=== PATIENT | female | born 1960 | race Caucasian/White ===

== ENCOUNTER 2023-09-02 19:52 | Outpatient (OUT) | payer MEDICARE, MEDICAID, SELFPAY | END 2023-09-02 19:53 | disposition home or self-care (01) | LOC: SLEEP 19:52 | PROVIDERS: PCP Physician Assistant; Visit Provider Physician Assistant | DX: G47.33 Obstructive sleep apnea (adult) (pediatric) (principal) | CPT/HCPCS: 95810 ==

== ENCOUNTER 2023-09-16 14:31 | Outpatient (OUT) | payer MEDICARE, MEDICAID, SELFPAY ==
--- NOTE | 2023-09-16 14:38 | XR_ITS ---
The [address] [address] Patient Name: MARÍA CABALLERO MRN: [id number] date: 1960 Sex: F Assigned Patient Location: [facility] Current Patient Location: Accession/Order Number: [id number] Exam Date: 09/16/2023 15:01 Report Date: 09/17/2023 08:20 At the request of: ARIN GUZMAN Procedure: XR knee RT 4V PROCEDURE: XR knee RT 4V HISTORY: acute pain of right knee M25.561 ; medial right knee pain since falling 2 weeks ago COMPARISON: None. FINDINGS: BONES:Thin curvilinear lucency projecting over the medial tibial plateau on the final image is seen projecting within the joint space on the second image suggesting this is air/gas within the joint space or meniscus rather than a fracture line within the medial plateau. Small periarticular degenerative osteophytes involving the anterior and medial compartments. No significant joint space narrowing. SOFT TISSUES:No visible soft tissue swelling. EFFUSION:None visible. OTHER: Negative. XR/XR knee RT 4V IMPRESSION: 1. Suspect air/gas within the medial joint space or meniscus likely secondary to soft tissue injury. A tibial plateau fracture is felt less likely. MRI is recommended for further evaluation. Electronically authenticated by: KRYSTEN NELSON Date: 09/17/2023 08:20
== END 2023-09-16 14:32 | disposition home or self-care (01) ==
LOC: RAD 14:32
PROVIDERS: PCP Physician Assistant; Visit Provider Physician Assistant
DX: M25.561 Pain in right knee (principal)
CPT/HCPCS: 73564

== ENCOUNTER 2023-09-23 20:51 | Outpatient (OUT) | payer MEDICARE, MEDICAID, SELFPAY | END 2023-09-23 20:52 | disposition home or self-care (01) | LOC: SLEEP 20:52 | PROVIDERS: PCP Physician Assistant; Visit Provider Physician Assistant | DX: G47.33 Obstructive sleep apnea (adult) (pediatric) (principal) | CPT/HCPCS: 95811 ==

== ENCOUNTER 2023-09-28 13:34 | Outpatient (OUT) | payer MEDICARE, MEDICAID, SELFPAY ==
--- NOTE | 2023-09-28 13:45 | MR_ITS ---
[address] [address] Patient Name: MARÍA CABALLERO MRN: [facility]:[id number] date: 1960 Sex: F Assigned Patient Location: MRI Current Patient Location: Accession/Order Number: [id number] Exam Date: 09/28/2023 13:55 Report Date: 09/29/2023 06:02 At the request of: ELIO OWENS Procedure: MR knee RT wo con EXAMINATION: MR knee RT wo con HISTORY: Abnormal X Ray Of Knee R93.6 COMPARISON: XR knee right 09/16/2023 TECHNIQUE: A complete multi-planar MRI was performed. FINDINGS: MEDIAL COMPARTMENT MEDIAL MENISCUS: Radial tear of the posterior horn. CARTILAGE: No visible defect. BONES: Prominent subchondral edema within the posterior and lateral aspect of the tibial plateau without visible cortical disruption. MCL AND MEDIAL CAPSULE: Normal medial collateral ligament and medial capsule. LATERAL COMPARTMENT LATERAL MENISCUS: No visible tear or significant degeneration. CARTILAGE: No visible defect. BONES: No marrow pathology, fracture, or significant arthropathy. LCL/POSTEROLAT COMPLEX: Normal lateral collateral ligament, fascicles, lateral capsule and ligaments. ANTERIOR COMPARTMENT PATELLA: No marrow pathology, fracture, or significant arthropathy. CARTILAGE: Small focal area of cortical thinning involving lateral patella facet. TENDONS: Normal. EFFUSION: None. No synovitis or loose bodies. ACL: Normal appearing ligament. PCL: Normal appearing ligament. MENISCOFEMORAL: Normal meniscofemoral ligaments. OTHER: Negative. MR/MR knee RT wo con IMPRESSION: 1. Radial tear of posterior horn the medial meniscus. 2. Prominent bone bruising of medial tibial plateau. No appreciable fracture. 3. 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 Electronically authenticated by: KRYSTEN NELSON Date: 09/29/2023 06:02
== END 2023-09-28 13:35 | disposition home or self-care (01) ==
LOC: MRI 13:37
PROVIDERS: PCP Physician Assistant; Visit Provider Family Medicine
DX: R93.6 Abnormal findings on diagnostic imaging of limbs (principal); S83.241A Other tear of medial meniscus, current injury, right knee, initial encounter; M22.41 Chondromalacia patellae, right knee
CPT/HCPCS: 73721

== ENCOUNTER 2024-03-30 14:24 | Emergency (ER) | payer MEDICARE, MEDICAID, SELFPAY ==
[2024-03-30 14:30] VITALS: BP 113/57; PULSE 78; TEMP 36.9; O2SAT 98; BMI 37.8
--- NOTE | 2024-03-30 14:41 | ED_ITS ---
HPI - Epistaxis General Chief Complaint: Epistaxis Stated Complaint: NOSE BLEED Time Seen by Provider: 03/30/24 14:42 Source: patient Mode of arrival: walk-in History of Present Illness HPI Narrative: Patient is a 63-year-old female who presents to the emergency department with concern for intermittent nosebleeds over the last week. She reports 4 nosebleeds always from the left nostril. She denies any mechanism of injury or trauma. She takes no blood thinners. She denies any significant upper respiratory symptoms. Her daughter was concerned that she has a sinus infection which is causing the nosebleeds. No medications taken prior to arrival. She has no active bleeding at time of arrival to the ER. Related Data Home Medications ?Medication ?Instructions ?Recorded ?Confirmed aripiprazole 30 mg tablet 30 mg PO .QD 03/30/24 03/30/24 baclofen 10 mg tablet 10 mg PO .QD PRN FOR MUSCLE SPASMS 03/30/24 03/30/24 buspirone 10 mg tablet 10 mg PO BID 03/30/24 03/30/24 colesevelam 625 mg tablet 1,250 mg PO BID 03/30/24 03/30/24 dicyclomine 20 mg tablet 20 mg PO TID 03/30/24 03/30/24 gemfibrozil 600 mg tablet 600 mg PO BID 03/30/24 03/30/24 loperamide 2 mg capsule 2 mg PO Q6H PRN loose stool 03/30/24 03/30/24 metformin 500 mg tablet 500 mg PO BIDWM 03/30/24 03/30/24 pantoprazole 40 mg tablet,delayed 40 mg PO .QD 03/30/24 03/30/24 release sertraline 100 mg tablet 200 mg PO Q24H 03/30/24 03/30/24 trazodone 100 mg tablet 200 mg PO .QHS 03/30/24 03/30/24 Previous Rx's ?Medication ?Instructions ?Recorded amoxicillin 875 mg-potassium 1 tab PO BID #14 tabs 03/30/24 clavulanate 125 mg tablet Allergies Allergy/AdvReac Type Severity Reaction Status Date / Time sulfamethoxazole (From Allergy Mild Rash Verified 03/30/24 14:28 Bactrim) trimethoprim (From Bactrim) Allergy Mild Rash Verified 03/30/24 14:28 Review of Systems ROS Constitutional Denies: fever or chills Ears, nose, mouth, and throat Reports: nose bleeds; Denies: throat pain or nasal congestion Cardiovascular Denies: chest pain Respiratory Denies: shortness of breath or cough Gastrointestinal Denies: nausea or vomiting Musculoskeletal Denies: back pain Integumentary/Breast Denies: rash Neurological Denies: numbness in extremities or weakness in extremities Hematologic/Lymphatic Denies: easy bruising or easy bleeding PFSH PFSH Social History Little interest or pleasure in doing things: not at all Feeling down, depressed, or hopeless: not at all Exam Narrative Exam Narrative: Gen.: Awake, alert, in no distress Head: Normocephalic, atraumatic ENT: Moist mucous membranes left nostril with dried blood, no active bleeding Respiratory: No respiratory distress Extremities: Moves extremities equally Psych: Normal mood and affect Neuro: No focal neuro deficit Skin: Warm, dry, intact Constitutional Vital Signs, click to edit/add: Last Vital Signs Temp 98.5 F 03/30/24 14:30 Pulse 78 03/30/24 14:30 Resp 18 03/30/24 14:30 BP 113/57 03/30/24 14:30 Pulse Ox 98 03/30/24 14:30 O2 Del Method Room Air 03/30/24 14:30 Course Vital Signs Vital signs: Vital Signs Temperature 98.5 F 03/30/24 14:30 Pulse Rate 78 03/30/24 14:30 Respiratory Rate 18 03/30/24 14:30 Blood Pressure 113/57 03/30/24 14:30 Pulse Oximetry 98 03/30/24 14:30 Oxygen Delivery Method Room Air 03/30/24 14:30 Temperature 98.5 F 03/30/24 14:30 Pulse Rate 78 03/30/24 14:30 Respiratory Rate 18 03/30/24 14:30 Blood Pressure 113/57 03/30/24 14:30 Pulse Oximetry 98 03/30/24 14:30 Oxygen Delivery Method Room Air 03/30/24 14:30 MDM - Epistaxis MDM Narrative Medical decision making narrative: This patient has stable vital signs, no evidence of active bleeding and lab studies show normal white blood cell count, normal hemoglobin and platelet count as well as normal bleeding times. She was given education to use topical Vaseline or antibiotic ointment in the left nostril, follow-up with ENT. Daughter expresses concern that the patient may have a sinus infection and she is placed on antibiotics although at this time she has no physical exam findings worrisome for significant infection. Return to the ER if symptoms change or worsen SUPERVISED APC VISIT, PHYSICIAN ATTESTATION: Based on the medical record the care appears appropriate. ? Medical Records Attestation: I reviewed the patient's medical records. Lab Data Attestation: I reviewed the patient's lab results. Labs: Lab Results 03/30/24 Range/Units 14:49 WBC 7.4 (4.0-11.0) 10^3/uL RBC 4.54 (4.20-5.40) 10^6/uL Hgb 12.4 (12.0-16.0) g/dL Hct 39.2 (36.0-48.0) % MCV 86.3 (81.0-99.0) fL MCH 27.3 (26.7-34.0) pg MCHC 31.6 (29.9-35.2) g/dL RDW 14.6 (11.0-15.0) % Plt Count 232 (150-450) 10^3/uL MPV 9.9 (9.5-13.5) fL Neut % (Auto) 69.3 (43.0-75.0) % Lymph % (Auto) 21.4 (20.5-60.0) % Davison % (Auto) 7.2 (1.7-12.0) % Eos % (Auto) 1.5 (0.9-7.0) % Baso % (Auto) 0.5 (0.2-2.0) % Neut # (Auto) 5.1 (1.4-6.5) 10^3/uL Lymph # (Auto) 1.6 (1.2-3.8) 10^3/uL Davison # (Auto) 0.5 (0.3-0.8) 10^3/uL Eos # (Auto) 0.1 (0.0-0.7) 10^3/uL Baso # (Auto) 0.0 (0.0-0.1) 10^3/uL Abs Immat Gran (auto) 0.01 (0.00-0.03) 10^3/uL Imm/Tot Granulo (auto) 0.1 (0.0-0.5) % PT 10.9 (9.0-11.6) sec INR 1.03 Discharge Plan Discharge Chief Complaint: Epistaxis Clinical Impression: Epistaxis Patient Disposition: Home, Self-Care Time of Disposition Decision: 15:16 Condition: Good Prescriptions / Home Meds: New amoxicillin-pot clavulanate 875-125 mg tablet 1 tab PO BID Qty: 14 0RF No Action metformin 500 mg tablet 500 mg PO BIDWM loperamide 2 mg capsule 2 mg PO Q6H PRN (Reason: loose stool) sertraline 100 mg tablet 200 mg PO Q24H trazodone 100 mg tablet 200 mg PO .QHS dicyclomine 20 mg tablet 20 mg PO TID colesevelam 625 mg tablet 1,250 mg PO BID baclofen 10 mg tablet 10 mg PO .QD PRN (Reason: FOR MUSCLE SPASMS) gemfibrozil 600 mg tablet 600 mg PO BID pantoprazole 40 mg tablet,delayed release (DR/EC) 40 mg PO .QD buspirone 10 mg tablet 10 mg PO BID aripiprazole 30 mg tablet 30 mg PO .QD Print Language: Irish Instructions: Nosebleed (ED) Additional Instructions: Use afrin as needed over the counter; lubricate the left nostril with vaseline or antibiotic ointment for comfort Your lab studies are all within normal limits, no signs of infection, anemia or abnormal bleeding Referrals: Arlette Castaneda MD [Physician] - As needed ARIN GUZMAN [Primary Care Provider] - 1 week
--- NOTE | 2024-03-30 14:50 | PC.NURSE ---
lab at bedside for lab draw at this time.
[2024-03-30 14:58] LABS: Basophils Percent Auto 0.5 % (0.2-2.0); Eosinophils Absolute Auto 0.1 10^3/uL (0.0-0.7); Eosinophils Percent Auto 1.5 % (0.9-7.0); Hematocrit 39.2 % (36.0-48.0); Hemoglobin 12.4 g/dL (12.0-16.0); Immature Granulocytes Abs Auto 0.01 10^3/uL (0.00-0.03); Immature Granulocytes Pct Auto 0.1 % (0.0-0.5); Lymphocytes Absolute Auto 1.6 10^3/uL (1.2-3.8); Lymphocytes Percent Auto 21.4 % (20.5-60.0); Mean Corpuscular HGB Conc 31.6 g/dL (29.9-35.2); Mean Corpuscular Hemoglobin 27.3 pg (26.7-34.0); Mean Corpuscular Volume 86.3 fL (81.0-99.0); Mean Platelet Volume 9.9 fL (9.5-13.5); Monocytes Absolute Auto 0.5 10^3/uL (0.3-0.8); Monocytes Percent Auto 7.2 % (1.7-12.0); Neutrophils Absolute Auto 5.1 10^3/uL (1.4-6.5); Neutrophils Percent Auto 69.3 % (43.0-75.0); Platelet Count 232 10^3/uL (150-450); Red Blood Count 4.54 10^6/uL (4.20-5.40); Red Cell Distribution Width 14.6 % (11.0-15.0); White Blood Count 7.4 10^3/uL (4.0-11.0)
[2024-03-30 15:09] LABS: INR 1.03; Prothrombin Time 10.9 sec (9.0-11.6)
== END 2024-03-30 15:26 | disposition home or self-care (01) ==
PROVIDERS: Physician Assistant; Emergency Provider Emergency Medicine Emergency Medical Services; PCP Physician Assistant
DX: R04.0 Epistaxis (principal)
CPT/HCPCS: 36415; 85025; 85610; 99283

== ENCOUNTER 2024-07-15 13:20 | Outpatient (OUT) | payer MEDICARE, MEDICAID, SELFPAY ==
--- NOTE | 2024-07-15 13:29 | XR_ITS ---
The [address] [address] Patient Name: MARÍA CABALLERO MRN: [id number] date: 1960 Sex: F Assigned Patient Location: [facility] Current Patient Location: [facility] Accession/Order Number: [id number] Exam Date: 07/15/2024 13:33 Report Date: 07/15/2024 18:31 At the request of: ARIN GUZMAN Procedure: XR hip ARIE EXAMINATION: XR hip ARIE HISTORY: Bilateral Hip Pain COMPARISON: No relevant comparison available. FINDINGS: RIGHT FINDINGS: BONES: Mild narrowing of the joint space. Small degenerative osteophyte along the superior rim of the acetabulum. No fracture, dislocation, or bone lesion. SOFT TISSUES: No visible soft tissue swelling. OTHER: Negative. LEFT FINDINGS: BONES: Mild narrowing of the joint space. Degenerative osteophyte along the superior rim of the acetabulum. Osseous changes along lateral margin of greater trochanter; likely sequela of remote injury. No acute fracture, dislocation, bone lesion. SOFT TISSUES: No visible soft tissue swelling. OTHER: Negative. XR/XR hip ARIE IMPRESSION: RIGHT CONCLUSION: Mild degenerative joint disease. LEFT CONCLUSION: Mild degenerative joint disease. Electronically authenticated by: KRYSTEN NELSON Date: 07/15/2024 18:31
== END 2024-07-15 13:21 | disposition home or self-care (01) ==
LOC: RAD 13:24
PROVIDERS: PCP Physician Assistant; Visit Provider Physician Assistant
DX: M25.551 Pain in right hip (principal); M25.552 Pain in left hip; M16.0 Bilateral primary osteoarthritis of hip
CPT/HCPCS: 73522

== ENCOUNTER 2024-11-08 20:57 | Outpatient (OUT) | payer MEDICARE, MEDICAID, SELFPAY ==
--- OUTSIDE RECORDS SUMMARY | 2024-11-08 21:04 | XMS_ITS | CCD ---
Author Organization [facility] Care Team Providers Care Building Manager Name Role Phone KAILYN, MAURICE Unavailable Unavailable NAVRATIL, MAURICE Unavailable Unavailable HEMMER, MORIAH M Unavailable Unavailable NAVRATIL, MAURICE Unavailable Unavailable NAVRATIL, MAURICE Unavailable Unavailable HEMMER, MORIAH M Unavailable Unavailable NAVRATIL, MAURICE Unavailable Unavailable NAVRATIL, MAURICE Unavailable Unavailable HEMMER, MORIAH M Unavailable Unavailable Shine, Krysten Unavailable Unavailable Shine, Krysten Unavailable Unavailable Shine, Krysten Unavailable Unavailable HEMMER, MORIAH Unavailable Unavailable Shine, Krysten Unavailable Unavailable Shine, Krysten Unavailable Unavailable Shine, Krysten Unavailable Unavailable HEMMER, MORIAH Unavailable Unavailable Yon Bella Unavailable HEMMER, DR MORIAH Hodgson Admitting Unavailable WEST, DR FEMI Ayoub Consulting Unavailable HEMMER, DR MORIAH Hodgson Attending Unavailable GRACIELA, DR BALLARD Primary Care Unavailable HEMMER, DR MORIAH Hodgson Consulting Unavailable GRACIELA, DR BALLARD Consulting Unavailable GRACIELA, DR BALLARD Primary Care Unavailable GRACIELA, DR BALLARD Admitting Unavailable GRACIELA, DR BALLARD Attending Unavailable WEST, DR FEMI Ayoub Consulting Unavailable JIE VELAZQUEZ Attending Unavailable MARCUSJIE Consulting Unavailable JIE VELAZQUEZ Admitting Unavailable GRACIELA, DR BALLARD Attending Unavailable GRACIELA, DR BALLARD Consulting Unavailable GRACIELA, DR BALLARD Primary Care Unavailable GRACIELA, DR BALLARD Admitting Unavailable ZIEBER, DR KRYSTEN Polanco Consulting Unavailable Elio Owens MD Primary Care Provider MARILIA SHANKAR Referring Unavailable MORIAH GUZMAN Primary Care Unavailable MARILIA SHANKAR Attending Unavailable MARILIA SHANKAR Referring Unavailable MORIAH GUZMAN Primary Care Unavailable MARILIA HSANKAR Admitting Unavailable MARILIA SHANKAR Attending Unavailable MARILIA SHANKAR Referring Unavailable MORIAH GUZMAN Primary Care Unavailable FEMI FOLEY Attending Unavailable MORIAH GUZMAN Primary Care Unavailable Sterling Kumar MD Unavailable MORIAH GUZMAN Attending Unavailable MORIAH GUZMAN Attending Unavailable MORIAH GUZMAN Attending Unavailable RODGER TORIBIO Attending Unavailable RODGER TORIBIO Attending Unavailable MORIAH GUZMAN Attending Unavailable MORIAH GUZMAN Attending Unavailable HEATHER MOSCOSO Attending Unavailable MORIAH GUZMAN Referring Unavailable Veronica Hever Attending Unavailab le Veronica Hever Admitting Unavailab le NON STAFF Primary Care Unavailable Allergies Allergy Classification Reported Allergen(s) Allergy Type Date of Onset Reaction(s) Facility (2 sources) acetaminophen / HYDROcodone; Translations: [Vicodin] Drug Allergy [facility] Repository (3 sources) sulfamethoxazole / trimethoprim; Translations: [Bactrim] Drug Allergy [facility] Repository (3 sources) Sulfamethoxazole / Trimethoprim Drug Allergy Unknown [facility] Other (1 source) Sulfamethoxazole / Trimethoprim Drug Allergy 08-07-19 14 [facility] Repository (18 sources) Sulfamethoxazole Allergy to substance 01-04-[address] [facility] [employer] Work Phone: (1 source) Sulfamethoxazole / Trimethoprim; Translations: [SULFAMETHOXAZOLE-TR IMETHOPRIM] Drug Allergy 11-16-19 16 [facility] Repository (17 sources) Trimethoprim Drug Allergy 09-14-19 24 [facility] (1 source) Sulfamethoxazole Drug Allergy 09-14-19 24 [facility] Repository (1 source) Trimethoprim Drug Allergy 09-14-19 24 [facility] Repository Medications Current Medications Medication Drug Class(es) Dates Sig (Normalized) Sig (Original) acetaminophen 325 mg oral tablet (18 sources) take 1 tablet by mouth every four hours as needed for pain acetaminophen (Tylenol) 325 MG tablet Take 1 tablet by mouth every 4 (four) hours if needed for mild pain. Active amoxicillin 875 mg / clavulanate 125 mg oral tablet (3 sources) Penicillin-class Antibacterial Start: 03-30-2024 End: 04-06-2024 take 1 tablet by mouth in the morning amoxicillin-clavul anate (Augmentin) 875-125 MG tablet Take 1 tablet by mouth in the morning and 1 tablet before bedtime. 03/30/2024 04/06/2024 Active ARIPiprazole 30 mg oral tablet (20 sources) Atypical Antipsychotic take 1 tablet by mouth once daily Abilify 30 MG tablet Take 1 tablet by mouth 1 (one) time each day at the same time. Active ARIPiprazole Act georgi colesevelam hydrochloride 625 mg oral tablet (17 sources) Bile Acid Sequestrant Start: 09-14-2023 take 1 tablet by mouth in the morning colesevelam (Welchol) 625 MG tablet Take 1 tablet by mouth in the morning and 1 tablet in the evening. Take with meals. 09/14/2023 Active Fish Oils (19 sources) take 1 capsule by mouth every twelve hours omega-3 (Fish Oil) 1200 MG capsule Take 1 capsule by mouth every 12 (twelve) hours. Active take 1 capsule by mo [facility] every twelve hours omega-3 (Fish Oil) 1200 MG capsule Take 1 capsule by mouth every 12 (twelve) hours. 0 Active Fish Oil Active fluconazole 150 mg oral tablet (2 sources) Azole Antifungal Start: 04-04-2024 End: 04-05-2024 fluconazole (Diflucan) 150 MG tablet Indications: Candidiasis Take 1 tablet (150 mg) by mouth Daily for 1 day, THEN 1 tablet (150 mg) Daily for 1 day. Take doses 3 days apart. 2 tablet 04/04/2024 04/05/2024 Active gemfibrozil 600 mg oral tablet (20 sources) Peroxisome Proliferator Receptor alpha Agonist Start: 11-06-2023 take 1 tablet by mouth twice daily gemfibrozil (Lopid) 600 MG tablet Indications: Mixed hyperlipidemia (CMS/HCC) TAKE 1 TABLET BY MOUTH TWICE A DAY 200 tablet 3 11/06/2023 Active gemfibrozil (Lop id) 600 MG tablet Take 600 tablets by mouth every 12 (twelve) hours. 0 Active take 1 tablet by chris every twelve hours Gemfibrozil 600 MG 1 tablet Orally Twice a day Active loperamide hydrochloride 2 mg oral capsule (20 sources) Opioid Agonist Start: 09-14-2023 take 1 capsule by mouth four times daily as needed loperamide (Imodium) 2 MG capsule Take 2 mg by mouth 4 (four) times a day as needed 09/14/2023 Active Start: 08-13-2016 take 1 tablet by chris th once as needed Imodium A-D 2 MG 1 tablet Orally prn for 30 days Jul, Active Start: 08-13-2016 take 1 tablet by chris th twice daily as needed Imodium A-D 2 MG 1 tablet Orally bid prn for 30 day(s) Jul, Active meloxicam 15 mg oral tablet (3 sources) Nonsteroidal Anti-inflammatory Drug take 1 tablet by mouth every twenty-four hours Meloxicam 15 MG 1 tablet Orally Once a day Active metFORMIN hydrochloride 500 mg oral tablet (20 sources) Biguanide Start: take 1 tablet by mouth twice daily at mealtime metFORMIN (Glucophage) 500 MG tablet Indications: Type 2 diabetes mellitus with diabetic cataract (CMS/HCC) TAKE 1 TABLET BY MOUTH TWICE A DAY WITH A MEAL 200 tablet 3 11/06/2023 Active take 1 tablet by chris th every twelve hours metFORMIN (Glucophage) 500 MG tablet Camron e 1 tablet by mouth every 12 (twelve) hours. 0 Active take 1 tablet by chris th every twelve hours metFORMIN HCl 500 MG 1 tablet with meals Orally Twice a day Active Mirtazapine (3 sources) Mirtazapine Acti ve Multiple Vitamin (MULTIVITAMINS PO) (18 sources) take 1 tablet by chris th once daily Multiple Vitamin (MULTIVITAMINS PO) Take 1 tablet by mouth 1 (one) time each day at the same time. Active take 1 tablet by mouth once juan carlos y Multiple Vitamin (MULTIVITAMINS PO) Take 1 tablet by mouth 1 (one) time each day at the same time. 0 Active Multivitamin preparation (1 source) Multivitamin Act georgi pantoprazole 40 mg delayed release oral tablet (20 sources) Proton Pump Inhibitor Start: take 1 tablet by mouth once daily pantoprazole (ProtoNix) 40 MG EC tablet Indications: GERD without esophagitis TAKE 1 TABLET BY MOUTH EVERY DAY 90 tablet 3 02/02/2024 Active Start: 03-24-2023 take 1 tablet by chris th before mealtime pantoprazole (ProtoNix) 40 MG EC tablet Indications: GERD without esophagitis Take 1 tablet (40 mg) by mouth in the morning. Take before meals. 100 tablet 3 03/24/2023 Active take 1 tablet by chris th every twenty-four hours Pantoprazole Sodium 40 MG 1 tablet Orally Once a day Active predniSONE 10 mg oral tablet (5 sources) Start: 10-11-2024 End: 10-20-2024 take 1 tablet by mouth three times daily, then take 1 tablet by mouth twice daily, then take 1 tablet by mouth once daily predniSONE (Deltasone) 10 MG tablet Indications: Arthropathy of left sacroiliac joint Take 1 tablet (10 mg) by mouth 3 (three) times a day for 3 days, THEN 1 tablet (10 mg) 2 (two) times a day for 3 days, THEN 1 tablet (10 mg) Daily for 3 days. 18 tablet 10/11/2024 10/20/2024 Active Start: 09-21-2024 End: 09-30-2024 take 1 tablet by mouth three times daily, then take 1 tablet by mouth twice daily, then take 1 tablet by mouth once daily predniSONE (Deltasone) 10 MG tablet Indications: Arthropathy of left sacroiliac joint Take 1 tablet (10 mg) by mouth 3 (three) times a day for 3 days, THEN 1 tablet (10 mg) 2 (two) times a day for 3 days, THEN 1 tablet (10 mg) Daily for 3 days. 18 tablet 09/21/2024 09/30/2024 Active pregabalin 75 mg oral capsule (3 sources) take 1 capsule by mouth every twenty-four hours Lyrica 75 MG 1 capsule Orally Once a day Active [id number] Vac Recomb Adjuvanted (Arexvy) 120 MCG/0.5ML reconstituted suspension (2 sources) Start: 07-11-19 End: 07-11-19 [id number] Vac Recomb Adjuvanted (Arexvy) 120 MCG/0.5ML reconstituted suspension Indications: Need for vaccination Inject 120 mcg into the shoulder, thigh, or buttocks 1 time for 1 dose 1 each 07/11/2024 07/11/2024 Active sertraline 100 mg oral tablet (20 sources) Serotonin Reuptake Inhibitor take 2 tablets by mouth once daily Zoloft 100 MG tablet Take 2 tablets by mouth 1 (one) time each day at the same time. Active take 1 tablet by chris th every twenty-four hours Sertraline HCl 100 MG 1 tablet Orally Once a day Active tiZANidine 4 mg oral tablet (3 sources) Central alpha-2 Adrenergic Agonist Start: 10-11-2024 End: 10-25-2024 tiZANidine (Zanaflex) 4 MG tablet Indications: Arthropathy of left sacroiliac joint Take 1 tablet (4 mg) by mouth as needed at bedtime for muscle spasms for up to 14 days 14 tablet 10/11/2024 10/25/2024 Active traZODone hydrochloride 100 mg oral tablet (20 sources) Serotonin Reuptake Inhibitor Start: 03-19-2023 take 2 tablets by mouth at bedtime traZODone (Desyrel) 100 MG tablet Take 2 tablets by mouth at bedtime. 03/19/2023 Active take 2 tablets by mouth at bedti me traZODone HCl 100 MG 2 tablets Orally at bedtime Active traZODone HCl Ac tive 24 hr venlafaxine 75 mg extended release oral capsule (6 sources) Serotonin and Norepinephrine Reuptake Inhibitor Start: 09-20-2024 venlafaxine XR (Effexor XR) 75 MG 24 hr capsule 09/20/2024 Active Vitamin D 57910 UNIT (3 sources) take 1 capsule by mouth once daily Vitamin D 59334 UNIT 1 capsule Orally Once a day Active Completed/Discontinued Medications Medication Drug Class(es) Dates Sig (Normalized) Sig (Original) baclofen 20 mg oral tablet (19 sources) gamma-Aminobutyri c Acid-ergic Agonist Start: 08-02-2024 End: 10-11-2024 baclofen (Lioresal) 20 MG tablet Indications: Myalgia TAKE 1 TABLET BY MOUTH NEEDED AT BEDTIME FOR MUSCLE SPASMS 100 tablet 3 08/02/2024 10/11/2024 Discontinued (Ineffective) Start: 07-11-2024 baclofen (Edmundo esal) 20 MG tablet Indications: Myalgia Take 1 tablet (20 mg) by mouth as needed at bedtime for muscle spasms 30 tablet 2 07/11/2024 Active Start: 04-22-2024 End: 07-11-2024 take 1 tablet by mouth once daily as needed baclofen (Lioresal) 10 MG tablet Indications: Myalgia TAKE 1 TABLET BY MOUTH ONCE A DAY AT THE SAME TIME NEEDED 100 tablet 1 04/22/2024 07/11/2024 Discontinued (Reorder) Start: 10-08-2023 take 1 tablet by chris th once daily as needed baclofen (Lioresal) 10 MG tablet Indications: Myalgia TAKE 1 TABLET BY MOUTH ONCE A DAY AT THE SAME TIME NEEDED 100 tablet 1 10/08/2023 Active Start: 03-24-2023 take 1 tablet by chris th once daily as needed baclofen (Lioresal) 10 MG tablet Indications: Myalgia Take 1 tablet (10 mg) by mouth 1 (one) time each day at the same time. PRN 100 tablet 1 03/24/2023 Active busPIRone hydrochloride 10 mg oral tablet (15 sources) Start: 03-19-2023 End: 09-21-2024 take 1 tablet by mouth in the morning busPIRone (Buspar) 10 MG tablet Take 1 tablet by mouth in the morning and 1 tablet before bedtime. 03/19/2023 09/21/2024 Discontinued (Other) take 1 tablet by chris every twelve hours busPIRone HCl 10 MG 1 tablet Orally Twic e a day Active Calcium Carbonate (3 sources) End: 04-04-2024 take 1 tablet by mouth once daily Calcium Carbonate (CALCIUM 500 PO) Take 1 tablet by mouth 1 (one) time each day at the same time. 04/04/2024 Discontinued take 1 tablet by mouth once juan carlos y Calcium Carbonate (CALCIUM 500 PO) Take 1 tablet by mouth 1 (one) time each day at the same time. 0 Active colestipol hydrochloride 1000 mg oral tablet (7 sources) Bile Acid Sequestrant Start: 03-10-2023 End: 04-04-2024 take 2 tablets by mouth once daily colestipol (Colestid) 1 g tablet Take 2 tablets by mouth 1 (one) time each day. 03/10/2023 04/04/2024 Discontinued (Ineffective) Start: 03-10-2023 take 2 tablets by mo [facility] every twenty-four hours Colestipol HCl 1 GM 2 tablets Orally Once a day for 90 days Mar, Active Start: 01-25-2021 take 3 tablets by mouth once d aily Colestipol HCl 1 GM 3 TABS Orally Once a day for 90 days Dec, Active Start: 01-25-2021 dicyclomine hydrochloride 20 mg oral tablet (6 sources) Anticholinergic Start: 08-21-2023 End: 04-19-2024 take 1 tablet by mouth in the morning, then take 1 tablet by mouth in the evening, then take 1 tablet by mouth at bedtime dicyclomine (Bentyl) 20 MG tablet Take 20 mg by mouth in the morning and 20 mg in the evening and 20 mg before bedtime. 08/21/2023 04/19/2024 Discontinued (Therapy completed) ferrous sulfate 325 mg oral tablet (20 sources) Start: 10-19-2023 End: 10-11-2024 take 1 tablet by mouth at mealtime ferrous sulfate 325 (65 Fe) MG tablet Indications: Iron deficiency anemia, unspecified iron deficiency anemia type Take 1 tablet (325 mg) by mouth in the morning. Take with meals. With food. 10/19/2023 10/11/2024 Discontinued (Other) Start: 03-24-2023 take 1 tablet by chris th at mealtime ferrous sulfate 325 (65 Fe) MG tablet Indications: Iron deficiency anemia, unspecified iron deficiency anemia type Take 1 tablet (325 mg) by mouth in the morning. Take with meals. With food. 100 tablet 3 03/24/2023 Active take 1 tablet by chris th every twenty-four hours Ferrous Sulfate 325 (65 Fe) MG 1 tablet Orally Once a day Active mupirocin 0.02 mg/mg topical ointment (5 sources) RNA Synthetase Inhibitor Antibacterial Start: 04-19-2024 End: 07-11-2024 mupirocin (Bactroban) 2 % ointment Indications: Recurrent epistaxis Apply to left nose twice daily for 2 weeks 15 g 1 04/19/2024 07/11/2024 Discontinued (Other) nystatin 100 unt/mg topical powder (3 sources) Polyene Antifungal Start: 03-24-2023 End: 04-04-2024 nystatin (Mycostatin) 801049 UNIT/GM powder Indications: Candidiasis Apply topically 2 (two) times a day. 30 g 1 03/24/2023 04/04/2024 Discontinued (Therapy completed) Problems Active Problems Problem Classification Problem Date Documented Da te Episodic/Chronic Abdominal pain (4 sources) Abdominal pain; Translations: [Unspecified abdominal pain] Episodic Administrative/social admission (2 sources) Patient encounter status; Translations: [Other specified counseling] 07-11-2024 Episodic Cataract (20 sources) Bilateral cataracts; Translations: [Unspecified cataract] Onset: 3 03-18-2023 Chronic Diabetes mellitus with complications (20 sources) Cataract due to diabetes mellitus type 2; Translations: [Type 2 diabetes mellitus with diabetic cataract] Onset: 3 03-18-2023 Chronic Disorders of lipid metabolism (20 sources) Mixed hyperlipidemia; Translations: [Mixed hyperlipidemia] Onset: 3 03-18-2023 Chronic Esophageal disorders (20 sources) Gastroesophageal reflux disease; Translations: [Gastro-esophageal reflux disease without esophagitis] Onset: 3 03-18-2023 Chronic Glaucoma (20 sources) Open-angle glaucoma; Translations: [Unspecified open-angle glaucoma, mild stage] Onset: 3 03-18-2023 Chronic Heart valve disorders (20 sources) Mitral valve regurgitation; Translations: [Nonrheumatic mitral (valve) insufficiency] Onset: 3 03-18-2023 Chronic Immunizations and screening for infectious disease (4 sources) Vaccination needed; Translations: [Encounter for immunization] 04-04-2024 Episodic Miscellaneous mental health disorders (2 sources) Primary insomnia; Translations: [Primary insomnia] 07-11-2024 Chronic Mood disorders (20 sources) Recurrent major depressive episodes, moderate ; Translations: [Major depressive disorder, recurrent, moderate] Onset: 3 Resolved: 4 03-18-2023 Chronic Mycoses (2 sources) Candidiasis; Translations: [Candidiasis, unspecified] 04-04-2024 Episodic Nutritional deficiencies (20 sources) Vitamin D deficiency; Translations: [Vitamin D deficiency, unspecified] Onset: 3 03-18-2023 Chronic Osteoarthritis (20 sources) Osteoarthritis of joint right ankle; Translations: [Primary osteoarthritis, right ankle and foot] Onset: 2 03-24-2023 Chronic Other and ill-defined heart disease (20 sources) Heart disease; Translations: [Heart disease, unspecified] Onset: 3 03-18-2023 Chronic Other and unspecified benign neoplasm (2 sources) Hemangioma of skin; Translations: [Hemangioma of skin and subcutaneous tissue] 07-11-2024 Episodic Other gastrointestinal disorders (20 sources) Irritable bowel syndrome; Translations: [Irritable bowel syndrome without diarrhea] Onset: 3 03-18-2023 Chronic Other gastrointestinal disorders (4 sources) Irritable bowel syndrome with diarrhea; Translations: [Irritable bowel syndrome with diarrhea] Chronic Other gastrointestinal disorders (4 sources) Irritable bowel syndrome with diarrhea Onset: 1 Resolved: 2 Chronic Other gastrointestinal disorders (4 sources) Incontinence of feces; Translations: [Full incontinence of feces] Episodic Other gastrointestinal disorders (4 sources) Diarrhea; Translations: [Diarrhea, unspecified] Episodic Other gastrointestinal disorders (1 source) Change in bowel habit Episodic Other gastrointestinal disorders (1 source) Full incontinence of feces Episodic Other liver diseases (4 sources) Lesion of liver; Translations: [Liver disease, unspecified] Chronic Other liver diseases (20 sources) Steatosis of liver; Translations: [Fatty (change of) liver, not elsewhere classified] Onset: 3 03-18-2023 Chronic Other nervous system disorders (4 sources) Peripheral neurogenic pain; Translations: [Unspecified mononeuropathy of right lower limb] Chronic Other nervous system disorders (20 sources) Meralgia paresthetica; Translations: [Meralgia paresthetica, unspecified lower limb] Onset: 3 03-18-2023 Chronic Other nervous system disorders (20 sources) Chronic pain; Translations: [Other chronic pain] Onset: 3 03-18-2023 Chronic Other nervous system disorders (18 sources) Peripheral nerve disease ; Translations: [Polyneuropathy, unspecified] Onset: 3 03-18-2023 Chronic Other nervous system disorders (2 sources) Polyneuropathy; Translations: [Polyneuropathy, unspecified] 07-11-2024 Chronic Other non-traumatic joint disorders (2 sources) Hip pain; Translations: [Pain in right hip] 07-11-2024 Episodic Other nutritional; endocrine; and metabolic disorders (4 sources) Body mass index 40+ - severely obese; Translations: [Body mass index (BMI) 40.0-44.9, adult] Chronic Other nutritional; endocrine; and metabolic disorders (1 source) Morbid obesity; Translations: [Morbid (severe) obesity due to excess calories] Onset: 3 03-18-2023 Chronic Other nutritional; endocrine; and metabolic disorders (20 sources) Body mass index 30+ - obesity; Translations: [Obesity, unspecified] Onset: 3 03-18-2023 Chronic Other nutritional; endocrine; and metabolic disorders (20 sources) Obesity caused by energy imbalance; Translations: [Morbid (severe) obesity due to excess calories] Onset: 3 10-06-2023 Chronic Other upper respiratory disease (4 sources) Epistaxis; Translations: [Epistaxis] 04-04-2024 Episodic Peripheral and visceral atherosclerosis (20 sources) Atherosclerosis of artery of lower limb; Translations: [Atherosclerosis of [place] arteries of extremities with rest pain, bilateral legs] Onset: 3 03-18-2023 Chronic Residual codes; unclassified (20 sources) Obstructive sleep apnea syndrome; Translations: [Obstructive sleep apnea (adult) (pediatric)] Onset: 3 03-18-2023 Chronic Residual codes; unclassified (1 source) Family history of malignant neoplasm of breast; Translations: [FAMILY HX MALIG NEOPLASM OF BREAST] Onset: 2 Episodic Spondylosis; intervertebral disc disorders; other back problems (20 sources) Spondylosis without myelopathy or radiculopathy, lumbar region; Translations: [Other intervertebral disc degeneration, lumbar region] Onset: 2 Chronic Thyroid disorders (20 sources) Nontoxic multinodular goiter; Translations: [Multinodular goiter] Onset: 1 Chronic Unclassified (1 source) right knee internal derangement Onset: 4 Unclassified (2 sources) Recurrent epistaxis 04-04-2024 Past or Other Problems Problem Classification Problem Date Documented Date Episodic/Chronic Biliary tract disease (18 sources) Cholecystitis without calculus; Translations: [Cholecystitis, unspecified] Onset: 03-18-2023 Resolved: 07-07-2023 03-18-2023 Episodic Blindness and vision defects (20 sources) Myopia; Translations: [Myopia, unspecified eye] Onset: 03-18-2023 03-18-2023 Episodic Conditions associated with dizziness or vertigo (20 sources) Vertigo; Translations: [Dizziness and giddiness] Onset: 03-18-2023 03-18-2023 Episodic Deficiency and other anemia (20 sources) Anemia; Translations: [Anemia, unspecified] Onset: 03-18-2023 03-18-2023 Episodic Diabetes mellitus without complication (19 sources) Type 2 diabetes mellitus without complication; Translations: [Type 2 diabetes mellitus without complications] Onset: 11-11-2017 Resolved: 07-07-2023 03-18-2023 Chronic Essential hypertension (20 sources) Hypertensive disorder; Translations: [Essential (primary) hypertension] Onset: 03-18-2023 Resolved: 07-11-2024 03-18-2023 Chronic Gastritis and duodenitis (20 sources) Gastritis; Translations: [Gastritis, unspecified, without bleeding] Onset: 03-18-2023 03-18-2023 Episodic Mood disorders (17 sources) Mood disorders Onset: 07-07-2023 Resolved: 07-04-2024 07-07-2023 Nonmalignant breast conditions (20 sources) Hyperplasia of mammary duct; Translations: [Unspecified benign mammary dysplasia of unspecified breast] Onset: 09-16-2012 03-24-2023 Episodic Other and unspecified benign neoplasm (18 sources) Hemangioma; Translations: [Hemangioma unspecified site] Onset: 03-18-2023 03-18-2023 Episodic Other circulatory disease (4 sources) Other specified symptoms and signs involving the circulatory and respiratory systems; Translations: [OTH SPEC SX SIGNS INVLV CIRC RS] Onset: 01-21-2021 Episodic Other connective tissue disease (20 sources) Muscle pain; Translations: [Myalgia, unspecified site] Onset: 03-18-2023 03-18-2023 Episodic Other diseases of veins and lymphatics (20 sources) Peripheral venous insufficiency; Translations: [Venous insufficiency (chronic) (peripheral)] Onset: 03-18-2023 03-18-2023 Episodic Other nervous system disorders (20 sources) Paresthesia; Translations: [Paresthesia of skin] Onset: 03-18-2023 03-18-2023 Episodic Other non-traumatic joint disorders (18 sources) Ankle pain; Translations: [Pain in right ankle and joints of right foot] Onset: 01-28-2012 Resolved: 07-11-2024 03-24-2023 Episodic Other non-traumatic joint disorders (17 sources) Pain in right knee; Translations: [Pain in joint, lower leg] Onset: 10-06-2023 Resolved: 07-11-2024 10-06-2023 Episodic Other screening for suspected conditions (not mental disorders or infectious disease) (20 sources) Encounter for screening mammogram for malignant neoplasm of breast; Translations: [Cardiovascular stress test abnormal] Onset: 12-16-2021 Episodic Other skin disorders (20 sources) Hirsutism; Translations: [Hirsutism] Onset: 03-18-2023 03-18-2023 Episodic Residual codes; unclassified (18 sources) Insomnia; Translations: [Insomnia, unspecified] Onset: 03-18-2023 03-18-2023 Episodic Residual codes; unclassified (20 sources) Peripheral edema; Translations: [Edema, unspecified] Onset: 01-28-2012 03-24-2023 Episodic Spondylosis; intervertebral disc disorders; other back problems (18 sources) Sciatica; Translations: [Sciatica, right side] Onset: 03-18-2023 Resolved: 07-11-2024 03-18-2023 Episodic Viral infection (20 sources) Verruca vulgaris; Translations: [Viral wart, unspecified] Onset: 03-18-2023 03-18-2023 Episodic Results Test Name Value Interpretation Reference Range Facility ALBUMIN, RANDOM URINE W/CREA JOANNAon 10-12-2024 ALBUMIN, URINE 0.3 mg/dL Normal See Note: [facility] Comment on above: Result Comment: Reference Range: Reference Range Not established Performed By: #### 6 [id number] #### [facility] [address], [address] [place], [place] [id number] Geriatric Social Work Professor: Bill Lucero MD ALBUMIN/CREATINI NE RATIO, RANDOM URINE 2 mg/g creat Normal <30 [facility] Comment on above: Result Comment: The ADA defines abnormalities in albumin excretion as follows: Albuminuria Category Result (mg/g creatinine) Normal to Mildly increased <30 Moderately increased 30-299 Severely increased > OR = 300 The ADA recommends that at least two of three specimens collected within a 3-6 month period be abnormal before considering a patient to be within a diagnostic category. Performed By: #### 6 517 #### [facility] [address], [address] [place] [id number] Geriatric Social Work Professor: Bill Lucero MD Creatinine (U) [Mass/Vol] 122 mg/dL Normal 20-275 [facility] Comment on above: Performed By: #### [id number] #### [facility] [address] , [address] [place] [address] Geriatric Social Work Professor: Bill Lucero MD Microalbumin/Creatinine rati o panel (U)on 10-12-2024 Albumin DL <= 20 mg/L (U) [Mass/Vol] 0.3 mg/dL See Note: [facility] Comment on above: Reference Range: Reference Range Not established Albumin/Creatini ne (U) [Mass ratio] 2 NINF [facility] Comment on above: The ADA defines abnormalities in albumin excretion as follows: Albuminuria Category Result (mg/g creatinine) Normal to Mildly increased <30 Moderately increased 30-299 Severely increased > OR = 300 The ADA recommends that at least two of three specimens collected within a 3-6 month period be abnormal before considering a patient to be within a diagnostic category. Creatinine (U) [Mass/Vol] 122 mg/dL 20 - 275 mg/dL [facility] Performing Organizat ion Information Site ID: QPT Name: [facility] Address: [address] [place] [address], [address] [place] [address] Director: Bill Lucero MD [facility] Laboratory - Hematology and Cell countson 10-11-2024 HbA1c (Bld) [Mass fraction] 6.5 % [facility] No Panel Informationon 10-11 Interpretation and review of laboratory results Abnormal [facility] XR Pelvis AP and Hip - bilat eral GE 2 Viewson 07-15-[address] [address] XRay Report Signed Patient: SURI OSHEA MR#: [id number] : 1960 Acct:[id number] Age/Sex: 64 / F ADM Date: 07/15/24 Loc: RAD Attending Dr: MORIAH GUZMAN Ordering Physician: MORIAH GUZMAN Date of Service: 07/15/24 Procedure(s): XR hip ARIE Accession Number(s): [id number] cc: MORIAH GUZMAN [place] [address] Patient Name: SURI OSHEA MRN: [facility]:[id number] date: 1960 Sex: F Assigned Patient Location: [facility] Current Patient Location: [facility] Accession/Order Number: [id number] Exam Date: 07/15/2024 13:33 Report Date: 07/15/2024 18:31 At the request of: MORIAH GUZMAN Procedure: XR hip ARIE EXAMINATION: XR hip ARIE HISTORY: Bilateral Hip Pain COMPARISON: No relevant comparison available. FINDINGS: RIGHT FINDINGS: BONES: Mild narrowing of the joint space. Small degenerative osteophyte along the superior rim of the acetabulum. No fracture, dislocation, or bone lesion. SOFT TISSUES: No visible soft tissue swelling. OTHER: Negative. LEFT FINDINGS: BONES: Mild narrowing of the joint space. Degenerative osteophyte along the superior rim of the acetabulum. Osseous changes along lateral margin of greater trochanter; likely sequela of remote injury. No acute fracture, dislocation, bone lesion. SOFT TISSUES: No visible soft tissue swelling. OTHER: Negative. XR/XR hip ARIE IMPRESSION: RIGHT CONCLUSION: Mild degenerative joint disease. LEFT CONCLUSION: Mild degenerative joint disease. Electronically authenticated by: KRYSTEN SAUCEDO Date: 07/15/2024 18:31 Dictated By: Krysten Saucedo M.D. Signed By: 07/15/241833 DD/ 30 TD/TT: Master Deputy [address] Security: [facility] Radiology, Radiologi MD tom - 07/15/2024 [place] [address] XRay Report Signed Patient: SURI OSHEA MR#: [id number] : 1960 Acct:[id number] Age/Sex: 64 / F ADM Date: 07/15/24 Loc: [facility] Attending Dr: MORIAH GUZMAN Ordering Physician: MORIAH GUZMAN Date of Service: 07/15/24 Procedure(s): XR hip ARIE Accession Number(s): [id number] cc: MORIAH GUZMAN [address] [address] Patient Name: SURI OSHEA MRN: [id number] date: 1960 Sex: F Assigned Patient Location: [facility] Current Patient Location: [facility] Accession/Order Number: [id number] Exam Date: 07/15/2024 13:33 Report Date: 07/15/2024 18:31 At the request of: MORIAH GUZMAN Procedure: XR hip ARIE EXAMINATION: XR hip ARIE HISTORY: Bilateral Hip Pain COMPARISON: No relevant comparison available. FINDINGS: RIGHT FINDINGS: BONES: Mild narrowing of the joint space. Small degenerative osteophyte along the superior rim of the acetabulum. No fracture, dislocation, or bone lesion. SOFT TISSUES: No visible soft tissue swelling. OTHER: Negative. LEFT FINDINGS: BONES: Mild narrowing of the joint space. Degenerative osteophyte along the superior rim of the acetabulum. Osseous changes along lateral margin of greater trochanter; likely sequela of remote injury. No acute fracture, dislocation, bone lesion. SOFT TISSUES: No visible soft tissue swelling. OTHER: Negative. XR/XR hip ARIE IMPRESSION: RIGHT CONCLUSION: Mild degenerative joint disease. LEFT CONCLUSION: Mild degenerative joint disease. Electronically authenticated by: KRYSTEN SAUCEDO Date: 07/15/2024 18:31 Dictated By: Krysten Saucedo M.D. Signed By: 07/15/241833 DD/ 30 TD/TT: Master Deputy Sheriff Court Security: [facility] Radiology Study observation (narrative) [facility] XR Pelvis AP and Hip - bilat eral GE 2 ViewsOrdered By: Radiologist Radiology on 07-15-2024 [facility] Work Phone: Laboratory - Hematology and Cell countson 04-04-2024 HbA1c (Bld) [Mass fraction] 6.3 % [facility] No Panel Informationon 04-04 Interpretation and review of laboratory results Abnormal [facility] MG MAMM SCREEN 3D ARIE CADon 12-16-2021 MG MAMM SCREEN 3D ARIE CAD Patient: SURI OSHEA Exam Date: 12/16/2021 : 1960 Gender:F Ordering : DR ELIO OWENS M.D. Admission #: [id number] Family : Order #: [id number] CLICK HERE TO VIEW EXAM RADIOLOGY REPORT PROCEDURE: MAMMOGRAM SCREENING 3D BILATERAL CAD COMPARISON: MG MAMM SCREEN ARIE W CAD, 10/15/2018. MG MAMM SCREEN ARIE W CAD, 10/09/2017. INDICATIONS: Screening mammography Calculator Name NCI Breast Cancer Risk Assessment Tool 5 Year Breast Cancer Risk 2.00% Lifetime Breast Cancer Risk 10.70% Personal Breast Cancer No Personal Ovarian Cancer No Treatments None Family Cancers Aunt-maternal with breast cancer at age 50. LOCATION: [facility] BREAST COMPOSITION: Scattered areas fibroglandular density. FINDINGS: DIAGNOSTIC CATEGORY 2--BENIGN FINDING: RIGHT BREAST: No significant suspicious finding. Stable, chronic benign-appearing nodule within the anterior breast. No significant change has occurred. LEFT BREAST: No significant suspicious finding. No significant change has occurred. RECOMMENDATIONS: ROUTINE MAMMOGRAM AND CLINICAL EVALUATION IN 12 MONTHS. PLEASE NOTE: A NORMAL MAMMOGRAM DOES NOT EXCLUDE THE POSSIBILITY OF BREAST CANCER. A CLINICALLY SUSPICIOUS PALPABLE LUMP SHOULD BE BIOPSIED. Dictated by: Krysten Saucedo M.D. on 12/16/2021 at 15:40 Approved by: Krysten Saucedo M.D. on 12/16/2021 at 15:46 Normal [facility] XR LSPINE W_OBLS AND FLEX_EX Ton 12-09-2021 XR LSPINE W_OBLS AND FLEX_EXT EXAMINATION: XR LSPINE W_OBLS AND FLEX_EXT HISTORY: Degeneration of lumbar intervertebral disc COMPARISON: 05/22/2016 FINDINGS: BONES: Minimal dextrocurvature centered at L2-L3. Mild diffuse degenerative spondylosis and facet osteoarthropathy. No acute fracture or spondylolisthesis. No transient spondylolisthesis with flexion or extension. DISC SPACES: Mild multilevel disc space narrowing with endplate sclerosis most significant at T11-T12 and T12-L1 PARASPINOUS: Negative. No paraspinous abnormality is seen. OTHER: Right upper quadrant surgical clips from cholecystectomy IMPRESSION: Haod-cu-iztlzgrv degenerative changes No dynamic instability Electronically authenticated by: FEMI FRANCIS Date: 2021-12-09 15:32 Normal [facility] Q - CULTURE,URINE,ROUTINEon 08-13-2021 CULTURE, URINE, ROUTINE SEE NOTE Abnormal [facility]Wait[facility] Comment on above: Order Comment: [facility] Testing performed at: QPT, [facility], [address], [address] [facility], [place], [address], Program Director Group Work: Bill Lucero MD [facility] Date/Time: [id number] [facility] Received Date/Time: [id number] [facility] Reported Date/Time: Result Comment: CULT URE, URINE, ROUTINE Micro Number: [id number] Test Status: Final Specimen Source: Urine, clean catch Specimen Quality: Adequate Result: Greater than 100,000 CFU/mL of Klebsiella pneumoniae K.pneumoniae INT LAUREN AMOX/CLAVULANATE S <=2 AMPICILLIN R >=32 AMP/SULBACTAM S 4 CEFAZOLIN NR <=4 2 CEFEPIME S <=1 CEFTRIAXONE S <=1 CIPROFLOXACIN S <=0.25 ERTAPENEM S <=0.5 GENTAMICIN S <=1 IMIPENEM S <=0.25 LEVOFLOXACIN S <=0.12 NITROFURANTOIN S 32 PIP/TAZOBACTAM S <=4 TOBRAMYCIN S <=1 TRIMETHOPRIM/SULFA S <=20 S=Susceptible I=Intermediate R=Resistant * = Not Tested NR = Not Reported NN = See Therapy Comments THERAPY COMMENTS Note 1: For infections other than uncomplicated UTI caused by E. coli, K. pneumoniae or P. mirabilis: Cefazolin is resistant if LAUREN > or = 8 mcg/mL. (Distinguishing susceptible versus intermediate for isolates with LAUREN < or = 4 mcg/mL requires additional testing.) Note 2: For uncomplicated UTI caused by E. coli, K. pneumoniae or P. mirabilis: Cefazolin is susceptible if LAUREN <32 mcg/mL and predicts susceptible to the oral agents cefaclor, cefdinir, cefpodoxime, cefprozil, cefuroxime, cephalexin and loracarbef. Performed By: #### 6 [id number] #### [facility] [address] [place] [address] Complete Blood Count with Au to Diffon 05-29-2021 Basophils (Bld) [#/Vol] 0.04 10*3/uL Normal 0.00-0.20 [facility] Comment on above: Performed By: #### LIPD, CBCAD, CMP, VIT D #### [facility] [address] [place], [place] [id number] Basophils/100 WBC (Bld) 0.6 % Normal [facility] Specialist Comment on above: Performed By: #### LIPD, CBCAD, CMP, VIT D #### [facility] [address] [place], [place] [id number] Eosinophils (Bld) [#/Vol] 0.17 10*3/uL Normal 0.02-0.50 [facility]Wait[facility] Comment on above: Performed By: #### LIPD, CBCAD, CMP, VIT D #### [facility] [address] [place], [place] [id number] Eosinophils/100 WBC (Bld) 2.5 % Normal [facility]/Waitress Comment on above: Performed By: #### LIPD, CBCAD, CMP, VIT D #### [facility] [address] [place], [place] [id number] Erythrocyte distribution width (RBC) [Ratio] 13.5 % Normal 11.0-15.0 [facility] Wait[facility]/Wait[facility] Comment on above: Performed By: #### LIPD, CBCAD, CMP, VIT D #### [facility] [address] [place], [place] [id number] Hematocrit (Bld) [Volume fraction] 39.4 % Normal 35.0-47.0 [facility] Wait[facility]/Waitress Comment on above: Performed By: #### LIPD, CBCAD, CMP, VIT D #### [facility] [address] [place], [place] [id number] Hemoglobin (Bld) [Mass/Vol] 12.6 g/dL Normal 11.6-15.5 [facility] Waiter/Waitress Comment on above: Performed By: #### LIPD, CBCAD, CMP, VIT D #### [facility] [address] [place], [place] [id number] Lymphocytes (Bld) [#/Vol] 2.1 10*3/uL Normal 0.9-3.9 [facility] Wait[facility]/Waitress Comment on above: Performed By: #### LIPD, CBCAD, CMP, VIT D #### [facility] [address] [place], [place] [id number] Lymphocytes/100 WBC (Bld) 31.2 % Normal [facility] Specialist Comment on above: Performed By: #### LIPD, CBCAD, CMP, VIT D #### [facility] [address] [place], [place] [id number] MCH (RBC) [Entitic mass] 28.3 pg Normal 27.0-33.0 [facility] Specialist Comment on above: Performed By: #### LIPD, CBCAD, CMP, VIT D #### [facility] [address] [place], [place] [id number] MCHC (RBC) [Mass/Vol] 32.0 g/dL Normal 32.0-36.0 [facility] Specialist Comment on above: Performed By: #### LIPD, CBCAD, CMP, VIT D #### [facility] [address] [place], [place] [id number] MCV (RBC) [Entitic vol] 89 fL Normal 80-100 [facility] Waiter/Waitress Comment on above: Performed By: #### LIPD, CBCAD, CMP, VIT D #### [facility] [address] [place], [place] [id number] Monocytes (Bld) [#/Vol] 0.5 10*3/uL Normal 0.2-0.9 [facility] Specialist Comment on above: Performed By: #### LIPD, CBCAD, CMP, VIT D #### [facility] [address] [place], [place] [id number] Monocytes/100 WBC (Bld) 7.3 % Normal [facility] Specialist Comment on above: Performed By: #### LIPD, CBCAD, CMP, VIT D #### [facility] [address] [place], [place] [id number] Neutrophils (Bld) [#/Vol] 3.9 10*3/uL Normal 1.5-7.8 [facility]/Wait[facility] Comment on above: Performed By: #### LIPD, CBCAD, CMP, VIT D #### [facility] [address] [place], [place] [id number] Neutrophils/100 WBC (Bld) 58.1 % Normal [facility] Specialist Comment on above: Performed By: #### LIPD, CBCAD, CMP, VIT D #### [facility] [address] [place], [place] [id number] Platelet mean volume (Bld) [Entitic vol] 10.10 fL Normal 7.50-12.50 [facility] Wait[facility]/Waitress Comment on above: Performed By: #### LIPD, CBCAD, CMP, VIT D #### [facility] [address] [place], [place] [id number] Platelets (Bld) [#/Vol] 232 10*3/uL Normal 140-400 [facility] Waiter/Waitress Comment on above: Performed By: #### LIPD, CBCAD, CMP, VIT D #### [facility] [address] [place], [place] [id number] RBC (Bld) [#/Vol] 4.45 10*6/uL Normal 3.90-5.20 [facility] Waiter/Waitress Comment on above: Performed By: #### LIPD, CBCAD, CMP, VIT D #### [facility] [address] [place], [place] [id number] RDW-SD 43.4 fL Normal 37.0-50.0 [facility] Waiter/Waitress Comment on above: Performed By: #### LIPD, CBCAD, CMP, VIT D #### [facility] [address] [place], [place] [id number] WBC (Bld) [#/Vol] 6.7 10*3/uL Normal 3.8-11.0 [facility] Wait[facility]/Waitress Comment on above: Performed By: #### LIPD, CBCAD, CMP, VIT D #### [facility] [address] [place], [place] [id number] Comprehensive Metabolic Pane [facility] 05-29-2021 Albumin [Mass/Vol] 4.6 g/dL Normal 3.6-5.1 [facility] Wait[facility]/Waitress Comment on above: Performed By: #### LIPD, CBCAD, CMP, VIT D #### [facility] [address] [place], [place] [id number] Albumin/Globulin [Mass ratio] 1.6 {ratio} Normal 1.0-2.5 [facility] Waiter/Waitress Comment on above: Performed By: #### LIPD, CBCAD, CMP, VIT D #### [facility] [address] [facility] [place] [id number] ALP [Catalytic activity/Vol] 149 U/L High 35-119 [facility] Specialist Comment on above: Performed By: #### LIPD, CBCAD, CMP, VIT D #### [facility] [address] [place] [id number] ALT [Catalytic activity/Vol] 27 U/L Normal 6-33 [facility]/Wait[facility] Comment on above: Result Comment: 05/01/2021 Female referen ce range changed. Performed By: #### L IPD, CBCAD, CMP, VITD #### [facility] [address] [place], [place] [id number] Anion gap [Moles/Vol] 18 mmol/L Normal 12-20 [facility]/Wait[facility] Comment on above: Result Comment: Effective 06/06/2019 refer ence range changed. Performed By: #### L IPD, CBCAD, CMP, VITD #### [facility] [address] [facility] [place] [id number] AST [Catalytic activity/Vol] 22 U/L Normal 9-34 [facility] Wait[facility]/Waitress Comment on above: Performed By: #### LIPD, CBCAD, CMP, VIT D #### [facility] [address] [place], [place] [id number] BUN/CREA 31 Ratio High 6-22 [facility] Specialist Comment on above: Performed By: #### LIPD, CBCAD, CMP, VIT D #### [facility] [address] [facility] [address] [place], [place] [id number] Calcium [Mass/Vol] 9.7 mg/dL Normal 8.6-10.2 [facility] Wait[facility]/Waitress Comment on above: Performed By: #### LIPD, CBCAD, CMP, VIT D #### [facility] [address] [place], [place] [id number] Chloride [Moles/Vol] 110 mmol/L High 98-107 [facility] Waiter/Waitress Comment on above: Performed By: #### LIPD, CBCAD, CMP, VIT D #### [facility] [address] [place], [place] [id number] CO2 [Moles/Vol] 19 mmol/L Low 20-31 [facility] Waiter/Waitress Comment on above: Performed By: #### LIPD, CBCAD, CMP, VIT D #### [facility] [address] [place], [place] [id number] Creatinine [Mass/Vol] 0.8 mg/dL Normal 0.6-1.4 [facility] Waiter/Waitress Comment on above: Performed By: #### LIPD, CBCAD, CMP, VIT D #### [facility] [address] [place], [place] [id number] eGFRAA 89 mL/min/1.73m2 Normal >60 [facility] Waiter/Waitress Comment on above: Performed By: #### LIPD, CBCAD, CMP, VIT D #### [facility] [address] [place], [place] [id number] eGFRNAA 73 mL/min/1.73m2 Normal >60 [facility] Waiter/Waitress Comment on above: Performed By: #### LIPD, CBCAD, CMP, VIT D #### [facility] [address] [place], [place] [id number] Globulin (S) [Mass/Vol] 2.8 g/dL Normal 1.9-3.7 [facility] Wait[facility]/Wait[facility] Comment on above: Performed By: #### LIPD, CBCAD, CMP, VIT D #### [facility] [address] [place], [place] [id number] Glucose [Mass/Vol] 123 mg/dL High 65-99 [facility]/Wait[facility] Comment on above: Result Comment: For FASTING Glucose --- ADA reference ranges: Normal 65-99 mg/dl Prediabetes 100-125 Diabetes >/= 126 Performed By: #### L IPD, CBCAD, CMP, VITD #### [facility] [address] [place], [place] [id number] Potassium [Moles/Vol] 3.8 mmol/L Normal 3.5-5.5 [facility] Waiter/Waitress Comment on above: Performed By: #### LIPD, CBCAD, CMP, VIT D #### [facility] [address] [place], [place] [id number] Protein [Mass/Vol] 7.4 g/dL Normal 6.1-8.1 [facility] Waiter/Waitress Comment on above: Performed By: #### LIPD, CBCAD, CMP, VIT D #### [facility] [address] [place], [place] [id number] Sodium [Moles/Vol] 144 mmol/L Normal 135-146 [facility] Waiter/Waitress Comment on above: Performed By: #### LIPD, CBCAD, CMP, VIT D #### [facility] [address] [place], [place] [id number] TBIL <0.3 Normal [facility] Waiter/Waitress Comment on above: Performed By: #### LIPD, CBCAD, CMP, VIT D #### [facility] [address] [place], [place] [id number] Urea nitrogen [Mass/Vol] 25 mg/dL Normal 7-25 [facility] Wait[facility]/Wait[facility] Comment on above: Performed By: #### LIPD, CBCAD, CMP, VIT D #### [facility] [address] [place], [place] [id number] Lipid Panelon 05-29-2021 Cholesterol [Mass/Vol] 182 mg/dL Normal 125-200 [facility] Wait[facility]/Wait[facility] Comment on above: Result Comment: Low risk < 200mg/dL Borderline risk 201-239 mg/dl High risk > or equal to 240 Performed By: #### L IPD, CBCAD, CMP, VITD #### [facility] [address] [place], [place] [id number] Cholesterol in HDL [Mass/Vol] 41 mg/dL Normal >40 [facility]/Wait[facility] Comment on above: Result Comment: High Cardiovascular Risk HDL <40 mg/dL Low Cardiovascular Risk HDL > or equal to 60 mg/dl Performed By: #### L IPD, CBCAD, CMP, VITD #### [facility] [address] [place], [place] [id number] Cholesterol in LDL [Mass/Vol] 122 mg/dL Normal [facility]/Wait[facility] Comment on above: Result Comment: LDL ATP III CLASSIFICATI ON LDL less than 100 mg/dl Optimal LDL 100-129 mg/dl Near or above optimal LDL 130-159 Borderline high LDL 160-189 High LDL greater than 189 mg/dl Very High Performed By: #### L IPD, CBCAD, CMP, VITD #### [facility] [address] [place], [place] [id number] Cholesterol in VLDL [Mass/Vol] 19 mg/dL Normal [facility]/Wait[facility] Comment on above: Performed By: #### LIPD, CBCAD, CMP, VIT D #### [facility] [address] [place], [place] [id number] Cholesterol.tota l/Cholesterol in HDL [Mass ratio] 4 {ratio} Normal [facility] Wait[facility]/Wait[facility] Comment on above: Performed By: #### LIPD, CBCAD, CMP, VIT D #### [facility] [address] [place], [place] [id number] Triglyceride [Mass/Vol] 97 mg/dL Normal 30-150 [facility]/Wait[facility] Comment on above: Result Comment: TRIG ATPIII CLASSIFICATI ONS TRIG less than 150 mg/dl Normal TRIG 150-199 mg/dl Borderline High TRIG 200-500 mg/dl High TRIG greather than 500 mg/dl Very High Performed By: #### L IPD, CBCAD, CMP, VITD #### [facility] [address] [place], [place] [id number] Vitamin D 25-OHon 05-29-2021 VIT D 25 OH 130 ng/ml Normal >29 [facility] Wait[facility]/Wait[facility] Comment on above: Order Comment: Specimen diluted to verif y. Result Comment: Rebecca min D Status Deficiency <20 ng/mL Insufficiency 20-29 ng/mL Optimal 30-100 ng/mL Possible Toxicity >=150 ng/mL Performed By: #### L IPD, CBCAD, CMP, VITD #### [facility] [address] [place], [place] [id number] US THYROIDon 12-19-2020 US THYROID EXAMINATION: US THYR OID HISTORY: Non-toxic multinodular goiter COMPARISON: 12/24/2018 TECHNIQUE: Sonographic images of the thyroid gland were obtained. FINDINGS: The right thyroid lobe measures 5.4 x 1.9 x 2.1 cm. Multiple nodules. The thyroid isthmus is thickened measuring 10 mm. The left thyroid lobe measures 5.5 x 2.0 x 1.8 cm. Multiple nodules. The 3 most suspicious nodules: Nodule 1: Right inferior. 1.3 x 1.3 x 1.1 cm. Solid, isoechoic, wide, smooth margins, peripheral calcifications. TR 4 Nodule 2: Right medial/inferior. 1.1 x 1.0 x 1.0 cm. Solid, hypoechoic, wide, smooth margins, peripheral calcifications. TR 4 Nodule 3: Left mid. 1.4 x 1.6 x 1.3 cm. Solid, hypoechoic, tall, smooth margins, no calcifications. TR 5 IMPRESSION: Multinodular thyroid gland, grossly stable. One year follow-up recommended TI-RADS: The [employer] TI-RADS committee's white paper recommendations for thyroid lesions classified as TR5 (highly suspicious) are listed below: > 0.5 cm. Annual ultrasound follow-up for up to 5 years. > 1.0 cm. FNA. J. Am Naomi Radiol 2017;14:587-595. Electronically authenticated by: FEMI FRANCIS Date: 2020-12-19 16:11 Normal [facility] Coding Summaryon 09-16-2017 Coding Summary CODING DATE: 018 [facility] STATUS: Home PAYOR: Medicaid HMO ADMIT DX: REASON FOR VISIT DX: R20.0 Anesthesia of skin R20.2 Paresthesia of skin M79.651 Pain in right thigh FINAL DX: PRINCIPAL: R20.0 Anesthesia of skin SECONDARY: R20.2 Paresthesia of skin M79.651 Pain in right thigh F32.9 Major depressive disorder, single episode, unspecified PROCEDURES DOCTOR NAME DATE NOTE: The code number assigned matches the documented diagnosis and / or procedure in the patient's chart. However, the narrative phrase printed from the coding software may appear abbreviated, or result in slightly different terminology. Coded By: Batool Doyle Date Saved: 09/16/2017 02:[address] [facility] Provider Orderson 09-16-2017 Provider Orders [id number] [facility] [facility] X[facility] Spine Lumbosacral 2 or 3 Viewson 09-15-2017 XR Spine Lumbosacral 2 or 3 Views SPINE LUMBOSACRAL TWO OR THREE VIEWS AND SACRUM/COCCYX MINIMUM TWO VIEWSCLINICAL DATA: Right leg numbness, right upper leg pain for the past fewmonths, worse recently.Three views of the lumbar spine were obtained to include AP, lateral anddirected lateral lumbosacral views. Vertebral body heights are grossly wellmaintained. There is mild disc space narrowing of the visualized lowerthoracic spine and at L1-L2. There are mild endplate degenerative changes inthe lower thoracic spine. There is mild anterior spurring in the visualizedlower thoracic spine. There is mild right lateral spurring at L2-L3.Pedicles are intact. There are mild degenerative changes suggested of thefacet joints bilaterally from L3-L4 through L5-S1. No definite acutefracture or dislocation is seen. There is slight convexity of the lumbarspine to the right.Seven views of the sacrum and coccyx were obtained. No obvious displaced ordeforming fractures are seen, small undisplaced fractures may be difficult toidentify acutely. No obvious focal lytic or sclerotic lesions are seen.There is mild degenerative change about the left sacroiliac joint. Softtissues are within normal limits. A few small calcific densities are seenoverlying the pelvis, compatible with phleboliths.IMPRESSION:1. LUMBAR SPINE STUDY DEMONSTRATES DEGENERATIVE CHANGES AND DISC SPACENARROWING DESCRIBED, SLIGHT CONVEXITY TO THE RIGHT.2. SACRUM AND COCCYX STUDY FAILS TO DEMONSTRATE DEFINITE EVIDENCE OF ACUTEPROCESS.3. FOLLOW-UP NEEDED.Stu Vicente MDJOIsa #: [id number]: 09/15/2017T: 09/15/2017 Final Dictated by: Stu Vicente MD SDictated DT/TM: 09/15/17 3:47Signed (Electronic Signature): Stu Vicente MD 09/15/17 4:57 pmTechnologist: ZAHRA CHU [facility] Coding Summaryon 09-03-2017 Coding Summary CODING DATE: 018 [facility] STATUS: Home PAYOR: Medicaid HMO ADMIT DX: REASON FOR VISIT DX: M79.651 Pain in right thigh FINAL DX: PRINCIPAL: M79.651 Pain in right thigh SECONDARY: PROCEDURES DOCTOR NAME DATE NOTE: The code number assigned matches the documented diagnosis and / or procedure in the patient's chart. However, the narrative phrase printed from the coding software may appear abbreviated, or result in slightly different terminology. Coded By: Batool Doyle Date Saved: 09/03/2017 07:[address] [facility] Provider [place] 09-02-2017 Provider Orders [id number] [facility] XR Hip Complete Righton 040 XR Hip Complete Right HIP COMPLETE RIGHTCLINICAL DATA: Right hip pain for one year.AP and lateral views of the right hip were obtained. There are milddegenerative changes about the right hip joint with mild joint spacenarrowing and mild spurring of the superolateral acetabulum. There is mildspurring of the greater trochanteric region of the proximal femur. Nodefinite acute fracture or dislocation is seen. Soft tissues are grosslywithin normal limits. A few small faint calcific densities are seen overlyingthe pelvis compatible with phleboliths.IMPRESSION:1. RIGHT HIP STUDY DEMONSTRATES MILD DEGENERATIVE CHANGES DESCRIBED.2. FOLLOW-UP NEEDED.URBAN Venegas #: [id number]: 09/01/2017T: 09/01/2017 Final Dictated by: Stu Vicente MD SDictated DT/TM: 09/01/17 3:24Signed (Electronic Signature): Stu Vicente MD 09/01/17 3:38 pmTechnologist: YISSEL MARTIN [facility] Coding Summaryon 07-03-2017 Coding Summary CODING DATE: 018 [facility] STATUS: Home PAYOR: Medicaid HMO ADMIT DX: REASON FOR VISIT DX: E55.9 Vitamin D deficiency, unspecified FINAL DX: PRINCIPAL: E55.9 Vitamin D deficiency, unspecified SECONDARY: PROCEDURES DOCTOR NAME DATE NOTE: The code number assigned matches the documented diagnosis and / or procedure in the patient's chart. However, the narrative phrase printed from the coding software may appear abbreviated, or result in slightly different terminology. Coded By: Batool Doyle Date Saved: 07/03/2017 12:[address] [facility] Provider [place] 07-03-2017 Provider Orders [id number] [facility] Vit D25 OHon 07-02-2017 Vitamin D 25 OH 75 ng/mL Invalid Interpretation Code [facility] Comment on above: Result Comment: In 2010, theClinical [place] Subcommittee of the Endocrine Society Task Force established the guidelinesbelow for recommended serum 25(OH) vitamin D levels.Vitamin D Status 25 (OH) Vitamin D Concentration Range (ng/mL) 25 (OH) Vitamin D Concentration Range (nmol/L) Deficient < 20 < 50 Insufficient 20 to < 30 50 to < 75 Sufficient 30 to 100 75 to 250 Upper Safety Limit >100 >250 Bert GONZALEZ et al. Evaluation, Treatment, and Prevention of Vitamin D Deficiency: An EndocrineSociety Clinical Practice Guideline, J Clin Endocrinol Metab 2011; 96 (7): 1008-1440. Performed By: #### [id number] ####[facility] ([facility])[address] [place] [address] Operative Reporton 7 Operative Report SURGEON: Krysten davison D.O.PREOPERATIVE DIAGNOSIS: Rotator cuff tear, left shoulder, recurrentPOSTOPERATIVE DIAGNOSES:1. Rotator cuff tear, left shoulder, recurrent2. Extensive adhesion formation3. Increased body mass index over 40OPERATION:1. Left shoulder arthroscopic extensive debridement rotator cuff tear,subacromial bursa and glenohumeral arthritis2. Left shoulder open rotator cuff repair3. Revision subacromial decompressionANESTHESIA: General with blockINTRAOPERATIVE BLOOD LOSS: MinimalANTIBIOTICS: 3 gm I.V.DEGREE OF DIFFICULTY: Because of the patient's increased BMI, this didrequire additional time, did take additional staff, did add an increaseddegree of difficulty performing the procedure with a BMI over 40. The endresult was satisfactory.INDICATIONS FOR SURGERY: This is a 56-year-old female taken to surgeryearlier this year for a rotator cuff repair of the left shoulder. This wasperformed arthroscopically. In discission with her daughter, she states, She was not a good patient. She was up washing dishes, cooking dinnerwithin one to two weeks after surgery. She has had slow recovery and arepeat MRI shows a re-tear just medial to the previous otherwise intactrepair with intact anchors. Please refer to the admitting History andPhysical for further details.PROCEDURE: Site and side verification were performed in the PreoperativeHolding Area. The operative left shoulder is marked. The procedure asscheduled is reviewed. She is taken to the Operating Room, placed supineon the operating room table. Anesthetic and block are administered perAnesthesia. The appropriate time-out procedure is performed. 3 gm ofAncef are administered and the left shoulder is examined. There is fullmotion noted. There is no instability. She is then placed in the lateraldecubitus position with the operative left shoulder up which is sterilelyprepped and draped in the usual routine fashion. The time-out procedure isperformed, compared with the operative consent, schedule and the Historyand Physical. The routine anterior, lateral and posterior arthroscopicportals are utilized and initial evaluation of the shoulder is begun in theglenohumeral joint. There is some fraying about the labrum notedanteriorly and superiorly. There is a tear of the inferior surface of thesupraspinatus tendon noted without significant retraction. This isdebrided with a motorized shaver. There is a synovitis encountered withinthe shoulder joint and this is debrided with a motorized shaver as well.Subscapularis, infraspinatus and teres minor tendons are visualized and allotherwise unremarkable as is the biceps anchor. After debridement of thearticular surface of the supraspinatus tendon detachment, the instrumentsare withdrawn from the joint and advanced into the subacromial space.There is some thickening and scar formation about the anterior inferioracromion and this is lightly debrided with a light revision of theacromioplasty removing a small amount of bone anterolaterally. Thefull-thickness tear is identified. This is somewhat delaminated. Becauseof the previous rotator cuff repair, failure and the patient's bodyhabitus, this is converted to an open procedure performed with a lateraldeltoid on incision 8 cm in length. This is carried down through thedeltoid tissue with blunt dissection and for a distance of 6 cm distal tothe lateral margin of the acromion. A self-retaining retractor is placed.The previous rotator cuff repair sutures are intact and through the tissue,the tear is slightly medial to this lateral insertion point and the suturesare removed without difficulty. The location of the anchors is visualizedand the SpeedBridge repair is performed anterior and posterior to thesewith FiberTape and #2 Orthocord. A crossing pattern is utilized with twomedial anchors, two lateral anchors over a debrided greater tuberosityregion and excellent apposition of the debrided rotator cuff tendon is theend result. This is a watertight closure to inspection without dog earflap formation anteriorly and posteriorly. The arm is taken into fullforward flexion, external rotation and internal rotation and satisfactorytension on the sutures is noted. After final copious irrigation, thelayered closure is performed. The copious irrigated is followed by arepair of the deltoid fascia with #2-0 Vicryl suture interrupted. Thesuperficial deltoid fascia is similarly repaired with #2-0 Vicryl and theskin was repaired with #3-0 V-Loc running subcuticular. A sterile bulkycompressive dressing is applied. The patient is transported to Recovery insatisfactory condition having tolerated the anesthetic and the procedurewell.Krysten Jones D.O.glsDictated: 12/25/2016 #[id number]: 12/26/2016 #[id number]: Krysten Jones D.O. [facility] Comment on above: Result Comment: Electronically Signed By : Krysten Jones DO\.br\Date and Time Signed: 12/29/16 08:51 EDT Coding Summary.on 12-26-2016 Coding Summary. CODING DATE: 017 FINAL [facility] STATUS: Home (Routine DC) PAYOR: Medicaid EAPG DESCRIPTION 0490 INCIDENTAL TO MEDICAL, SIGNIFICANT PROCEDURE OR THERAPY VISIT 0496 MINOR PHARMACOTHERAPY 0495 MINOR CHEMOTHERAPY DRUGS 0435 CLASS I PHARMACOTHERAPY 0220 LEVEL II NERVOUS SYSTEM INJECTIONS, STIMULATIONS OR CRANIAL TAP 0032 LEVEL III MUSCULOSKELETAL PROCEDURES EXCLUDING HAND AND FOOT 0380 ANESTHESIA ADMIT DX: REASON FOR VISIT DX: M25.512 Pain in left shoulder FINAL DX: PRINCIPAL: M75.122 Complete rotator cuff tear or rupture of left shoulder, not specified as traumatic SECONDARY: I10 Essential (primary) hypertension E11.9 Type 2 diabetes mellitus without complications G47.30 Sleep apnea, unspecified F32.9 Major depressive disorder, single episode, unspecified F41.9 Anxiety disorder, unspecified E66.9 Obesity, unspecified Z68.41 Body mass index (BMI) 40.0-44.9, adult PYMT PROC EAPG STAT DESCRIPTION DOCTOR NAME DATE 11921 Injection, anesthetic Sterling Livingston MD 12/25/2016 agent; brachial plexus, single LT LEFT SIDE (USED TO IDENTIFY PROCEDURES PERFORMED ON THE LEFT SIDE OF THE BODY) XP Separate practitioner, a service that is distinct because it was performed by a different practitioner [id number] Repair of ruptured Krysten Jones DO 12/25/2016 musculotendinous cuff (eg, rotator cuff) open; acute LT LEFT SIDE (USED TO IDENTIFY PROCEDURES PERFORMED ON THE LEFT SIDE OF THE BODY) [id number] Anesthesia for open or Krysten Jones DO 12/25/2016 surgical arthroscopic procedures on humeral head and neck, sternoclavicular joint, acromioclavicular joint, and shoulder joint; not otherwise specified NOTE: The code number assigned matches the documented diagnosis and / or procedure in the patient's chart. However, the narrative phrase printed from the coding software may appear abbreviated, or result in slightly different terminology. Coded By: Ledy Chavez Date Saved: 12/26/2016 11:[address] [facility] Main OR Intraoperative Recor don 12-26-2016 Main OR Intraoperative Record IntraOp Document Type FT Summary Primary Physician: Krysten Jones DO Finalized Date/Time: 12/26/16 11:05:13 Pt. Name: SURI OSHEA/Sex: 1960 Female Med Rec #: [id number] Physician: Krysten Jones DO Financial #: [id number] Pt. Type: A Room/Bed: [place] [address] Admit/Disch: 12/25/16 07:28:00 - 12/25/16 13:15:00 Institution: Case Times FT Entry 1 Patient Times In Room 12/25/16 09:00:00 Out Room 12/25/16 10:53:00 Procedure Times Start 12/25/16 09:31:00 Stop 12/25/16 10:47:00 Anesthesia Times Start 12/25/16 09:00:00 Stop 12/25/16 10:53:00 Block Timeout w/ 12/25/16 08:50:00 Anesthesia Last Modified By: Batool Weinberg CST 12/25/16 11:11:20 General Comments: 0847 patient transferred via cart to block room all rails up by MICHELLE Mills. [address]50 block time out with Dr Livingston and MICHELLE Mills present. 0851 start of block procedure. 0857 block complete. 0858 patient transferred via cart all rails up by MICHELLE Mills to or [address]. MICHELLE Ga 12/26/2016 Chart opened to review and send charges Jorge Alberto director of sports performance Case Attendance FT Entry 1 Entry 2 Entry 3 Case Attendee Miki MENJIVAR, Sterling Jones DO, Krysten Mejia RN, CNOR, Anabella Role Performed Anesthesiologist of Surgeon - Primary SERVICER TRAVEL TRAILERS Record Time In 12/25/16 09:00:00 12/25/16 09:00:00 12/25/16 09:00:00 Time Out 12/25/16 10:53:00 12/25/16 10:53:00 12/25/16 10:53:00 Procedure SHOULDER ARTHROSCOPY W/ SHOULDER ARTHROSCOPY W/ SHOULDER ARTHROSCOPY W/ POSSIBLE REPAIR(Left) POSSIBLE REPAIR(Left) POSSIBLE REPAIR(Left) Comments Last Modified By: Ludivina RN, Jie Florence RN, Jie Lala RN 12/25/16 11:11:22 12/25/16 11:11:22 12/25/16 11:11:22 Entry 4 Entry 5 Entry 6 Case Attendee Talha BAUTISTA, Lakisha Florence RN, Jie Silver RN, José Luis Role Performed Scrub - Primary Portfolio Mgr - Primary Portfolio Mgr - Primary Time In 12/25/16 09:00:00 12/25/16 09:00:00 12/25/16 09:00:00 Time Out 12/25/16 10:53:00 12/25/16 10:53:00 12/25/16 10:53:00 Procedure SHOULDER ARTHROSCOPY W/ SHOULDER ARTHROSCOPY W/ SHOULDER ARTHROSCOPY W/ POSSIBLE REPAIR(Left) POSSIBLE REPAIR(Left) POSSIBLE REPAIR(Left) Comments Last Modified By: Ludivina RN, Jie Florence RN, Jie Lala RN 12/25/16 11:11:22 12/25/16 11:11:22 12/25/16 11:11:22 General Comments: Jorge Luis Álvarez - Georgina Ga RN Perioperative Protocols FT Pre-Care Text: Implements protective measures prior to operative or invasive procedure, confirms identity before the operative or invasive procedure, verifies operative procedure, surgical site, and laterality Entry 1 Procedure(s) SHOULDER ARTHROSCOPY W/ Patient Identity Birthday, ID Band POSSIBLE REPAIR(Left) Verified (select at Check, Patient least 2): Participation Consents / H and P Anesthesia Consent, Operative Site Present Verified HandP, Surgery/Procedure Marking Verified Consent Surgical Site Yes Laterality Verified Yes Verified Procedure Verified Yes Correct Patient Yes Position Verified Availability Equipment, Implant, Prep Dry Yes Verified (If Medication Applicable) PreOp Antibiotic Yes Time Out Miki MENJIVAR, Sterling, Given Participants Krysten Jones DO, George CST, Ludivina Banuelos RN, Kimberly Y, Rivera RN, Jackie Ordonez RN, SEVERINO, Anabella Time Out Complete 12/25/16 09:25:00 Outcomes Met? Yes Last Modified By: Jie Florence RN 12/25/16 09:32:25 Post-Care Text: The patient is free from signs and symptoms of injury caused by extraneous objects Allergy Information FT Pre-Care Text: Verifies allergies Entry 1 Allergies Reviewed? Yes Allergies Reviewed Self/Patient With Outcomes Met? Yes Last Modified By: Jie Florence RN 12/25/16 09:07:31 Post-Care Text: The patient received appropriate medication(s) safely administered during the perioperative period Surgical Procedures FT Entry 1 Procedure Description Procedure SHOULDER ARTHROSCOPY W/ Modifiers Left POSSIBLE REPAIR Surgeon Description LEFT SHOULDER ARTHROSCOPY, OPEN REVISION ROTATOR CUFF REPAIR Primary Procedure Yes Primary Surgeon Krysten Jones DO Start 12/25/16 09:31:00 Stop 12/25/16 10:47:00 Anesthesia Type General Surgical Service Orthopedics Wound Class 1 - Clean Outcomes Met? Yes Last Modified By: Jie Florence RN 12/25/16 10:52:59 General Case Data FT Pre-Care Text: Classifies surgical wound, implements aseptic technique, initiates traffic control Entry 1 Case Information OR OR 7 FT Case Level Level 4 Wound Class 1 - Clean Specialty Orthopedics ASA Class 2 Preop Diagnosis LEFT SHOULDER ROTATOR Postop Same As Preop No CUFF TEAR Postop Diagnosis RECURRENT LEFT SHOULDER Outcomes Met? Yes ROTATOR CUFF TEAR Last Modified By: Jie Florence RN 12/25/16 10:30:11 Post-Care Text: The patient is free from signs and symptoms of infection Skin Assessment (Pre Procedure) FT Pre-Care Text: Implements protective measures to prevent skin/ tissue injury due to thermal or mechanical sources Evaluates for signs and symptoms of physical injury to skin and tissue Entry 1 Skin Integrity Intact, [place], Warm, and Skin Abnormality No Dry Outcomes Met? Yes Last Modified By: Jie Florence RN 12/25/16 10:10:11 Post-Care Text: The patient is free from signs and symptoms of injury caused by extraneous objects Patient Positioning FT Pre-Care Text: Identifies physical alterations that require additional precautions for procedure-specific positioning, verifies presence of prosthetics or corrective devices, positions the patient, evaluates the patient for signs and symptoms of injury as a result of positioning Entry 1 Procedure SHOULDER ARTHROSCOPY W/ Additional left arm positioned POSSIBLE REPAIR(Left) Information using Racemi arm persaud; egg crate padding in feet/ankles Body Position Lateral, left side up Feet Uncrossed? Yes Left Arm Position Other/See Comments Right Arm Position Extended on Padded Arm Board Left Leg Position Extended Right Leg Position Extended Positioning Device Axillary Roll, Unger Bag Press Points Checked Yes Small (vac pac), Demayo Hip Positioner, Lateral Traction Set, Pillow Large Between Knees, Pillow Under Head Large, Safety Strap, Egg Crate Padding By José Luis Silver RN, Outcomes Met? Yes Miki MENJIVAR, Robert Katz DO, Steven, Stocker RN, Anabella HAQ, Ludivina MARTINEZ, Jie Hanna Last Modified By: Jie Florence RN 12/25/16 09:43:46 Post-Care Text: The patient is free from signs and symptoms of injury related to positioning Patient Care Devices FT Pre-Care Text: Implements protective measures to prevent skin/ tissue injury due to thermal or mechanical sources Entry 1 Entry 2 Entry 3 Equipment Type ARTHREX DUALWAVE ARTHROCARE GENERATOR DEMAYO LATERAL IRRIGATION PUMP[F] UNIT[F] POSITIONER [F] Equipment Number Mitek Cart 2 mitek cart 2 Equipment Setting Outcomes Met? Yes Yes Yes Last Modified By: Jie Florence RN, RN, Kimberly Y Barbee RN, Kimberly Y 12/25/16 09:31:15 12/25/16 09:55:33 12/25/16 09:55:33 Entry 4 Entry 5 Entry 6 Equipment Type MISTRAL FORCED AIR MONITOR CHARGE SURGERY TAMEKA SUCTION UNIT [F] WARMING SYSTEM UNIT[F] [F] Equipment Number m3 room 7 Equipment Setting Outcomes Met? Yes Yes Yes Last Modified By: Jie Florence RN, RN, Kimberly Y Barbee RN, Kimberly Y 12/25/16 09:34:39 12/25/16 09:34:39 12/25/16 09:34:39 Entry 7 Entry 8 Entry 9 Equipment Type ORTHO ARTHREX ABRADER SONOSITE ULTRASOUND VIDEO SYSTEM[F] SYSTEM[F] UNIT[F] Equipment Number mitek cart 2 boom room 7 Equipment Setting Outcomes Met? Yes Yes Yes Last Modified By: Jie Florence RN, RN, Kimberly Y Barbee RN, Kimberly Y 12/25/16 09:34:39 12/25/16 09:34:39 12/25/16 09:34:39 Entry 10 Entry 11 Equipment Type CAUTERY UNIT[F] HEADLIGHT[F] Equipment Number C3 Equipment Setting Outcomes Met? Yes Yes Last Modified By: Jie Florence RN, RN, Kimberly Y 12/25/16 09:34:39 12/25/16 09:34:39 Post-Care Text: The patient is free from signs and symptoms of injury caused by extraneous objects Transport To OR FT Pre-Care Text: Transports according to individual needs. Evaluates for signs and symptoms of skin and tissue injury as a result of transfer or transport Entry 1 Via Cart By José Luis Silver RN Safety Precautions Side Rails Up Outcomes Met? Yes Last Modified By: Jie Florence RN 12/25/16 09:34:57 Post-Care Text: The patient is free from signs and symptoms of injury related to transfer/transport Cautery FT Pre-Care Text: Implements protective measures to prevent injury due to electrical sources, and evaluates for signs and symptoms of electrical injury Entry 1 ESU Identification ESU Settings Cut 50 Coag 50 ESU Grounding Pad Site Left Thigh Hair Removal Pad No Site Pre Pad Site Clear and Intact Post Pad Site Clear and Intact Condition Condition Grounding Pad Jie Florence RN Outcomes Met? Yes Last Modified By: Jie Florence RN 12/25/16 09:59:27 Post-Care Text: The patient if free from signs and symptoms of electrical injury Counts Verification FT Pre-Care Text: Performs required counts Entry 1 Entry 2 Procedure(s) SHOULDER ARTHROSCOPY W/ SHOULDER ARTHROSCOPY W/ POSSIBLE REPAIR(Left) POSSIBLE REPAIR(Left) Type Initial Final Items Sponges, Sharps Sponges, Sharps Status Correct Correct Time 12/25/16 09:00:00 By Lakisha Palencia CST, George CST, Stephanie, Barbee RN, Kimberly Y Barbee RN, Kimberly Y Outcomes Met? Yes Yes Last Modified By: Jie Florence RN, RN, Kimberly Y 12/25/16 09:29:56 12/25/16 09:45:57 Post-Care Text: The patient is free from signs and symptoms of injury caused by extraneous objects Skin Prep FT Pre-Care Text: Performs skin preparations Entry 1 Procedure SHOULDER ARTHROSCOPY W/ Prep Area left shoulder (drape) POSSIBLE REPAIR(Left) to left wrist Prep Agents Chloraprep/Dry Prior to Draping Hair Removal Methods Not Indicated By Jie Florence RN Outcomes Met? Yes Last Modified By: Jie Florence RN 12/25/16 09:48:59 Post-Care Text: The patient is free from signs and symptoms of infection Departure From OR FT Pre-Care Text: Transports according to individual needs. Evaluates for signs and symptoms of skin and tissue injury as a result of transfer or transport. Entry 1 Via Cart Safety Precautions Side Rails Up PostOp Destination PACU Transported By Jie Florence RN Skin. Condition Intact, [place], Warm, and Dry Airway Maintenance Oxygen in Use? Yes Airway Device Simple Mask Flow Rate 10 L Outcomes Met? Yes Last Modified By: Jie Florence RN 12/25/16 09:51:37 Post-Care Text: The patient is free from signs and symptoms of injury related to transfer/transport General Comments: Report given to PACU nurse. MICHELLE Ga Dressing/Packing FT Pre-Care Text: Administers care to wound sites Entry 1 Type Dressing, Site and Details Left should - Immobilization Devices liquiband, steri strips, 4x4, abd, and foam tape; patient will use own super sling brought from home put on in PACU Outcomes Met? Yes Last Modified By: Jie Florence RN 12/25/16 11:23:12 Post-Care Text: The patient is free from signs and symptoms of infection Medication Administration FT Pre-Care Text: Verifies allergies, administers prescribed medications and solutions, administers prescribed antibiotic therapy and immunizing agents as ordered, evaluates response to medications Administers prescribed medications and solutions Entry 1 Expiration Date Yes Outcomes Met? Yes Verified Last Modified By: Jie Florence RN 12/25/16 09:19:24 Post-Care Text: The patient received appropriate medication(s) safely administered during the perioperative period For [facility] please see scanned medication reconcilliation form for medications used at the field during the procedure. Implant Log FT Pre-Care Text: Records devices implanted during the operative or invasive procedure Entry 1 Implant/Explant Implant Implant Identification Description SYSTEM SPEEDBRIDGE Lot Number [id number] IMPLANT W/SWIVELOCK [[id number]][F] Airplane Charter Clerk FT-ARTHREX Catalog ?# [id number] [F] Size 4.75 x 19.1mm Expiration Date 07/29/18 Usage Data Implant Site left shoulder Quantity 1 Outcomes Met? Yes Last Modified By: Jie Florence RN 12/25/16 10:04:15 Post-Care Text: The patient is free from signs and symptoms of injury caused by extraneous objects Temperature Control Entry 1 Temperature Control BLANKET MISTRAL AIR Quantity 1 Aid PLUS LOWER BODY [[id number]][F] Fluid/Brinson Unit Mistral warming system Setting high/43c Body Site Lower anterior torso Last Modified By: Jie Florence RN 12/25/16 09:09:32 Case Comments Finalized By: Batool Weinberg CST Document Signatures Signed By: Jie Florence RN 12/25/16 11:12 Jie Florence RN 12/25/16 11:23 Batool Weinberg CST 12/26/16 11:[address] [facility] Operative Reporton 7 Operative Report SURGEON: Sterling lomeli M.D.OPERATION: Left ultrasound-guided interscalene block for postoperativepain controlANESTHESIA: 2 mg of VersedPROCEDURE: The patient was interviewed and examined. Anesthetic optionsfor postoperative pain control were discussed in great detail. After alengthy discussion encompassing risks, benefits and alternatives of theprocedure, the patient elected to undergo the procedure. In the BlockRoom, the patient was placed on routine monitors, vital signs werereviewed, landmarks were reviewed and the site was prepped in a sterilefashion. Visualization of the brachial plexus was excellent and a 26 gauge1 1/2 inch needle was advanced with excellent ultrasound visualization.There were no paresthesias and then under direct ultrasound visualization,17 cc of a 0.5% Naropin solution was injected in divided doses withfrequent aspiration. There were no signs of intraneural, intravascular orintrathecal injection and the patient tolerated the procedure very well.Within several minutes, the patient began to show signs and symptoms ofsuccessful blockade. Despite sedation, the patient remained awake and ableto interact in a meaningful way throughout the duration of the procedure.The patient then underwent general anesthesia for the planned procedure.Sterling Livingston M.D.glsDictated: 12/25/2016 #[id number]: 12/25/2016 #[id number]: Sterling Livingston M.D. [facility] Comment on above: Result Comment: Electronically Signed By : Miki MENJIVAR, Sterling\.br\Date and Time Signed: 12/26/16 08:07 EDT Progress Note-Physicianon Progress Note-Physician Patient: SURI OSHEA Age: 56 years Sex: Female : 1960 Associated Diagnoses: None Author: Sterling Livingston MD Preoperative Information Anesthesia history: Patient History: No personal or Family history of problems with anesthesia. Re-eval prior to induction: Inital eval reviewed: No significant interval change. Review of Systems Constitutional: Negative. Cardiovascular: Cardiovascular risk stratafacation reviewed, 1 FOS without difficulty, No chest pain. Respiratory: No SOB. Hematology/Lymphatics: Negative. Gastrointestinal: IBS. Musculoskeletal: OTHER (as per HPI). Neurologic: Negative. Psychiatric: Negative. Health Status Allergies: Allergic Reactions (Selected)SevereBactrim- Hives.Vicodin- Itching and rash. Current medications: (Selected) Inpatient MedicationsOrderedLactated Ringers IV Gladys 1000 mL 1,000 mL: 1,000 mL, IV, 150 mL/hr, Routine, Start date 12/25/16 7:30:00 EDT, 6.7 hour(s), Total volume (mL): 1,000PrescriptionsPrescribedPer cocet 325 mg-5 mg Tab: 1 tab(s), Oral, q4hr as needed for pain, 40 tab(s), Refill(s) 0, [facility] 1155Documented MedicationsDocumentedCaltrate 600 + D: 1 tab(s), Oral, BID, Refill(s) 0, ProphylaxisFish Oil 1200 mg oral capsule: 1,200 mg = 1 cap(s), Oral, BID, Refills(s) 0, High cholesterolGas-X: 125 2 tabs, Oral, BID, Refills(s) 0Multiple Vitamins oral capsule: 1 cap(s), Oral, Daily, Refill(s) 0, ProphylaxisVitamin D: 50,000 International_Unit, Oral, MonWedFri, Refills(s) 0aspirin 81 mg oral tablet: 81 mg = 1 tab(s), Oral, Daily, Refills(s) 0, Prophylaxiscranberry: 500, Oral, Daily, Refill(s) 0echinacea: 400, Oral, BID, Refills(s) 0ferrous sulfate: 325 mg, Oral, Daily, Refills(s) 0, Anemiagabapentin: 300 mg, Oral, Daily, am, Refills(s) 0, Neuropathygabapentin: 300mg 2 tabs hs, Oral, Daily, Neuropathygemfibrozil: 600 mg, Oral, BID, High cholesterolhyoscyamine 0.125 mg sublingual Tab: 0.125 mg = 1 tab(s), SubLingual, BIDAC, # 60 tab(s), Refills(s) 0, Other (see comment)meloxicam 15 mg Tab: 15 mg = 1 tab(s), Oral, Daily, Refills(s) 0, Inflammationmetformin: 500 mg, Oral, BID, Refills(s) 0, High blood sugarpantoprazole: 40 mg, Oral, Daily, Refills(s) 0ramipril: 2.5 mg, Oral, Daily, Refills(s) 0, High blood pressuresertraline: 100 mg 2 tabs, Oral, Daily, Refills(s) 0, Depressionsleep aid: sleep aid, 25mg 1 tab, Oral, Bedtime Problem list: All ProblemsRotator cuff tear / SNOMED CT 3698121775 / ConfirmedRIGHTHTN - Hypertension / SNOMED CT 9788816331 / ConfirmedNIDDM / ICD-9-CM 250.00 / ConfirmedNerve pain / SNOMED CT 64548845 / Confirmedlower backExtreme obesity / ICD-9-CM 278.01 / PossibleAnxiety / SNOMED CT 467658861 / ConfirmedChronic depression / SNOMED CT 628996700 / ConfirmedStomach problems / SNOMED CT 011399079 / ConfirmedResolved: Dizzinesses / SNOMED CT 3310066996Qvxcpuex: H/O syncope / SNOMED CT 3892740316 Histories Past Medical History: ActiveNIDDM (250.00)Chronic depression (723020637)HTN - Hypertension (5083313419)Rotator cuff tear (9568186922)Comments:10/20/2013 EDT 08:49 EDT - Sudha MARTINEZ, Oscar Procedure history: revision rotator cuff tear, right shoulder with open repair. arthroscopic subacromial decompression. extensive arthroscopic debridement with lysis of adhesions, glenoid labrum debridement and subacromial bursectomy w/ revision of subacromial decompression on 01/11/2015 at 54 Years.Comments:01/12/2015 15:17 - Ashkan MARTINEZ, Yuliya Nmanipulation under anesthesia, right shoulderarthroscopic subacromial decompression, right shoulder, with lateral clavicle coplaning. arthroscopic rotator cuff repair, right shoulder. debridement of glenoid labrum tear on 11/03/2013 at 53 Years.Abdominal hysterectomy (619582246).GASTRIC TUMOR EXCISED.Comments:10/20/2013 08:50 - Sudha MARTINEZ, JuanGNBreast biopsy and related procedures ([id number]).Comments:10/20/2013 08:50 - Sudha MARTINEZ, Stephanie2- BENIGNarthroscopy left shoulder.carpal tunnel release, bilateral. Social History Social & Psychosocial SrnaihWonxojp34/22/2014 Risk Assessment: Denies Alcohol UseSubstance Abuse10/20/2013 Risk Assessment: Denies Substance VblndLwlftbh55/22/2014 Risk Assessment: Denies Tobacco Use. Physical Examination Pain assessment: Self-reports no pain. Airway: Mallampati classification: II (soft palate, fauces, uvula visible). Distance: Adequate. Mouth: Adequate opening, Teeth ( Broken, Cracked, Chipped, Loose, Missing ). Neck: Full range of motion. Respiratory: Respirations are non-labored. Cardiovascular: Regular rhythm. Neurologic: Alert, Oriented. Review / Management Results review: All Results 12/12/2016 12:59 EDT WBC 7.6 E9/L RBC 4.7 E12/L Hgb 12.6 gm/dL Hct 39.1 % MCV 82.4 fL MCH 26.7 pg LOW MCHC 32.3 gm/dL RDW 15.6 % HI Platelet 283.0 E9/L MPV 8.0 fL Glucose Fasting 124 mg/dL HI BUN 14 mg/dL Creatinine 0.6 mg/dL eGFR >60 mL/min/1.73 m2 eGFR AA >60 mL/min/1.73 m2 Sodium Lvl 139 mmol/L Potassium Lvl 4.0 mmol/L Chloride 103 mmol/L CO2 26 mmol/L AGAP 14 mEq/L , No qualifying data available. Chest x-ray results Reason For Exampre-opPOWERSCRIBE REPORTIMPRESSION: NO ACTIVE DISEASE IN THE CHEST.EXAM: Chest, 2 views.REASON FOR EXAM: Preadmission chest.COMMENT: The heart is enlarged. Atherosclerotic changes overlie the aortic arch.Mild central vascular congestion noted, stable and unchanged from 12/27/2014. There isno evidence of acute pulmonary edema or consolidating infiltrate or effusion. No massseen. Bones and soft tissues intact. No change from 12/27/2014 study.Signature Line FINAL REPORT Dictated: 06/27/2016 2:50 pm Tyrone Fuentes MDSigned (Electronic Signature): 06/27/2016 7:42 pmSigned by: Tyrone Fuentes MDTranscribed by: christelle Technologist: NABEEL REPORTThis document has an imageResult type: XR Chest 2 ViewsResult date: June 27, 2016 09:31 ESTResult status: Auth (Verified)Result title: XR Chest 2 ViewsPerformed by: Tyrone Fuentes MD on June 27, 2016 15:29 ESTVerified by: Tyrone Fuentes MD on June 27, 2016 19:42 ESTEncwest hills regional medical centerer info: [id number], Angel Ramírez, Outpatient, 06/27/2016 - 06/27/2016 Plan [employer] (ASA) physical status classification: Class III. Anesthetic Preoperative Plan Anesthesia: General. , Regional ISB block for post op pain control.. Anesthetic plan, risks, benefits, and alternatives discussed with the patient and/or family. Patient verbalized understanding. Pt agrees with anesthetic plan and accepts all risks including but not limited to; Bleeding, infection, nerve injury, dental injury, eye injury, shortness of breath, headache, low blood pressure, serious problems with the heart and lungs, allergic reactions, failed block and .. Normal [facility] Comment on above: Result Comment: Electronically Signed By : Miki MENJIVAR, Sterling\.br\Date and Time Signed: 12/26/16 14:49 EDT Progress Note-Physician Patient: SURI OSHEA Age: 56 years Sex: Female : 1960 Associated Diagnoses: None Author: Sterling Livingston MD Postoperative Information Post Operative Note: Post Anesthesia Care Unit. Anesthetic utilized: General. Health Status Allergies: Allergic Reactions (All)SevereBactrim- Hives.Vicodin- Itching and rash. Problem list: All ProblemsRotator cuff tear / SNOMED CT 9408919073 / ConfirmedRIGHTHTN - Hypertension / SNOMED CT 8295130296 / ConfirmedNIDDM / ICD-9-CM 250.00 / ConfirmedNerve pain / SNOMED CT 70020632 / Confirmedlower backExtreme obesity / ICD-9-CM 278.01 / PossibleAnxiety / SNOMED CT 212010461 / ConfirmedChronic depression / SNOMED CT 682571903 / ConfirmedStomach problems / SNOMED CT 637383149 / ConfirmedResolved: Dizzinesses / SNOMED CT 1050355413Bktxkqau: H/O syncope / SNOMED CT 2413834127 Physical Examination Intake and Output adequate hydration Vital Signs 12/25/2016 11:05 EDT Heart Rate Monitored 89 bpm Respiratory Rate Monitored 16 br/min Systolic Blood Pressure 143 mmHg HI Diastolic Blood Pressure 68 mmHg Blood Pressure Location Right arm SpO2 99 % 12/25/2016 11:00 EDT Heart Rate Monitored 91 bpm Respiratory Rate Monitored 18 br/min Systolic Blood Pressure 149 mmHg HI Diastolic Blood Pressure 71 mmHg Blood Pressure Location Right arm SpO2 99 % 12/25/2016 10:55 EDT Temperature Temporal Artery 36.3 DegC Heart Rate Monitored 97 bpm Respiratory Rate Monitored 18 br/min Systolic Blood Pressure 144 mmHg HI Diastolic Blood Pressure 77 mmHg Blood Pressure Location Right arm SpO2 98 % Pain assessment: Self-reports no pain. General: Alert and oriented, No acute distress. HENT: Oral mucosa is moist, dentition unchanged. Respiratory: Respirations: Are within normal limits. Pattern: Regular. Cardiovascular: Normal rate. Neurologic: Alert, Oriented. Review / Management Lines and Tubes: Peripheral catheter. ECG interpretation: Within normal limits. Condition: Stable. Assessment Anesthetic outcome No anesthetic complications noted. Adequate pain relief. No Complaint of nausea and vomiting. Plan Transfer/ Discharge: Patient can be discharged from PACU when criteria met, Patient can be discharged from anesthesia care. Condition stable. Normal [facility] Comment on above: Result Comment: Electronically Signed By : Miki MENJIVAR, Sterling\.br\Date and Time Signed: 12/26/16 14:49 EDT Inpatient Patient Summaryon 12-25-2016 In[facility] Dis[facility] InstructionsPERSON INFORMATION Name: SURI OSHEA [facility] Admitting Physician: Renetta Jones DO Physician: Krysten Jones DO PCP: MORIAH MERRITT MDischarge Diagnosis: Comment: PATIENT EDUCATION INFORMATIONInstructions:Robert - Rotator CuffRepair / Shoulder Arthrotomy Discharge Instructions-(Revised 06-19-11) (Custom) (Custom) (CUSTOM)Medication Leaflets:Follow up:MEDICATION LISTFill New Prescriptions:acetaminophen-oxy codone (Percocet 325 mg-5 mg Tab) 1 tab(s) By Mouth every 4 hours as needed for as needed for painComment: Normal [facility] Main OR PACU I Recordon 11-30 Main OR PACU I Record PACU Phase I Document Type FT Summary Primary Physician: Krysten Jones DO Finalized Date/Time: 12/25/16 11:37:13 Pt. Name: SURI OSHEA /Sex: 1960 Female Med Rec #: [id number] Physician: Krysten Jones DO Financial #: [id number] Pt. Type: A Room/Bed: [place] [address] Admit/Disch: 12/25/16 07:28:36 - Institution: Case Times PACU I FT Pre-Care Text: Identifies barriers to communication and implements measures to provide psychological support Develops individualized plan of care, and ensures continuity of care Maintains patient's dignity and privacy, and maintains patient confidentiality Identifies and reports philosophical, cultural, and spiritual beliefs and values Identifies individual values and wishes concerning care Implements aseptic technique, and administers prescribed antibiotic therapy and immunizing agents as ordered Evaluates postoperative tissue perfusion Implements thermoregulation measures, and monitors body temperature Evaluates postoperative respiratory status Evaluates postoperative cardiac status Evaluates postoperative neurological status Assesses pain control, collaborated in initiating patient-controlled analgesia and implements alternative methods of pain control Verifies allergies, administers prescribed medications and solutions, evaluates response to medications Entry 1 In PACU I 12/25/16 10:55:00 Discharge from PACU 12/25/16 11:25:00 I Outcomes Met? Yes Last Modified By: Andie Ramon RN 12/25/16 11:37:03 Post-Care Text: The patient demonstrates knowledge of the expected response to the operative or invasive procedure The patient's care is consistent with the individualized perioperative plan of care The patient's right to privacy is maintained The patient's value system, lifestyle, ethnicity, and culture are considered, respected, and incorporated into the perioperative plan of care The patient participates in decisions affecting his or her perioperative plan of care The patient is free from signs and symptoms of infection The patient has wound/tissue perfusion consistent with or improved from baseline levels established preoperatively The patient is at or returning to normothermia at the conclusion of the immediate postoperative period The patient's respiratory function is consistent with or improved from baseline levels established preoperatively The patient's cardiovascular status is consistent with or improved from baseline levels established preoperatively The patient's cardiovascular status is consistent with or improved from baseline levels established preoperatively The patient demonstrates and/or reports adequate pain control throughout the perioperative period The patient received appropriate medication(s), safely administered during the perioperative period Acuity Level PACU I FT Entry 1 Start Time 12/25/16 10:55:00 Stop Time 12/25/16 11:25:00 Acuity Level Acuity Level I Last Modified By: Andie Ramon RN 12/25/16 11:37:11 Finalized By: Andie Ramon RN Document Signatures Signed By: Andie Ramon RN 12/25/16 11:[address] [facility] Main OR PACU II Recordon Main OR PACU II Record PACU Phase II Document Type FT Summary Primary Physician: Krysten Jones DO Finalized Date/Time: 12/25/16 14:10:58 Pt. Name: FEDERICOSURI/Sex: 1960 Female Med Rec #: [id number] Physician: Krysten Jones DO Financial #: [id number] Pt. Type: A Room/Bed: [place] [address] Admit/Disch: 12/25/16 07:28:36 - Institution: Case Times PACU II FT Pre-Care Text: Identifies barriers to communication and implements measures to provide psychological support and determines knowledge level Develops individualized plan of care, and ensures continuity of care Maintains patient's dignity and privacy, and maintains patient confidentiality Identifies and reports philosophical, cultural, and spiritual beliefs and values Identifies individual values and wishes concerning care administers prescribed antibiotic therapy and immunizing agents as ordered, Evaluates postoperative tissue perfusion Implements thermoregulation measures, and monitors body temperature Evaluates postoperative respiratory status Evaluates postoperative cardiac status Evaluates postoperative neurological status Assesses pain control, collaborated in initiating patient-controlled analgesia and implements alternative methods of pain control Verifies allergies, administers prescribed medications and solutions, evaluates response to medications Entry 1 In PACU II 12/25/16 11:25:00 Discharge from PACU 12/25/16 13:15:00 II Outcomes Met? Yes Last Modified By: Manisha Ellington RN 12/25/16 14:10:56 Post-Care Text: The patient demonstrates knowledge of the expected response to the operative or invasive procedure The patient's care is consistent with the individualized perioperative plan of care The patient's right to privacy is maintained The patient's value system, lifestyle, ethnicity, and culture are considered, respected, and incorporated into the perioperative plan of care The patient participates in decisions affecting his or her perioperative plan of care. The patient is free from signs and symptoms of infection The patient has wound/tissue perfusion consistent with or improved from baseline levels established preoperatively The patient is at or returning to normothermia at the conclusion of the immediate postoperative period The patient's respiratory function is consistent with or improved from baseline levels established preoperatively The patient's cardiovascular status is consistent with or improved from baseline levels established preoperatively The patient's neurological status is consistent with or improved from baseline levels established preoperatively The patient demonstrates and/or reports adequate pain control throughout the perioperative period The patient received appropriate medication(s), safely administered during the perioperative period Finalized By: Manisha Ellington RN Document Signatures Signed By: Manisha Ellington RN 12/25/16 14:10 [facility] Main OR Preoperative Recordo n 12-25-2016 Main OR Preoperative Record PreOp Document Type FT Summary Primary Physician: Krysten Jones DO Finalized Date/Time: 12/25/16 11:12:45 Pt. Name: SURI OSHEA/Sex: 1960 Female Med Rec #: [id number] Physician: Krysten Jones DO Financial #: [id number] Pt. Type: A Room/Bed: [place] [address] Admit/Disch: 12/25/16 07:28:36 - Institution: Case Times PreOp FT Pre-Care Text: Verifies consent for planned procedure, identifies individual values and wishes concerning care, includes family members in perioperative teaching Entry 1 Patient Times. In Pre Surgery 12/25/16 08:47:00 Out Pre Surgery 12/25/16 08:48:00 Outcomes Met? Yes Last Modified By: Jie Florence RN 12/25/16 11:12:40 Post-Care Text: The patient participates in decisions affecting his or her perioperative plan of care Finalized By: Jie Florence RN Document Signatures Signed By: Jie Florence RN 12/25/16 09:25 Jie Florence RN 12/25/16 09:25 Jie Florence RN 12/25/16 11:12 [facility] Patient Education - Texton 0 12-25-2016 Patient Education - Text Patient Education Materials Follows:Krysten Jones D.O.[address] [phone] OPEN ROTATOR CUFF REPAIR DISCHARGE INSTRUCTIONSMEDICATIONSYou will be given a prescription for pain medication. This should be taken with food, as needed. This may cause stomach upset, dizziness, and possible constipation. Please notify the office if you have any medication allergies to this type of medication or if any problems develop with the medication.You may begin using Tylenol or brbl-fwo-hgmbxqy Ibuprofen or Motrin for pain should you experience lesser pain.DRESSING CHANGESYou should continue the daily dressing changes as instructed by nursing staff, with light application of Betadine liquid only if there are areas of drainage, and then a dry sterile dressing once or twice daily as needed. If incision is dry, apply dry dressing only. May clean with peroxide as needed.Any increase in pain, temperature over 101 degrees, redness, or drainage should be reported to the office prior to your first office visit.PHYSICAL THERAPYWill begin after your first office visit.ACTIVITYYou may continue to progress activity as comfortably tolerated with your opposite arm. You must wear either the cryo cuff or shoulder immobilizer at all times, with 2# lifting limit keeping elbow at your side all times.ANESTHESIA PRECAUTIONSYou should not operate a vehicle, automobile, bicycle or motorcycle, machinery, or power tools; make any important decisions or drink alcohol for 24 hours.It may be beneficial to have a responsible adult remain with your for your first 24 hours after surgery. You may be drowsy and light-headed.DRIVINGDriving is legal. But if you are involved in an accident, you must be able to prove that you maintained full control of your vehicle. For this reason, it is advised that you do not drive until your strength returns. Similarly, all sports activities are discouraged, at least until your first post-operative visit at which time we will discuss how and when to resume sports.PROBLEMSYou should notify the office for any persistent or heavy bleeding, temperature above 101, redness, swelling, or drainage from the operative site, severe pain at the operative site, or the development of persistent vomiting. Krysten Jones D.O.Rev. 2011- Normal [facility] Coding Summary.on 12-15-2016 Coding Summary. CODING DATE: 017 FINAL [facility] STATUS: Home (Routine DC) PAYOR: Medicaid ADMIT DX: REASON FOR VISIT DX: Z01.812 Encounter for preprocedural laboratory examination FINAL DX: PRINCIPAL: Z01.812 Encounter for preprocedural laboratory examination SECONDARY: M75.102 Unspecified rotator cuff tear or rupture of left shoulder, not specified as traumatic PROCEDURES DOCTOR NAME DATE NOTE: The code number assigned matches the documented diagnosis and / or procedure in the patient's chart. However, the narrative phrase printed from the coding software may appear abbreviated, or result in slightly different terminology. Coded By: Abi Garcia Date Saved: 12/15/2016 02:[address] [facility] BUNon 12-12-2016 Urea nitrogen 14 mg/dL Normal 5-21 [facility] Comment on above: Performed By: #### [id number], [id number], 292 1234, [id number], [id number], [id number] ####[facility] [address] [place] [address] CBC w/Indiceson 12-12-2016 Erythrocyte distribution width Auto Ratio (RBC) 15.6 % High 10.9-14.2 [facility] Comment on above: Performed By: #### [id number], [id number], 292 1234, [id number], 7182099, 8705349 ####[facility] [address] [place] [address] Erythrocytes (RBC) 4.7 E12/L Normal 4.3-5.9 [facility] Comment on above: Performed By: #### [id number], 6817780, 292 1234, 16871382, 9074416, [id number] ####[facility] [address] [place] [address] Hematocrit (HCT) 39.1 % Normal 34.0-46.0 [facility] Comment on above: Performed By: #### [id number], 2868269, 292 1234, 78021010, 7991827, 6925977 ####[facility] [address] [place] [address] Hemoglobin mass conc (Bld) 12.6 g/dL Normal 12.0-16.0 [facility] Comment on above: Performed By: #### 5471807, 4604137, 292 1234, [id number], 4532428, 4144210 ####[facility] [address] [place] [address] MCH 26.7 pg Low 27.0-34.0 [facility] Comment on above: Performed By: #### 2971100, 7712407, 292 1234, 17305939, 2963485, 4279342 ####[facility] [address] [place] [id number] MCHC mass conc (RBC) 32.3 g/dL Normal 31.4-39.3 [facility] Comment on above: Performed By: #### [id number], 0821542, 292 1234, 25517587, 8805557, 6412411 ####[place] [address] MCV 82.4 fL Normal 80.0-100.0 [facility] Comment on above: Performed By: #### 4754261, 5434877, 292 1234, 23246016, 6340287, 2207159 ####[place] [address] [place] [id number] Platelet mean volume (PMV) 8.0 fL Normal 6.4-10.8 [facility] Comment on above: Performed By: #### [id number], 1190511, 292 1234, 94848021, 0338766, 1966044 ####[facility] [address] [place] [address] Platelets 283.0 E9/L Normal 150.0-500. 0 [facility] Comment on above: Performed By: #### 4798557, 4229326, 292 1234, 13726468, 3105745, 1052448 ####[place] [address] [place] [address] WBC (Leukocytes) 7.6 E9/L Normal 4.0-11.0 [facility] Comment on above: Performed By: #### [id number], [id number], 292 1234, [id number], [id number], [id number] ####[facility] [address] [place] [address] Creatinineon 12-12-2016 Creatinine 0.6 mg/dL Normal 0.5-1.3 [facility] Comment on above: Performed By: #### [id number], [id number], 292 1234, [id number], [id number], [id number] ####[facility] [address] [place] [address] Glu Fastingon 12-12-2016 Glucose mass conc 124 mg/dL High 55-99 [facility] Comment on above: Performed By: #### [id number], [id number], 292 1234, [id number], [id number], 8530125 ####[facility] [address] [place] [address] Lyteson 12-12-2016 Anion gap 14 mmol/L Normal 6-16 [facility] Comment on above: Performed By: #### [id number], [id number], 292 1234, [id number], [id number], [id number] ####[facility] [address] [place] [address] Chloride 103 mmol/L Normal 101-111 [facility] Comment on above: Performed By: #### [id number], [id number], 292 1234, [id number], 1826069, [id number] ####[facility] [address] [place] [address] CO2 26 mmol/L Normal 21-31 [facility] Comment on above: Performed By: #### [id number], [id number], 292 1234, [id number], 0423948, 0374871 ####[facility] [address] [place] [address] Potassium molar conc 4.0 mmol/L Normal 3.5-5.3 [facility] Comment on above: Performed By: #### [id number], [id number], 292 1234, [id number], 3351273, [id number] ####[facility] [address] [place] [address] Sodium 139 mmol/L Normal 135-145 [facility] Comment on above: Performed By: #### [id number], 8079414, 292 1234, [id number], 9168465, 4458238 ####[facility] [address] [place] [address] eGFRon 12-12-2016 eGFR (black) mL/min/{1.73_m2} Normal >=59 [facility] Comment on above: Order Comment: Order added by Paty Ex pert. Result Comment: eGFR is race adjusted. AA=. Performed By: #### 2 [id number], [id number], 5355736, [id number], 1067880, [id number] ####[facility] [address] [place] [address] eGFR (non-black) mL/min/{1.73_m2} Normal >=59 [facility] Comment on above: Order Comment: Order added by Paty Ex pert. Result Comment: Glass Bulb Machine Adjuster hayley kidney disease could be indicated at eGFR's of less than 60 mL/min/1.73m2. Kidney failure is indicated at less than 15 mL/min/1.73m2. Performed By: #### 2 [id number], [id number], 2789723, [id number], [id number], [id number] ####[facility] [address] [place] [address] Vital Signs Date Time Vital Sign Value Performing Clinician Facility 10-11-2024 14:30-040 Body height 160 cm Moriah GUO Work Phone: [facility] 10-11-2024 14:30-040 Body mass index (BMI) [Ratio] 38.37 kg/m2 Moriah GUO Work Phone: [facility] 10-11-2024 14:30040 Body weight 98.25 kg Moriah GUO Work Phone: [facility] 10-11-2024 14:30-040 Diastolic blood pressure 72 mm[Hg] Moriah Hemmer PA Work Phone: [facility] 10-11-2024 14:30-0400 Heart rate 98 /min Moriah Hemmer PA Work Phone: [facility] 10-11-2024 14:30-0400 Respiratory rate 18 /min Moriah Hemmer PA Work Phone: [facility] 10-11-2024 14:30-0400 SaO2% (BldA) [Mass fraction] 99 % Moriah Hemmer PA Work Phone: [facility] 10-11-2024 14:30-0400 Systolic blood pressure 118 mm[Hg] Moriah Hemmer PA Work Phone: [facility] 09-21-2024 14:42-0400 Body height 160 cm Moriah Hemmer PA Work Phone: [facility] 09-21-2024 14:42-0400 Body mass index (BMI) [Ratio] 37.02 kg/m2 Moriah Hemmer PA Work Phone: [facility] 09-21-2024 14:42-0400 Body weight 94.8 kg Moriah Hemmer PA Work Phone: [facility] 09-21-2024 14:42-0400 Diastolic blood pressure 82 mm[Hg] Moriah Hemmer PA Work Phone: [facility] 09-21-2024 14:42-0400 Heart rate 69 /min Moriah Hemmer PA Work Phone: [facility] 09-21-2024 14:42-0400 Respiratory rate 16 /min Moriah Hemmer PA Work Phone: [facility] 09-21-2024 14:42-0400 SaO2% (BldA) [Mass fraction] 95 % Moriah Hemmer PA Work Phone: [facility] 09-21-2024 14:42-0400 Systolic blood pressure 126 mm[Hg] Moriah Hemmer PA Work Phone: [facility] 07-11-2024 14:31-0500 Body height 160 cm Moriah Hemmer PA Work Phone: [facility] 07-11-2024 14:31-0500 Body mass index (BMI) [Ratio] 37.31 kg/m2 Moriah Hemmer PA Work Phone: [facility] 07-11-2024 14:31-0500 Body weight 95.53 kg Moriah Hemmer PA Work Phone: [facility] 07-11-2024 14:31-0500 Diastolic blood pressure 68 mm[Hg] Moriah Hemmer PA Work Phone: [facility] 07-11-2024 14:31-0500 Heart rate 65 /min Moriah Hemmer PA Work Phone: [facility] 07-11-2024 14:31-0500 Respiratory rate 18 /min Moriah Hemmer PA Work Phone: [facility] 07-11-2024 14:31-0500 SaO2% (BldA) [Mass fraction] 98 % Moriah Hemmer PA Work Phone: [facility] 07-11-2024 14:31-0500 Systolic blood pressure 116 mm[Hg] Moriah Hemmer PA Work Phone: [facility] 04-19-2024 13:57-0500 Body height 160 cm Heather Moscoso MD Work Phone: [facility] 04-19-2024 13:57-0500 Body mass index (BMI) [Ratio] 36.31 kg/m2 Heather Moscoso MD Work Phone: [facility] 04-19-2024 13:57-0500 Body weight 92.99 kg Heather Moscoso MD Work Phone: [facility] 04-19-2024 13:57-0500 Diastolic blood pressure 78 mm[Hg] Heather Moscoso MD Work Phone: [facility] 04-19-2024 13:57-0500 Systolic blood pressure 130 mm[Hg] Heather Moscoso MD Work Phone: [facility] 04-04-2024 13:46-0500 Body height 160 cm Moriah Hemmer PA Work Phone: [facility] 04-04-2024 13:46-0500 Body mass index (BMI) [Ratio] 36.14 kg/m2 Moriah Hemmer PA Work Phone: [facility] 04-04-2024 13:46-0500 Body weight 92.53 kg Moriah Hemmer PA Work Phone: [facility] 04-04-2024 13:46-0500 Diastolic blood pressure 72 mm[Hg] Moriah Hemmer PA Work Phone: [facility] 04-04-2024 13:46-0500 Heart rate 69 /min Moriah Hemmer PA Work Phone: [facility] 04-04-2024 13:46-0500 Respiratory rate 18 /min Moriah Hemmer PA Work Phone: [facility] 04-04-2024 13:46-0500 SaO2% (BldA) [Mass fraction] 97 % Moriah Hemmer PA Work Phone: [facility] 04-04-2024 13:46-0500 Systolic blood pressure 116 mm[Hg] Moriah Hemmer PA Work Phone: [facility] 03-10-2023 11:15-0400 Body height 160.02 cm Yon Bella Other [facility] Other 03-10-2023 11:15-0400 Body mass index (BMI) [Ratio] 35.6 kg/m2 Yon Bella Other [facility] Other 03-10-2023 11:15-0400 Body weight 91.17 kg Yon Kellylauro Other [facility] Other 03-10-2023 11:15-0400 Diastolic blood pressure 73 mm[Hg] Yon Bella Other [facility] Other 03-10-2023 11:15-0400 Systolic blood pressure 110 mm[Hg] Yon Bella Other [facility] Other 04-18-2021 14:15-0500 Body height 160.02 cm Yon Bella Other [facility] Other 04-18-2021 14:15-0500 Body mass index (BMI) [Ratio] 35.6 kg/m2 Yon Bella Other [facility] Other 04-18-2021 14:15-0500 Body weight 91.17 kg Yon Bella Other [facility] Other 04-18-2021 14:15-0500 Diastolic blood pressure 99 mm[Hg] Yon Bella Other [facility] Other 04-18-2021 14:15-0500 Systolic blood pressure 139 mm[Hg] Yon Bella Other [facility] Other Encounters Encounter Date Encounter Type Care Provider Facility Start: 10-26-2024 ambulatory Hever Martin Facility:[facility] Start: 10-11-2024 End: 10-11-2024 ambulatory MORIAH GUZMAN Not Available Start: 10-11-2024 End: 10-11-2024 Bamboo flowsheet Moriah Guzman PA Work Phone: [facility] Start: 10-11-2024 End: 10-12-2024 Bamboo flowsheet Moriah Guzman PA Work Phone: [facility] Start: 10-11-2024 End: 10-12-2024 External Result Encounter Moriah Guzman PA Work Phone: [facility] Unsolicited Start: 10-11-2024 End: 10-11-2024 Office outpatient visit 15 minutes Moriah GUO Work Phone: [facility] Comment on above: Diabetic peripheral neuropathy (CMS/HCC) (Primary Dx); Arthropathy of left sacroiliac joint; Major depressive disorder, recurrent severe without psychotic features (HCC) (CMS/HCC) Start: 09-21-2024 End: 09-21-2024 Office outpatient visit 25 minutes Moriah GUO Work Phone: [facility] Comment on above: Arthropathy of left sacroiliac joint (Primary Dx); Obstructive sleep apnea; Primary osteoarthritis of both hips; Osteoarthritis of lumbar spine, unspecified spinal osteoarthritis complication status; Degeneration of intervertebral disc of lumbar region with discogenic back pain and lower extremity pain Start: 09-21-2024 End: 09-21-2024 ambulatory MORIAH GUZMAN Not Available Start: 09-21-2024 End: 09-21-2024 Bamboo flowsheet Moriah GUO Work Phone: [facility] Start: 09-21-2024 End: 09-21-2024 Bamboo flowsheet Moriah GUO Work Phone: [facility] Start: 07-15-2024 End: 07-15-2024 Clinisync Result Encounter Moriah GUO Work Phone: [facility] Unsolic[facility] Start: 07-15-2024 End: 07-15-2024 Clinisync Result Encounter Moriah GUO Work Phone: [facility] Un[facility]olic[facility] Start: 07-11-2024 End: 07-11-2024 Patient encounter procedure Moriah GUO Work Phone: [facility] Comment on above: Medicare annual well [facility] visit, subsequent (Primary Dx); ACP (advance care planning); Myalgia; Bilateral hip pain; Osteoarthritis of lumbar spine, unspecified spinal osteoarthritis complication status; Need for vaccination; Diabetic peripheral neuropathy (CMS/HCC); Primary insomnia; Obstructive sleep apnea; Other chronic pain; Paresthesia of skin; Peripheral polyneuropathy; Obstructive pattern present on pulmonary function testing; Abnormal cardiovascular stress test; Abnormal ECG; Atherosclerosis of [place] arteries of extremities with rest pain, bilateral legs (CMS/HCC); Heart disease; Mitral valve insufficiency, unspecified etiology; Peripheral vascular disease (CMS/HCC); Tricuspid valve insufficiency, unspecified etiology; Venous (peripheral) insufficiency; Fatty liver; Gastritis without bleeding, unspecified chronicity, unspecified gastritis type; GERD without esophagitis; Irritable bowel syndrome, unspecified type; Cervical spondylosis; Degeneration of intervertebral disc of lumbar region with discogenic back pain; Primary osteoarthritis of right ankle; Peripheral edema; Diabetic cataract, associated with type 2 diabetes mellitus (CMS/HCC); Morbid (severe) obesity due to excess calories (CMS/HCC); Multinodular goiter (CMS/HCC); Thyroid nodule (CMS/HCC); Vitamin D deficiency; Anemia, unspecified type; Verruca vulgaris; Benign paroxysmal vertigo of both ears; Age-related cataract of both eyes, unspecified age-related cataract type; Ductal hyperplasia of breast; Hemangioma of skin; Hirsutism; History of hysterectomy; Meralgia paresthetica, unspecified laterality; Mixed hyperlipidemia (CMS/HCC); Moderate episode of recurrent major depressive disorder (CMS/HCC); Myopia of both eyes; Open-angle glaucoma of both eyes, mild stage, unspecified open-angle glaucoma type (CMS/HCC); Presbyopia; Type 2 diabetes mellitus with other specified complication (CMS/HCC); Type 2 diabetes mellitus with diabetic peripheral angiopathy without gangrene ([facility]/HCC); BMI 37.0-37.9, adult Start: 07-11-2024 End: 07-11-2024 ambulatory MORIAH GUZMAN Not Available Start: 07-11-2024 End: 07-11-2024 Bamboo flowsheet Moriah Guzman PA Work Phone: [facility] Start: 07-11-2024 End: 07-11-2024 Bamboo flowsheet Moriah Guzman PA Work Phone: [facility] Start: 04-19-2024 End: 04-19-2024 Bamboo flowsheet Heather Moscoso MD Work Phone: [facility] Start: 04-19-2024 End: 04-19-2024 Bamboo flowsheet Heather Moscoso MD Work Phone: [facility] Start: 04-19-2024 End: 04-19-2024 Office outpatient new 45 minutes Heather Moscoso MD Work Phone: [facility] Comment on above: Recurrent epistaxis Start: 04-19-2024 End: 04-19-2024 ambulatory HEATHER MOSCOSO Not Available Start: 04-04-2024 End: 04-04-2024 Bamboo flowsheet Moriah Guzman PA Work Phone: [facility] Start: 04-04-2024 End: 04-04-2024 Bamboo flowsheet Moriah Guzman PA Work Phone: [facility] Start: 04-04-2024 End: 04-04-2024 ambulatory MORIAH GUZMAN Not Available Start: 04-04-2024 End: 04-04-2024 Office outpatient visit 25 minutes Moriah Guzman PA Work Phone: [facility] Comment on above: Diabetic peripheral neuropathy (CMS/HCC) (Primary Dx); Recurrent epistaxis; Candidiasis; Encounter for screening mammogram for malignant neoplasm of breast; Need for vaccination; Benign essential hypertension (CMS/HCC); Fatty liver; Thyroid nodule (CMS/HCC); Anemia, unspecified type; Mixed hyperlipidemia (CMS/HCC); Morbid (severe) obesity due to excess calories (CMS/HCC) Start: 12-16-2023 End: 12-16-2023 ambulatory RODGER B APLING Not Available Start: 11-16-2023 End: 11-16-2023 ambulatory RODGER B APLING Not Available Start: 11-04-2023 End: 11-04-2023 Evaluation and management of inpatient FEMI FOLEY [facility] Start: 11-04-2023 End: 11-04-2023 Evaluation and management of inpatient MARILIA Rice [facility] Start: 10-19-2023 End: 10-19-2023 ambulatory MORIAH GUZMAN Not Available Start: 10-14-2023 End: 10-14-2023 ambulatory MARILIA Krystal [facility] Start: 10-14-2023 Encounter for other preprocedural examination [facility] Start: 07-07-2023 Chart abstracting Moriah Robison er PA Work Phone: [facility] Start: 03-10-2023 End: 03-10-2023 ambulatory Yon Bella Other [facility] Other Start: 03-10-2023 Patient encounter procedure Yon Bella [facility] Start: 12-16-2021 End: 12-17-[address] ELIO OWENS Facility:[facility] Start: 12-09-2021 End: 12-10-[address] MORIAH GUZMAN Facility:[facility] Start: 07-01-2021 End: 07-01-2021 ambulatory Yon Bella Other [facility] Other Start: 07-01-2021 Telephone encounter [facility]on [facility] Start: 05-14-2021 End: 05-14-2021 ambulatory Yon Bella Other [facility] Other Start: 05-14-2021 Telephone encounter Yon Bella [facility] Start: 04-18-2021 End: 04-18-2021 ambulatory Yon Bella Other [facility] Other Start: 04-18-2021 Patient encounter procedure Yon Bella [facility] Start: 01-21-2021 End: 01-22-2021 ambulatory JIE VELAZQUEZ Facility:[facility] Start: 12-19-2020 End: 12-20-[address] ELIO OWENS Facility:[facility] Start: 09-16-2017 End: 09-16-2017 [facility]ulatory [facility] Start: 09-02-2017 End: 09-02-2017 Ambulatory [facility] Start: 07-03-2017 End: 07-04-2017 Ambulatory MAURICE AVINA Facility:[facility] Start: 12-25-2016 End: 12-25-2016 Ambulatory [facility]rysten Jones [facility] Start: 12-12-2016 End: 12-13-2016 Ambulatory Krysten Jones [facility] Procedures Date Procedure Procedure Detail Performing Clinician Start: 10-11-2024 Hemoglobin glycosylated a1c Moriah GUO Work Phone: Start: 10-11-2024 Urine albumin quantitative Moriah GUO Work Phone: Start: 07-15-2024 Radex hips bilateral with pelvis 2 views Moraih GUO Work Phone: Start: 04-04-2024 Hemoglobin glycosylated a1c Moriah GUO Work Phone: Start: 03-18-2023 H/O: hysterectomy History of hysterectomy Moriah GUO Work Phone: Start: 12-16-2021 Mammography Moriah GUO Work Phone: Start: 12-26-2013 Colonoscopy Moriah GUO Work Phone: H/O: hysterectomy History of hysterectomy Moriah GUO Work Phone: Plan of Treatment Date Care Activity Detail Author Start: 07-11-2025 Medicare Annual Wellness (AWV) Medicare Annual Wellness (AWV) [facility] Start: 05-22-2025 Glaucoma screening Diabetes: R etinopathy Screening [facility] Start: 04-04-2025 Screening for malign ant neoplasm of colon Colorectal Cancer Screening [facility] Comment on above: Postponed from 05/03 (Patient Refused) Start: 01-11-2025 Hemoglobin A1c measurement Diabetes: Hemoglobin A1C [facility] Start: 10-11-2024 End: 10-11-2024 Patient encounter procedure 10/11/2024 2:00 PM EDT Office Visit [facility] [address] [place] [id number] Moriah Guzman PA [address] [place] [address] [facility] Start: 10-05-2024 Urine screening for protein Diabetes: Urine Protein Screening [facility] Start: 09-21-2024 End: 09-21-2024 Patient encounter procedure 09/21/2024 2:30 PM EDT Office Visit [facility] [address] [place] [address] Moriah Guzman, PA [address] [place] [address] Arrived [facility] Comment on above: Arrived Start: 07-11-2024 End: 07-11-2024 Patient encounter procedure 07/11/2024 2:30 PM EST Office Visit [facility] [address] [place] [id number] Moriah Guzman PA [address] [place] [address] Arrived [facility] Comment on above: Arrived Start: 07-11-2024 End: 07-11-2025 XR Hip - left 3 Views XR hip left 2 or 3 views Imaging Routine Bilateral hip pain Expected: 07/11/2024, Expires: 07/11/2025 [facility] Work Phone: Comment on above: Expected: 07/11/2024 , Expires: 07/11/2025 Start: 07-11-2024 End: 07-11-2025 XR Hip - right 3 Views XR hip right 2 or 3 views Imaging Routine Bilateral hip pain Expected: 07/11/2024, Expires: 07/11/2025 [facility] Comment on above: Expected: 07/11/2024 , Expires: 07/11/2025 Start: 07-07-2024 Medicare Annual Wellness (AWV) Medicare Annual Wellness (AWV) [facility] Start: 07-07-2024 End: 07-07-2024 Patient encounter procedure 07/07/2024 1:30 PM EST Office Visit [facility] [address] [place] [address] Moriah Guzman, PA [address] [place] [address] [facility] Start: 07-05-2024 Hemoglobin A1c measurement Diabetes: Hemoglobin A1C [facility] Start: 04-26-2024 End: 04-26-2024 Patient encounter procedure 04/26/2024 1:30 PM EST Office Visit [facility] [address] [place] [address] Elio Owens MD [address] [place] [address] [facility] Start: 04-19-2024 End: 04-19-2024 Patient encounter procedure 04/19/2024 2:00 PM EST Office Visit [facility] [address] [place] [address] Heather Moscoso MD [address] [place] [address] Recurrent epistaxis [facility] Comment on above: Recurrent epistaxis Start: 04-12-2024 End: 04-12-2024 Patient encounter procedure 04/12/2024 2:00 PM EST Office Visit [facility] [address] [place] [address] Heather Moscoso MD [address] [place] [address] [facility] Start: 04-04-2024 End: 04-04-2025 CBC W Auto Differential panel - Blood CBC and differential Lab Routine Benign essential hypertension (CMS/HCC) Anemia, unspecified type Mixed hyperlipidemia (CMS/HCC) Expected: 04/04/2024 (Approximate), Expires: 04/04/2025 [facility] Comment on above: Expected: 04/04/2024 (Approximate), Expires: 04/04/2025 Start: 04-04-2024 End: 04-04-2025 Comprehensive metabolic 2000 panel - Serum or Plasma Comprehensive metabolic panel Lab Routine Benign essential hypertension (CMS/HCC) Fatty liver Mixed hyperlipidemia (CMS/HCC) Expected: 04/04/2024 (Approximate), Expires: 04/04/2025 [facility] Comment on above: Expected: 04/04/2024 (Approximate), Expires: 04/04/2025 Start: 04-04-2024 End: 06-04-2025 DBT Breast - bilateral screening Bilateral screening mammogram with tomosynthesis Imaging Routine Encounter for screening mammogram for malignant neoplasm of breast Expected: 04/04/2024, Expires: 06/04/2025 [facility] Work Phone: Comment on above: Expected: 04/04/2024 , Expires: 06/04/2025 Start: 04-04-2024 End: 04-04-2025 Lipid 1996 panel - Serum or Plasma Lipid panel Lab Routine Benign essential hypertension (CMS/HCC) Fatty liver Mixed hyperlipidemia (CMS/HCC) Expected: 04/04/2024 (Approximate), Expires: 04/04/2025 [facility] Comment on above: Expected: 04/04/2024 (Approximate), Expires: 04/04/2025 Start: 04-04-2024 End: 04-04-2025 Microalbumin/Creatinine panel in random Urine Microalbumin / creatinine urine ratio Lab Routine Diabetic peripheral neuropathy (CMS/HCC) Benign essential hypertension (CMS/HCC) Expected: 04/04/2024 (Approximate), Expires: 04/04/2025 [facility] Comment on above: Expected: 04/04/2024 (Approximate), Expires: 04/04/2025 Start: 04-04-2024 End: 04-04-2025 TSH W/REFLEX TO FT4 TSH W/REFLEX TO FT4 Lab Routine Thyroid nodule (CMS/HCC) Expected: 04/04/2024 (Approximate), Expires: 04/04/2025 [facility] Comment on above: Expected: 04/04/2024 (Approximate), Expires: 04/04/2025 Start: 03-24-2024 Urine screening for protein Diabetes: Urine Protein Screening [facility] Start: 01-31-2024 Influenza vaccination Influenza Vacc ine (#1) [facility] Start: 01-06-2024 Hemoglobin A1c measurement Diabetes: Hemoglobin A1C [facility] Start: 12-27-2023 Screening for malign ant neoplasm of colon [facility] Start: 07-07-2023 End: 07-07-2023 Patient encounter procedure 07/07/2023 1:00 PM EST Office Visit [facility] [address] [facility] [address] [place] [id number] Moriah Guzman PA [address] [facility] [address] [place] [address] [facility] Start: 06-24-2023 Hemoglobin A1c measurement Diabetes: Hemoglobin A1C [facility] Start: 12-16-2022 Screening for malign ant neoplasm of breast Mammogram [facility] Start: 11-26-2021 Medicare Annual Wellness (AWV) Medicare Annual Wellness (AWV) [facility] Start: 1960 Screening for malign ant neoplasm of colon [facility] Immunizations Immunization Date Immunization Notes Care Provider Fa cility 07-11-2024 zoster vaccine-recombinant adjuvanted (Shingrix) 50 MCG/0.5ML vaccine Moriah GUO Work Phone: [facility] 04-04-2024 influenza, seasonal, injectable, preservative free Moriah GUO Work Phone: [facility] 03-24-2023 influenza, injectabl e, quadrivalent, preservative free Moriah Hemtrace PA Work Phone: [facility] 03-24-2023 influenza virus vacc ine, unspecified formulation Moriah Hemtrace GUO Work Phone: [facility] 02-26-2021 influenza, injectabl e, quadrivalent, preservative free Moriah GUO Work Phone: [facility] 02-22-2020 Influenza, High-dose Seasonal, Quadrivalent, Preservative Free Moriah Guzman PA Work Phone: [facility] 03-16-2018 seasonal influenza, intradermal, preservative free Moriah Hemtrace PA Work Phone: [facility] 04-30-2016 seasonal influenza, intradermal, preservative free Moriah Hemmer PA Work Phone: [facility] 03-22-2015 influenza, injectabl e, quadrivalent, preservative free Moriah GUO Work Phone: [facility] Payers Date Payer Category Payer Medicare (Managed Care) [facility] [id number] 2023 Medicare [id number] 2022 Self-pay 2022 Medicare [employer] MEDICARE REPLACEMENT [id number] 2022-Present [address] [address] [place] [address] [id number] 2019 Medicaid [id number] 2016 Unknown [id number] 1962 Unknown [id number] 2.16.840.1.745204.3.579.2. 593 1962 Unknown [id number] 2.16.840.1.197659.3.579.2. 593 1962 Unknown [id number] 2.16.840.1.157429.3.579.2. 593 1962 Unknown [id number] 2.16.840.1.163266.3.579.2. 593 1962 Unknown [id number] 2.16.840.1.417070.3.579.2. 1286 1962 Unknown [id number] 2.16.840.1.123459.3.579.2. 1286 1962 Unknown [id number] 2.16.840.1.438336.3.579.2. 1286 1962 Unknown [id number] 2.16.840.1.116846.3.579.2. 1286 1962 Unknown [id number] 2.16.840.1.427390.3.579.2. 1286 1962 Unknown [id number] 2.16.840.1.063395.3.579.2. 1259 1962 Unknown [id number] 2.16.840.1.698575.3.579.2. 1259 1962 Unknown [id number] 2.16.840.1.234737.3.579.2. 1259 1962 Unknown [id number] 2.16.840.1.715390.3.579.2. 1259 1962 Unknown [id number] 2.16.840.1.351213.3.579.2. 1259 1962 Unknown [id number] 2.16.840.1.345592.3.579.2. 1259 1962 Unknown [id number] 2.16.840.1.473373.3.579.2. 1259 1962 Unknown [id number] 2.16.840.1.931046.3.579.2. 1259 1959 Medicaid [id number] 2.16.840.1.400781. 1959 Medicare [id number] 2.16.840.1.261174. 1959 Unknown [id number] Unknown [id number] 2.16.840.1.101287.3.579.2. 531 Social History Date Type Detail Facility Sex Assigned At [facility] Other Start: 03-24-2023 End: 04-01-2024 Sex Assigned At [facility] Start: 03-18-2023 Tobacco smoking status NHIS Never smoked tobacco [facility] Start: 03-18-2023 Tobacco use and exposure Smokeless tobacco non-user [facility] Start: 03-24-2023 End: 10-11-2024 Alcohol intake Ex-drinker (finding) [facility] Start: 03-24-2023 End: 04-01-2024 History of Social function [facility] Start: 03-23-2023 Alcohol Comment Caffeine intake : 1-2 cups per day [facility] Start: 1960 Sex Assigned At Not on file [facility] How often do you nee d to have someone help you when you read instructions, pamphlets, or other written material from your doctor or pharmacy [SILS] Never [facility] Do you belong to any clubs or organizations such as adventist groups, unions, fraternal or athletic groups, or school groups? Yes [facility] Are you now , , , , never or living with a partner? [facility] How often to you hav e a drink containing alcohol? 2-4 times a month [facility] How many standard dr inks containing alcohol do you have on a typical day? 1 or 2 [facility] How often do you hav e 6 or more drinks on 1 occasion? Never [facility] Do you feel stress - tense, restless, nervous, or anxious, or unable to sleep at night because your mind is troubled all the time - these days [OSQ] Not at all [facility] (I/We) worried wheth er (my/our) food would run out before (I/we) got money to buy more. Never true [facility] In the past 12 month s, was there a time when you were not able to pay the mortgage or rent on time? No [facility] Functional Status Date Assessment Result Facility 10-11-2024 Patient Health Quest ionnaire 2 item (PHQ-2) [Reported] [facility] 09-21-2024 Patient Health Quest ionnaire 2 item (PHQ-2) [Reported] [facility] Clinical Notes 05-14-2021 to 10-11-2024 BRANT Pinto - 10/11/2024 2:00 PM BRANT Flores - 09/21/2024 2:30 PM BRANT Flores - 07/11/2024 2:30 PM Federico Moscoso MD - 04/19/2024 2:00 PM EST Note Date & Type Note Facility 10-11-2024 History of Presen t illness Narrative Images from the original note were not included. HPI Rectal Pain Additional comments: Pt states she has pain in her left buttock area and radiates to her left hip area. Describes pain as stabbing, hurts all the time, rates pain 10/10. She has been taking tylenol for the pain and it just takes the edge off. The pain has been there for a month and has gotten worse over the past 2 weeks. Last edited by Shyanne Nova LPN on 10/11/2024 2:30 PM. Subjective Patient ID: Suri Oshea is a 64 y.o. female who presents for diabetes. Suri is present today for follow up diabetes. Denies foot ulcers, hypoglycemia, tingling/numbness of extremities. Does not check BS's at home. Currently on Metformin. Current Outpatient Medications on File Prior to Visit Medication Sig Dispense Refill Abilify 30 MG tablet Take 1 tablet by mouth 1 (one) time each day at the same time. acetaminophen (Tylenol) 325 MG tablet Take 1 tablet by mouth every 4 (four) hours if needed for mild pain. colesevelam (Welchol) 625 MG tablet Take 1 tablet by mouth in the morning and 1 tablet in the evening. Take with meals. gemfibrozil (Lopid) 600 MG tablet TAKE 1 TABLET BY MOUTH TWICE A DAY 200 tablet 3 loperamide (Imodium) 2 MG capsule Take 2 mg by mouth 4 (four) times a day as needed metFORMIN (Glucophage) 500 MG tablet TAKE 1 TABLET BY MOUTH TWICE A DAY WITH A MEAL 200 tablet 3 Multiple Vitamin (MULTIVITAMINS PO) Take 1 tablet by mouth 1 (one) time each day at the same time. omega-3 (Fish Oil) 1200 MG capsule Take 1 capsule by mouth every 12 (twelve) hours. pantoprazole (ProtoNix) 40 MG EC tablet TAKE 1 TABLET BY MOUTH EVERY DAY 90 tablet 3 traZODone (Desyrel) 100 MG tablet Take 2 tablets by mouth at bedtime. venlafaxine XR (Effexor XR) 75 MG 24 hr capsule Zoloft 100 MG tablet Take 2 tablets by mouth 1 (one) time each day at the same time. [DISCONTINUED] baclofen (Lioresal) 20 MG tablet TAKE 1 TABLET BY MOUTH NEEDED AT BEDTIME FOR MUSCLE SPASMS 100 tablet 3 [DISCONTINUED] ferrous sulfate 325 (65 Fe) MG tablet Take 1 tablet (325 mg) by mouth in the morning. Take with meals. With food. (Patient not taking: Reported on 09/21/2024) No current facility-administered medications on file prior to visit. I have reviewed and reconciled the history and medication list with the patient today. Allergies Allergen Reactions Sulfamethoxazole Other Reaction(s): rash, itchy Trimethoprim Other Reaction(s): Fatigued Social History Tobacco Use Smoking status: Never Smokeless tobacco: Never Vaping Use Vaping status: Never Used Substance Use Topics Alcohol use: Not Currently Comment: Caffeine intake : 1-2 cups per day Drug use: Never Family History Problem Relation Name Age of Onset Diabetes Mother Nallely Hypertension Mother Nallely Heart disease Mother Nallely Psoriasis Mother Nallely Heart failure Mother Nallely Thyroid disease Mother Nalelly Heart disease Father Elie Hypertension Father Elie Heart failure Father Elie Melanoma Neg Hx Past Medical History: Diagnosis Date Arthritis Cholecystitis Cholecystitis without cholelithiasis 03/18/2023 Diabetes mellitus (CMS/HCC) Disease of thyroid gland (CMS/HCC) Dizziness Fracture 04/2017 left distal radius GERD (gastroesophageal reflux disease) Glenoid labral tear, right, initial encounter Hypertension (CMS/HCC) IBS (irritable bowel syndrome) NIDDY (non-insulin dependent diabetes mellitus in young) (CMS/HCC) Nosebleed Obesity Pneumonia 07/2011 Pulmonary vascular congestion Rotator cuff tear, right Sleep apnea Stomach tumor (benign) Subdeltoid bursitis of right shoulder joint Varicose vein of leg Visual impairment Past Surgical History: Procedure Laterality Date ANKLE SURGERY 2003 ANKLE SURGERY 2004 CHOLECYSTECTOMY 02/17/2019 W/ Ventral Hernia Repair HYSTERECTOMY KNEE ARTHROSCOPY W/ PARTIAL MEDIAL MENISCECTOMY Right 11/04/2023 Dr. Shankar SHOULDER SURGERY Left 07/2016 left rotator cuff and bone spur SHOULDER SURGERY Right 11/03/2013 TUMOR REMOVAL stomach Visit Vitals BP 118/72 Pulse 98 Resp 18 Ht 5' 3 Wt 216 lb 9.6 oz SpO2 99% BMI 38.37 kg/m Smoking Status Never BSA 2.09 m Review of Systems Constitutional: Negative for chills, fatigue and fever. Respiratory: Negative for cough, shortness of breath and wheezing. Cardiovascular: Negative for chest pain, palpitations and leg swelling. Gastrointestinal: Negative for abdominal pain, constipation, diarrhea, nausea and vomiting. Musculoskeletal: Positive for arthralgias, back pain and gait problem. Skin: Negative for rash. Objective Physical Exam Constitutional: General: She is not in acute distress. Appearance: She is well-developed. She is obese. Comments: Appears uncomfortable HENT: Head: Normocephalic and atraumatic. Eyes: General: No scleral icterus. Conjunctiva/sclera: Conjunctivae normal. Cardiovascular: Rate and Rhythm: Normal rate and regular rhythm. Heart sounds: Normal heart sounds. No murmur heard. Pulmonary: Effort: Pulmonary effort is normal. No respiratory distress. Breath sounds: Normal breath sounds. No wheezing, rhonchi or rales. Musculoskeletal: Lumbar back: Spasms, tenderness and bony tenderness present. Decreased range of motion. Negative right straight leg raise test and negative left straight leg raise test. Right hip: No bony tenderness. Left hip: Bony tenderness (Over SI joint) present. Decreased range of motion (Pain with internal rotation). Comments: Hip flexion 5-/5 bilaterally. Lower leg strength intact bilaterally. Pain with going from seated to a standing position. Skin: General: Skin is warm and dry. Neurological: General: No focal deficit present. Mental Status: She is alert and oriented to person, place, and time. Gait: Gait abnormal (Antalgic). Psychiatric: Mood and Affect: Mood normal. Behavior: Behavior normal. Office Visit on 10/11/2024 Component Date Value Ref Range Status Hemoglobin A1C 10/11/2024 6.5 Final Assessment/Plan Diagnoses and all orders for this visit: Diabetic peripheral neuropathy (CMS/HCC) - POCT Glycated hemoglobin, total Advised pt that her HgbA1c remains well controlled at this time at 6.5. Will continue to monitor. Recheck in three months. Arthropathy of left sacroiliac joint - predniSONE (Deltasone) 10 MG tablet; Take 1 tablet (10 mg) by mouth 3 (three) times a day for 3 days, THEN 1 tablet (10 mg) 2 (two) times a day for 3 days, THEN 1 tablet (10 mg) Daily for 3 days. - tiZANidine (Zanaflex) 4 MG tablet; Take 1 tablet (4 mg) by mouth as needed at bedtime for muscle spasms for up to 14 days Start the above medications as directed. Advised of potential side effects of the steroid. Patient is to take the steroid with food. Do not take any NSAIDs while on Prednisone, Tylenol ok prn. Can take the Tizanidine prn before bed, cautioned it may cause drowsiness. Encouraged gentle stretches. Offered referral for possible SI joint injection, pt declines. Offered PT referral. Pt would like to try the medications first. Advised caution with steroid use as frequent use can cause other health concerns. Major depressive disorder, recurrent severe without psychotic features (HCC) (CMS/HCC) Stable at this time. Will continue to monitor. Pt has not heard from Sleep Clinic. Our office will follow up on the referral. Follow up in about 3 months (around 01/11/2025) for Diabetes. documented in this encounter [facility] 09-21-2024 History of Presen t illness Narrative Images from the original note were not included. HPI Back Pain Additional comments: Left lower back with pain radiating to her left knee. Started bothering for 2 months and over the past week it has gotten worse. She has been taking Ibuprofen for the pain, which only helps a little. Rates pain 10/10 all the time. Last edited by BRANT Pinto on 09/21/2024 2:54 PM. Subjective Patient ID: Suri Oshea is a 64 y.o. female Suri is present today for evaluation of sleep apnea. She needs a new sleep study her machine is not working. She will do the sleep study at [facility]. Trying to sleep with her head elevated. No recent injury of her back. No N/T in her legs. States her knees feel like they want to give out. Pain is a sharp shooting pain. Pain starts in her left low back/gluteal region, radiates around to the front of her hip and down into the front of her thigh. Walking and standing make it worse. Pain is a 5/10 when just sitting still. A little better when she is laying down. Getting into and out of a car is difficult. Does not feel like the Baclofen has been helping lately. Tylenol not helpful. Current Outpatient Medications on File Prior to Visit Medication Sig Dispense Refill venlafaxine XR (Effexor XR) 75 MG 24 hr capsule Abilify 30 MG tablet Take 1 tablet by mouth 1 (one) time each day at the same time. acetaminophen (Tylenol) 325 MG tablet Take 1 tablet by mouth every 4 (four) hours if needed for mild pain. baclofen (Lioresal) 20 MG tablet TAKE 1 TABLET BY MOUTH NEEDED AT BEDTIME FOR MUSCLE SPASMS 100 tablet 3 colesevelam (Welchol) 625 MG tablet Take 1 tablet by mouth in the morning and 1 tablet in the evening. Take with meals. ferrous sulfate 325 (65 Fe) MG tablet Take 1 tablet (325 mg) by mouth in the morning. Take with meals. With food. (Patient not taking: Reported on 09/21/2024) gemfibrozil (Lopid) 600 MG tablet TAKE 1 TABLET BY MOUTH TWICE A DAY 200 tablet 3 loperamide (Imodium) 2 MG capsule Take 2 mg by mouth 4 (four) times a day as needed metFORMIN (Glucophage) 500 MG tablet TAKE 1 TABLET BY MOUTH TWICE A DAY WITH A MEAL 200 tablet 3 Multiple Vitamin (MULTIVITAMINS PO) Take 1 tablet by mouth 1 (one) time each day at the same time. omega-3 (Fish Oil) 1200 MG capsule Take 1 capsule by mouth every 12 (twelve) hours. pantoprazole (ProtoNix) 40 MG EC tablet TAKE 1 TABLET BY MOUTH EVERY DAY 90 tablet 3 traZODone (Desyrel) 100 MG tablet Take 2 tablets by mouth at bedtime. Zoloft 100 MG tablet Take 2 tablets by mouth 1 (one) time each day at the same time. [DISCONTINUED] busPIRone (Buspar) 10 MG tablet Take 1 tablet by mouth in the morning and 1 tablet before bedtime. No current facility-administered medications on file prior to visit. I have reviewed and reconciled the history and medication list with the patient today. Allergies Allergen Reactions Sulfamethoxazole Other Reaction(s): rash, itchy Trimethoprim Other Reaction(s): Fatigued Social History Tobacco Use Smoking status: Never Smokeless tobacco: Never Vaping Use Vaping status: Never Used Substance Use Topics Alcohol use: Not Currently Comment: Caffeine intake : 1-2 cups per day Drug use: Never Family History Problem Relation Name Age of Onset Diabetes Mother Nallely Hypertension Mother Nallely Heart disease Mother Nallely Psoriasis Mother Nallely Heart failure Mother Nallely Thyroid disease Mother Nallely Heart disease Father Elie Hypertension Father Elie Heart failure Father Elie Melanoma Neg Hx Past Medical History: Diagnosis Date Arthritis Cholecystitis Cholecystitis without cholelithiasis 03/18/2023 Diabetes mellitus (CMS/HCC) Disease of thyroid gland (CMS/HCC) Dizziness Fracture 04/2017 left distal radius GERD (gastroesophageal reflux disease) Glenoid labral tear, right, initial encounter Hypertension (CMS/HCC) IBS (irritable bowel syndrome) NIDDY (non-insulin dependent diabetes mellitus in young) (CMS/HCC) Nosebleed Obesity Pneumonia 07/2011 Pulmonary vascular congestion Rotator cuff tear, right Sleep apnea Stomach tumor (benign) Subdeltoid bursitis of right shoulder joint Varicose vein of leg Visual impairment Past Surgical History: Procedure Laterality Date ANKLE SURGERY 2003 ANKLE SURGERY 2004 CHOLECYSTECTOMY 02/17/2019 W/ Ventral Hernia Repair HYSTERECTOMY KNEE ARTHROSCOPY W/ PARTIAL MEDIAL MENISCECTOMY Right 11/04/2023 Dr. Shankar SHOULDER SURGERY Left 07/2016 left rotator cuff and bone spur SHOULDER SURGERY Right 11/03/2013 TUMOR REMOVAL stomach Visit Vitals BP 126/82 Pulse 69 Resp 16 Ht 5' 3 Wt 209 lb SpO2 95% BMI 37.02 kg/m Smoking Status Never BSA 2.05 m Review of Systems Constitutional: Negative for chills, fatigue and fever. Respiratory: Negative for cough, shortness of breath and wheezing. Cardiovascular: Negative for chest pain, palpitations and leg swelling. Gastrointestinal: Negative for abdominal pain, constipation, diarrhea, nausea and vomiting. Musculoskeletal: Positive for arthralgias, back pain and gait problem. Skin: Negative for rash. Psychiatric/Behavioral: Positive for sleep disturbance. Objective Physical Exam Constitutional: General: She is not in acute distress. Appearance: She is well-developed. She is obese. Comments: Appears uncomfortable HENT: Head: Normocephalic and atraumatic. Eyes: General: No scleral icterus. Conjunctiva/sclera: Conjunctivae normal. Cardiovascular: Rate and Rhythm: Normal rate and regular rhythm. Heart sounds: Normal heart sounds. No murmur heard. Pulmonary: Effort: Pulmonary effort is normal. No respiratory distress. Breath sounds: Normal breath sounds. No wheezing, rhonchi or rales. Musculoskeletal: Lumbar back: Spasms, tenderness and bony tenderness present. Decreased range of motion. Negative right straight leg raise test and negative left straight leg raise test. Right hip: No bony tenderness. Left hip: Bony tenderness (Over SI joint) present. Decreased range of motion (Pain with internal rotation). Comments: Hip flexion 5-/5 bilaterally. Lower leg strength intact bilaterally. Pain with going from seated to a standing position. Skin: General: Skin is warm and dry. Neurological: General: No focal deficit present. Mental Status: She is alert and oriented to person, place, and time. Gait: Gait abnormal (Antalgic). Psychiatric: Mood and Affect: Mood normal. Behavior: Behavior normal. Assessment/Plan Diagnoses and all orders for this visit: Arthropathy of left sacroiliac joint - predniSONE (Deltasone) 10 MG tablet; Take 1 tablet (10 mg) by mouth 3 (three) times a day for 3 days, THEN 1 tablet (10 mg) 2 (two) times a day for 3 days, THEN 1 tablet (10 mg) Daily for 3 days. Start the above medication as directed. Advised of potential side effects of the steroid, may cause temporary elevation in glucose levels. Patient is to take the steroid with food. Do not take any NSAIDs while on Prednisone, Tylenol ok prn. Can take the Baclofen prn before bed, reminded pt that it may cause drowsiness. Encouraged gentle heat to area. Encouraged gentle stretches. Advised patient that if symptoms do not start to improve by Thursday, will provide pt with PT referral for further evaluation and treatment. Obstructive sleep apnea Will provide pt with updated referral to Sleep Clinic so she can get a new CPAP machine. Primary osteoarthritis of both hips Bilateral hip x-rays from 07/15/2024 reviewed prior to patient's appointment today. Mild degenerative changes were seen bilaterally. Based on patient's symptoms and exam, the DJD of her hip is likely contributing to her symptoms. Osteoarthritis of lumbar spine, unspecified spinal osteoarthritis complication status Lumbar x-rays from 05/22/2016 reviewed prior to patient's appointment today. Degeneration of intervertebral disc of lumbar region with discogenic back pain and lower extremity pain Consider updated imaging if symptoms do not improve. Follow up for Appointment As Scheduled. documented in this encounter [facility] 07-11-2024 History of Presen t illness Narrative Images from the original note were not included. Subjective Patient ID: Suri Oshea is a 64 y.o. female who presents for Medicare Annual Wellness Visit Subsequent. HPI Medicare Wellness Over the past 2 weeks, how often have you been bothered by any of the following problems? Little interest or pleasure in doing things: (Patient-Rptd) (P) Not at all Feeling down, depressed, or hopeless: (Patient-Rptd) (P) Not at all Patient Health Questionnaire-2 Score: (Patient-Rptd) (P) 0 Over the past 2 weeks, how often have you been bothered by any of the following problems? Trouble falling or staying asleep, or sleeping too much: Not at all Feeling tired or having little energy: Not at all Poor appetite or overeating: Not at all Feeling bad about yourself - or that you are a failure or have let yourself or your family down: Not at all Trouble concentrating on things, such as reading the newspaper or watching television: Not at all Moving or speaking so slowly that other people could have noticed? Or the opposite - being so fidgety or restless that you have been moving around a lot more than usual.: Not at all Thoughts that you would be better off or hurting yourself in some way: Not at all Patient Health Questionnaire-9 Score: 0 Carlos Fall Risk History of Falling, Immediate or Within 3 Months: (Patient-Rptd) (P) No Secondary Diagnosis: (Patient-Rptd) (P) No Ambulatory Aid: (Patient-Rptd) (P) Walks without aid/bedrest/nurse assist Intravenous Therapy/Heparin Lock: (Patient-Rptd) (P) No Gait/Transferring: (Patient-Rptd) (P) Normal/bedrest/immobile Mental Status: (Patient-Rptd) (P) Oriented to own ability Carlos Fall Risk Score: (Patient-Rptd) (P) 0 Health Risk Assessment Form Do you need help eating, bathing, using the toilet, dressing, or getting around your home?: (Patient-Rptd) (P) No Can you prepare your own meals?: (Patient-Rptd) (P) Yes Can you do your own housework without help?: (Patient-Rptd) (P) Yes Can you shop for groceries or clothes without help?: (Patient-Rptd) (P) Yes Do you exercise for about 20 minutes 3 or more days a week?: (Patient-Rptd) (P) No How confident are you that you can control and manage most of your health problems?: (Patient-Rptd) (P) Very confident Can you mange your money, credit cards and accounts, pay bills and taxes?: (Patient-Rptd) (P) Yes Vision Screening: Yes, no gross abnormalities Hearing Screening: Yes, no gross abnormalities Cognitive Screening Self Assessment: No overt cognitive deficiency is apparent by direct observation Three Word Registration: Village, Kitchen, Baby Clock Drawing: Normal Clock - 2 Three Word Recall: All 3 words correct - 3 Total Score (0-5 Points): 5 Pain Assessment Pain Score: (Patient-Rptd) (P) 8 Advance Care Planning Do you have a living will?: (Patient-Rptd) (P) No Do you have a medical power of family law attorney?: (Patient-Rptd) (P) No Current Outpatient Medications on File Prior to Visit Medication Sig Dispense Refill Abilify 30 MG tablet Take 1 tablet by mouth 1 (one) time each day at the same time. acetaminophen (Tylenol) 325 MG tablet Take 1 tablet by mouth every 4 (four) hours if needed for mild pain. busPIRone (Buspar) 10 MG tablet Take 1 tablet by mouth in the morning and 1 tablet before bedtime. colesevelam (Welchol) 625 MG tablet Take 1 tablet by mouth in the morning and 1 tablet in the evening. Take with meals. ferrous sulfate 325 (65 Fe) MG tablet Take 1 tablet (325 mg) by mouth in the morning. Take with meals. With food. gemfibrozil (Lopid) 600 MG tablet TAKE 1 TABLET BY MOUTH TWICE A DAY 200 tablet 3 loperamide (Imodium) 2 MG capsule Take 2 mg by mouth 4 (four) times a day as needed metFORMIN (Glucophage) 500 MG tablet TAKE 1 TABLET BY MOUTH TWICE A DAY WITH A MEAL 200 tablet 3 Multiple Vitamin (MULTIVITAMINS PO) Take 1 tablet by mouth 1 (one) time each day at the same time. omega-3 (Fish Oil) 1200 MG capsule Take 1 capsule by mouth every 12 (twelve) hours. pantoprazole (ProtoNix) 40 MG EC tablet TAKE 1 TABLET BY MOUTH EVERY DAY 90 tablet 3 traZODone (Desyrel) 100 MG tablet Take 2 tablets by mouth at bedtime. Zoloft 100 MG tablet Take 2 tablets by mouth 1 (one) time each day at the same time. [DISCONTINUED] baclofen (Lioresal) 10 MG tablet TAKE 1 TABLET BY MOUTH ONCE A DAY AT THE SAME TIME NEEDED 100 tablet 1 [DISCONTINUED] mupirocin (Bactroban) 2 % ointment Apply to left nose twice daily for 2 weeks 15 g 1 No current facility-administered medications on file prior to visit. I have reviewed and reconciled the history and medication list with the patient today. Allergies Allergen Reactions Sulfamethoxazole Other Reaction(s): rash, itchy Trimethoprim Other Reaction(s): Fatigued Social History Tobacco Use Smoking status: Never Smokeless tobacco: Never Vaping Use Vaping status: Never Used Substance Use Topics Alcohol use: Not Currently Comment: Caffeine intake : 1-2 cups per day Drug use: Never Family History Problem Relation Name Age of Onset Diabetes Mother Nallely Hypertension Mother Nallely Heart disease Mother Nallely Psoriasis Mother Nallely Heart failure Mother Nallely Thyroid disease Mother Nallely Heart disease Father Elie Hypertension Father Elie Heart failure Father Elie Melanoma Neg Hx Past Medical History: Diagnosis Date Arthritis Cholecystitis Cholecystitis without cholelithiasis Diabetes mellitus (CMS/HCC) Disease of thyroid gland (CMS/HCC) Dizziness Fracture 04/2017 left distal radius GERD (gastroesophageal reflux disease) Glenoid labral tear, right, initial encounter Hypertension (CMS/HCC) IBS (irritable bowel syndrome) NIDDY (non-insulin dependent diabetes mellitus in young) (CMS/HCC) Nosebleed Obesity Pneumonia 07/2011 Pulmonary vascular congestion Rotator cuff tear, right Sleep apnea Stomach tumor (benign) Subdeltoid bursitis of right shoulder joint Varicose vein of leg Visual impairment Past Surgical History: Procedure Laterality Date ANKLE SURGERY 2003 ANKLE SURGERY 2004 CHOLECYSTECTOMY 02/17/2019 W/ Ventral Hernia Repair HYSTERECTOMY KNEE ARTHROSCOPY W/ PARTIAL MEDIAL MENISCECTOMY Right 11/04/2023 Dr. Shankar SHOULDER SURGERY Left 07/2016 left rotator cuff and bone spur SHOULDER SURGERY Right 11/03/2013 TUMOR REMOVAL stomach Visit Vitals BP 116/68 Pulse 65 Resp 18 Ht 5' 3 Wt 210 lb 9.6 oz SpO2 98% BMI 37.31 kg/m Smoking Status Never BSA 2.06 m Review of Systems Constitutional: Negative for chills, fatigue and fever. HENT: Negative for congestion, ear pain, rhinorrhea and sore throat. Eyes: Negative for pain, discharge and visual disturbance. Respiratory: Negative for cough, shortness of breath and wheezing. Cardiovascular: Negative for chest pain, palpitations and leg swelling. Gastrointestinal: Negative for abdominal pain, constipation, diarrhea, nausea and vomiting. Genitourinary: Negative for difficulty urinating, dysuria and frequency. Musculoskeletal: Positive for arthralgias, back pain, gait problem and myalgias. Skin: Negative for rash. Neurological: Negative for dizziness and numbness. Psychiatric/Behavioral: Negative for sleep disturbance. The patient is not nervous/anxious. Objective Physical Exam Constitutional: General: She is not in acute distress. Appearance: She is well-developed. She is obese. HENT: Head: Normocephalic and atraumatic. Right Ear: Tympanic membrane and ear canal normal. Left Ear: Tympanic membrane and ear canal normal. Nose: Nose normal. Mouth/Throat: Mouth: Mucous membranes are moist. Pharynx: No posterior oropharyngeal erythema. Eyes: General: No scleral icterus. Extraocular Movements: Extraocular movements intact. Conjunctiva/sclera: Conjunctivae normal. Pupils: Pupils are equal, round, and reactive to light. Neck: Vascular: No carotid bruit. Cardiovascular: Rate and Rhythm: Normal rate and regular rhythm. Heart sounds: Normal heart sounds. No murmur heard. Pulmonary: Effort: Pulmonary effort is normal. No respiratory distress. Breath sounds: Normal breath sounds. No wheezing, rhonchi or rales. Abdominal: General: Bowel sounds are normal. There is no distension. Palpations: Abdomen is soft. Tenderness: There is no abdominal tenderness. There is no guarding. Musculoskeletal: General: No swelling or deformity. Cervical back: Normal range of motion and neck supple. No tenderness. Lumbar back: Tenderness and bony tenderness present. Right hip: Tenderness (Lateral hip) present. Decreased range of motion. Decreased strength. Left hip: Tenderness (Lateral hip) and bony tenderness (Over SI joint) present. Decreased range of motion. Decreased strength. Comments: Pain with internal rotation of the hips, internal rotation decreased. Hip strength 5-/5 bilat. Knee flexion 5-/5 bilat, knee extension 4+/5 bilat. Pain in back and hips with changes in position, going from seated to standing position. Skin: General: Skin is warm and dry. Capillary Refill: Capillary refill takes less than 2 seconds. Findings: No rash. Neurological: General: No focal deficit present. Mental Status: She is alert and oriented to person, place, and time. Cranial Nerves: No cranial nerve deficit. Sensory: No sensory deficit. Motor: No weakness. Gait: Gait normal. Deep Tendon Reflexes: Reflexes normal. Psychiatric: Mood and Affect: Mood normal. Behavior: Behavior normal. Thought Content: Thought content normal. Judgment: Judgment normal. Assessment & Plan 1. Medicare annual wellness visit, subsequent (Primary) Reviewed all relevant preventative screenings with the patient in detail. Medicare Wellness form completed and will be scanned into patient's chart. All needed testing was ordered. Will continue with yearly Medicare Wellness exams. 2. ACP (advance care planning) Patient agreed to discuss advance care planning at today's wellness visit. We discussed that an advance directive is a legal document that only goes into effect if the patient is incapacitated and unable to speak for himself or herself. This would help healthcare providers to ensure that the patient gets the care that he or she wishes to receive. The goal is to provide a patient with the best possible quality of life. Encouraged patient to obtain a living will and durable power of family law attorney for healthcare. We discussed telling melendrez people about their advance directives such as close family members, and requested a copy to scan into the patient's EHR. An advance directive packet was offered to the patient. 3. Myalgia Will have patient increase to 20 mg before bedtime. Will recheck at follow up or sooner if needed. - baclofen (Lioresal) 20 MG tablet; Take 1 tablet (20 mg) by mouth as needed at bedtime for muscle spasms Dispense: 30 tablet; Refill: 2 4. Bilateral hip pain Will obtain bilateral hip x-rays for further evaluation. May need referral to PT depending on the results. Will notify pt of the results once received. - XR hip left 2 or 3 views; Future - XR hip right 2 or 3 views; Future 5. Osteoarthritis of lumbar spine, unspecified spinal osteoarthritis complication status This is a chronic medical condition that is stable since last assessment. No changes in treatment are suggested at this time. 6. Need for vaccination Reviewed potential risks and benefits of the Shingrix vaccine. Advised it is a series of two injections, administered 2-6 months apart. Advised the vaccine decreases the likelihood that the patient will contract shingles, and if patient does contract shingles, the vaccine should help to decrease the intensity and duration of symptoms, as well as the potential for complications such as post-herpetic neuralgia. Prescription for Shingrix was sent to the patient's pharmacy. Also sent in Rx for RSV vaccine. Reviewed potential risks and benefits. - zoster vaccine-recombinant adjuvanted (Shingrix) 50 MCG/0.5ML vaccine; Inject 0.5 mL (50 mcg) into the shoulder, thigh, or buttocks 1 (one) time for 1 dose Give two doses 2-6 months apart. Dispense: 1 mL; Refill: 0 - (AREXVY) RSV, RECOMBINANT, PROTEIN, SUBUNIT RSVPREF, ADJUVANT RECONSTIT, 120MCG/0.5ML, PF [[id number]] (CVX 303 7. Diabetic peripheral neuropathy (CMS/[facility]) HgbA1c on 04/04/2024 was well controlled at 6.3. Continue current medications as prescribed. Will continue to monitor routinely. Pt understands importance of good glucose control to minimize potential complications from Diabetes. 8. Primary insomnia This is a chronic medical condition that is stable since last assessment. No changes in treatment are suggested at this time. 9. Obstructive sleep apnea This is a chronic medical condition that is stable since last assessment. No changes in treatment are suggested at this time. 10. Other chronic pain This is a chronic medical condition that is stable since last assessment. No changes in treatment are suggested at this time. 11. Paresthesia of skin This is a chronic medical condition that is stable since last assessment. No changes in treatment are suggested at this time. 12. Peripheral polyneuropathy This is a chronic medical condition that is stable since last assessment. No changes in treatment are suggested at this time. 13. Obstructive pattern present on pulmonary function testing This is a chronic medical condition that is stable since last assessment. No changes in treatment are suggested at this time. 14. Abnormal cardiovascular stress test The patient is seeing a medical orderly for this condition, treatment is deferred to that specialist. Correspondence from that specialist and any available testing were reviewed during today's visit. 15. Abnormal ECG The patient is seeing a medical orderly for this condition, treatment is deferred to that specialist. Correspondence from that specialist and any available testing were reviewed during today's visit. 16. Atherosclerosis of [place] arteries of extremities with rest pain, bilateral legs (CMS/HCC) The patient is seeing a medical orderly for this condition, treatment is deferred to that specialist. Correspondence from that specialist and any available testing were reviewed during today's visit. 17. Heart disease The patient is seeing a medical orderly for this condition, treatment is deferred to that specialist. Correspondence from that specialist and any available testing were reviewed during today's visit. 18. Mitral valve insufficiency, unspecified etiology The patient is seeing a medical orderly for this condition, treatment is deferred to that specialist. Correspondence from that specialist and any available testing were reviewed during today's visit. 19. Peripheral vascular disease (CMS/HCC) The patient is seeing a medical orderly for this condition, treatment is deferred to that specialist. Correspondence from that specialist and any available testing were reviewed during today's visit. 20. Tricuspid valve insufficiency, unspecified etiology The patient is seeing a medical orderly for this condition, treatment is deferred to that specialist. Correspondence from that specialist and any available testing were reviewed during today's visit. 21. Venous (peripheral) insufficiency The patient is seeing a medical orderly for this condition, treatment is deferred to that specialist. Correspondence from that specialist and any available testing were reviewed during today's visit. 22. Fatty liver This is a chronic medical condition that is stable since last assessment. No changes in treatment are suggested at this time. Will continue to monitor with routine labs. 23. Gastritis without bleeding, unspecified chronicity, unspecified gastritis type This is a chronic medical condition that is stable since last assessment. No changes in treatment are suggested at this time. Continue Pantoprazole as prescribed. 24. GERD without esophagitis This is a chronic medical condition that is stable since last assessment. No changes in treatment are suggested at this time. Continue Pantoprazole as prescribed. 25. Irritable bowel syndrome, unspecified type This is a chronic medical condition that is stable since last assessment. No changes in treatment are suggested at this time. 26. Cervical spondylosis This is a chronic medical condition that is stable since last assessment. No changes in treatment are suggested at this time. 27. Degeneration of intervertebral disc of lumbar region with discogenic back pain Will await x-ray results. May need referral to PT for her back as well as her hips. 28. Primary osteoarthritis of right ankle This is a chronic medical condition that is stable since last assessment. No changes in treatment are suggested at this time. 29. Peripheral edema This is a chronic medical condition that is stable since last assessment. No changes in treatment are suggested at this time. 30. Diabetic cataract, associated with type 2 diabetes mellitus (CMS/HCC) The patient is seeing a medical orderly for this condition, treatment is deferred to that specialist. Correspondence from that specialist and any available testing were reviewed during today's visit. 31. Morbid (severe) obesity due to excess calories (CMS/HCC) Encouraged portion control, decrease simple sugars and carbohydrates, gradually increase activity level. Aim for gradual steady weight loss. 32. Multinodular goiter (CMS/HCC) This is a chronic medical condition that is stable since last assessment. No changes in treatment are suggested at this time. Will continue to monitor with routine labs. 33. Thyroid nodule (CMS/HCC) This is a chronic medical condition that is stable since last assessment. No changes in treatment are suggested at this time. Will continue to monitor with routine labs. 34. Vitamin D deficiency This is a chronic medical condition that is stable since last assessment. No changes in treatment are suggested at this time. Will continue to monitor with routine labs. 35. Anemia, unspecified type This is a chronic medical condition that is stable since last assessment. No changes in treatment are suggested at this time. Will continue to monitor with routine labs. 36. Verruca vulgaris This is a chronic medical condition that is stable since last assessment. No changes in treatment are suggested at this time. 37. Benign paroxysmal vertigo of both ears The patient is seeing a medical orderly for this condition, treatment is deferred to that specialist. Correspondence from that specialist and any available testing were reviewed during today's visit. 38. Age-related cataract of both eyes, unspecified age-related cataract type The patient is seeing a medical orderly for this condition, treatment is deferred to that specialist. Correspondence from that specialist and any available testing were reviewed during today's visit. 39. Ductal hyperplasia of breast Encouraged pt to proceed with getting updated Mammogram completed that was ordered for her in April. 40. Hemangioma of skin This is a chronic medical condition that is stable since last assessment. No changes in treatment are suggested at this time. 41. Hirsutism This is a chronic medical condition that is stable since last assessment. No changes in treatment are suggested at this time. 42. History of hysterectomy Pt is s/p hysterectomy. Denies concerns at this time. 43. Meralgia paresthetica, unspecified laterality This is a chronic medical condition that is stable since last assessment. No changes in treatment are suggested at this time. 44. Mixed hyperlipidemia (CMS/HCC) This is a chronic medical condition that is stable since last assessment. No changes in treatment are suggested at this time. Will continue to monitor with routine labs. 45. Moderate episode of recurrent major depressive disorder (CMS/HCC) Mood is stable on current medications. Continue current dosages. Will continue to monitor. 46. Myopia of both eyes The patient is seeing a medical orderly for this condition, treatment is deferred to that specialist. Correspondence from that specialist and any available testing were reviewed during today's visit. 47. Open-angle glaucoma of both eyes, mild stage, unspecified open-angle glaucoma type (CMS/HCC) The patient is seeing a medical orderly for this condition, treatment is deferred to that specialist. Correspondence from that specialist and any available testing were reviewed during today's visit. 48. Presbyopia The patient is seeing a medical orderly for this condition, treatment is deferred to that specialist. Correspondence from that specialist and any available testing were reviewed during today's visit. 49. Type 2 diabetes mellitus with other specified complication (CMS/HCC) HgbA1c on 04/04/2024 was well controlled at 6.3. Continue current medications as prescribed. Will continue to monitor routinely. Pt understands importance of good glucose control to minimize potential complications from Diabetes. 50. Type 2 diabetes mellitus with diabetic peripheral angiopathy without gangrene (CMS/HCC) HgbA1c on 04/04/2024 was well controlled at 6.3. Continue current medications as prescribed. Will continue to monitor routinely. Pt understands importance of good glucose control to minimize potential complications from Diabetes. 51. BMI 37.0-37.9, adult Encouraged portion control, decrease simple sugars and carbohydrates, gradually increase activity level. Aim for gradual steady weight loss. Follow up in about 3 months (around 10/08/2024) for Diabetes. Moriah Guzman MSBS, WILMERC documented in this encounter [facility] 04-19-2024 History of Presen t illness Narrative Subjective Patient ID: Suri Oshea is a 63 y.o. female who presents for Epistaxis (Nose Bleed) Pt reports she started having recurrent left ant epistaxis 2 weeks ago. Had 9 bleeds over two weeks and last bled one week ago. No blood thinners. Seen in the ED, but bleeding stopped on its own. Review of Systems All other systems reviewed and are negative. Family History Problem Relation Name Age of Onset Diabetes Mother Nallely Hypertension Mother Nallely Heart disease Mother Nallely Psoriasis Mother Nallely Heart failure Mother Nallely Thyroid disease Mother Nallely Heart disease Father Elie Hypertension Father Elie Heart failure Father Elie Melanoma Neg Hx Active Ambulatory Problems Diagnosis Date Noted Abnormal cardiovascular stress test 03/18/2023 Anemia 03/18/2023 Atherosclerosis of [place] arteries of extremities with rest pain, bilateral legs (CMS/HCC) 03/18/2023 Cataract of both eyes 03/18/2023 Diabetic cataract, associated with type 2 diabetes mellitus (CMS/HCC) 03/18/2023 Diabetic peripheral neuropathy (CMS/HCC) 03/18/2023 Fatty liver 03/18/2023 Gastritis without bleeding 03/18/2023 GERD without esophagitis 03/18/2023 Heart disease 03/18/2023 Benign essential hypertension (CMS/HCC) 03/18/2023 Peripheral vascular disease (CMS/HCC) 03/18/2023 Hemangioma 03/18/2023 Hirsutism 03/18/2023 History of hysterectomy 03/18/2023 Insomnia 03/18/2023 Irritable bowel syndrome 03/18/2023 Lumbar degenerative disc disease 03/18/2023 Meralgia paresthetica 03/18/2023 Sciatica of right side 03/18/2023 Mixed hyperlipidemia (CMS/HCC) 03/18/2023 Moderate episode of recurrent major depressive disorder (CMS/HCC) 03/18/2023 Morbid (severe) obesity due to excess calories (CMS/HCC) 03/18/2023 Multinodular goiter (CMS/HCC) 03/18/2023 Myalgia 03/18/2023 Myopia 03/18/2023 Obesity (BMI 30-39.9) 03/18/2023 Abnormal ECG 03/18/2023 Obstructive pattern present on pulmonary function testing 03/18/2023 Obstructive sleep apnea 03/18/2023 Open-angle glaucoma of both eyes, mild stage (CMS/HCC) 03/18/2023 Osteoarthritis of lumbar spine 03/18/2023 Cervical spondylosis 03/18/2023 Other chronic pain 03/18/2023 Paresthesia of skin 03/18/2023 Peripheral neuropathy 03/18/2023 Presbyopia 03/18/2023 Thyroid nodule ([facility]/HCC) 03/18/2023 Mitral regurgitation 03/18/2023 Tricuspid regurgitation 03/18/2023 Venous (peripheral) insufficiency 03/18/2023 Verruca vulgaris 03/18/2023 Vitamin D deficiency 03/18/2023 Ankle pain, right 01/28/2012 Ductal hyperplasia of breast 09/16/2012 Osteoarthritis of ankle, right 01/28/2012 Peripheral edema 01/28/2012 Acute pain of right knee 10/06/2023 Benign paroxysmal vertigo 10/19/2023 Resolved Ambulatory Problems Diagnosis Date Noted Cholecystitis without cholelithiasis 03/18/2023 Severe episode of recurrent major depressive disorder, without psychotic features (HCC) ([facility]) 03/18/2023 Type 2 diabetes mellitus without complication ([facility]) 03/18/2023 Past Medical History: Diagnosis Date Arthritis Cholecystitis Diabetes mellitus (CMS/HCC) Disease of thyroid gland (CMS/HCC) Dizziness Fracture 04/2017 GERD (gastroesophageal reflux disease) Glenoid labral tear, right, initial encounter Hypertension (CMS/HCC) IBS (irritable bowel syndrome) NIDDY (non-insulin dependent diabetes mellitus in young) ([facility]/HCC) Nosebleed Obesity Pneumonia 07/2011 Pulmonary vascular congestion Rotator cuff tear, right Sleep apnea Stomach tumor (benign) Subdeltoid bursitis of right shoulder joint Varicose vein of leg Visual impairment Past Surgical History: Procedure Laterality Date ANKLE SURGERY 2003 ANKLE SURGERY 2004 CHOLECYSTECTOMY 02/17/2019 W/ Ventral Hernia Repair HYSTERECTOMY KNEE ARTHROSCOPY W/ PARTIAL MEDIAL MENISCECTOMY Right 11/04/2023 Dr. Shankar SHOULDER SURGERY Left 07/2016 left rotator cuff and bone spur SHOULDER SURGERY Right 11/03/2013 TUMOR REMOVAL stomach Allergies Allergen Reactions Sulfamethoxazole Other Reaction(s): rash, itchy Trimethoprim Other Reaction(s): Fatigued Current Outpatient Medications on File Prior to Visit Medication Sig Dispense Refill Abilify 30 MG tablet Take 1 tablet by mouth 1 (one) time each day at the same time. acetaminophen (Tylenol) 325 MG tablet Take 1 tablet by mouth every 4 (four) hours if needed for mild pain. baclofen (Lioresal) 10 MG tablet TAKE 1 TABLET BY MOUTH ONCE A DAY AT THE SAME TIME NEEDED 100 tablet 1 busPIRone (Buspar) 10 MG tablet Take 1 tablet by mouth in the morning and 1 tablet before bedtime. colesevelam (Welchol) 625 MG tablet Take 1 tablet by mouth in the morning and 1 tablet in the evening. Take with meals. ferrous sulfate 325 (65 Fe) MG tablet Take 1 tablet (325 mg) by mouth in the morning. Take with meals. With food. gemfibrozil (Lopid) 600 MG tablet TAKE 1 TABLET BY MOUTH TWICE A DAY 200 tablet 3 loperamide (Imodium) 2 MG capsule Take 2 mg by mouth 4 (four) times a day as needed metFORMIN (Glucophage) 500 MG tablet TAKE 1 TABLET BY MOUTH TWICE A DAY WITH A MEAL 200 tablet 3 Multiple Vitamin (MULTIVITAMINS PO) Take 1 tablet by mouth 1 (one) time each day at the same time. omega-3 (Fish Oil) 1200 MG capsule Take 1 capsule by mouth every 12 (twelve) hours. pantoprazole (ProtoNix) 40 MG EC tablet TAKE 1 TABLET BY MOUTH EVERY DAY 90 tablet 3 traZODone (Desyrel) 100 MG tablet Take 2 tablets by mouth at bedtime. Zoloft 100 MG tablet Take 2 tablets by mouth 1 (one) time each day at the same time. [DISCONTINUED] dicyclomine (Bentyl) 20 MG tablet Take 20 mg by mouth in the morning and 20 mg in the evening and 20 mg before bedtime. No current facility-administered medications on file prior to visit. Objective Last Recorded Vitals Vitals: 04/19/24 1357 BP: 130/78 ENT Physical Exam Constitutional Appearance: patient appears well-developed, well-nourished and well-groomed, Head and Face Appearance: head appears normal and face appears atraumatic; Ear Ear Canals: right ear canal normal; left ear canal normal; Tympanic Membranes: right tympanic membrane normal; left tympanic membrane normal; Nose External Nose: nares patent bilaterally; external nose normal; Internal Nose: septum normal; Oral Cavity/Oropharynx Tongue: normal; Oral mucosa: normal; Hard palate: normal; Soft palate: normal; Tonsils: normal; Neck Neck: neck normal; neck palpation normal; Thyroid: thyroid normal; Respiratory Inspection: breathing unlabored; normal breathing rate; Auscultation: breath sounds are clear; Cardiovascular Inspection: extremities are warm and well perfused; no peripheral edema present; Auscultation: regular rate and rhythm; Assessment/Plan Diagnoses and all orders for this visit: Recurrent epistaxis - Ambulatory referral to ENT No bleeding site evident today and one week since bled. Tx with abx ointment and F/U if bleeding persists. documented in this encounter [facility] 04-04-2024 History of Presen t illness Narrative Images from the original note were not included. Subjective Patient ID: Suri Oshea is a 63 y.o. female who presents for [facility] ER follow up. Flowsheet Row Documentation from 03/31/2024 in [facility] with [place], [place] Hospital Information ED, Hospital or [facility] Facility Discharge? ED Patient has been contacted within 1 week of being seen in the ED Yes Diagnosis nose bleed Discharge Date 03/30/24 Discharged To: Home Setting Engagement Call Start Time 1549 Admission Date 03/30/24 Medications Discharge medications reviewed and reconciled from hospital? Yes Is the patient having any side effects they believe may be caused by any medication additions or changes? No Does the patient have all medications ordered at discharge? Yes Appointments Does the patient have a primary care provider? Yes Self Management Patient Teaching Does the patient have access to their discharge instructions? Yes What is the patient's perception of their health status since discharge? Improving Wrap Up Call End Time 1552 Pt states that since she went to the ER she had 4 nosebleeds on and 1 on Thursday and they are all from the left nostril. States she has not had anymore nosebleeds since Thursday though. She has been taking the ATB and using vaseline in her left nostril but did not use the afrin spray. She does have a yeast infection now from the ATB so would like something sent in for that. Has been getting a little lightheaded when she bends forward and stands up. Drinks about 72 ounces of water a day. Current Outpatient Medications on File Prior to Visit Medication Sig Dispense Refill amoxicillin-clavulanate (Augmentin) 875-125 MG tablet Take 1 tablet by mouth in the morning and 1 tablet before bedtime. Abilify 30 MG tablet Take 1 tablet by mouth 1 (one) time each day at the same time. acetaminophen (Tylenol) 325 MG tablet Take 1 tablet by mouth every 4 (four) hours if needed for mild pain. baclofen (Lioresal) 10 MG tablet TAKE 1 TABLET BY MOUTH ONCE A DAY AT THE SAME TIME NEEDED 100 tablet 1 busPIRone (Buspar) 10 MG tablet Take 1 tablet by mouth in the morning and 1 tablet before bedtime. colesevelam (Welchol) 625 MG tablet Take 1 tablet by mouth in the morning and 1 tablet in the evening. Take with meals. dicyclomine (Bentyl) 20 MG tablet Take 20 mg by mouth in the morning and 20 mg in the evening and 20 mg before bedtime. ferrous sulfate 325 (65 Fe) MG tablet Take 1 tablet (325 mg) by mouth in the morning. Take with meals. With food. gemfibrozil (Lopid) 600 MG tablet TAKE 1 TABLET BY MOUTH TWICE A DAY 200 tablet 3 loperamide (Imodium) 2 MG capsule Take 2 mg by mouth 4 (four) times a day as needed metFORMIN (Glucophage) 500 MG tablet TAKE 1 TABLET BY MOUTH TWICE A DAY WITH A MEAL 200 tablet 3 Multiple Vitamin (MULTIVITAMINS PO) Take 1 tablet by mouth 1 (one) time each day at the same time. omega-3 (Fish Oil) 1200 MG capsule Take 1 capsule by mouth every 12 (twelve) hours. pantoprazole (ProtoNix) 40 MG EC tablet TAKE 1 TABLET BY MOUTH EVERY DAY 90 tablet 3 traZODone (Desyrel) 100 MG tablet Take 2 tablets by mouth at bedtime. Zoloft 100 MG tablet Take 2 tablets by mouth 1 (one) time each day at the same time. [DISCONTINUED] Calcium Carbonate (CALCIUM 500 PO) Take 1 tablet by mouth 1 (one) time each day at the same time. [DISCONTINUED] colestipol (Colestid) 1 g tablet Take 2 tablets by mouth 1 (one) time each day. [DISCONTINUED] nystatin (Mycostatin) 178604 UNIT/GM powder Apply topically 2 (two) times a day. (Patient not taking: Reported on 10/06/2023) 30 g 1 No current facility-administered medications on file prior to visit. I have reviewed and reconciled the history and medication list with the patient today. Allergies Allergen Reactions Sulfamethoxazole Other Reaction(s): rash, itchy Trimethoprim Other Reaction(s): Fatigued Social History Tobacco Use Smoking status: Never Smokeless tobacco: Never Vaping Use Vaping status: Never Used Substance Use Topics Alcohol use: Not Currently Comment: Caffeine intake : 1-2 cups per day Drug use: Never Family History Problem Relation Name Age of Onset Diabetes Mother Hypertension Mother Heart disease Mother Psoriasis Mother Heart disease Father Hypertension Father Melanoma Neg Hx Past Medical History: Diagnosis Date Arthritis Cholecystitis Cholecystitis without cholelithiasis Diabetes mellitus (CMS/HCC) Disease of thyroid gland (CMS/HCC) Fracture 04/2017 left distal radius Glenoid labral tear, right, initial encounter Hypertension (CMS/HCC) IBS (irritable bowel syndrome) NIDDY (non-insulin dependent diabetes mellitus in young) (CMS/HCC) Obesity Pneumonia 07/2011 Pulmonary vascular congestion Rotator cuff tear, right Sleep apnea Stomach tumor (benign) Subdeltoid bursitis of right shoulder joint Varicose vein of leg Visual impairment Past Surgical History: Procedure Laterality Date ANKLE SURGERY 2003 ANKLE SURGERY 2004 CHOLECYSTECTOMY 02/17/2019 W/ Ventral Hernia Repair HYSTERECTOMY KNEE ARTHROSCOPY W/ PARTIAL MEDIAL MENISCECTOMY Right 11/04/2023 Dr. Shankar SHOULDER SURGERY Left 07/2016 left rotator cuff and bone spur SHOULDER SURGERY Right 11/03/2013 TUMOR REMOVAL stomach Visit Vitals BP 116/72 Pulse 69 Resp 18 Ht 5' 3 Wt 204 lb SpO2 97% BMI 36.14 kg/m Smoking Status Never BSA 2.03 m Review of Systems Constitutional: Negative for chills, fatigue and fever. Respiratory: Negative for cough, shortness of breath and wheezing. Cardiovascular: Negative for chest pain, palpitations and leg swelling. Gastrointestinal: Negative for abdominal pain, constipation, diarrhea, nausea and vomiting. Genitourinary: Positive for vaginal discharge. Skin: Negative for rash. Neurological: Positive for light-headedness. Objective Physical Exam Constitutional: General: She is not in acute distress. Appearance: She is well-developed. She is obese. Comments: Pleasant HENT: Head: Normocephalic and atraumatic. Nose: Comments: Narrow nasal passages, no active bleeding. Eyes: General: No scleral icterus. Conjunctiva/sclera: Conjunctivae normal. Cardiovascular: Rate and Rhythm: Normal rate and regular rhythm. Heart sounds: Normal heart sounds. No murmur heard. Pulmonary: Effort: Pulmonary effort is normal. No respiratory distress. Breath sounds: Normal breath sounds. No wheezing, rhonchi or rales. Skin: General: Skin is warm and dry. Neurological: General: No focal deficit present. Mental Status: She is alert and oriented to person, place, and time. Psychiatric: Mood and Affect: Mood normal. Behavior: Behavior normal. Office Visit on 04/04/2024 Component Date Value Ref Range Status Hemoglobin A1C 04/04/2024 6.3 Final Assessment/Plan Diagnoses and all orders for this visit: Diabetic peripheral neuropathy (CMS/HCC) - POCT Glycated hemoglobin, total - Microalbumin / creatinine urine ratio; Future Advised pt that her HgbA1c is similar to previous of 6.2, it is 6.3 today. Continue current medications and will continue to monitor with routine labs. Recurrent epistaxis - Ambulatory referral to ENT; Future Referral placed to ENT for pt. Continue Vaseline to area as needed. Can also try saline nasal spray. Candidiasis - fluconazole (Diflucan) 150 MG tablet; Take 1 tablet (150 mg) by mouth Daily for 1 day, THEN 1 tablet (150 mg) Daily for 1 day. Take doses 3 days apart. Start the above as prescribed. She can contact office if symptoms do not resolve. Encounter for screening mammogram for malignant neoplasm of breast - Bilateral screening mammogram with tomosynthesis; Future Provided patient with an order for an updated Mammogram. If results are negative/normal, will plan to continue with routine yearly screenings. Need for vaccination - Flu vaccine greater than or equal to 3 years old, PF IM (IMM19) Provided pt with flu shot today. She tolerated this well. Benign essential hypertension (CMS/HCC) - CBC and differential; Future - Comprehensive metabolic panel; Future - Lipid panel; Future - Microalbumin / creatinine urine ratio; Future Patient's blood pressure is currently well controlled without medication. Will continue to monitor. Goal BP remains less than 130/80. Fatty liver - Comprehensive metabolic panel; Future - Lipid panel; Future Will recheck with upcoming labs. Thyroid nodule (CMS/HCC) - TSH W/REFLEX TO FT4; Future Will recheck with upcoming labs. Anemia, unspecified type - CBC and differential; Future Will recheck with upcoming labs. Mixed hyperlipidemia (CMS/HCC) - CBC and differential; Future - Comprehensive metabolic panel; Future - Lipid panel; Future Will recheck with upcoming labs. Morbid (severe) obesity due to excess calories (CMS/HCC) Has lost 5 pounds since last appt. Advised pt this is excellent. Encouraged continued gradual weight loss. The patient was seen today in follow up of recent hospital ER visit. All available hospital records/labs/diagnostics were reviewed and discussed with the patient. ER discharge meds were reviewed. Any changes to plan are noted above. Follow up in about 3 months (around 07/08/2024) for Medicare Wellness Visit. documented in this encounter [facility] 03-10-2023 Evaluation note Encounter Date Diagnosis Assessment Notes Mar, Irritable bowel syndrome with diarrhea (ICD-10 - K58.0) Rto 3 months with Parviz Mar, Frequent bowel movements (ICD-10 - R19.4) Mar, Fecal incontinence (ICD-10 - R15.9) [facility] Other 01-31-2022 Evaluation note* Encounter Date Diagnosis Assessment Notes Treatment Notes Treatment Clinical Notes Jun, Irritable bowel syndrome with diarrhea (ICD-10 - K58.0) [facility] Other 12-14-2021 Evaluation note* Encounter Date Diagnosis Assessment Notes Treatment Notes Treatment Clinical Notes May, Irritable bowel syndrome with diarrhea (ICD-10 - K58.0) [facility] Other Evaluation [facility]ort [facility] Other Evaluation note* Diagnosis Diabetic cataract, associated with type 2 diabetes mellitus (CMS/HCC)- Primary Abnormal glucose tolerance test Impaired glucose tolerance test Benign essential hypertension (CMS/HCC) Essential hypertension, benign Diabetic peripheral neuropathy (CMS/HCC) Type II or unspecified type diabetes mellitus with neurological manifestations, not stated as uncontrolled Morbid (severe) obesity due to excess calories (E66.01) Body mass index [BMI] 36.0-36.9, adult (Z68.36) Acute pain of right knee Diabetic peripheral neuropathy (CMS/HCC)- Primary Type II or unspecified type diabetes mellitus with neurological manifestations, not stated as uncontrolled Recurrent epistaxis Candidiasis Encounter for screening mammogram for malignant neoplasm of breast Need for vaccination Need for prophylactic vaccination and inoculation against unspecified single disease Benign essential hypertension (CMS/HCC) Essential hypertension, benign Fatty liver Other chronic nonalcoholic liver disease Thyroid nodule (CMS/HCC) Nontoxic uninodular goiter Anemia, unspecified type Mixed hyperlipidemia (CMS/HCC) Mixed hyperlipidemia Morbid (severe) obesity due to excess calories (CMS/HCC) documented in this encounter [facility] HealthcareEvaluation note* Diagnosis Diabetic cataract, associated with type 2 diabetes mellitus (CMS/HCC)- Primary Abnormal glucose tolerance test Impaired glucose tolerance test Benign essential hypertension (CMS/HCC) Essential hypertension, benign Diabetic peripheral neuropathy (CMS/HCC) Type II or unspecified type diabetes mellitus with neurological manifestations, not stated as uncontrolled Morbid (severe) obesity due to excess calories (E66.01) Body mass index [BMI] 36.0-36.9, adult (Z68.36) Acute pain of right knee Recurrent epistaxis documented in this encounter [facility]* Diagnosis Diabetic cataract, associated with type 2 diabetes mellitus (CMS/HCC)- Primary Abnormal glucose tolerance test Impaired glucose tolerance test Benign essential hypertension (CMS/HCC) Essential hypertension, benign Diabetic peripheral neuropathy (CMS/HCC) Type II or unspecified type diabetes mellitus with neurological manifestations, not stated as uncontrolled Morbid (severe) obesity due to excess calories (E66.01) Body mass index [BMI] 36.0-36.9, adult (Z68.36) Acute pain of right knee Medicare annual wellness visit, subsequent- Primary ACP (advance care planning) Other specified counseling Myalgia Unspecified myalgia and myositis Bilateral hip pain Pain in joint, pelvic region and thigh Osteoarthritis of lumbar spine, unspecified spinal osteoarthritis complication status Need for vaccination Need for prophylactic vaccination and inoculation against unspecified single disease Diabetic peripheral neuropathy (CMS/HCC) Type II or unspecified type diabetes mellitus with neurological manifestations, not stated as uncontrolled Primary insomnia Persistent disorder of initiating or maintaining sleep Obstructive sleep apnea Obstructive sleep apnea (adult) (pediatric) Other chronic pain Paresthesia of skin Peripheral polyneuropathy Obstructive pattern present on pulmonary function testing Abnormal cardiovascular stress test Other nonspecific abnormal cardiovascular system function study Abnormal ECG Nonspecific abnormal electrocardiogram (ECG) (EKG) Atherosclerosis of [place] arteries of extremities with rest pain, bilateral legs (CMS/HCC) Heart disease Unspecified heart disease Mitral valve insufficiency, unspecified etiology Peripheral vascular disease (CMS/HCC) Unspecified peripheral vascular disease Tricuspid valve insufficiency, unspecified etiology Venous (peripheral) insufficiency Unspecified venous (peripheral) insufficiency Fatty liver Other chronic nonalcoholic liver disease Gastritis without bleeding, unspecified chronicity, unspecified gastritis type GERD without esophagitis Esophageal reflux Irritable bowel syndrome, unspecified type Cervical spondylosis Cervical spondylosis without myelopathy Degeneration of intervertebral disc of lumbar region with discogenic back pain Primary osteoarthritis of right ankle Peripheral edema Edema Diabetic cataract, associated with type 2 diabetes mellitus (CMS/HCC) Morbid (severe) obesity due to excess calories (CMS/HCC) Multinodular goiter (CMS/HCC) Nontoxic multinodular goiter Thyroid nodule (CMS/HCC) Nontoxic uninodular goiter Vitamin D deficiency Anemia, unspecified type Verruca vulgaris Viral warts, unspecified Benign paroxysmal vertigo of both ears Age-related cataract of both eyes, unspecified age-related cataract type Ductal hyperplasia of breast Hemangioma of skin Hemangioma of skin and subcutaneous tissue Hirsutism History of hysterectomy Acquired absence of both cervix and uterus Meralgia paresthetica, unspecified laterality Mixed hyperlipidemia (CMS/HCC) Mixed hyperlipidemia Moderate episode of recurrent major depressive disorder (CMS/HCC) Myopia of both eyes Open-angle glaucoma of both eyes, mild stage, unspecified open-angle glaucoma type (CMS/HCC) Presbyopia Type 2 diabetes mellitus with other specified complication (CMS/HCC) Type 2 diabetes mellitus with diabetic peripheral angiopathy without gangrene (CMS/HCC) BMI 37.0-37.9, adult documented in this encounter [facility] HealthcareEvaluation note* Diagnosis Diabetic cataract, associated with type 2 diabetes mellitus (CMS/HCC)- Primary Abnormal glucose tolerance test Impaired glucose tolerance test Benign essential hypertension (CMS/HCC) Essential hypertension, benign Diabetic peripheral neuropathy (CMS/HCC) Type II or unspecified type diabetes mellitus with neurological manifestations, not stated as uncontrolled Morbid (severe) obesity due to excess calories (E66.01) Body mass index [BMI] 36.0-36.9, adult (Z68.36) Acute pain of right knee Arthropathy of left sacroiliac joint- Primary Obstructive sleep apnea Obstructive sleep apnea (adult) (pediatric) Primary osteoarthritis of both hips Osteoarthritis of lumbar spine, unspecified spinal osteoarthritis complication status Degeneration of intervertebral disc of lumbar region with discogenic back pain and lower extremity pain documented in this encounter [facility] HealthcareEvaluation note* Diagnosis Diabetic cataract, associated with type 2 diabetes mellitus (CMS/HCC)- Primary Abnormal glucose tolerance test Impaired glucose tolerance test Benign essential hypertension (CMS/HCC) Essential hypertension, benign Diabetic peripheral neuropathy (CMS/HCC) Type II or unspecified type diabetes mellitus with neurological manifestations, not stated as uncontrolled Morbid (severe) obesity due to excess calories (E66.01) Body mass index [BMI] 36.0-36.9, adult (Z68.36) Acute pain of right knee Diabetic peripheral neuropathy (CMS/HCC)- Primary Type II or unspecified type diabetes mellitus with neurological manifestations, not stated as uncontrolled Arthropathy of left sacroiliac joint Major depressive disorder, recurrent severe without psychotic features (HCC) (CMS/HCC) documented in this encounter [facility] HealthcareHistory general Narrative - [facility] Other History general Narrative - Reported* Type Description Date Medical History HTN Medical History DM II Medical History anxiety/depression Medical History GERD Medical History hyperlipidemia Surgical History BENIGN ABD TUMOR Surgical History SHOULDER BILAT Surgical History HYSTERECTOMY Surgical History CARPEL TUNNEL Surgical History CHOLECYSTECTOMY Hospitalization History No Hospitalization histo ry information [facility] Other Summary Purpose Family History No Family History Records FoundNo Family History Records FoundNo Family History Records FoundNo Family History Records FoundNo Family History Records FoundNo Family History Records FoundNo Family History Records FoundNo Family History Records Found Advance Directives No Advanced Directives Records FoundNo Advanced Directives Records FoundNo Advanced Directives Records FoundNo Advanced Directives Records FoundNo Advanced Directives Records FoundNo Advanced Directives Records FoundNo Advanced Directives Records FoundNo Advanced Directives Records Found Additional Source Comments INFORMATION SOURCE (unrecogn ized section and content) DATE CREATED AUTHOR 11/19/2017 [facility] DATE CREATED AUTHOR AUTHOR'S ORGANIZ ATION 11/25/2017 Angel Elmore [facility] DATE CREATED AUTHOR AUTHOR'S ORGANIZ ATION 08/17/2021 [facility] DATE CREATED AUTHOR AUTHOR'S ORGANIZ ATION 12/18/2021 [facility] DATE CREATED AUTHOR AUTHOR'S ORGANIZ ATION 11/05/2023 [facility] DATE CREATED AUTHOR AUTHOR'S ORGANIZ ATION 10/12/2024 [facility] EPIC DATE CREATED AUTHOR AUTHOR'S ORGANIZ ATION 10/14/2024 [facility] DATE CREATED AUTHOR AUTHOR'S ORGANIZ ATION 11/02/2024 [facility] REASON FOR VISIT (unrecogniz ed section and content) Reason Comments Epistaxis (Nose Bleed) Specialty Diagnoses / Procedures Referred By Amira salgado Referred To Contact Otolaryngology Diagnoses Recurrent epistaxis Procedures [facility] 60 MINUTES Moriah Guzman PA [address] [facility] [address] [place] [address] Phone: tel: fax: Heather Moscoso MD [address] [facility] [address] [place] [address] Phone: tel: fax: Referral ID Status Reason Start Date Expiration Date V isits Requested Visits Authorized [id number] Closed Specialty Services Required 04/04/2024 10/01/2024 1 1 Reason Comments Medicare Annual Wellness Visit Tristiannelia salgado Reason Comments Back Pain Left lower back with pain radiating to her left knee. Started bothering for 2 months and over the past week it has gotten worse. She has been taking Ibuprofen for the pain, which only helps a little. Rates pain 10/10 all the time. Sleep Apnea Reason Comments Rectal Pain Pt states she has pa in in her left buttock area and radiates to her left hip area. Describes pain as stabbing, hurts all the time, rates pain 10/10. She has been taking tylenol for the pain and it just takes the edge off. The pain has been there for a month and has gotten worse over the past 2 weeks. Care Teams (unrecognized sec tion and content) Building Manager Relationship Specialty Start Date End Date Elio Owens MD [address] [place] [address] PCP - General Family Medicine 10/07/22 Building Manager Relationship Specialty Start Date End Date Elio Owens MD [address] [place] [address] PCP - General Family Medicine 10/07/22 Sterling Kumar MD [address] [place] [address] PCP - [facility] 06/01/23 05/31/24 Building Manager Relationship Specialty Start Date End Date Elio Owens MD [address] [place] [address] PCP - General Family Medicine 10/07/22 Sterling Kumar MD [address] [place] [address] PCP - [facility] 06/01/23 05/31/24 Building Manager Relationship Specialty Start Date End Date Elio Owens MD [address] [place] [address] PCP - General Family Medicine 10/07/22 Sterling Kumar MD [address] [place] [address] PCP - [facility] 06/01/23 05/31/24 Building Manager Relationship Specialty Start Date End Date Elio Owens MD [address] [place] [address] PCP - General Family Medicine 10/07/22 Sterling Kumar MD [address] [facility] [address] [place] [address] PCP - [facility] 06/01/23 05/31/24 Building Manager Relationship Specialty Start Date End Date Elio Owens MD [address] [facility] [address] [place] [address] PCP - General Family Medicine 10/07/22 Building Manager Relationship Specialty Start Date End Date Elio Owens MD [address] [facility] [address] [place] [address] PCP - General Family Medicine 10/07/22 Building Manager Relationship Specialty Start Date End Date Elio Owens MD [address] [facility] [address] [place] [address] PCP - [facility] 10/07/22 Building Manager Relationship Specialty Start Date End Date Elio Owens MD [address] [facility] [address] [place] [address] PCP - General Family Medicine 10/07/22 Building Manager Relationship Specialty Start Date End Date Elio Owens MD [address] [facility] [address] [place] [address] PCP - General Family Medicine 10/07/22 FOR RECORDS PERTAINING TO PATIENTS WHO ARE OR HAVE BEEN ENROLLED IN A CHEMICAL DEPENDENCY/SUBSTANCEABUSE PROGRAM, SOME INFORMATION MAY BE OMITTED. This clinical summary was aggregated from multiple sources. Caution should be exercised in using it in the provision of clinical care. This summary normalizes information from multiple sources, and as a consequence, information in this document may materially change the coding, format and clinical context of patient data. In addition, data may be omitted in some cases. CLINICAL DECISIONS SHOULD BE BASED ON THE PRIMARY CLINICAL RECORDS. [facility]. provides no warranty or guarantee of the accuracy or completeness of information in this document.
== END 2024-11-08 20:58 | disposition home or self-care (01) ==
LOC: SLEEP 20:58
PROVIDERS: PCP Physician Assistant; Visit Provider Physician Assistant
DX: G47.33 Obstructive sleep apnea (adult) (pediatric) (principal)
CPT/HCPCS: 95811

== ENCOUNTER 2024-12-12 20:08 | Outpatient (OUT) | payer MEDICARE, MEDICAID, SELFPAY ==
--- OUTSIDE RECORDS SUMMARY | 2013-11-25 04:40 | XMS_ITS | Continuity of Care Document ---
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 Name Role Phone Unavailable Unavailable Unavailable Allergies, Adverse Reactions, Alerts Substance Reaction Status Criticality adhesive Active No Information latex Active No Information mint Active No Information azithromycin Active No Information codeine Active No Information Medications Medication Instructions Dosage Effective Dates (start - stop) Status Comments Prozac 40 mg capsule take 1 capsule by oral route every day in the morning 40 MG - Active desloratadine 5 mg tablet take 1 tablet by oral route every day 5 MG - Active cimetidine 400 mg tablet take 1 tablet by oral route 2 times every day in the morning and at bedtime 400 MG - Active ESTROGEN-METHYLTESTO STERONE (unknown strength) take 1 tablet by oral route for 21 consecutive days, followed by 7 days off Not Available - Active Procedures Procedure Date OFFICE/OUTPATIENT VISIT, NEW Refraction Advance Directives Directive Yes / No Effective Date File Name Resuscitation Not Answered N/A N/A Life Support Not Answered N/A N/A Intubation Not Answered N/A N/A Antibiotics Not Answered N/A N/A IV Fluid Support Not Answered N/A N/A Tube Feed Not Answered N/A N/A Other Directive N/A N/A WARNING:The information contained in this section is historical and is provided for information only and does not constitute a legal document or any assurance that the information is still accurate. Please verify the information with the persaud of the legal document before using it for clinical purposes. Encounters Encounter Description Practice Location Reason(s) For Visit Diagnoses Date Provider Providers Copied on Encounter OFFICE/OUTPA TIENT VISIT, NEW [facility], [address] [place], [address], [place] tel:[phone] AMALIA Germain PRESBYOPIAENDOTHEL CORNEA DYSTRPHYPRESBYOPIA ENDOTHEL CORNEA DYSTRPHY 4 No Information Referring Provider: No Ref Doc No Referring Doc. Family History Family Member Type Diagnosis Age At Onset Mother Problem (finding) glaucoma Mother Problem (finding) Retinal Disorders Mother Problem (finding) Maternal history of kamlesh betes mellitus Mother Problem (finding) HBP Mother Problem (finding) cataract Father Problem (finding) Cancer Payers Payer name Insurance type Covered republican ID Authorgissell castro(s) [employer] [facility] [place] [id number] Social History Type Description Quantity Date Captured Comments Alcohol Use Details 1-2 glasses wine weekly Caffeine Use Details Unknown Tobacco Use Status No Information Smoking Status Former smoker Smoking Tobacco Use Details Cigarette: No Details Available Cigarette: No Details Available Sex Female Chief Complaint And Reason For Visit No Information Reason For Referral Reason For Referral No Information History Of Present Illness Encounter Date Complaint History Of Prese nt Illness No Information Functional Status Date Functional Assessmen t No Information Instructions Date Instruction Additional Infor mation - PRESBYOPIA - glass es rxobservation of cornea ++FH Related to See impression: general plan - Return in 1-2 year with Ildefonso Thomas MD for complete eye exam. Related to See impression: general plan Assessments Type Assessment Date No Information Patient Care Teams Name Effective Dates (start - stop) Status Members No Information
--- OUTSIDE RECORDS SUMMARY | 2023-11-23 09:40 | XMS_ITS | Continuity of Care Document ---
Author Organization [facility] Address [address] [place] [address] Phone Care Team Providers Care Stranner Name Role Phone Keyshawn Guerrero MD Unavailable Unavailable Allergies, Adverse Reactions, Alerts Substance Reaction Status Criticality No Known Allergies Active No Inform ation Medications Medication Instructions Dosage Effective Dates (start - stop) Status Comments Medrol (Elvin) 4 mg tablets in a dose pack take by oral route as directed per package instructions 0.00 - Active cyclobenzaprine 10 mg tablet take 1 tablet by oral route 3 times every day 10 MG - Active fluticasone propionate 50 mcg/actuation nasal spray,suspension - Active levocetirizine 5 mg tablet - Active estradiol 0.01% (0.1 mg/gram) vaginal cream - Active fluoxetine 40 mg capsule - A ctive estradiol 1 mg tablet - Acti ve triamterene 37.5 mg-hydrochlorothiazide 25 mg tablet - Active valacyclovir 1 gram tablet - Active sulfamethoxazole 800 mg-trimethoprim 160 mg tablet - Active cyclobenzaprine 10 mg tablet TAKE 1 TABLET BY MOUTH THREE TIMES DAILY FOR SPASM - Active Procedures Procedure Date Office/outpatient visit,new, mod 2023 X-ray exam lower spine 2-3 views 2023 Advance Directives Directive Yes / No Effective Date File Name No Information Encounters Encounter Description Practice Location Reason(s) For Visit Diagnoses Date Provider Providers Copied on Encounter Office/outpa tient visit,new, [facility], [address] [place], [address], [place] tel:[phone] hip (chief complaint) Other intervertebral disc degeneration, lumbar region 4 Cesar Mahajan. [address], [place], [facility], [place]. [phone] Referring Provider: Keyshawn Martin, [address], [place], [facility]. tel:[phone] Family History Family Member Type Diagnosis Age At Onset Mother Problem (finding) Diabetes mellitus Mother Problem (finding) Congenital heart diseas e Father Problem (finding) Cancer Payers Payer name Insurance type Covered republican ID Authoriza gloria(s) [facility] - [id number] Social History Type Description Quantity Date Captured Comments Alcohol Use Details Caffeine Use Details Unknown Tobacco Use Status Smoking Status Former smoker Non-Smoking Tobacco Use Details : No Details Available : No Details Available Sex Female Vital Signs Date / Time: Height Weight BMI Pulse Rate Blood Pressure Temperature Respiratory Rate Body Surface Area Head Circumference Head Circ. Percentile Wt./Matthew. Percentile BMI percentile Pulse Ox Inhaled Ox 1:12 PM 68.00 in 88.450 kg (195.00 lbs) 29.6 5 kg/m normaer (2) Chief Complaint And Reason For Visit From encounter dated '11/23/2023 13:40'. hip (chief complaint) Reason For Referral Reason For Referral No Information History Of Present Illness Encounter Date Complaint History Of Prese nt Illness hip Functional Status Date Functional Assessmen t No Information Instructions Date Instruction Additional Infor mation No Information Assessments Type Assessment Date No Information Patient Care Teams Name Effective Dates (start - stop) Status Members No Information
--- OUTSIDE RECORDS SUMMARY | 2024-12-12 20:09 | XMS_ITS | Patient Health Record ---
Author Organization [facility] Address [address] [place] [address] Care Team Providers Care Business Development Officer Name Role Phone Dr. Jesse Mathis Primary Care Provider [phone] Reason For Referral No Information Plan Of Treatment No Information Insurance Providers Payer Name Payer Address Payer Phone Subscriber Number Group Number Insured Name Patient Relationship to Insured Coverage Start Date Coverage End Date MEDICARE CGS [address] [place] [address] [id number] MARÍA CABALLERO Self - patient is the insured 0 MEDICAID SEC TO [facility] [address] [place] [address] [id number] MARÍA CABALLERO Self - patient is the insured 0 [place] [address] [place] [address] [id number] MARÍA CABALLERO Self - patient is the insured 3
--- OUTSIDE RECORDS SUMMARY | 2024-12-12 20:10 | XMS_ITS | Encounter Summary ---
Author Organization [facility] Address [address] [place] [address] Care Team Providers Care Link Trainer Maintenance Worker Name Role Phone Carlos Owens MD Primary Care Provider [phone] Sterling Kumar MD Unavailable [phone] Encounter Details Date Type Department Care Team (Late st Contact Info) Description 09/29/2023 Clinisync Result Encounter [facility] External Department Unsolicited Carlos Owens MD 112 [facility] 110 [place] [address] Social History Tobacco Use Types Packs/Day Years Used Date Smoking Tobacco: Never Smokeless Tobacco: Never Alcohol Use Standard Drinks/Week Comments Not Currently 0 (1 standard drink = 0.6 oz pure alcohol) Caffeine intake : 1-2 cups per day PHQ-2 Answer Date Recorded Patient Health Questionnaire-2 Score 0 07/07/2023 Comments Unknown Sex and Gender Information Value Date Recorded Sex Assigned at Not on file Legal Sex Female 7:17 PM EDT Gender Identity Not on file Sexual Orientation Not on file documented as of this encounter Plan of Treatment Not on file documented as of this encounter Procedures Procedure Name Priority Date/Time Associated Diagnosis Comments MR KNEE RT WO CON 09/29/2023 6:0 2 AM EDT documented in this encounter Results * MR KNEE RT WO CON (09/29/2023 6:02 AM EDT) Anatomical Region Laterality Modality Other 09/29/2023 6:02 AM EDT Narrative 09/29/2023 6:04 [place] [address] Magnetic Resonance Report Signed Patient: MARÍA OSHEA MR#: [id number] : 1960 Acct:[id number] Age/Sex: 63 / F ADM Date: 09/28/23 Loc: MRI Attending Dr: CARLOS OWENS Ordering Physician: CARLOS OWENS Date of Service: 09/28/23 Procedure(s): MR knee RT wo con Accession Number(s): [id number] cc: CARLOS OWENS ; ARIN GUZMAN [place] [id number] Patient Name: MARÍA OSHEA MRN: [id number] date: 1960 Sex: F Assigned Patient Location: MRI Current Patient Location: Accession/Order Number: [id number] Exam Date: 09/28/2023 13:55 Report Date: 09/29/2023 06:02 At the request of: CARLOS OWENS Procedure: MR knee RT wo con EXAMINATION: MR knee RT wo con HISTORY: Abnormal X Ray Of Knee R93.6 COMPARISON: XR knee right 09/16/2023 TECHNIQUE: A complete multi-planar MRI was performed. FINDINGS: MEDIAL COMPARTMENT MEDIAL MENISCUS: Radial tear of the posterior horn. CARTILAGE: No visible defect. BONES: Prominent subchondral edema within the posterior and lateral aspect of the tibial plateau without visible cortical disruption. MCL AND MEDIAL CAPSULE: Normal medial collateral ligament and medial capsule. LATERAL COMPARTMENT LATERAL MENISCUS: No visible tear or significant degeneration. CARTILAGE: No visible defect. BONES: No marrow pathology, fracture, or significant arthropathy. LCL/POSTEROLAT COMPLEX: Normal lateral collateral ligament, fascicles, lateral capsule and ligaments. ANTERIOR COMPARTMENT PATELLA: No marrow pathology, fracture, or significant arthropathy. CARTILAGE: Small focal area of cortical thinning involving lateral patella facet. TENDONS: Normal. EFFUSION: None. No synovitis or loose bodies. ACL: Normal appearing ligament. PCL: Normal appearing ligament. MENISCOFEMORAL: Normal meniscofemoral ligaments. OTHER: Negative. MR/MR knee RT wo con IMPRESSION: 1. Radial tear of posterior horn the medial meniscus. 2. Prominent bone bruising of medial tibial plateau. No appreciable fracture. 3. 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 Electronically authenticated by: JARRELL SAUCEDO Date: 09/29/2023 06:02 Dictated By: Jarrell Saucedo M.D. Signed By: 09/29/23603 DD/ 1 TD/TT: Reactor Fueling Supervisor: Procedure Note Radiology, Radiologist, MD - 09/29/2023 [place] [address] Magnetic Resonance Report Signed Patient: MARÍA OSHEA AMR#: [id number] : 1960cct:[id number] Age/Sex: 63 / FADM Date: 09/28/23 Loc: MRI Attending Dr: CARLOS OWENS Ordering Physician: CARLOS OWENS Date of Service: 09/28/23 Procedure(s): MR knee RT wo con Accession Number(s): [id number] cc: CARLOS OWENS ; ARIN GUZMAN [place] [id number] Patient Name: MARÍA OSHEA MRN: [id number] date: 1960 Sex: F Assigned Patient Location: MRI Current Patient Location: Accession/Order Number: [id number] Exam Date: 09/28/2023 13:55 Report Date: 09/29/2023 06:02 At the request of: CARLOS OWENS Procedure: MR knee RT wo con EXAMINATION: MR knee RT wo con HISTORY: Abnormal X Ray Of Knee R93.6 COMPARISON: XR knee right 09/16/2023 TECHNIQUE: A complete multi-planar MRI was performed. FINDINGS: MEDIAL COMPARTMENT MEDIAL MENISCUS: Radial tear of the posterior horn. CARTILAGE: No visible defect. BONES: Prominent subchondral edema within the posterior and lateral aspectof the tibial plateau without visible cortical disruption. MCL AND MEDIAL CAPSULE: Normal medial collateral ligament and medialcapsule. LATERAL COMPARTMENT LATERAL MENISCUS: No visible tear or significant degeneration. CARTILAGE: No visible defect. BONES: No marrow pathology, fracture, or significant arthropathy. LCL/POSTEROLAT COMPLEX: Normal lateral collateral ligament, fascicles,lateral capsule and ligaments. ANTERIOR COMPARTMENT PATELLA: No marrow pathology, fracture, or significant arthropathy. CARTILAGE: Small focal area of cortical thinning involving lateral patella facet. TENDONS: Normal. EFFUSION: None. No synovitis or loose bodies. ACL: Normal appearing ligament. PCL: Normal appearing ligament. MENISCOFEMORAL: Normal meniscofemoral ligaments. OTHER: Negative. MR/MR knee RT wo con IMPRESSION: 1. Radial tear of posterior horn the medial meniscus. 2. Prominent bone bruising of medial tibial plateau. No appreciablefracture. 3. 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 Electronically authenticated by: JARRELL SAUCEDO Date: 09/29/2023 06:02 Dictated By: Jarrell Saucedo M.D. Signed By:09/29/23603 DD/ 1 TD/TT: [employer] Supervisor: Carlos Owens MD [facility] Final Result documented in this encounter Visit Diagnoses Not on filedocumented in this encounter Additional Health Concerns Assessment Noted Time PHQ-9 Depression Total Score: 0 07/07/19 24 12:00 PM EST documented as of this encounter Care Teams Link Trainer Maintenance Worker Relationship Specialty Start Date End Date Carlos Owens MD [address] [facility] 110 [place] [address] PCP - General Family Medicine 10/07/22 Sterling Kumar MD [address] [facility] [address] [place] [address] PCP - [facility] 06/01/23 05/31/24 documented as of this encounter
--- OUTSIDE RECORDS SUMMARY | 2024-12-12 20:10 | XMS_ITS | Encounter Summary ---
Author Organization [facility] Address [address] [facility] [place] [address] Care Team Providers Care Legal Records Clerk Name Role Phone Carlos Trevizo MD Primary Care Provider [phone] Sterling Kumar MD Unavailable [phone] Encounter Details Date Type Department Care Team (Late st Contact Info) Description 03/31/2024 Abstract [facility] 112 [facility] 110 [place] [address] Carlos Trevizo MD 112 [facility] 110 [place], [place] [id number] Social History Tobacco Use Types Packs/Day Years Used Date Smoking Tobacco: Never Smokeless Tobacco: Never Alcohol Use Standard Drinks/Week Comments Not Currently 0 (1 standard drink = 0.6 oz pure alcohol) Caffeine intake : 1-2 cups per day B1300 Health Literacy Answer Date Recor ded How often do you need to hav e someone help you when you read instructions, pamphlets, or other written material from your doctor or pharmacy? Never 04/01/2024 Social Connection and Isolat ion Panel [NHANES] Answer Date Recorded In a typical week, how many times do you talk on the phone with family, friends, or neighbors? More than three times a week 04/01/2024 How often do you get togethe r with friends or relatives? Three times a week 04/01/2024 How often do you attend [facility] or nondenominational services? Patient declined 04/01/2024 Do you belong to any clubs o r organizations such as alevism groups, unions, fraternal or athletic groups, or school groups? Yes 04/01/2024 How often do you attend meet ings of the clubs or organizations you belong to? More than 4 times per year 04/01/2024 Are you , , di vorced, , never , or living with a partner? 04/01/2024 AUDIT-C Answer Date Recorded Q1: How often do you have a drink containing alc ohol? 2-4 times a month 04/01/2024 Q2: How many drinks containi ng alcohol do you have on a typical day when you are drinking? 1 or 2 04/01/2024 Q3: How often do you have si x or more drinks on one occasion? Never 04/01/2024 Overall Financial Resource Strain (CARDIA) Answe r Date Recorded How hard is it for you to pa y for the very basics like food, housing, medical care, and heating? Not hard at all 04/01/2024 PHQ-2 Answer Date Recorded Patient Health Questionnaire-2 Score 0 07/07/2023 [facility] - Occupational Stress Questionnaire Answer Date Recorded Do you feel stress - tense, restless, nervous, or anxious, or unable to sleep at night because your mind is troubled all the time - these days? Not at all 04/01/2024 Exercise Vital Sign Answer Date Recorde d On average, how many days pe r week do you engage in moderate to strenuous exercise (like a brisk walk)? 1 day On average, how many minutes do you engage in exercise at this level? Patient declined 04/01/2024 Hunger Vital Sign Answer Date Recorded Within the past 12 months, y ou worried that your food would run out before you got the money to buy more. Never true 04/01/20 24 Within the past 12 months, t he food you bought just didn't last and you didn't have money to get more. Never true 04/01/2024 PRAPARE - Transportation Answer Date Re corded In the past 12 months, has l ack of transportation kept you from medical appointments or from getting medications? No 06/2023 In the past 12 months, has l ack of transportation kept you from meetings, work, or from getting things needed for daily living? No 04/01/2024 Housing Stability Vital Sign Answer Jason e Recorded In the last 12 months, was t here a time when you were not able to pay the mortgage or rent on time? No 04/01/2024 In the past 12 months, how m any times have you moved where you were living? 0 04/01/2024 At any time in the past 12 m [facility], were you homeless or living in a long-term (including now)? No 04/01/2024 Comments Unknown Sex and Gender Information Value Date Recorded Sex Assigned at Not on file Legal Sex Female 7:17 PM EDT Gender Identity Not on file Sexual Orientation Not on file documented as of this encounter Functional Status * Audit-C Score Answer Date of Assessment Author 2 04/01/2024 8:49 AM EDT Mychart, Generic * Q1: How often do you have a drink containing alcohol? Answer Date of Assessment Author 2-4 times a month 04/01/2024 8:49 AM EDT Mychart , Generic * Q2: How many drinks containing alcohol do you have on a typical day when you are drinking? Answer Date of Assessment Author 1 or 2 04/01/2024 8:49 AM EDT Mychart, Generic * Q3: How often do you have six or more drinks on one occasion? Answer Date of Assessment Author Never 04/01/2024 8:49 AM EDT Mychart, Generic documented as of this encounter Plan of Treatment Not on file documented as of this encounter Visit Diagnoses Not on filedocumented in this encounter Additional Health Concerns Assessment Noted Time PHQ-9 Depression Total Score: 0 07/07/19 24 12:00 PM EST documented as of this encounter Care Teams Legal Records Clerk Relationship Specialty Start Date End Date Carlos Trevizo MD [address] [place] [address] PCP - General Family Medicine 10/07/22 Sterling Kumar MD [address] [place] [address] PCP - [facility] 06/01/23 05/31/24 documented as of this encounter
--- OUTSIDE RECORDS SUMMARY | 2024-12-12 20:10 | XMS_ITS | Encounter Summary ---
Author Organization [facility] Address [address] [facility] [place] [address] Care Team Providers Care Packing Machine Can Feeder Name Role Phone Carlos Trevizo MD Primary Care Provider [phone] Encounter Details Date Type Department Care Team (Late st Contact Info) Description 10/12/2024 Abstract [facility] 112 [facility] 110 [place] [id number] Carlos Trevizo MD 112 [facility] 110 [place] [address] Social History Tobacco Use Types Packs/Day Years [...] week 04/01/2024 How often do you attend [facility] or restoration services? Patient declined 04/01/2024 Do you belong to any clubs o r organizations such as holiness groups, unions, fraternal or athletic groups, or [...] Date Recorded Patient Health Questionnaire-2 Score 0 09/21/2024 [facility] - Occupational Stress Questionnaire Answer Date Recorded [...] any time in the past 12 m [facility], were you homeless or living in a retirement (including now)? No 04/01/2024 Comments Unknown Sex [...] Noted Time PHQ-9 Depression Total Score: 0 07/04/19 25 9:03 PM EST documented as of this encounter Care Teams Packing Machine Can Feeder Relationship Specialty Start Date End Date Carlos Trevizo MD 112 [facility] 110 [place] [address] PCP - General Family Medicine 10/07/22 documented as of this encounter
--- OUTSIDE RECORDS SUMMARY | 2024-12-12 20:10 | XMS_ITS | Encounter Summary ---
Author Organization [facility] Address [address] [place] [address] Care Team Providers Care Parts And Service Manager Name Role Phone Carlos Trevizo MD Primary Care Provider [phone] Sterling Kumar MD Unavailable [phone] Encounter Details Date Type Department Care Team (Late st Contact Info) Description 10/19/2023 Orders Only [facility] [address] [place] [address] Unallocated, Noms Provider, [address] [place] [address] Social History Tobacco Use Types Packs/Day Years [...] Procedure Name Priority Date/Time Associated Diagnosis Comments ELECTROCARDIOGRAM REPORT Routine 024 9:14 AM EDT documented in this encounter Results * Electrocardiogram Report (10/14/2023 9:14 AM EDT) us Noms Provider Unallocated MD IN CLINIC/BEDSIDE O RDERABLES Final Result documented in this encounter Visit Diagnoses Not on filedocumented in this encounter Additional Health Concerns Assessment Noted Time PHQ-9 Depression Total Score: 0 07/07/19 24 12:00 PM EST documented as of this encounter Care Teams Parts And Service Manager Relationship Specialty Start Date End Date Carlos Trevizo MD [address] [facility] 110 [place] [address] PCP - General Family Medicine 10/07/22 Sterling Kumar MD [address] [facility] 110 [place] [address] PCP - [facility] 06/01/23 05/31/24 documented as of this encounter
--- OUTSIDE RECORDS SUMMARY | 2024-12-12 20:10 | XMS_ITS | Encounter Summary ---
Author Organization [facility] Address [address] [facility] [place] [address] Care Team Providers Care Salesperson Furniture Name Role Phone Carlos Trevizo MD Primary Care Provider [phone] Sterling Kumar MD Unavailable [phone] Encounter Details Date Type Department Care Team (Late st Contact Info) Description 01/29/2024 Orders Only [facility] [address] [place] [address] Shyanne Nova LPN [address] [place] [address] Acute pain of right knee Social History Tobacco Use Types Packs/Day Years [...] documented as of this encounter Visit Diagnoses Diagnosis Acute pain of right knee documented in this encounter Additional Health Concerns Assessment Noted Time PHQ-9 Depression Total Score: 0 07/07/19 24 12:00 PM EST documented as of this encounter Care Teams Salesperson Furniture Relationship Specialty Start Date End Date Carlos Trevizo MD [address] [place] [address] PCP - General Family Medicine 10/07/22 Sterling Kumar MD [address] [facility] [address] [place] [address] [address] - [facility] 06/01/23 05/31/24 documented as of this encounter
--- OUTSIDE RECORDS SUMMARY | 2024-12-12 20:10 | XMS_ITS | Encounter Summary ---
Author Organization [facility] Address [address] [facility] [place] [address] Care Team Providers Care Dev Manager Name Role Phone Carlos Trevizo MD Primary Care Provider [phone] Sterling Kumar MD Unavailable [phone] Encounter Details Date Type Department Care Team (Late st Contact Info) Description 05/26/2023 Abstract [facility] 112 [facility] 110 [place] [address] Carlos Trevizo MD [address] [id number] Social History Tobacco Use Types Packs/Day Years Used Date Smoking Tobacco: Never Smokeless Tobacco: Never Alcohol Use Standard Drinks/Week Comments Not Currently 0 (1 standard drink = 0.6 oz pure alcohol) Caffeine intake : 1-2 cups per day Comments Unknown Sex and Gender Information Value Date Recorded Sex Assigned at Not on file Legal Sex Female 7:17 PM EDT Gender Identity Not on file Sexual Orientation Not on file documented as of this encounter Plan of Treatment Not on file documented as of this encounter Visit Diagnoses Not on filedocumented in this encounter Care Teams Dev Manager Relationship Specialty Start Date End Date Carlos Trevizo MD 112 [facility] 110 [place] [address] PCP - General Family Medicine 10/07/22 Sterling Kumar MD [address] [address] [facility] 06/01/23 05/31/24 documented as of this encounter
--- OUTSIDE RECORDS SUMMARY | 2024-12-12 20:10 | XMS_ITS | Clinical Summary ---
Author Organization [facility] Address [address] [place], [place] [id number] Care Team Providers Care Paper Machine Backtender Name Role Phone Ariel Sharp MD Primary Care Provider [phone] Allergies Active Allergy Reactions Criticality Noted Date Comments Sulfamethoxazole Hives 09/13/2012 Medications RAMIPRIL 5 mg capsule 01/22/2012 Active GLYBURIDE 2.5 mg tablet 01/22/2012 Active NYSTOP powder 01/15/2012 Activ e METRONIDAZOLE 500 mg tablet 01/20/2012 Activ e CHOLECALCIFEROL , VITAMIN D3, 50,000 unit cap Take 50,000 Units by mouth once each week. For 3 months 12 capsule 0 01/28/2012 Active piroxicam 20 mg capsule Take 1 capsule by mouth once daily. 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 Vitamin D deficiency 01/28/2012 Social History Tobacco Use Types Packs/Day Years Used Date Smoking Tobacco: Never Smokeless Tobacco: Never Alcohol Use Standard Drinks/Week Comments Yes 0 (1 standard drink = 0.6 oz pur e alcohol) Comments Unknown Sex and Gender Information Value Date Recorded Sex Assigned at Not on file Legal Sex Female 10:17 AM EST Gender Identity Not on file Sexual Orientation Not on file Last Filed Vital Signs Vital Sign Reading Time Taken Comments Blood Pressure 163/88 09/13/2012 10:49 AM EDT Pulse 69 09/13/2012 10:49 AM EDT Temperature - - Respiratory Rate - - Oxygen Saturation - - Inhaled Oxygen Concentration - - Weight 111.6 kg (246 lb) 09/13/2012 10:49 AM EDT Height 160 cm (5' 3 ) 09/13/2012 10:49 AM EDT Body Mass Index 43.58 09/13/2012 10:49 AM EDT Plan of Treatment Health Maintenance Due Date Last Done Comments Anxiety Screening 1980 Depression Screening 1980 HIV Screening 1980 Hepatitis C Screening 1980 DTaP,Tdap,Td Vaccine (1 - Tdap) 1981 Cervical Cancer Screening [address] Colonography 2007 Cologuard (FIT-DNA) 2007 Colonoscopy 2007 Colorectal Cancer Screening 2007 Diabetes Screening 2007 Fecal Occult Blood 2007 Lipid Screening 2007 Sigmoidoscopy 2007 Pneumococcal Vaccine: 50+ (1 of 1 - PCV) 2012 Shingrix Vaccine (1 of 2) 2012 Covid-19 Vaccine (1 - 2023- season) 2024 Influenza Vaccine (#1) 2025 RSV Vaccine (1 - 1-dose 75+ series) 2037 Insurance [employer] [place] Care Teams Paper Machine Backtender Relationship Specialty Start Date End Date Ariel Sharp MD PCP - General Family Medicine 01/12/12
--- OUTSIDE RECORDS SUMMARY | 2024-12-12 20:10 | XMS_ITS | Encounter Summary ---
Author Organization [facility] Address [address] [facility] [place] [address] Care Team Providers Care Manager Labor Relations Name Role Phone Carlos Trevizo MD Primary Care Provider [phone] Encounter Details Date Type Department Care Team (Late st Contact Info) Description 10/12/2024 Abstract [facility] 112 [facility] 110 [place] [id number] Carlos Trevizo MD 112 [facility] 110 [place] [address] Social History Tobacco Use Types Packs/Day Years [...] do you attend [facility] or jew services? Patient declined 04/01/2024 Do you belong [...] Recorded Patient Health Questionnaire-2 Score 0 09/21/2024 [facility] - Occupational Stress Questionnaire Answer Date [...] any time in the past 12 m [facility], were you homeless or living in a fdc (including now)? No 04/01/2024 Comments Unknown Sex [...] documented as of this encounter Care Teams Manager Labor Relations Relationship Specialty Start Date End Date Carlos Trevizo MD 112 [facility] 110 [place] [address] PCP - General Family Medicine 10/07/22 documented as of this encounter
--- OUTSIDE RECORDS SUMMARY | 2024-12-12 20:10 | XMS_ITS | Encounter Summary ---
Author Organization [facility] Address [address] [facility] [place] [address] Care Team Providers Care Manager Service Desk Name Role Phone Carlos Trevizo MD Primary Care Provider [phone] Sterling Kumar MD Unavailable [phone] Encounter Details Date Type Department Care Team (Late st Contact Info) Description 09/17/2023 Orders Only [facility] [address] [place] [address] Unallocated, Noms Provider, [address] [place], [place] [id number] Social History Tobacco Use Types Packs/Day Years [...] Procedure Name Priority Date/Time Associated Diagnosis Comments XR KNEE 4+ VIEWS RIGHT Routine 09/17/2023 1:41 PM EDT documented in this encounter Results * XR knee 4+ views right (09/17/2023 1:41 PM EDT) Anatomical Region Laterality Modality Lower Extremities, Knee Right [facility] Provider Unallocated MD CHRISTY XR PROCEDURES F inal Result documented in this encounter Visit Diagnoses Not on filedocumented in this encounter Additional Health Concerns Assessment Noted Time PHQ-9 Depression Total Score: 0 07/07/19 24 12:00 PM EST documented as of this encounter Care Teams Manager Service Desk Relationship Specialty Start Date End Date Carlos Trevizo MD 112 [facility] 110 [place] [address] PCP - General Family Medicine 10/07/22 Sterling Kumar MD 112 [facility] 110 [place] [address] PCP - [facility] 06/01/23 05/31/24 documented as of this encounter
--- OUTSIDE RECORDS SUMMARY | 2024-12-12 20:10 | XMS_ITS | Encounter Summary ---
Author Organization [facility] Address [address] [facility] [place] [address] Care Team Providers Care Brokerage Clerk Name Role Phone Carlos Trevizo MD Primary Care Provider [phone] Encounter Details Date Type Department Care Team (Late st Contact Info) Description 07/12/2024 Abstract [facility] [address] [facility] [address] [place] [id number] Carlos Trevizo MD 112 [facility] [address] [place] [address] Social History Tobacco Use Types Packs/Day Years [...] week 04/01/2024 How often do you attend [facility] or bahai services? Patient declined 04/01/2024 Do you belong to any clubs o r organizations such as zoroastrianism groups, unions, fraternal or athletic groups, or [...] Date Recorded Patient Health Questionnaire-2 Score 0 07/04/2024 [facility] - Occupational Stress Questionnaire Answer Date [...] any time in the past 12 m [facility], were you homeless or living in a assisted (including now)? No 04/01/2024 Comments Unknown Sex [...] documented as of this encounter Care Teams Brokerage Clerk Relationship Specialty Start Date End Date Carlos Trevizo MD 112 [facility] [address] [place] [address] PCP - General Family Medicine 10/07/22 documented as of this encounter
--- OUTSIDE RECORDS SUMMARY | 2024-12-12 20:10 | XMS_ITS | Encounter Summary ---
Author Organization [facility] Address [address] [facility] [place] [address] Care Team Providers Care Field Worker Name Role Phone Carlos Trevizo MD Primary Care Provider [phone] Sterling Kumar MD Unavailable [phone] Encounter Details Date Type Department Care Team (Late st Contact Info) Description 09/29/2023 Abstract [facility] [address] [facility] [address] [place] [address] Carlos Trevizo MD 112 [facility] 110 [place] [address] Social History Tobacco Use Types Packs/Day Years [...] documented as of this encounter Care Teams Field Worker Relationship Specialty Start Date End Date Carlos Trevizo MD 112 [facility] 110 [place] [address] PCP - General Family Medicine 10/07/22 Sterling Kumar MD 112 [facility] 110 [place] [address] PCP - [facility] 06/01/23 05/31/24 documented as of this encounter
--- OUTSIDE RECORDS SUMMARY | 2024-12-12 20:10 | XMS_ITS | Clinical Summary ---
Author Organization [facility] Address [address] [facility] [place] [address] Care Team Providers Care Rn Immunology Name Role Phone Carlos Owens MD Primary Care Provider [phone] Allergies Active Allergy Reactions Criticality Noted Date Comments Sulfamethoxazole 01/03/2019 Other Reaction(s): rash, itchy Trimethoprim 09/14/2023 Other Reaction(s): Fatigued Medications Multiple Vitamin (MULTIVITAMINS PO) Take 1 tablet by mouth 1 (one) time each day at the same time. Active acetaminophen (Tylenol) 325 MG tablet Take 1 tablet by mouth every 4 (four) hours if needed for mild pain. Active Abilify 30 MG tablet Take 1 tablet by mouth 1 (one) time each day at the same time. Active omega-3 (Fish Oil) 1200 MG capsule Take 1 capsule by mouth every 12 (twelve) hours. Active Zoloft 100 MG tablet Take 2 tablets by mouth 1 (one) time each day at the same time. Active traZODone (Desyrel) 100 MG tablet Take 2 tablets by mouth at bedtime. 3 Active loperamide (Imodium) 2 MG capsule Take 2 mg by mouth 4 (four) times a day as needed 4 Active colesevelam (Welchol) 625 MG tablet Take 1 tablet by mouth in the morning and 1 tablet in the evening. Take with meals. 4 Active gemfibrozil (Lopid) 600 MG tabletIndications:M ixed hyperlipidemia TAKE 1 TABLET BY MOUTH TWICE A DAY 200 tablet 3 4 Active pantoprazole (ProtoNix) 40 MG EC tabletIndications:G ERD without esophagitis TAKE 1 TABLET BY MOUTH EVERY DAY 90 tablet 3 4 Active venlafaxine XR (Effexor XR) 75 MG 24 hr capsule 5 Active tiZANidine (Zanaflex) 4 MG tabletIndications:A rthropathy of left sacroiliac joint Take 1 tablet (4 mg) by mouth as needed at bedtime for muscle spasms for up to 14 days 14 tablet 5 Active metFORMIN (Glucophage) 500 MG tabletIndications:T ype 2 diabetes mellitus with diabetic cataract (HCC) TAKE 1 TABLET BY MOUTH TWICE A DAY WITH A MEAL 200 tablet 3 5 Active Active Problems Problem Noted Date Diagnosed Date Primary osteoarthritis of both hips 09/21/2024 Type 2 diabetes mellitus with other specified co mplication 07/11/2024 Type 2 diabetes mellitus wit h diabetic peripheral angiopathy without gangrene 07/11/2024 Benign paroxysmal vertigo 10/19/2023 Abnormal cardiovascular stress test 03/18/2023 Anemia 03/18/2023 Atherosclerosis of [place] of extremities with rest pain, bilateral legs 03/18/2023 Cataract of both eyes 03/18/2023 Diabetic cataract, associated with type 2 diabet es mellitus 03/18/2023 Assessment & Plan (10/06/2023 1:32 PM EDT): No Tobacco use Follow ADA 1800 diet low carbohydrate Continue Med Compliance Goal LDL less than 100 Goal BP 130/80 Goal HgbA1c < 7.0% Monitor Feet, monitor for infection Needs Exercise Yearly eye exams Prior to your visit today we reviewed your chart and outlined testing and treatment needed for your care. Reviewed poissble complications of diabetes including, loss of vision, kidney failure and increased risk of heart attacks and stroke. We made recommendations on how to control your blood sugars, and minimize your risk of these complications. We discussed your current barriers to a healthy living and importance of healthy diet and exercise. Diabetic peripheral neuropathy 03/18/2023 Fatty liver 03/18/2023 Gastritis without bleeding 03/18/2023 GERD without esophagitis 03/18/2023 Heart disease 03/18/2023 Peripheral vascular disease 03/18/2023 Hemangioma 03/18/2023 Hirsutism 03/18/2023 History of hysterectomy 03/18/2023 Insomnia 03/18/2023 Irritable bowel syndrome 03/18/2023 Lumbar degenerative disc disease 03/18/2023 Meralgia paresthetica 03/18/2023 Mixed hyperlipidemia 03/18/2023 Moderate episode of recurrent major depressive d isorder 03/18/2023 Morbid (severe) obesity due to excess calories 1 Assessment & Plan (10/06/2023 1:33 PM EDT): Weight loss encouraged Multinodular goiter 03/18/2023 Myalgia 03/18/2023 Myopia 03/18/2023 BMI 37.0-37.9, adult 03/18/2023 Abnormal ECG 03/18/2023 Obstructive pattern present on pulmonary functio n testing 03/18/2023 Obstructive sleep apnea 03/18/2023 Open-angle glaucoma of both eyes, mild stage Osteoarthritis of lumbar spine 03/18/2023 Cervical spondylosis 03/18/2023 Other chronic pain 03/18/2023 Paresthesia of skin 03/18/2023 Peripheral neuropathy 03/18/2023 Presbyopia 03/18/2023 Thyroid nodule 03/18/2023 Mitral regurgitation 03/18/2023 Tricuspid regurgitation 03/18/2023 Venous (peripheral) insufficiency 03/18/2023 Verruca vulgaris 03/18/2023 Vitamin D deficiency 03/18/2023 Ductal hyperplasia of breast 09/16/2012 Osteoarthritis of ankle, right 01/28/2012 Peripheral edema 01/28/2012 Resolved Problems Problem Noted Date Diagnosed Date Resolved Date Acute pain of right knee 10/06/202303/2025 Assessment & Plan (10/06/2023 1:35 PM EDT): Sees Dr. Shankar Cholecystitis without cholelithiasis 03/18/2023 07/07/2023 Benign essential hypertension 03/18/2023 07/11/2024 Sciatica of right side 03/18/202307/11 Severe episode of recurrent major depressive disorder, without psychotic features 03/18/202310/2023 Type 2 diabetes mellitus without complication 03/18/2007/07/2023 Ankle pain, right 01/28/2012 07/11/2024 Encounters Date Type Department Care Team Description 11/16/2024 Abstract [facility] [address] [facility] [address] [place] [address] Carlos Owens MD 11/07/2024 Refill [facility] [address] [place] [facility] [address] [place] [address] Moriah Alvarado PA Type 2 diabetes mellitus with diabetic cataract (HCC) 10/12/2024 Abstract [facility] [address] [facility] [address] [place] [address] Carlos Owens MD 10/12/2024 Telephone [facility] [address] [facility] [address] [place] [address] Moriah Alvarado PA Sleep Apnea 10/12/2024 Abstract [facility] [address] [facility] [address] [place] [address] Carlos Owens MD 10/12/2024 Abstract [facility] [address] [facility] [address] [place] [address] Carlos Owens MD 10/11/2024 2:00 PM EDT Office Visit [facility] [address] [facility] [address] [place] [address] Moriah Alvarado PA Diabetic peripheral neuropathy (HCC) (Primary Dx); Arthropathy of left sacroiliac joint; Major depressive disorder, recurrent severe without psychotic features (HCC); Obstructive sleep apnea 10/11/2024 External Result Encounter [facility] External Department Unsolicited Moriah Alvarado PA 10/11/2024 Bamboo flowsheet [facility] [address] [place] [address] [place] [address] Moriah lAvarado PA 10/11/2024 Travel 10/04/2024 Travel 09/21/2024 2:30 PM EDT Office Visit [facility] [address] [facility] [address] [place] [address] Moriah Alvarado PA Arthropathy of left sacroiliac joint (Primary Dx); Obstructive sleep apnea; Primary osteoarthritis of both hips; Osteoarthritis of lumbar spine, unspecified spinal osteoarthritis complication status; Degeneration of intervertebral disc of lumbar region with discogenic back pain and lower extremity pain 09/21/2024 [employer] flowsheet [facility] [address] [facility] [address] [place] [address] Moriah Alvarado PA 09/21/2024 Travel from Last 3 Months Immunizations Immunization Administration Dates Next Due Influenza, High-dose Seasona l, Quadrivalent, Preservative Free 02/22/2020 Influenza, injectable, quadr ivalent, preservative free 03/24/2023,02/26/2021,03/22/2015 Influenza, seasonal, injecta ble, preservative free 04/04/2024 Influenza, seasonal, intrade rmal, preservative free 03/16/2018,04/30/2016 Family History Medical History Relation Name Comments Heart disease Father Elie Heart failure Father Elie Hypertension Father Elie Diabetes Mother Nallely Heart disease Mother Nallely Heart failure Mother Nallely Hypertension Mother Nallely Psoriasis Mother Nallely Thyroid disease Mother Nallely Melanoma Neg Hx Relation Name Status Comments Brother 1 brother Daughter 1 daughter Father Elie Mother Nallely Other boyfriend passe d away 11/2019 Sister 3 sister Social History Tobacco Use Types Packs/Day Years Used Date Smoking Tobacco: Never Smokeless Tobacco: Never Tobacco Cessation:Counseling Given: Not Answered Alcohol Use Standard Drinks/Week Comments Not Currently [...] 04/01/2024 How often do you attend [facility] or spiritism services? Patient declined 04/01/2024 Do you belong to any clubs o r organizations such as orthodoxy groups, unions, fraternal or athletic groups, or [...] Recorded Patient Health Questionnaire-2 Score 0 09/21/2024 [facility] - Occupational [...] any time in the past [address] [facility], were you homeless or living in a senior care (including now)? No 04/01/2024 Comments Unknown Sex and Gender Information Value Date Recorded Sex Assigned at Not on file Legal Sex Female 7:17 PM EDT Gender Identity Not on file Sexual Orientation Not on file Last Filed Vital Signs Vital Sign Reading Time Taken Comments Blood Pressure 118/72 10/11/2024 2:30 PM EDT Pulse 98 10/11/2024 2:30 PM EDT Temperature - - Respiratory Rate 18 10/11/2024 2:30 PM EDT Oxygen Saturation 99% 10/11/2024 2:30 PM EDT Inhaled Oxygen Concentration - - Weight 98.2 kg (216 lb 9.6 oz) 10/11/2024 2:30 P M EDT Height 160 cm (5' 3 ) 10/11/2024 2:30 PM EDT Body Mass Index 38.37 10/11/2024 2:30 PM EDT Plan of Treatment Health Maintenance Due Date Last Done Comments CT Colonography 1960 FIT-DNA 1962 FIT 1962 FOBT 1960 Sigmoidoscopy 1960 Mammogram 12/16/2022 12/16/2021, 09/29, 10/15/2018, Additional history exists Colonoscopy 12/27/2023 12/26/2013 Diabetes: Hemoglobin A1C 01/11/2025 025, 04/04/2024, 10/06/2023, Additional history exists Influenza Vaccine (#1) 2025 4, 03/24/2023, 02/26/2021, Additional history exists Colorectal Cancer Screening 04/04/2025 Postponed from 1960 (Patient Refused) Diabetes: Retinopathy Screening 05/22/2025 05/22/2023, 05/01/2021, 01/25/2019, Additional history exists Medicare Annual Wellness (AWV) 07/11/2025 07/11/2024, 07/07/2023, 11/26/2020, Additional history exists Diabetes: Urine Protein Screening 10/11/2025 10/11/2024, 03/24/2023, 02/26/2021, Additional history exists Procedures Procedure Name Priority Date/Time Associated Diagnosis Comments POCT GLYCATED HEMOGLOBIN, TOTAL Routine 10/11/2024 2:34 PM EDT Diabetic peripheral neuropathy (HCC) MICROALBUMIN / CREATININE URINE RATIO Routine 10/11/2024 2:20 PM EDT DIABETIC RETINOPATHY SCREENING - OU - BOTH EYES Routine 05/22/2023 BI MAMMOGRAM SCREENING TOMOSYNTHESIS BILATERAL Routine 12/16/2021 COLONOSCOPY Routine 12/26/2013 from Last 3 Months or Most Recently Relevant to Health Maintenance Results * (ABNORMAL) POCT Glycated hemoglobin, total (10/11/2024 2:34 PM EDT) Hemoglobin A1C 6.5 Blood 10/11/2024 2:34 PM EDT Moriah GUO POINT OF CARE TEST ENTER/EDIT ORDERABLES Final Result * Microalbumin / creatinine urine ratio (10/11/2024 2:20 PM EDT) CREATININE, RANDOM URINE 122 20 - 275 mg/dL [facility] ALBUMIN, URINE 0.3 See Note: mg/dL [facility] Comment: Reference Range: Reference Range Not established ALBUMIN/CREATININE RATIO, RANDOM URINE 2 <30 mg/g creat [facility] Comment: The ADA defines abnormalities in albumin excretion as follows: Albuminuria Category Result (mg/g creatinine) Normal to Mildly increased <30 Moderately increased 30-299 Severely increased > OR = 300 The ADA recommends that at least two of three specimens collected within a 3-6 month period be abnormal before considering a patient to be within a diagnostic category. 10/11/2024 2:20 PM EDT 10/11/2024 2:20 PM EDT Narrative Resulting Agency Comment Performing Organization Information Site ID: [id number] Name: [facility] Address: [address] [place] [address], [address] [place] [id number] Director: Bill Lucero MD Moriah GUO LAB URINE ORDERABLES Final Res ult [facility] * Diabetic Retinopathy Screening - OU - Both Eyes (05/22/2023) RESULTS NDR Anatomical Region Laterality Modality Head Other 05/22/2023 Moriah GUO OPHTH PHOTOGRAPHY Final Result * Bilateral screening mammogram with tomosynthesis (12/16/2021) Anatomical Region Laterality Modality Breast Bilateral Mammography Narrative 12/16/2021 12:00 AM EDT PERFORMED AT [facility] LOCATION:[place] [address] Patient: FEDERICO Caputo Exam Date: 12/16/2021 : 1960 Gender:F Ordering : DR CARLOS OWENS M.D. Admission #: [id number] Family : Order #: [id number] CLICK HERE TO VIEW EXAM RADIOLOGY REPORT PROCEDURE: MAMMOGRAM SCREENING 3D BILATERAL CAD COMPARISON: MG MAMM SCREEN ARIE W CAD 10/15/2018. MG MAMM SCREEN ARIE W CAD 10/09/2017. INDICATIONS: Screening mammography Calculator Name NCI Breast Cancer Risk Assessment Tool 5 Year Breast Cancer Risk 2.00% Lifetime Breast Cancer Risk 10.70% Personal Breast Cancer No Personal Ovarian Cancer No Treatments None Family Cancers Aunt-maternal with breast cancer at age 50. LOCATION: [facility] BREAST COMPOSITION: Scattered areas fibroglandular density. FINDINGS: DIAGNOSTIC CATEGORY 2--BENIGN FINDING: RIGHT BREAST: No significant suspicious finding. Stable chronic benign-appearing nodule within the anterior breast. No significant change has occurred. LEFT BREAST: No significant suspicious finding. No significant change has occurred. RECOMMENDATIONS: ROUTINE MAMMOGRAM AND CLINICAL EVALUATION IN 12 MONTHS. PLEASE NOTE: A NORMAL MAMMOGRAM DOES NOT EXCLUDE THE POSSIBILITY OF BREAST CANCER. A CLINICALLY SUSPICIOUS PALPABLE LUMP SHOULD BE BIOPSIED. Dictated by: Jarrell Saucedo M.D. on 12/16/2021 at 15:40 Approved by: Jarrell Saucedo M.D. on 12/16/2021 at 15:46 Procedure Note CONVERSION, GENERIC - 12/05/2022 PERFORMED AT [facility] LOCATION:[place] [address] Patient: FEDERICO Caputo Exam Date: 12/16/2021 : 1960 Gender:F Ordering : DR CARLOS OWENS M.D. Admission #: [id number] Family : Order #: [id number] CLICK HERE TO VIEW EXAM RADIOLOGY REPORT PROCEDURE: MAMMOGRAM SCREENING 3D BILATERAL CAD COMPARISON: MG MAMM SCREEN ARIE W CAD 10/15/2018. MG MAMM SCREEN ARIE W CAD 10/09/2017. INDICATIONS: Screening mammography Calculator Name NCI Breast Cancer Risk Assessment Tool 5 Year Breast Cancer Risk 2.00% Lifetime Breast Cancer Risk 10.70% Personal Breast Cancer No Personal Ovarian Cancer No Treatments None Family Cancers Aunt-maternal with breast cancer at age 50. LOCATION: [facility] BREAST COMPOSITION: Scattered areas fibroglandular density. FINDINGS: DIAGNOSTIC CATEGORY 2--BENIGN FINDING: RIGHT BREAST: No significant suspicious finding. Stable chronic benign-appearing nodule within the anterior breast. No significant changehas occurred. LEFT BREAST: No significant suspicious finding. No significant changehas occurred. RECOMMENDATIONS: ROUTINE MAMMOGRAM AND CLINICAL EVALUATION IN 12 MONTHS. PLEASE NOTE: A NORMAL MAMMOGRAM DOES NOT EXCLUDE THE POSSIBILITY OFBREAST CANCER. A CLINICALLY SUSPICIOUS PALPABLE LUMP SHOULD BE BIOPSIED. Dictated by: Jarrell Saucedo M.D. on 12/16/2021 at 15:40 Approved by: Jarrell Saucedo M.D. on 12/16/2021 at 15:46 Carlos Owens MD IMG BI PROCEDURES Final Result * Colonoscopy (12/26/2013) Anatomical Region Laterality Modality Endoscopy 12/26/2013 Narrative 12/26/2013 12:00 AM EDT PERFORMED AT [facility] LOCATION:[place] [address] Procedure Note CONVERSION, GENERIC - 10/16/2022 PERFORMED AT [facility] LOCATION:[place] [address] us Generic Conversion MD ENDOSCOPY PROCEDURE ORDERA BLES Final Result from Last 3 Months or Most Recently Relevant to Health Maintenance Insurance MEDICAID [place] UNITED [employer] MEDICARE Care Teams Rn Immunology Relationship Specialty Start Date End Date Carlos Owens MD [address] [address] PCP - General Family Medicine 10/07/22
--- OUTSIDE RECORDS SUMMARY | 2024-12-12 20:10 | XMS_ITS | Clinical Summary ---
Author Organization [facility] Address [id number] [address] [place] [address] Care Team Providers Care Pipe Coremaker Name Role Phone Moriah Alvarado Primary Care Provider [phone] Allergies Active Allergy Reactions Criticality Noted Date Comments Sulfamethoxazole-Trimethoprim Rash Low 2015 Medications ferrous sulfate 325 (65 FE) mg tablet Take 1 tablet (325 mg total) by mouth in the morning. 0 8 Active omega 9-scj-rtt-fish oil 300-1,000 mg capsule Take 1 capsule by mouth in the morning and 1 capsule before bedtime. Active gemfibrozil (LOPID) 600 mg tablet Take 1 tablet (600 mg total) by mouth in the morning and 1 tablet (600 mg total) before bedtime. Active metFORMIN (GLUCOPHAGE) 500 mg tablet Take 1 tablet (500 mg total) by mouth daily with breakfast. 0 8 Active pantoprazole (PROTONIX) 40 mg EC tablet Take 1 tablet (40 mg total) by mouth in the morning. 0 8 Active sertraline (ZOLOFT) 100 mg tablet Take 1 tablet (100 mg total) by mouth in the morning. Takes 2 in AM . Active baclofen (LIORESAL) 10 mg tablet Take 1 tablet (10 mg total) by mouth daily as needed. 4 Active busPIRone (BUSPAR) 10 mg tablet Take 1 tablet (10 mg total) by mouth in the morning and 1 tablet (10 mg total) before bedtime. Active colesevelam (WELCHOL) 625 mg tablet Take 1 tablet (625 mg total) by mouth in the morning and 1 tablet (625 mg total) in the evening. Take with meals. 4 Active dicyclomine (BENTYL) 20 mg tablet Take 1 tablet (20 mg total) by mouth in the morning and 1 tablet (20 mg total) before bedtime. 4 Active loperamide (IMODIUM) 2 mg capsule Take 1 capsule (2 mg total) by mouth 4 (four) times a day as needed. 4 Active traZODone (DESYREL) 100 mg tablet Take 2.5 tablets (250 mg total) by mouth nightly. Active ARIPiprazole (ABILIFY) 30 mg tablet Take 1 tablet (30 mg total) by mouth in the morning. Active multivit-min/foli c/vit K/lycop (ONE-A-DAY MEN'S MULTIVITAMIN ORAL) Take 1 tablet by mouth in the morning. Active Active Problems Problem Noted Date Diagnosed Date Benign paroxysmal vertigo Benign essential hypertension DM (diabetes mellitus) Hyperlipidemia Family History Medical History Relation Name Comments Heart disease Father Hypertension Father No Known Problems Mother Relation Name Status Comments Father Mother Alive Social History Tobacco Use Types Packs/Day Years Used Date Smoking Tobacco: Never Smokeless Tobacco: Never Alcohol Use Standard Drinks/Week Comments No 0 (1 standard drink = 0.6 oz pur e alcohol) Childcare Answer Date Recorded Childcare Unknown 05/15/2020 Employment Answer Date Recorded Employment Unknown 05/15/2020 Purpose - Life Answer Date Recorded Purpose and direction in life Unknown Comments No Sex and Gender Information Value Date Recorded Sex Assigned at Not on file Legal Sex Female 12:11 PM EDT Gender Identity Not on file Sexual Orientation Not on file Last Filed Vital Signs Vital Sign Reading Time Taken Comments Blood Pressure 131/55 11/04/2023 2:50 PM EDT Pulse 79 11/04/2023 2:50 PM EDT Temperature 36.6 C (97.8 F) 11/04/2023 2:10 PM EDT Respiratory Rate 19 11/04/2023 2:50 PM EDT Oxygen Saturation 96% 11/04/2023 2:50 PM EDT Inhaled Oxygen Concentration - - Weight 90.7 kg (200 lb) 11/04/2023 10:46 AM EDT Height 154.9 cm (5' 1 ) 11/04/2023 10:46 AM EDT Body Mass Index 37.79 11/04/2023 10:46 AM EDT Plan of Treatment Health Maintenance Due Date Last Done Comments Depression Screening 1974 DTaP,Tdap and Td Vaccines (1 - Tdap) 1981 Zoster (Shingles) Vaccine (1 of 2) 2012 COVID-19 Vaccine (4 - 2023-2 5 season) 2024 04/23/2021, 09/04/2020, 08/13/2020 Adult BMI Screening 11/03/2024 11/04/2023 Tobacco Screening 11/03/2024 11/04/2023 Influenza Vaccine 01/30/2025 03/24/2023, , 02/22/2020, Additional history exists Medical Devices Not on file Insurance MEDICAID [place] UNITED[employer] MEDICARE Care Teams Pipe Coremaker Relationship Specialty Start Date End Date Moriah Alvarado PA [facility] - General 10/22/17
--- OUTSIDE RECORDS SUMMARY | 2024-12-12 20:10 | XMS_ITS | Encounter Summary ---
Author Organization [facility] Address [id number] [address] [place] [address] Care Team Providers Care Director Of Field Service Name Role Phone Moriah Alvarado Primary Care Provider [phone] Reason for Visit * Reason Comments Med Refill Encounter Details Date Type Department Care Team (Late st Contact Info) Description 10/22/2018 Refill [facility] [address] [place] [place] [id number] Dinah Wilkes, STATISTICAL CLERK-THEORETICAL PHYSICIST [address] [place] [address] Med Refill Social History Tobacco Use Types Packs/Day Years Used Date Smoking Tobacco: Never Smokeless Tobacco: Never Alcohol Use Standard Drinks/Week Comments No 0 (1 standard drink = 0.6 oz pur e alcohol) Childcare Answer Date Recorded Childcare Unknown 08/25/2018 Employment Answer Date Recorded Employment Unknown 08/25/2018 Comments Unknown Sex and Gender Information Value Date Recorded Sex Assigned at Not on file Legal Sex Female 12:11 PM EDT Gender Identity Not on file Sexual Orientation Not on file documented as of this encounter Miscellaneous Notes * Telephone Encounter - Batool Briceño MA - 10/22/2018 2:42 PM EDT Called pt to schedule appt. No Answer. No Machine. Letter mailed. GUIDOW documented in this encounter Plan of Treatment Not on file documented as of this encounter Visit Diagnoses Not on filedocumented in this encounter Care Teams Director Of Field Service Relationship Specialty Start Date End Date Moriah Alvarado PA PCP - General 10/22/17 documented as of this encounter
--- OUTSIDE RECORDS SUMMARY | 2024-12-12 20:10 | XMS_ITS | Encounter Summary ---
Author Organization [facility] Address [address] [facility] [place] [address] Care Team Providers Care Cable Armorer Name Role Phone Carlos Trevizo MD Primary Care Provider [phone] Sterling Kumar MD Unavailable [phone] Encounter Details Date Type Department Care Team (Late st Contact Info) Description 09/17/2023 Clinisync Result Encounter [facility] External Department Unsolicited Arin Alvarado, BRANT 112 [facility] 110 [place] [address] Social History Tobacco Use Types Packs/Day Years [...] Diagnosis Comments XR KNEE 4+ VIEWS RIGHT 09/17/2023 8:20 AM EDT documented in this encounter Results * XR knee 4+ views right (09/17/2023 8:20 AM EDT) Anatomical Region Laterality Modality Lower Extremities, Knee Right Radiogra phic Imaging 09/17/2023 8:20 AM EDT Narrative 09/17/2023 8:22 AM EDT [address] [address] XRay Report Signed Patient: MARÍA CABALLERO MR#: [id number] : 1960 Acct:[id number] Age/Sex: 63 / F ADM Date: 09/16/23 Loc: RAD Attending Dr: ARIN ALVARADO Ordering Physician: ARIN ALVARADO Date of Service: 09/16/23 Procedure(s): XR knee RT 4V Accession Number(s): [id number] cc: ARIN ALVARADO [place] [address] Patient Name: MARÍA CABALLERO MRN: [id number] date: 1960 Sex: F Assigned Patient Location: [facility] Current Patient Location: Accession/Order Number: [id number] Exam Date: 09/16/2023 15:01 Report Date: 09/17/2023 08:20 At the request of: ARIN ALVARADO Procedure: XR knee RT 4V PROCEDURE: XR knee RT 4V HISTORY: acute pain of right knee M25.561 ; medial right knee pain since falling 2 weeks ago COMPARISON: None. FINDINGS: BONES:Thin curvilinear lucency projecting over the medial tibial plateau on the final image is seen projecting within the joint space on the second image suggesting this is air/gas within the joint space or meniscus rather than a fracture line within the medial plateau. Small periarticular degenerative osteophytes involving the anterior and medial compartments. No significant joint space narrowing. SOFT TISSUES:No visible soft tissue swelling. EFFUSION:None visible. OTHER: Negative. XR/XR knee RT 4V IMPRESSION: 1. Suspect air/gas within the medial joint space or meniscus likely secondary to soft tissue injury. A tibial plateau fracture is felt less likely. MRI is recommended for further evaluation. Electronically authenticated by: JARRELL SAUCEDO Date: 09/17/2023 08:20 Dictated By: Jarrell Saucedo M.D. Signed By: 09/17/23821 DD/ TD/TT: Pet Groomer: Procedure Note Radiology, Radiologist, MD - 09/17/2023 [facility] [place] [id number] XRay Report Signed Patient: MARÍA CABALLERO AMR#: [id number] : 1960cct:[id number] Age/Sex: 63 / FADM Date: 09/16/23 Loc: RAD Attending Dr: ARIN ALVARADO Ordering Physician: ARIN ALVARADO Date of Service: 09/16/23 Procedure(s): XR knee RT 4V Accession Number(s): [id number] cc: ARIN ALVARADO [place] [address] Patient Name: MARÍA CABALLERO MRN: [id number] date: 1960 Sex: F Assigned Patient Location: [facility] Current Patient Location: Accession/Order Number: [id number] Exam Date: 09/16/2023 15:01 Report Date: 09/17/2023 08:20 At the request of: ARIN ALVARADO Procedure: XR knee RT 4V PROCEDURE: XR knee RT 4V HISTORY: acute pain of right knee M25.561 ; medial right knee pain since falling 2 weeks ago COMPARISON: None. FINDINGS: BONES:Thin curvilinear lucency projecting over the medial tibial plateauon the final image is seen projecting within the joint space on the second image suggesting this is air/gas within the joint space or meniscus rather thana fracture line within the medial plateau. Small periarticular degenerative osteophytes involving the anterior and medial compartments. No significant joint space narrowing. SOFT TISSUES:No visible soft tissue swelling. EFFUSION:None visible. OTHER: Negative. XR/XR knee RT 4V IMPRESSION: 1. Suspect air/gas within the medial joint space or meniscus likelysecondary to soft tissue injury. A tibial plateau fracture is felt less likely. MRIis recommended for further evaluation. Electronically authenticated by: JARRELL SAUCEDO Date: 09/17/2023 08:20 Dictated By: Jarrell Saucedo M.D. Signed By:09/17/23821 DD/ 9 TD/TT: Pet Groomer: Arin GUO IMG XR PROCEDURES Final Result documented in this encounter Visit Diagnoses Not on filedocumented in this encounter Additional Health Concerns Assessment Noted Time PHQ-9 Depression Total Score: 0 07/07/19 24 12:00 PM EST documented as of this encounter Care Teams Cable Armorer Relationship Specialty Start Date End Date Carlos Trevizo MD 112 [facility] 110 [place] [address] PCP - General Family Medicine 10/07/22 Sterling Kumar MD 112 [facility] 110 [place] [address] PCP - [facility] 06/01/23 05/31/24 documented as of this encounter
--- OUTSIDE RECORDS SUMMARY | 2024-12-12 20:10 | XMS_ITS | Encounter Summary ---
Author Organization [facility] Address [address] [facility] [place] [address] Care Team Providers Care Roll Grinder Name Role Phone Carlos Trevizo MD Primary Care Provider [phone] Encounter Details Date Type Department Care Team (Late st Contact Info) Description 11/16/2024 Abstract [facility] 112 [facility] 110 [place] [id number] Carlos Trevizo MD 112 [facility] 110 [place] [address] Social History Tobacco Use Types Packs/Day Years [...] week 04/01/2024 How often do you attend [facility] or muslim services? Patient declined 04/01/2024 Do you belong to any clubs o r organizations such as methodist groups, unions, fraternal or athletic groups, or [...] Recorded Patient Health Questionnaire-2 Score 0 09/21/2024 [facility] - Occupational Stress Questionnaire Answer Date Recorded [...] any time in the past 12 m [facility], were you homeless or living in a senior living (including now)? No 04/01/2024 Comments Unknown Sex [...] documented as of this encounter Care Teams Roll Grinder Relationship Specialty Start Date End Date Carlos Trevizo MD 112 [facility] 110 [place] [address] PCP - General Family Medicine 10/07/22 documented as of this encounter
--- OUTSIDE RECORDS SUMMARY | 2024-12-12 20:10 | XMS_ITS | Patient Health Record ---
Author Organization [facility] [place] Address [address] [place] [address] Care Team Providers Care Pharmacist Assistant Name Role Phone All Ford Primary Care Provider Unavailabl e Allergies Allergen (clinical drug ingredient) Drug/Non Drug Allergy documented on EMR Reaction Allergy Type Onset Date Status sulfamethoxazole / trimethoprim Bactrim Unknown Drug Allergy Active Reason For Referral No Information Medications Medication SIG (Take, Route, Frequency, Duration) Notes Start Date End Date Status Ciclopirox Olamine 0.77 % APPLY TO THE A FFECTED AREA(S) twice daily External for 30 Days Not-Taking ARIPiprazole 20 MG TAKE 1 TABLET BY JOSIAH TH ONCE DAILY Oral for 30 Days Not-Taking Sertraline HCl 100 MG TAKE 2 TABLETS BY MOUTH ONCE DAILY Oral for 30 Days Active Pregabalin 75 MG (Schedule V Drug) TA KE 1 CAPSULE BY MOUTH TWICE DAILY Oral for 30 Days Active Fluconazole 150 MG TAKE 1 TABLET on day 1 and 1 tablet on day 4 Oral for 6 Days Active Atorvastatin Calcium 20 MG TAKE 1 TABLET BY MOUTH DAILY Oral for 30 Days Active Rozerem 8 MG TAKE 1 TABLET BY JOSIAH TH AT BEDTIME NEEDED Oral for 30 Days Not-Taking Mupirocin Calcium 2 % APPLY TO THE AFFEC JAMAL AREA(S) THREE TIMES DAILY FOR 10 DAYS External for 10 Days Not-Taking Meloxicam 15 MG TAKE 1 TABLET BY JOSIAH TH ONCE DAILY WITH FOOD Oral for 30 Days Not-Taking Social History Tobacco Use: Social History Observation Description Date Details (start date - stop date) Never Smoker NA - NA Tobacco Use/Smoking Question Answer Notes Patient is a nonsmoker Plan Of Treatment No Information Insurance Providers Payer Name Payer Address Payer Phone Subscriber Number Group Number Insured Name Patient Relationship to Insured Coverage Start Date Coverage End Date [facility] [employer]IC[facility] [address] [place] [address] [id number] Suri Oshea Self - patient is the insured MEDICAID [place] [id number] INS [address] [facility] [address] [place], [place] [id number] Suri Oshea Self - patient is the insured 9 Medical (General) History Medical History History ICD Code OM (onychomycosis) B35.1 diabetes
--- OUTSIDE RECORDS SUMMARY | 2024-12-12 20:10 | XMS_ITS | Encounter Summary ---
Author Organization [facility] Address [address] [facility] [place] [address] Care Team Providers Care Cotton Tipper Name Role Phone Carlos Trevizo MD Primary Care Provider [phone] Sterling Kumar MD Unavailable [phone] Encounter Details Date Type Department Care Team (Late st Contact Info) Description 03/31/2023 Abstract [facility] 112 [facility] 110 [place] [address] Carlos Trevizo MD [address] [id number] Social History Tobacco Use Types Packs/Day Years [...] on filedocumented in this encounter Care Teams Cotton Tipper Relationship Specialty Start Date End Date Carlos Trevizo MD 112 [facility] 110 [place] [address] PCP - General Family Medicine 10/07/22 Sterling Kumar MD [address] [address] [facility] 06/01/23 05/31/24 documented as of this encounter
--- OUTSIDE RECORDS SUMMARY | 2024-12-12 20:10 | XMS_ITS | Encounter Summary ---
Author Organization [facility] Address [address] [facility] [place] [address] Care Team Providers Care Swimming Pool Plasterer Helper Name Role Phone Carlos Trevizo MD Primary Care Provider [phone] Encounter Details Date Type Department Care Team (Late st Contact Info) Description 10/12/2024 Abstract [facility] 112 [facility] 110 [place] [phone] Carlos Trevizo MD 112 [facility] 110 [place] [address] Social History Tobacco Use Types Packs/Day Years [...] How often do you attend [facility] or moravian services? Patient declined 04/01/2024 Do you belong to any clubs o r organizations such as lutheran groups, unions, fraternal or athletic groups, or [...] Recorded Patient Health Questionnaire-2 Score 0 09/21/2024 [facility] Occupat ional [facility] - Occupational Stress Questionnaire Answer [...] any time in the past [address] [facility], were you homeless or living in a [...] documented as of this encounter Care Teams Swimming Pool Plasterer Helper Relationship Specialty Start Date End Date Carlos Trevizo MD 112 [facility] 110 [place] [address] PCP - General Family Medicine 10/07/22 documented as of this encounter
--- OUTSIDE RECORDS SUMMARY | 2024-12-12 20:10 | XMS_ITS | Encounter Summary ---
Author Organization [facility] Address [address] [facility] [place] [address] Care Team Providers Care Concrete Stone Fabricating Supervisor Name Role Phone Carlos Trevizo MD Primary Care Provider [phone] Sterling Kumar MD Unavailable [phone] Encounter Details Date Type Department Care Team (Late st Contact Info) Description 07/08/2023 Abstract [facility] 112 [facility] 110 [place] [address] Carlos Trevizo MD 112 [facility] 110 [place] [address] Social History Tobacco Use Types Packs/Day Years [...] documented as of this encounter Care Teams Concrete Stone Fabricating Supervisor Relationship Specialty Start Date End Date Carlos Trevizo MD 112 [facility] 110 [place] [address] PCP - General Family Medicine 10/07/22 Sterling Kumar MD 112 [facility] 110 [place] [address] PCP - [facility] 06/01/23 05/31/24 documented as of this encounter
--- OUTSIDE RECORDS SUMMARY | 2024-12-12 20:10 | XMS_ITS | Encounter Summary ---
Author Organization [facility] Address [address] [facility] [place] [address] Care Team Providers Care Seed Technician Name Role Phone Carlos Trevizo MD Primary Care Provider [phone] Sterling Kumar MD Unavailable [phone] Encounter Details Date Type Department Care Team (Late st Contact Info) Description 08/19/2023 Abstract [facility] [address] [facility] 110 [place] [address] Carlos Trevizo MD 112 [facility] 110 [place] [address] Social History Tobacco Use Types Packs/Day Years [...] documented as of this encounter Care Teams Seed Technician Relationship Specialty Start Date End Date Carlos Trevizo MD 112 [facility] 110 [place] [address] PCP - General Family Medicine 10/07/22 Sterling Kumar MD 112 [facility] [address] [place] [address] PCP - [facility] 06/01/23 05/31/24 documented as of this encounter
== END 2024-12-12 20:09 | disposition home or self-care (01) ==
LOC: SLEEP 20:08
PROVIDERS: PCP Physician Assistant; Visit Provider Physician Assistant
DX: G47.31 Primary central sleep apnea (principal)
CPT/HCPCS: 95811

== ENCOUNTER 2025-02-23 13:46 | Outpatient (OUT) | payer MEDICARE, MEDICAID, SELFPAY ==
--- NOTE | 2025-02-23 13:55 | XR_ITS ---
The [address] [address] Patient Name: MARÍA CABALLERO MRN: [id number] date: 1960 Sex: F Assigned Patient Location: [facility] Current Patient Location: [facility] Accession/Order Number: [id number] Exam Date: 02/23/2025 13:58 Report Date: 02/23/2025 14:53 At the request of: ARIN GUZMAN Procedure: XR knee LT 4V LEFT KNEE - 4 views CLINICAL HISTORY: Left knee pain for one month. COMPARISON: None FINDINGS: Mild degenerative changes involving the left knee without acute bony process or joint effusion. XR/XR knee LT 4V IMPRESSION: MILD DEGENERATIVE CHANGES INVOLVING THE LEFT KNEE WITHOUT ACUTE PROCESS. Impression dictated by: Jesse Martínez Jr., D.O. 02/23/2025 2:53 PM Dictation Location: [place] [address] Electronically authenticated by: [id number] Date: 02/23/2025 14:53
--- OUTSIDE RECORDS SUMMARY | 2025-02-23 13:55 | XMS_ITS | CCD ---
Author Organization [facility] Care Team Providers Care Javascript Web Developer Name Role Phone NAVRATIL, MAURICE Unavailable Unavailable NAVRATIL, MAURICE Unavailable [...] Unavailable WEST, DR FEMI Ayoub Consulting Unavailable MARCUSJIE HAAS Attending Unavailable MARCUS, JIE Consulting Unavailable MARCUSJIE HAAS Admitting Unavailable GRACIELA, DR BALLARD Attending Unavailable GRACIELA, DR BALLARD Consulting Unavailable GRACIELA, DR BALLARD Primary Care Unavailable GRACIELA, DR BALLARD Admitting Unavailable ZIEBER, DR KRYSTEN Polanco Consulting Unavailable Elio Owens MD Primary Care Provider MARILIA SHANKAR Referring Unavailable HEMMORIAH ZAVALETA Primary Care Unavailable MARILIA SHANKAR Attending Unavailable MARILIA SHANKAR Referring Unavailable HEMMORIAH ZAVALETA Primary Care Unavailable MARILIA SHANKAR Admitting Unavailable MARILIA SHANKAR Attending Unavailable MARILIA SHANKAR Referring Unavailable HEMMORIAH ZAVALETA Primary Care Unavailable FEMI FOLEY Attending Unavailable MORIAH GUZMAN Primary Care Unavailable Sterling Kumar MD Unavailable Hever Martin Attending Unavailab le Hever Martin Admitting Unavailab le NON STAFF Primary Care Unavailable MORIAH GUZMAN Attending Unavailable MORIAH GUZMAN Attending Unavailable MORIAH GUZMAN Attending Unavailable MORIAH GUZMAN Attending Unavailable MORIAH GUZMAN Attending Unavailable HEATHER MOSCOSO Attending Unavailable MORIAH GUZMAN Referring Unavailable Allergies Allergy Classification Reported Allergen(s) Allergy Type Date of Onset Reaction(s) Facility (2 sources) acetaminophen / HYDROcodone; Translations: [Vicodin] Drug Allergy [facility] Repository (3 sources) sulfamethoxazole / trimethoprim; Translations: [Bactrim] Drug Allergy [facility] Repository (3 sources) Sulfamethoxazole / Trimethoprim Drug Allergy Unknown [employer] Other (1 source) Sulfamethoxazole / Trimethoprim Drug Allergy 08-07-19 14 [facility] Repository (20 sources) Sulfamethoxazole Allergy to substance 01-04-20 19 [facility] [employer]! Work Phone: (1 source) Sulfamethoxazole / Trimethoprim; Translations: [SULFAMETHOXAZOLE-TR IMETHOPRIM] Drug Allergy 11-16-19 16 [facility] Repository (20 sources) Trimethoprim Drug Allergy 09-14-19 24 [facility] (1 source) Sulfamethoxazole Drug Allergy 09-14-19 24 [facility] Repository (1 source) Trimethoprim Drug Allergy 09-14-19 24 [facility] Repository Medications Current Medications Medication Drug Class(es) Dates Sig (Normalized) Sig (Original) acetaminophen 325 mg oral tablet (20 sources) take 1 tablet by mouth every [...] georgi colesevelam hydrochloride 625 mg oral tablet (20 sources) Bile Acid Sequestrant Start: 09-14-2023 take 1 tablet by mouth in the morning colesevelam (Welchol) 625 MG tablet Take 1 tablet by mouth in the morning and 1 tablet in the evening. Take with meals. 09/14/2023 Active diclofenac sodium 0.01 mg/mg topical gel (2 sources) Nonsteroidal Anti-inflammatory Drug Start: 02-21-2025 diclofenac sodium (Voltaren Arthritis Pain) 1 % gel Indications: Primary osteoarthritis of left knee Apply 4 g topically 4 (four) times a day as needed for pain 50 g 5 02/21/2025 Active Fish Oils (20 sources) take 1 capsule by mouth every twelve hours omega-3 (Fish Oil) 1200 MG capsule Take 1 capsule by mouth every 12 (twelve) hours. Active take 1 capsule by mo ut every twelve hours omega-3 (Fish Oil) 1200 [...] sources) Peroxisome Proliferator Receptor alpha Agonist Start: 01-13-2025 take 1 tablet by mouth twice daily gemfibrozil (Lopid) 600 MG tablet Indications: Mixed hyperlipidemia TAKE 1 TABLET BY MOUTH TWICE A DAY 200 tablet 3 01/13/2025 Active Start: 11-06-2023 take 1 tablet by chris twice daily gemfibrozil (Lopid) 600 MG tablet Indications: Mixed hyperlipidemia (CMS/HCC) TAKE 1 TABLET BY MOUTH TWICE A DAY 200 tablet 3 11/06/2023 Active gemfibrozil (Lop id) 600 MG tablet Take 600 tablets by mouth every 12 (twelve) hours. 0 Active take 1 tablet by chris th every twelve hours Gemfibrozil 600 MG 1 [...] mg oral tablet (20 sources) Biguanide Start: 025 take 1 tablet by mouth twice daily at mealtime metFORMIN (Glucophage) 500 MG tablet Indications: Type 2 diabetes mellitus with diabetic cataract (HCC) TAKE 1 TABLET BY MOUTH TWICE A DAY WITH A MEAL 200 tablet 3 11/07/2024 Active Start: 11-06-2023 take 1 tablet by chris th twice daily at mealtime metFORMIN (Glucophage) 500 MG tablet Indications: Type 2 diabetes mellitus with diabetic cataract (CMS/HCC) TAKE 1 TABLET BY MOUTH TWICE A DAY WITH A MEAL 200 tablet 3 11/06/2023 Active take 1 tablet by chris th every twelve hours metFORMIN (Glucophage) 500 MG tablet Take 1 tablet by mouth every 12 (twelve) hours. 0 Active take 1 tablet by chris th every twelve hours metFORMIN HCl 500 MG 1 tablet with meals Orally Twice a day Active Mirtazapine (3 sources) Mirtazapine Acti ve Multiple Vitamin (MULTIVITAMINS PO) (20 sources) take 1 tablet by chris th [...] 1 tablet Orally Once a day Active phenazopyridine hydrochloride 200 mg delayed release oral tablet (2 sources) Start: 02-21-2025 End: 02-23-2025 take 1 tablet by mouth three times daily as needed for muscle spasms phenazopyridine (Pyridium) 200 MG tablet Indications: Frequency of urination Take 1 tablet (200 mg) by mouth 3 (three) times a day as needed for bladder spasms for up to 2 days 6 tablet 02/21/2025 02/23/2025 Active predniSONE 10 mg oral tablet (7 sources) Start: 02-21-2025 End: 03-03-2025 take 1 tablet by mouth twice daily, then take 1 tablet by mouth once daily at mealtime predniSONE (Deltasone) 10 MG tablet Indications: Primary osteoarthritis of left knee Take 1 tablet (10 mg) by mouth 2 (two) times a day for 5 days, THEN 1 tablet (10 mg) Daily for 5 days. Take with food. 15 tablet 02/21/2025 03/03/2025 Active Start: 10-11-2024 End: 10-20-2024 take 1 tablet [...] 1 tablet Orally Once a day Active traZODone hydrochloride 100 mg oral tablet [...] venlafaxine 75 mg extended release oral capsule (9 sources) Serotonin and Norepinephrine Reuptake Inhibitor Start: 09-20-2024 venlafaxine XR (Effexor XR) 75 MG 24 hr capsule 09/20/2024 Active Vitamin D 89677 UNIT (3 sources) take 1 capsule by mouth once daily Vitamin D 96576 UNIT 1 capsule Orally Once a day Active Completed/Discontinued Medications Medication Drug Class(es) Dates Sig (Normalized) Sig (Original) baclofen 20 mg oral tablet (19 sources) gamma-Aminobutyri c Acid-ergic Agonist Start: 08-02-2024 End: 10-11-2024 baclofen (Lioresal) 20 MG tablet Indications: Myalgia TAKE 1 TABLET BY MOUTH NEEDED AT BEDTIME FOR MUSCLE SPASMS 100 tablet 3 08/02/2024 10/11/2024 Discontinued (Ineffective) Start: 07-11-2024 baclofen (Demundo esal) 20 MG tablet Indications: Myalgia Take [...] Discontinued (Other) take 1 tablet by chris th every twelve hours busPIRone HCl 10 MG [...] Start: 03-10-2023 take 2 tablets by mo [facility] every twenty-four hours Colestipol HCl 1 GM [...] Start: 03-24-2023 take 1 tablet by chris at mealtime ferrous sulfate 325 (65 Fe) [...] Antifungal Start: 03-24-2023 End: 04-04-2024 nystatin (Mycostatin) 585084 UNIT/GM powder Indications: Candidiasis Apply topically 2 (two) times a day. 30 g 1 03/24/2023 04/04/2024 Discontinued (Therapy completed) tiZANidine 4 mg oral tablet (6 sources) Central alpha-2 Adrenergic Agonist Start: 10-11-2024 End: 02-21-2025 tiZANidine (Zanaflex) 4 MG tablet Indications: Arthropathy of left sacroiliac joint Take 1 tablet (4 mg) by mouth as needed at bedtime for muscle spasms for up to 14 days 14 tablet 10/11/2024 02/21/2025 Discontinued (Therapy completed) Problems Active Problems Problem [...] disease without esophagitis] Onset: 3 03-18-2023 Chronic Genitourinary symptoms and ill-defined conditions (2 sources) Increased frequency of urination; Translations: [Frequency of micturition] 02-21-2025 Episodic Glaucoma (20 sources) Open-angle glaucoma; Translations: [Unspecified [...] Chronic Other nervous system disorders (20 sources) Peripheral nerve disease ; Translations: [Polyneuropathy, unspecified] Onset: 3 03-18-2023 Chronic Other nervous system disorders (2 sources) Polyneuropathy; Translations: [Polyneuropathy, unspecified] 07-11-2024 Chronic Other non-traumatic joint disorders (20 sources) Pain in right knee; Translations: [Pain in joint, lower leg] Onset: 4 Resolved: 5 10-06-2023 Episodic Other non-traumatic joint disorders (2 sources) Hip [...] artery of lower limb; Translations: [Atherosclerosis of [place] arteries of extremities with rest pain, bilateral [...] Date Documented Date Episodic/Chronic Biliary tract disease (20 sources) Cholecystitis without calculus; Translations: [Cholecystitis, unspecified] Onset: 03-18-2023 Resolved: 07-07-2023 03-18-2023 Episodic Blindness and vision defects (20 sources) Myopia; Translations: [Myopia, unspecified eye] Onset: 03-18-2023 03-18-2023 Episodic Conditions associated with dizziness or vertigo (20 sources) Vertigo; Translations: [Dizziness and giddiness] Onset: 03-18-2023 03-18-2023 Episodic Deficiency and other anemia (20 sources) Anemia; Translations: [Anemia, unspecified] Onset: 03-18-2023 03-18-2023 Episodic Diabetes mellitus without complication (20 sources) Type 2 diabetes mellitus without complication; Translations: [Type 2 diabetes mellitus without complications] Onset: 11-11-2017 Resolved: 07-07-2023 03-18-2023 Chronic Essential hypertension (20 sources) Hypertensive disorder; Translations: [Essential (primary) hypertension] Onset: 03-18-2023 Resolved: 07-11-2024 03-18-2023 Chronic Gastritis and duodenitis (20 sources) Gastritis; Translations: [Gastritis, unspecified, without bleeding] Onset: 03-18-2023 03-18-2023 Episodic Mood disorders (20 sources) Mood disorders Onset: 07-07-2023 Resolved: 07-04-2024 07-07-2023 Nonmalignant breast conditions (20 sources) Hyperplasia of mammary duct; Translations: [Unspecified benign mammary dysplasia of unspecified breast] Onset: 09-16-2012 03-24-2023 Episodic Other and unspecified benign neoplasm (20 sources) Hemangioma; Translations: [Hemangioma unspecified site] Onset: [...] 03-18-2023 03-18-2023 Episodic Other non-traumatic joint disorders (20 sources) Ankle pain; Translations: [Pain in right ankle and joints of right foot] Onset: 01-28-2012 Resolved: 07-11-2024 03-24-2023 Episodic Other screening for suspected conditions (not mental disorders or infectious disease) (20 sources) Encounter for screening mammogram for malignant neoplasm of breast; Translations: [Cardiovascular stress test abnormal] Onset: 12-16-2021 Episodic Other skin disorders (20 sources) Hirsutism; Translations: [Hirsutism] Onset: 03-18-2023 03-18-2023 Episodic Residual codes; unclassified (20 sources) Insomnia; Translations: [Insomnia, unspecified] Onset: 03-18-2023 03-18-2023 Episodic Residual codes; unclassified (20 sources) Peripheral edema; Translations: [Edema, unspecified] Onset: 01-28-2012 03-24-2023 Episodic Spondylosis; intervertebral disc disorders; other back problems (20 sources) Sciatica; Translations: [Sciatica, right side] Onset: 03-18-2023 Resolved: 07-11-2024 03-18-2023 Episodic Viral infection (20 sources) Verruca vulgaris; Translations: [Viral wart, unspecified] Onset: 03-18-2023 03-18-2023 Episodic Results Test Name Value Interpretation Reference Range Facility Urinalysis macro (dipstick) panel (U)on 02-21-2025 Bilirubin, UA Negative Negative - 4(70) +++ mg/dL [facility] Blood, UA Negative Negative - 50 Yifan/mcL [facility] Clarity, UA Clear [facility] Color, UA Straw [facility] Glucose, UA Negative Negative - 1999(110) ++++ mg/dL [facility] Interpretation and review of laboratory results Normal [facility] Ketones, UA Negative Negative - 160(16) ++++ mg/dL [facility] Leukocytes, UA Negative Negative - 500+++ Blake/mcL [facility] Nitrite, UA Negative Negative - Positive [facility] pH, UA 5 5 - 9 [facility] Protein, UA Negative Negative - 2000(20) ++++ mg/dL [facility] Spec Grav, UA 1.02 1 - 1.03 [facility] Urobilinogen, UA 1.0 0.2 - 12 mg/dL [facility] ALBUMIN, RANDOM URINE W/CREA TININEon 10-12-2024 ALBUMIN, URINE 0.3 mg/dL Normal See Note: [facility] Comment on above: Result Comment: Reference Range: Reference Range Not established Performed By: #### [id number] #### [facility] [address], [address] [place] [address] Proof Inspector: Bill Lucero MD ALBUMIN/CREATINI NE RATIO, RANDOM URINE 2 mg/g creat Normal <30 [facility] Comment on above: Result Comment: The [...] category. Performed By: #### 6 [id number] #### [facility] [address], [address] [place] [address] Proof Inspector: Bill Lucero MD Creatinine (U) [Mass/Vol] 122 mg/dL Normal 20-275 [facility] Comment on above: Performed By: #### [id number] #### [facility] [address], [address] [place] [address] Proof Inspector: Bill Lucero MD Microalbumin/Creatinine rati o panel (U)on 10-12-2024 Albumin DL <= 20 mg/L (U) [Mass/Vol] 0.3 mg/dL See Note: [facility] Comment on above: Reference Range: Reference Range Not established Albumin/Creatini ne (U) [Mass ratio] 2 NINF [facility] Comment on above: The ADA defines abnormalities [...] [Mass/Vol] 122 mg/dL 20 - 275 mg/dL [facility] Performing Organizat ion Information Site ID: QPT Name: [facility] Address: [address] [place] [address], [address] [place] [address] Director: Bill Lucero MD [facility] Laboratory - Hematology and Cell countson 10-11-2024 HbA1c (Bld) [Mass fraction] 6.5 % [facility] No Panel Informationon 10-11 Interpretation and review of laboratory results Abnormal [facility] XR Pelvis AP and Hip - bilat eral GE 2 Viewson 07-15-[address] [address] XRay Report Signed Patient: SURI OSHEA MR#: [id number] : 1960 Acct:[id number] Age/Sex: 64 / F ADM Date: 07/15/24 Loc: RAD Attending Dr: MORIAH GUZMAN Ordering Physician: MORIAH GUZMAN Date of Service: 07/15/24 Procedure(s): XR hip ARIE Accession Number(s): [id number] cc: MORIAH GUZMAN [address] [address] Patient Name: SURI OSHEA MRN: [facility]:[id number] date: 1960 Sex: F Assigned Patient Location: [facility] Current Patient Location: [facility] Accession/Order Number: [id number] Exam Date: 07/15/2024 13:33 Report Date: 07/15/2024 [...] degenerative joint disease. Electronically authenticated by: KRYSTEN NELSON Date: 07/15/2024 18:31 Dictated By: Krysten Nelson M.D. Signed By: 07/15/241833 DD/ 30 TD/TT: Cafe Or Restaurant Manager: [facility] Radiology, Radiologi MD tom - 07/15/[address] [place] [address] XRay Report Signed Patient: SURI OSHEA MR#: [id number] : 1960 Acct:[id number] Age/Sex: 64 / F ADM Date: 07/15/24 Loc: RAD Attending Dr: MORIAH GUZMAN Ordering Physician: MORIAH GUZMAN Date of Service: 07/15/24 Procedure(s): XR hip ARIE Accession Number(s): [id number] cc: MORIAH GUZMAN [place] [address] Patient Name: SURI OSHEA MRN: [id number] date: 1960 Sex: F Assigned Patient Location: [facility] Current Patient Location: [facility] Accession/Order Number: [id number] Exam Date: 07/15/2024 13:33 Report Date: 07/15/2024 [...] degenerative joint disease. Electronically authenticated by: KRYSTEN NELSON Date: 07/15/2024 18:31 Dictated By: Krysten Nelson M.D. Signed By: 07/15/241833 DD/ 30 TD/TT: Cafe Or Restaurant Manager: [facility] Rad[facility] Study observation (narrative) [facility] XR Pelvis AP and Hip - bilat eral GE 2 ViewsOrdered By: Radiologist Radiology on 07-15-2024 [facility] Work Phone: Laboratory - Hematology and Cell countson 04-04-2024 HbA1c (Bld) [Mass fraction] 6.3 % [facility] No Panel Informationon 04-04 Interpretation and review of laboratory results Abnormal [facility] MG MAMM SCREEN 3D ARIE CADon 12-16-2021 MG MAMM SCREEN 3D ARIE CAD Patient: SURI OSHEA Exam Date: 12/16/2021 : 1960 Gender:F Ordering : DR ELIO OWENS M.D. Admission #: [id number] Family : Order #: [id number] CLICK HERE TO VIEW EXAM RADIOLOGY REPORT [...] breast cancer at age 52. LOCATION: [facility] BREAST COMPOSITION: Scattered areas fibroglandular [...] LUMP SHOULD BE BIOPSIED. Dictated by: Krysten Nelson M.D. on 12/16/2021 at 15:40 Approved by: Krysten Nelson M.D. on 12/16/2021 at 15:46 Normal [facility] XR LSPINE W_OBLS AND FLEX_EX [...] upper quadrant surgical clips from cholecystectomy IMPRESSION: [id number] degenerative changes No dynamic instability Electronically authenticated by: FEMI FRANCIS Date: 2021-12-09 15:32 Normal [facility] Q - CULTURE,URINE,ROUTINEon 08-13-2021 CULTURE, URINE, ROUTINE SEE NOTE Abnormal [facility] [employer]und[employer] Worker Comment on above: Order Comment: [facility] Testing performed at: [facility], [facility], [address], [address] [place], [address], Wire Insulator: Bill Lucero MD [facility] Date/Time: [id number] [facility] Results Received Date/Time: [id number] [facility] Reported Date/Time: Result Comment: CULT URE, URINE, ROUTINE Micro Number: [id number] Test Status: Final Specimen Source: Urine, clean [...] 6 304R #### [facility] [address] [place] [address] Complete Blood Count with Au to Diffon 05-29-2021 Basophils (Bld) [#/Vol] 0.04 10*3/uL Normal 0.00-0.20 [facility] Comment on above: Performed By: #### LIPD, CBCAD, CMP, VIT D #### [facility] [address] [place], [place] [id number] Basophils/100 WBC (Bld) 0.6 % Normal [facility] Comment on above: Performed By: #### LIPD, CBCAD, CMP, VIT D #### [facility] [address] [place], [place] [id number] Eosinophils (Bld) [#/Vol] 0.17 10*3/uL Normal 0.02-0.50 [facility] Comment on above: Performed By: #### LIPD, CBCAD, CMP, VIT D #### [facility] [address], [place] [id number] Eosinophils/100 WBC (Bld) 2.5 % Normal [facility] Comment on above: Performed By: #### LIPD, CBCAD, CMP, VIT D #### [facility] [address] [place], [place] [id number] Erythrocyte distribution width (RBC) [Ratio] 13.5 % Normal 11.0-15.0 [facility] Comment on above: Performed By: #### LIPD, CBCAD, CMP, VIT D #### [facility] [address] [place], [place] [id number] Hematocrit (Bld) [Volume fraction] 39.4 % Normal 35.0-47.0 [facility] Comment on above: Performed By: #### LIPD, CBCAD, CMP, VIT D #### [facility] [address] [place], [place] [id number] Hemoglobin (Bld) [Mass/Vol] 12.6 g/dL Normal 11.6-15.5 [facility] Specialist Comment on above: Performed By: #### LIPD, CBCAD, CMP, VIT D #### [facility] [address] [place], [place] [id number] Lymphocytes (Bld) [#/Vol] 2.1 10*3/uL Normal 0.9-3.9 [facility] Specialist Comment on above: Performed By: #### LIPD, CBCAD, CMP, VIT D #### [facility] [address], [place] [id number] Lymphocytes/100 WBC (Bld) 31.2 % Normal [facility] Specialist Comment on above: Performed By: #### LIPD, CBCAD, CMP, VIT D #### [facility] [address], [place] [id number] MCH (RBC) [Entitic mass] 28.3 pg Normal 27.0-33.0 [facility] Specialist Comment on above: Performed By: #### LIPD, CBCAD, CMP, VIT D #### [facility] [address] [place], [place] [id number] MCHC (RBC) [Mass/Vol] 32.0 g/dL Normal 32.0-36.0 [facility] Specialist Comment on above: Performed By: #### LIPD, CBCAD, CMP, VIT D #### [facility] [address], [place] [id number] MCV (RBC) [Entitic vol] 89 fL Normal 80-100 [facility] Specialist Comment on above: Performed By: #### LIPD, CBCAD, CMP, VIT D #### [facility] [address] [place], [place] [id number] Monocytes (Bld) [#/Vol] 0.5 10*3/uL Normal 0.2-0.9 [facility] Specialist Comment on above: Performed By: #### LIPD, CBCAD, CMP, VIT D #### [facility] [address] [place], [place] [id number] Monocytes/100 WBC (Bld) 7.3 % Normal [facility] Specialist Comment on above: Performed By: #### LIPD, CBCAD, CMP, VIT D #### [facility] [address] [place], [place] [id number] Neutrophils (Bld) [#/Vol] 3.9 10*3/uL Normal 1.5-7.8 [facility] Specialist Comment on above: Performed By: #### LIPD, CBCAD, CMP, VIT D #### [facility] [address], [place] [id number] Neutrophils/100 WBC (Bld) 58.1 % Normal [facility] Specialist Comment on above: Performed By: #### LIPD, CBCAD, CMP, VIT D #### [facility] [address], [place] [id number] Platelet mean volume (Bld) [Entitic vol] 10.10 fL Normal 7.50-12.50 [facility] Specialist Comment on above: Performed By: #### LIPD, CBCAD, CMP, VIT D #### [facility] [address] [place], [place] [id number] Platelets (Bld) [#/Vol] 232 10*3/uL Normal 140-400 [facility] Specialist Comment on above: Performed By: #### LIPD, CBCAD, CMP, VIT D #### [facility] [address], [place] [id number] RBC (Bld) [#/Vol] 4.45 10*6/uL Normal 3.90-5.20 [facility] Specialist Comment on above: Performed By: #### LIPD, CBCAD, CMP, VIT D #### [facility] [address], [place] [id number] RDW-SD 43.4 fL Normal 37.0-50.0 [facility] Specialist Comment on above: Performed By: #### LIPD, CBCAD, CMP, VIT D #### [facility] [address], [place] [id number] WBC (Bld) [#/Vol] 6.7 10*3/uL Normal 3.8-11.0 [facility] Specialist Comment on above: Performed By: #### LIPD, CBCAD, CMP, VIT D #### [facility] [address] [place], [place] [id number] Comprehensive Metabolic Pane amelia 05-29-2021 Albumin [Mass/Vol] 4.6 g/dL Normal 3.6-5.1 [facility] [employer] Work[employer] Comment on above: Performed By: #### LIPD, CBCAD, CMP, VIT D #### [facility] [address] [place] [id number] Albumin/Globulin [Mass ratio] 1.6 {ratio} Normal 1.0-2.5 [facility] [employer] Worker Comment on above: Performed By: #### LIPD, CBCAD, CMP, VIT D #### [facility] [address] [facility] [place] [id number] ALP [Catalytic activity/Vol] 149 U/L High 35-119 [facility] [employer] Worker Comment on above: Performed By: #### LIPD, CBCAD, CMP, VIT D #### [facility] [address] [place], [place] [id number] ALT [Catalytic activity/Vol] 27 U/L Normal 6-33 [facility] [employer] Worker Comment on above: Result Comment: 05/01/2021 Female referen ce range changed. Performed By: #### L IPD, CBCAD, CMP, VITD #### [facility] [address] [facility] [place] [id number] Anion gap [Moles/Vol] 18 mmol/L Normal 12-20 [facility] [employer] Worker Comment on above: Result Comment: Effective 06/06/2019 refer ence range changed. Performed By: #### L IPD, CBCAD, CMP, VITD #### [facility] [address] [facility] [place] [id number] AST [Catalytic activity/Vol] 22 U/L Normal 9-34 [facility] [employer] Worker Comment on above: Performed By: #### LIPD, CBCAD, CMP, VIT D #### [facility] [address] [place] [id number] BUN/CREA 31 Ratio High 6-22 [facility] [employer] Worker Comment on above: Performed By: #### LIPD, CBCAD, CMP, VIT D #### [facility] [address] [place] [id number] Calcium [Mass/Vol] 9.7 mg/dL Normal 8.6-10.2 [facility] [employer] Worker Comment on above: Performed By: #### LIPD, CBCAD, CMP, VIT D #### [facility] [address], [place] [id number] Chloride [Moles/Vol] 110 mmol/L High 98-107 [facility] [place] [facility] Comment on above: Performed By: #### LIPD, CBCAD, CMP, VIT D #### [facility] [address], [place] [id number] CO2 [Moles/Vol] 19 mmol/L Low 20-31 [facility] Specialist Comment on above: Performed By: #### LIPD, CBCAD, CMP, VIT D #### [facility] [address], [place] [id number] Creatinine [Mass/Vol] 0.8 mg/dL Normal 0.6-1.4 [facility] Specialist Comment on above: Performed By: #### LIPD, CBCAD, CMP, VIT D #### [facility] [address], [place] [id number] eGFRAA 89 mL/min/1.73m2 Normal >60 [facility] [employer] Worker Comment on above: Performed By: #### LIPD, CBCAD, CMP, VIT D #### [facility] [address], [place] [id number] eGFRNAA 73 mL/min/1.73m2 Normal >60 [facility] [employer] Work[employer] Comment on above: Performed By: #### LIPD, CBCAD, CMP, VIT D #### [facility] [address], [place] [id number] Globulin (S) [Mass/Vol] 2.8 g/dL Normal 1.9-3.7 [facility] Specialist Comment on above: Performed By: #### LIPD, CBCAD, CMP, VIT D #### [facility] [address], [place] [id number] Glucose [Mass/Vol] 123 mg/dL High 65-99 [facility] [employer] Comment on above: Result Comment: For FASTING Glucose --- ADA reference ranges: Normal 65-99 mg/dl Prediabetes 100-125 Diabetes >/= 126 Performed By: #### L IPD, CBCAD, CMP, VITD #### [facility] [address], [place] [id number] Potassium [Moles/Vol] 3.8 mmol/L Normal 3.5-5.5 [facility] [employer] Work[employer] Comment on above: Performed By: #### LIPD, CBCAD, CMP, VIT D #### [facility] [address], [place] [id number] Protein [Mass/Vol] 7.4 g/dL Normal 6.1-8.1 [facility] [employer] Work[employer] Comment on above: Performed By: #### LIPD, CBCAD, CMP, VIT D #### [facility] [address], [place] [id number] Sodium [Moles/Vol] 144 mmol/L Normal 135-146 [facility] [employer] Worker Comment on above: Performed By: #### LIPD, CBCAD, CMP, VIT D #### [facility] [address], [place] [id number] TBIL <0.3 Normal [facility] [employer] Work[employer] Comment on above: Performed By: #### LIPD, CBCAD, CMP, VIT D #### [facility] [address], [place] [id number] Urea nitrogen [Mass/Vol] 25 mg/dL Normal 7-25 [facility] [employer] Work[employer] Comment on above: Performed By: #### LIPD, CBCAD, CMP, VIT D #### [facility] [address], [place] [id number] Lipid Panelon 05-29-2021 Cholesterol [Mass/Vol] 182 mg/dL Normal 125-200 [facility] [employer] Worker Comment on above: Result Comment: Low risk < 200mg/dL Borderline risk 201-239 mg/dl High risk > or equal to 240 Performed By: #### L IPD, CBCAD, CMP, VITD #### [facility] [address], [place] [id number] Cholesterol in HDL [Mass/Vol] 41 mg/dL Normal >40 [facility] [employer] Work[employer] Comment on above: Result Comment: High Cardiovascular Risk HDL <40 mg/dL Low Cardiovascular Risk HDL > or equal to 60 mg/dl Performed By: #### L IPD, CBCAD, CMP, VITD #### [facility] [address], [place] [id number] Cholesterol in LDL [Mass/Vol] 122 mg/dL Normal [place] [employer] Worker Comment on above: Result Comment: LDL ATP III CLASSIFICATI ON LDL less than 100 mg/dl Optimal LDL 100-129 mg/dl Near or above optimal LDL 130-159 Borderline high LDL 160-189 High LDL greater than 189 mg/dl Very High Performed By: #### L IPD, CBCAD, CMP, VITD #### [facility] [address], [place] [id number] Cholesterol in VLDL [Mass/Vol] 19 mg/dL Normal [facility] Specialist Comment on above: Performed By: #### LIPD, CBCAD, CMP, VIT D #### [facility] [address], [place] [id number] Cholesterol.tota l/Cholesterol in HDL [Mass ratio] 4 {ratio} Normal [facility] Specialist Comment on above: Performed By: #### LIPD, CBCAD, CMP, VIT D #### [facility] [address], [place] [id number] Triglyceride [Mass/Vol] 97 mg/dL Normal 30-150 [facility] Specialist Comment on above: Result Comment: TRIG ATPIII CLASSIFICATI ONS TRIG less than 150 mg/dl Normal TRIG 150-199 mg/dl Borderline High TRIG 200-500 mg/dl High TRIG greather than 500 mg/dl Very High Performed By: #### L IPD, CBCAD, CMP, VITD #### [facility] [address], [place] [id number] Vitamin D 25-OHon 05-29-2021 VIT D 25 [place] 130 ng/ml Normal >29 [facility] [employer] Work[employer] Comment on above: Order Comment: Specimen diluted to verif y. Result Comment: Rebecca min D Status Deficiency <20 ng/mL Insufficiency 20-29 ng/mL Optimal 30-100 ng/mL Possible Toxicity >=150 ng/mL Performed By: #### L IPD, CBCAD, CMP, VITD #### [facility] [address], [place] [id number] US THYROIDon 12-19-2020 US THYROID EXAMINATION: US [...] stable. One year follow-up recommended TI-RADS: The [employer] TI-RADS committee's white paper recommendations for thyroid lesions classified as TR5 (highly suspicious) are listed below: > 0.5 cm. Annual ultrasound follow-up for up to 5 years. > 1.0 cm. FNA. J. Am Naomi Radiol 2017;14:587-595. Electronically authenticated by: FEMI FRANCIS Date: 2020-12-19 16:11 Normal [facility] Coding Summaryon 09-16-2017 Coding Summary CODING DATE: 018 [facility] STATUS: Home PAYOR: Medicaid HMO ADMIT DX: [...] Batool Doyle Date Saved: 09/16/2017 02:25 pm [facility] Provider [place] 09-16-2017 Provider Orders [id number] [facility] XR Spine Lumbosacral 2 or 3 [...] TO DEMONSTRATE DEFINITE EVIDENCE OF ACUTEPROCESS.3. FOLLOW-UP NEEDED.URBAN Venegas #: [id number]: 09/15/2017T: 09/15/2017 Final Dictated by: Stu Vicente MD SDictated DT/TM: 09/15/17 3:47Signed (Electronic Signature): Stu Vicente MD 09/15/17 4:57 pmTechnologist: ZAHRA CHU [facility] Coding Summaryon 09-03-2017 Coding Summary CODING DATE: 018 [facility] STATUS: Home PAYOR: Medicaid HMO ADMIT DX: [...] Batool Doyle Date Saved: 09/03/2017 07:57 am [facility] Provider [place] 09-02-2017 Provider Orders [id number]#[id number] [facility] XR Hip Complete Righton XR Hip Complete Right HIP COMPLETE RIGHTCLINICAL [...] DEGENERATIVE CHANGES DESCRIBED.2. FOLLOW-UP NEEDED.URBAN Venegas #: [id number]: 09/01/2017T: 09/01/2017 Final Dictated by: Stu Vicente MD SDictated DT/TM: 09/01/17 3:24Signed (Electronic Signature): Stu Vicente MD 09/01/17 3:38 pmTechnologist: YISSEL MARTIN [facility] Coding Summaryon 07-03-2017 Coding Summary CODING DATE: 018 [facility] STATUS: Home PAYOR: Medicaid HMO ADMIT DX: [...] Batool Doyle Date Saved: 07/03/2017 12:36 pm Normal [facility] Provider [place] 07-03-2017 Provider Orders [id number] Normal [facility] Vit D25 OHon 07-02-2017 Vitamin D 25 [place] 75 ng/mL Invalid Interpretation Code [facility] Comment on above: Result Comment: In 2010, theClinical Tony delines Subcommittee of the Endocrine Society Task [...] J Clin Endocrinol Metab 2011; 96 (7): 6848-7696. Performed By: #### 2 [id number] ####[facility] (DEFAULT)[address] [place] [address] Operative Reporton 7 Operative Report SURGEON: Krysten [...] anesthetic and the procedurewell.Krysten Jones D.O.glsDictated: 12/25/2016 #[id number]: 12/26/2016 #[id number]: Krysten Jones D.O. [facility] Comment on above: Result Comment: Electronically Signed By : Krsyten Jones DO\.br\Date and Time Signed: 12/29/16 08:51 EDT Coding Summary.on 12-26-2016 Coding Summary. CODING DATE: 017 FINAL [facility] STATUS: Home (Routine DC) PAYOR: Medicaid EAPG [...] PROC EAPG STAT DESCRIPTION DOCTOR NAME DATE 67827 Injection, anesthetic Sterling Livingston MD 12/25/2016 agent; brachial plexus, single LT LEFT SIDE (USED TO IDENTIFY PROCEDURES PERFORMED ON THE LEFT SIDE OF THE BODY) XP Separate practitioner, a service that is distinct because it was performed by a different practitioner [id number] Repair of ruptured Krysten Jones DO 12/25/2016 musculotendinous cuff (eg, rotator cuff) open; acute LT LEFT SIDE (USED TO IDENTIFY PROCEDURES PERFORMED ON THE LEFT SIDE OF THE BODY) [id number] Anesthesia for open or Krysten Jones DO [...] Chavez Date Saved: 12/26/2016 11:54 am Normal [facility] Main OR Intraoperative Recor nita 12-26-2016 Main OR Intraoperative Record IntraOp Document Type FT Summary Primary Physician: Krysten Jones DO Finalized Date/Time: 12/26/16 11:05:13 Pt. Name: SURI OSHEA/Sex: 1960 Female Med Rec #: [id number] Physician: Krysten Jones DO Financial #: [id number] Pt. Type: A Room/Bed: [facility]11/29 Admit/Disch: 12/25/16 07:28:00 - 12/25/16 13:15:00 Institution: [...] to review and send charges Jorge Alberto zacarias Case Attendance FT Entry 1 Entry 2 Entry 3 Case Attendee Miki MENJIVAR, Sterling Jones DO, Krysten Mejia RN, CNOR, Anabella Role Performed Anesthesiologist of Surgeon - Primary LITHOGRAPHIC PROOFER Record Time In 12/25/16 09:00:00 12/25/16 09:00:00 12/25/16 09:00:00 Time Out 12/25/16 10:53:00 12/25/16 10:53:00 12/25/16 10:53:00 Procedure SHOULDER ARTHROSCOPY W/ SHOULDER ARTHROSCOPY W/ SHOULDER ARTHROSCOPY W/ POSSIBLE REPAIR(Left) POSSIBLE REPAIR(Left) POSSIBLE REPAIR(Left) Comments Last Modified By: Ludivina RN, Jie Florence RN, Jie Lala RN 12/25/16 11:11:22 12/25/16 11:11:22 12/25/16 11:11:22 Entry 4 Entry 5 Entry 6 Case Attendee Talha ZACARIAS, Lakisha Florence RN, José Luis De Jesus RN Role Performed Scrub - Primary Medical Technologist Hematology - Primary Medical Technologist Hematology - Primary Time In 12/25/16 09:00:00 12/25/16 09:00:00 12/25/16 09:00:00 Time Out 12/25/16 10:53:00 12/25/16 10:53:00 12/25/16 10:53:00 Procedure SHOULDER ARTHROSCOPY W/ SHOULDER ARTHROSCOPY W/ SHOULDER ARTHROSCOPY W/ POSSIBLE REPAIR(Left) POSSIBLE REPAIR(Left) POSSIBLE REPAIR(Left) Comments Last Modified By: Ludviina RN, JieJie Johnson RN, RN, Kimberly Y 12/25/16 11:11:22 12/25/16 11:11:22 12/25/16 11:11:22 General Comments: Jorge Luis Ga RN Perioperative Protocols FT Pre-Care Text: [...] Jones DO, George CST, Ludivina Banuelos RN, Nadeem Butler RN, Jackie Ordonez RN, Anabella HAQ Time Out Complete 12/25/16 09:25:00 Outcomes Met? [...] and tissue Entry 1 Skin Integrity Intact, [place], Warm, and Skin Abnormality No Dry Outcomes [...] left arm positioned POSSIBLE REPAIR(Left) Information using Improveit! 360 arm persaud; egg crate padding in feet/ankles [...] MENJIVAR, Robert Katz DO, Steven, Stocker RN, SEVERINO, Ludivina Kyle RN, Jie Hanna Last Modified By: Jie Florence [...] Met? Yes Yes Yes Last Modified By: Ludivina MARTINEZ, Jie Florence RN, Jie Lala RN 12/25/16 09:31:15 12/25/16 09:55:33 12/25/16 09:55:33 Entry 4 Entry 5 Entry 6 Equipment Type MISTRAL FORCED AIR MONITOR CHARGE SURGERY TAMEKA SUCTION UNIT [F] WARMING SYSTEM UNIT[F] [F] Equipment Number [id number] room 7 Equipment Setting Outcomes Met? Yes Yes Yes Last Modified By: Jie Florence RN, RN, Jie Lala RN 12/25/16 09:34:39 12/25/16 09:34:39 12/25/16 09:34:39 Entry 7 Entry 8 Entry 9 Equipment Type ORTHO ARTHREX ABRADER SONOSITE ULTRASOUND VIDEO SYSTEM[F] SYSTEM[F] UNIT[F] Equipment Number [id number] cart 2 boom room 7 Equipment Setting Outcomes Met? Yes Yes Yes Last Modified By: Jie Florence RN, RN, Jie Lala RN 12/25/16 09:34:39 12/25/16 09:34:39 12/25/16 09:34:39 Entry [...] and symptoms of injury related to transfer/transport [facility] FT Pre-Care Text: Implements protective measures to prevent injury due to electrical sources, and evaluates for signs and symptoms of electrical injury Entry 1 ESU Identification ESU Settings Cut 50 Coag 50 ESU Grounding Pad Site Left Thigh Hair Removal Pad No Site Pre Pad Site Clear and Intact Post Pad Site Clear and Intact Condition Condition Grounding Pad Jie Florence RN Placed By Outcomes Met? Yes Last Modified By: Jie [...] By Jie Florence RN Skin. Condition Intact, [place], Warm, and Dry Airway Maintenance Oxygen in [...] safely administered during the perioperative period For [facility] please see scanned medication reconcilliation form for medications used at the field during the procedure. Implant Log FT Pre-Care Text: Records devices implanted during the operative or invasive procedure Entry 1 Implant/Explant Implant Implant Identification Description SYSTEM Dec[employer]ive BI Lot Number [id number] IMPLANT W/SWIVELOCK [[id number]][F] Supervisor Fabrication FT-ARTHREX Catalog ?# [id number] [F] Size 4.75 x 19.1mm Expiration Date 07/29/18 Usage Data Implant Site left shoulder Quantity 1 Outcomes Met? Yes Last Modified By: Jie Florence RN 12/25/16 10:04:15 Post-Care Text: The patient is free from signs and symptoms of injury caused by extraneous objects Temperature Control Entry 1 Temperature Control BLANKET MISTRAL AIR Quantity 1 Aid PLUS LOWER BODY [[id number]][F] Fluid/[place] Unit Mistral warming system Setting high/43c Body Site Lower anterior torso Last Modified By: Jie Florence RN 12/25/16 09:09:32 Case Comments Finalized By: Batool Weinberg CST Document Signatures Signed By: Jie Florence RN 12/25/16 11:12 Jie Florence RN 12/25/16 11:23 Batool Weinberg CST 12/26/16 11:05 [facility] Operative Reporton 7 Operative Report SURGEON: [...] for the planned procedure.Sterling Livingston M.D.glsDictated: 12/25/2016 #[id number]: 12/25/2016 #[id number]: Sterling Livingston M.D. [facility] Comment on above: Result Comment: Electronically Signed By : Sterling Livingston MD\.br\Date and Time Signed: 12/26/16 08:07 EDT Progress [...] All ProblemsRotator cuff tear / SNOMED CT 3823481819 / ConfirmedRIGHTHTN - Hypertension / SNOMED CT 9576085901 / ConfirmedNIDDM / ICD-9-CM 250.00 / ConfirmedNerve pain / SNOMED CT 93782120 / Confirmedlower backExtreme obesity / ICD-9-CM 278.01 / PossibleAnxiety / SNOMED CT 457422852 / ConfirmedChronic depression / SNOMED CT 362486852 / ConfirmedStomach problems / SNOMED CT 072594907 / ConfirmedResolved: Dizzinesses / SNOMED CT 8998487713Qgqdwbhr: H/O syncope / SNOMED CT 4350969856 Histories Past Medical History: ActiveNIDDM (250.00)Chronic depression (008778990)HTN - Hypertension (6673712475)Rotator cuff tear (6849694107)Comments:10/20/2013 EDT 08:49 EDT - Sudha MARTINEZ, Oscar Procedure history: revision rotator cuff tear, right shoulder with open repair. arthroscopic subacromial decompression. extensive arthroscopic debridement with lysis of adhesions, glenoid labrum debridement and subacromial bursectomy w/ revision of subacromial decompression on 01/11/2015 at 54 Years.Comments:01/12/2015 15:17 - Yuliya Luther RN Nmanipulation under anesthesia, right shoulderarthroscopic subacromial decompression, right shoulder, with lateral clavicle coplaning. arthroscopic rotator cuff repair, right shoulder. debridement of glenoid labrum tear on 11/03/2013 at 53 Years.Abdominal hysterectomy (639033346).GASTRIC TUMOR EXCISED.Comments:10/20/2013 08:50 - Sudha MARTINEZ, [facility]Hop[facility] Centerast biopsy and related procedures ([id number]).Comments:10/20/2013 08:50 - Sudha MARTINEZ, JoyceX2- BENIGNarthroscopy left shoulder.carpal tunnel release, bilateral. Social History Social & Psychosocial VutarzQfuifbe32/22/2014 Risk Assessment: Denies Alcohol UseSubstance Abuse10/20/2013 Risk Assessment: Denies Substance CrwdiYitkmvx49/22/2014 Risk Assessment: Denies Tobacco Use. Physical Examination [...] Tyrone Fuentes MDTranscribed by: christelle Technologist: NABEEL RIOJASThis document has an imageResult type: XR Chest 2 ViewsResult date: June 27, 2016 09:31 ESTResult status: Auth (Verified)Result title: XR Chest 2 ViewsPerformed by: Tyrone Fuentes MD on June 27, 2016 15:29 ESTVerified by: Tyrone Fuentes MD on June 27, 2016 19:42 [facility] info: [id number], [facility], 06/27/2016 - 06/27/2016 Plan [place] [employer]hesi[employer] (ASA) physical status classification: [...] allergic reactions, failed block and .. Normal [facility] Comment on above: Result Comment: Electronically Signed By : Sterling Livingston MD\.br\Date and Time Signed: 12/26/16 14:49 EDT Progress Note-Physician Patient: SURI OSHEA Age: 56 years Sex: Female : 1960 Associated Diagnoses: None Author: Sterling Livingston MD Postoperative Information Post Operative Note: Post Anesthesia Care Unit. Anesthetic utilized: General. Health Status Allergies: Allergic Reactions (All)SevereBactrim- Hives.Vicodin- Itching and rash. Problem list: All ProblemsRotator cuff tear / SNOMED CT 5851762664 / ConfirmedRIGHTHTN - Hypertension / SNOMED CT 7588599246 / ConfirmedNIDDM / ICD-9-CM 250.00 / ConfirmedNerve pain / SNOMED CT 83315421 / Confirmedlower backExtreme obesity / ICD-9-CM 278.01 / PossibleAnxiety / SNOMED CT 701413124 / ConfirmedChronic depression / SNOMED CT 823587666 / ConfirmedStomach problems / SNOMED CT 050354800 / ConfirmedResolved: Dizzinesses / SNOMED CT 6513750256Zfztcdmq: H/O syncope / SNOMED CT 3684287478 Physical Examination Intake and Output adequate hydration [...] discharged from anesthesia care. Condition stable. Normal [facility] Comment on above: Result Comment: Electronically Signed By : Miki MENJIVAR, Sterling\.br\Date and Time Signed: 12/26/16 14:49 EDT Inpatient Patient Summaryon 12-25-2016 In[facility] InstructionsPERSON INFORMATION Name: SURI OSHEA PHYSICIANS Admitting Physician: Renetta Jones DO Physician: Krysten Jones DO PCP: MORIAH MERRITT MDischarge Diagnosis: Comment: PATIENT EDUCATION INFORMATIONInstructions:Robert - Rotator CuffRepair / Shoulder Arthrotomy Discharge Instructions-(Revised 06-19-11) (Custom) (Custom) (CUSTOM)Medication Leaflets:Follow up:MEDICATION LISTFill New Prescriptions:acetaminophen-oxy codone (Percocet 325 mg-5 mg Tab) 1 tab(s) By Mouth every 4 hours as needed for as needed for painComment: [facility] Main OR PACU I Recordon 11-30 Main OR PACU I Record PACU Phase I Document Type FT Summary Primary Physician: Krysten Jones DO Finalized Date/Time: 12/25/16 11:37:13 Pt. Name: SURI OSHEA Krystal Goldman./Sex: 1960 Female Med Rec #: [id number] Physician: Krysten Jones DO Financial #: [id number] Pt. Type: A Room/Bed: [facility] Admit/Disch: 12/25/16 07:28:36 - Institution: Case Times [...] By: Andie Ramon RN 12/25/16 11:37 Normal [facility] Main OR PACU II Recordon Main OR PACU II Record PACU Phase II Document Type FT Summary Primary Physician: Krysten Jones DO Finalized Date/Time: 12/25/16 14:10:58 Pt. Name: SURI OSHEA/Sex: 1960 Female Med Rec #: [id number] Physician: Krysten Jones DO Financial #: [id number] Pt. Type: A Room/Bed: [place] [address] Admit/Disch: 12/25/16 07:28:36 - Institution: Case Times [...] Signed By: Manisha Ellington RN 12/25/16 14:10 Normal [facility] Main OR Preoperative Recordo n 12-25-2016 Main OR Preoperative Record PreOp Document Type FT Summary Primary Physician: Krysten Jones DO Finalized Date/Time: 12/25/16 11:12:45 Pt. Name: FEDERICOSURI/Sex: 1960 Female Med Rec #: [id number] Physician: Krysten Jones DO Financial #: [id number] Pt. Type: A Room/Bed: [place] [address] Admit/Disch: 12/25/16 07:28:36 - Institution: Case Times [...] 12/25/16 09:25 Jie Florence RN 12/25/16 11:12 Normal [facility] Patient Education - Texton 0 12-25-2016 Patient Education - Text Patient Education Materials Follows:Krysten Jones D.O.[facility] [address] [phone] OPEN ROTATOR CUFF REPAIR DISCHARGE INSTRUCTIONSMEDICATIONSYou will be given a prescription for pain medication. This should be taken with food, as needed. This may cause stomach upset, dizziness, and possible constipation. Please notify the office if you have any medication allergies to this type of medication or if any problems develop with the medication.You may begin using Tylenol or inlr-hdd-fwhvqzk Ibuprofen or Motrin for pain should you [...] persistent vomiting. Krysten Jones D.O.Rev. 2011- Normal [facility] Coding Summary.on 12-15-2016 Coding Summary. CODING DATE: 017 FINAL [facility] STATUS: Home (Routine DC) PAYOR: Medicaid ADMIT [...] Garcia Date Saved: 12/15/2016 02:40 pm Normal [facility] BUNon 12-12-2016 Urea nitrogen 14 mg/dL Normal 5-21 [facility] Comment on above: Performed By: #### 9843812, 3124586, 292 1234, 16346389, 9504298, 7897752 ####[facility] [address] [place] [address] CBC w/Indiceson 12-12-2016 Erythrocyte distribution width Auto Ratio (RBC) 15.6 % High 10.9-14.2 [facility] Comment on above: Performed By: #### 3454628, 3233943, 292 1234, 13655488, 5462547, 4738117 ####[facility] [address] [place] [address] Erythrocytes (RBC) 4.7 E12/L Normal 4.3-5.9 [facility] Comment on above: Performed By: #### 3112840, 1715388, 292 1234, 58975098, 3470948, 7948284 ####[facility] [address] [place] [address] Hematocrit (HCT) 39.1 % Normal 34.0-46.0 [facility] Comment on above: Performed By: #### 5229802, 1518502, 292 1234, 80913426, 0439647, 5633652 ####[place] [address] Hemoglobin mass conc (Bld) 12.6 g/dL Normal 12.0-16.0 [facility] Comment on above: Performed By: #### 4335324, 8626238, 292 1234, 66312860, 0821773, 0753313 ####[place] [address] MCH 26.7 pg Low 27.0-34.0 [facility] Comment on above: Performed By: #### 4459652, 5591839, 292 1234, 96125766, 2940108, 5613126 ####[place] [address] MCHC mass conc (RBC) 32.3 g/dL Normal 31.4-39.3 [facility] Comment on above: Performed By: #### 1064399, 3358249, 292 1234, 16385299, 7741934, 6575855 ####[place] [address] MCV 82.4 fL Normal 80.0-100.0 [facility] Comment on above: Performed By: #### 9376788, 6532088, 292 1234, 70593089, 5874538, 8022308 ####[place] [address] Platelet mean volume (PMV) 8.0 fL Normal 6.4-10.8 [facility] Comment on above: Performed By: #### 3483251, 9714421, 292 1234, 28352139, 7577100, 5662000 ####[address] [place] [address] Platelets 283.0 E9/L Normal 150.0-500. 0 [facility] Comment on above: Performed By: #### 3672572, 9843608, 292 1234, 98636831, 1440302, 0106203 ####[facility] [address] [place] [address] WBC (Leukocytes) 7.6 E9/L Normal 4.0-11.0 [facility] Comment on above: Performed By: #### 9094149, 3912814, 292 1234, 90067414, 1701193, 4386067 ####[facility] [address] [place] [address] Creatinineon 12-12-2016 Creatinine 0.6 mg/dL Normal 0.5-1.3 [facility] Comment on above: Performed By: #### 8544107, 2190840, 292 1234, 66647354, 6247812, 7314069 ####[facility] [address] [place] [address] Glu Fastingon 12-12-2016 Glucose mass conc 124 mg/dL High 55-99 [facility] Comment on above: Performed By: #### 5163100, 9204001, 292 1234, 90712652, 9752456, 0910961 ####[facility] [address] [place] [address] Lyteson 12-12-2016 Anion gap 14 mmol/L Normal 6-16 [facility] Comment on above: Performed By: #### 4180076, 4554482, 292 1234, 95087982, 5477628, 9928769 ####[facility] [address] [place] [address] Chloride 103 mmol/L Normal 101-111 [facility] Comment on above: Performed By: #### 3225938, 2455203, 292 1234, 83226127, 6308922, 1748699 ####[facility] [address] [place] [address] CO2 26 mmol/L Normal 21-31 [facility] Comment on above: Performed By: #### 3282154, 1086191, 292 1234, 96757541, 8982781, 1235033 ####[facility] [address] [place] [address] Potassium molar conc 4.0 mmol/L Normal 3.5-5.3 [facility] Comment on above: Performed By: #### 8411919, 1527613, 292 1234, 65306992, 7039265, 7093497 ####[facility] [address] [place] [address] Sodium 139 mmol/L Normal 135-145 [facility] [place] Comment on above: Performed By: #### [id number] ####[facility] [id number] [place] [address] eGFRon 12-12-2016 eGFR (black) mL/min/{1.73_m2} Normal >=59 [facility] Comment on above: Order Comment: Order added by Paty Ex omero. Result Comment: eGFR is race adjusted. AA=. Performed By: #### [id number] ####[facility] [place] [id number] [place] [address] eGFR (non-black) mL/min/{1.73_m2} Normal >=59 [facility] Comment on above: Order Comment: Order added by Paty Ex pert. Result Comment: Footwear Sales Associate hayley kidney disease could be indicated at eGFR's of less than 60 mL/min/1.73m2. Kidney failure is indicated at less than 15 mL/min/1.73m2. Performed By: #### 2 [id number] ####[facility] [place] [id number] [place] [address] Vital Signs Date Time Vital Sign Value Performing Clinician Facility 02-21-2025 14:42-0400 Body height 160 cm Moriah Hemmer PA Work Phone: [facility] 02-21-2025 14:42-0400 Body mass index (BMI) [Ratio] 38.23 kg/m2 Moriah Hemmer PA Work Phone: [facility] 02-21-2025 14:42-0400 Body weight 97.89 kg Moriah Hemmer PA Work Phone: [facility] 02-21-2025 14:42-0400 Diastolic blood pressure 84 mm[Hg] Moriah Hemmer PA Work Phone: [facility] 02-21-2025 14:42-0400 Heart rate 66 /min Moriah Hemmer PA Work Phone: [facility] 02-21-2025 14:42-0400 Respiratory rate 16 /min Moriah Hemmer PA Work Phone: [facility] 02-21-2025 14:42-0400 SaO2% (BldA) [Mass fraction] 97 % Moriah Hemmer PA Work Phone: [facility] 02-21-2025 14:42-0400 Systolic blood pressure 114 mm[Hg] Moriah Hemmer PA Work Phone: [facility] 10-11-2024 14:30-0400 Body height 160 cm Moriah Hemmer PA Work Phone: [facility] 10-11-2024 14:30-0400 Body mass index (BMI) [Ratio] 38.37 kg/m2 Moriah Hemmer PA Work Phone: [facility] 10-11-2024 14:30-0400 Body weight 98.25 kg Moriah Hemmer PA Work Phone: [facility] 10-11-2024 14:30-0400 Diastolic blood pressure 72 mm[Hg] Moriah Hemmer PA Work Phone: [facility] 10-11-2024 14:30-0400 Heart rate 98 /min Moriah Hemmer PA Work Phone: [facility] 10-11-2024 14:30-0400 Respiratory rate 18 /min Moriah Hemmer PA Work Phone: [facility] 10-11-2024 14:30-0400 SaO2% (BldA) [Mass fraction] 99 % Moriah Hemmer PA Work Phone: [facility] 10-11-2024 14:30-0400 Systolic blood pressure 118 mm[Hg] Moriah Hemmer PA Work Phone: [facility] 09-21-2024 14:42-0400 Body height 160 cm Moriah Hemmer PA Work Phone: [facility] 09-21-2024 14:42-0400 Body mass index (BMI) [Ratio] 37.02 kg/m2 Moriah Hemmer PA Work Phone: [facility] 09-21-2024 14:42-0400 Body weight 94.8 kg Moriah Hemmer PA Work Phone: [facility] 09-21-2024 14:42-0400 Diastolic blood pressure 82 mm[Hg] Moriah Hemmer PA Work Phone: [facility] 09-21-2024 14:42-0400 Heart rate 69 /min Moriah Hemmer PA Work Phone: [facility] 09-21-2024 14:42-0400 Respiratory rate 16 /min Moriah Hemmer PA Work Phone: [facility] 09-21-2024 14:42-0400 SaO2% (BldA) [Mass fraction] 95 % Moriah Hemmer PA Work Phone: [facility] 09-21-2024 14:42-0400 Systolic blood pressure 126 mm[Hg] Moriah Hemmer PA Work Phone: [facility] 07-11-2024 14:31-0500 Body height 160 cm Moriah Hemmer PA Work Phone: [facility] 07-11-2024 14:31-0500 Body mass index (BMI) [Ratio] 37.31 kg/m2 Moriah Hemmer PA Work Phone: [facility] 07-11-2024 14:31-0500 Body weight 95.53 kg Moriah Hemmer PA Work Phone: [facility] 07-11-2024 14:31-0500 Diastolic blood pressure 68 mm[Hg] Moriah Hemmer PA Work Phone: [facility] 07-11-2024 14:31-0500 Heart rate 65 /min Moriah Hemmer PA Work Phone: [facility] 07-11-2024 14:31-0500 Respiratory rate 18 /min Moriah Hemmer PA Work Phone: [facility] 07-11-2024 14:31-0500 SaO2% (BldA) [Mass fraction] 98 % Moriah Hemmer PA Work Phone: [facility] 07-11-2024 14:31-0500 Systolic blood pressure 116 mm[Hg] Moriah Hemmer PA Work Phone: [facility] 04-19-2024 13:57-0500 Body height 160 cm Heather Moscoso MD Work Phone: [facility] 04-19-2024 13:57-0500 Body mass index (BMI) [Ratio] 36.31 kg/m2 Heather Moscoso MD Work Phone: [facility] 04-19-2024 13:57-0500 Body weight 92.99 kg Heather Msocoso MD Work Phone: [facility] 04-19-2024 13:57-0500 Diastolic blood pressure 78 mm[Hg] Heather Moscoso MD Work Phone: [facility] 04-19-2024 13:57-0500 Systolic blood pressure 130 mm[Hg] Heather Moscoso MD Work Phone: [facility] 04-04-2024 13:46-0500 Body height 160 cm Moriah Hemmer PA Work Phone: [facility] 04-04-2024 13:46-0500 Body mass index (BMI) [Ratio] 36.14 kg/m2 Moriah Hemmer PA Work Phone: [facility] 04-04-2024 13:46-0500 Body weight 92.53 kg Moriah Hemmer PA Work Phone: [facility] 04-04-2024 13:46-0500 Diastolic blood pressure 72 mm[Hg] Moriah Hemmer PA Work Phone: [facility] 04-04-2024 13:46-0500 Heart rate 69 /min Moriah Hemmer PA Work Phone: [facility] 04-04-2024 13:46-0500 Respiratory rate 18 /min Moriah Hemmer PA Work Phone: [facility] 04-04-2024 13:46-0500 SaO2% (BldA) [Mass fraction] 97 % Moriah Hemmer PA Work Phone: [facility] 04-04-2024 13:46-0500 Systolic blood pressure 116 mm[Hg] Moriah Hemmer PA Work Phone: [facility] 03-10-2023 11:15-0400 Body height 160.02 cm Yon Bella Other [facility] Other 03-10-2023 11:15-0400 Body mass index (BMI) [Ratio] 35.6 kg/m2 Yon Bella Other [facility] Other 03-10-2023 11:15-0400 Body weight 91.17 kg Yon Bella Other [facility] Other 03-10-2023 11:15-0400 Diastolic blood pressure 73 mm[Hg] Yon Bella Other [facility] Other 03-10-2023 11:15-0400 Systolic blood pressure 110 mm[Hg] Yon Bella Other [facility] Other 04-18-2021 14:15-0500 Body height 160.02 cm Yon Bella Other [facility] Other 04-18-2021 14:15-0500 Body mass index (BMI) [Ratio] 35.6 kg/m2 Yon Bella Other [facility] Other 04-18-2021 14:15-0500 Body weight 91.17 kg Yon Bella Other [facility] Other 04-18-2021 14:15-0500 Diastolic blood pressure 99 mm[Hg] Yon Bella Other [facility] Other 04-18-2021 14:15-0500 Systolic blood pressure 139 mm[Hg] Yon Bella Other [employer] Other Encounters Encounter Date Encounter Type Care Provider Facility Start: 02-21-2025 End: 02-21-2025 ambulatory MORIAH GUZMAN Not Available Start: 02-21-2025 End: 02-21-2025 Office outpatient visit 25 minutes Moriah Guzman PA Work Phone: [facility] Comment on above: Acute pain of left k nee (Primary Dx); Frequency of urination; Primary osteoarthritis of left knee Start: 02-21-2025 End: 02-21-2025 Bamboo flowsheet Moriah Guzman PA Work Phone: [facility] Start: 02-21-2025 End: 02-21-2025 Bamboo flowsheet Moriah Guzman PA Work Phone: [facility] Start: 02-10-2025 ambulatory Hever Martin Facility:[facility] Start: 10-11-2024 End: 10-11-2024 ambulatory MORIAH GUZMAN Not Available Start: 10-11-2024 End: 10-11-2024 Bamboo flowsheet Moriah Rema Megan PA Work Phone: [facility] Start: 10-11-2024 End: 10-12-2024 Bamboo flowsheet Moriah Hodgson Megan PA Work Phone: [facility] Start: 10-11-2024 End: 10-12-2024 External Result Encounter Moriah Hodgson Megan PA Work Phone: [facility] Unsolicited Start: 10-11-2024 End: 10-11-2024 Office outpatient visit 15 minutes Moriah Guzman PA Work Phone: [facility] Comment on above: Diabetic peripheral neuropathy (CMS/HCC) (Primary Dx); Arthropathy of left sacroiliac joint; Major depressive disorder, recurrent severe without psychotic features (HCC) (CMS/HCC) Start: 09-21-2024 End: 09-21-2024 Office outpatient visit 25 minutes Moriah Rema Megan PA Work Phone: [facility] Comment on above: Arthropathy of left sacroiliac joint (Primary Dx); Obstructive sleep apnea; Primary osteoarthritis of both hips; Osteoarthritis of lumbar spine, unspecified spinal osteoarthritis complication status; Degeneration of intervertebral disc of lumbar region with discogenic back pain and lower extremity pain Start: 09-21-2024 End: 09-21-2024 ambulatory MORIAH Rema MEGAN Not Available Start: 09-21-2024 End: 09-21-2024 Bamboo flowsheet Moriah Rema Megan PA Work Phone: [facility] Start: 09-21-2024 End: 09-21-2024 Bamboo flowsheet Moriah Guzman PA Work Phone: [facility] Start: 07-15-2024 End: 07-15-2024 Clinisync Result Encounter Moriah Guzman PA Work Phone: [facility] Unsolicited Start: 07-15-2024 End: 07-15-2024 Clinisync Result Encounter Moriah Guzman PA Work Phone: [facility] Unsolicited Start: 07-11-2024 End: 07-11-2024 Patient encounter procedure Moriah GUO Work Phone: [facility] Comment on above: Medicare annual well ness visit, subsequent (Primary Dx); ACP (advance care planning); Myalgia; Bilateral hip pain; Osteoarthritis of lumbar spine, unspecified spinal osteoarthritis complication status; Need for vaccination; Diabetic peripheral neuropathy (CMS/HCC); Primary insomnia; Obstructive sleep apnea; Other chronic pain; Paresthesia of skin; Peripheral polyneuropathy; Obstructive pattern present on pulmonary function testing; Abnormal cardiovascular stress test; Abnormal ECG; Atherosclerosis of [place] arteries of extremities with rest pain, bilateral [...] mellitus with diabetic peripheral angiopathy without gangrene (CMS/HCC); BMI 37.0-37.9, adult Start: 07-11-2024 End: 07-11-2024 ambulatory MORIAH GUZMAN Not Available Start: 07-11-2024 End: 07-11-2024 Bamboo flowsheet Moriah Guzman PA Work Phone: [facility] Start: 07-11-2024 End: 07-11-2024 Bamboo flowsheet Moriah Guzman PA Work Phone: [facility] Start: 04-19-2024 End: 04-19-2024 Bamboo flowsheet Heather Moscoso MD Work Phone: [facility] Start: 04-19-2024 End: 04-19-2024 Bamboo flowsheet Heather Mocsoso MD Work Phone: [facility] Start: [...] obesity due to excess calories (CMS/HCC) Start: 11-04-2023 End: 11-04-2023 Evaluation and management of inpatient FEMI FOLEY [facility] Start: 11-04-2023 End: 11-04-2023 Evaluation and management of inpatient [facility] Start: 10-14-2023 End: 10-14-2023 ambulatory [facility] Start: 10-14-2023 Encounter for other preprocedural examination [facility] Start: 07-07-2023 Chart abstracting Moriah Robison er PA Work Phone: [facility] Start: 03-10-2023 End: 03-10-2023 ambulatory Yon Bella Other [facility] Other Start: 03-10-2023 Patient encounter procedure Yon Bella [facility] Start: 12-16-2021 End: 12-17-[address] ELIO OWENS Facility:[facility] Start: 12-09-2021 End: 12-10-[address] MORIAH GUZMAN Facility:[facility] Start: 07-01-2021 End: 07-01-2021 ambulatory Yon Bella Other [facility] Other Start: 07-01-2021 Telephone encounter [facility] Start: 05-14-2021 End: 05-14-2021 ambulatory Yon Bella Other [facility] Other Start: 05-14-2021 Telephone encounter [facility]ENCIA [facility] Start: 04-18-2021 End: 04-18-2021 ambulatory Yon Bella Other [facility] Other Start: 04-18-2021 Patient encounter procedure Yon Bella [facility] Start: 01-21-2021 End: 01-22-2021 ambulatory JIE VELAZQUEZ Facility:[facility] Start: 12-19-2020 End: 12-20-[address] ELIO OWENS Facility:[facility] Start: 09-16-2017 End: 09-16-2017 Ambulatory [facility] Facility:[facility] Start: 09-02-2017 End: 09-02-2017 Ambulatory [facility] Facility:[facility] Start: 07-03-2017 End: 07-04-2017 Ambulatory [facility] Facility:[facility] Start: 12-25-2016 End: 12-25-2016 Ambulatory Krysten Jones Facility:[facility] Start: 12-12-2016 End: 12-13-2016 Ambulatory Krysten Jones Facility:[facility] Procedures Date Procedure Procedure Detail Performing Clinician Start: 02-21-2025 Urnls dip stick/tablet rgnt non-auto w/o micrscp Moriah GUO Work Phone: Start: 10-11-2024 Hemoglobin glycosylated a1c Moriah GUO Work Phone: Start: 10-11-2024 Urine albumin quantitative Moriah GUO Work Phone: Start: 07-15-2024 Radex hips bilateral with pelvis 2 views Moriah GUO Work Phone: Start: 04-04-2024 Hemoglobin glycosylated a1c Moriah GUO Work Phone: Start: 03-18-2023 H/O: hysterectomy History of hysterectomy Moriah GUO Work Phone: Start: 12-16-2021 Mammography Moriah GUO Work Phone: Start: 12-26-2013 Colonoscopy Moriah GUO Work Phone: H/O: hysterectomy History of hysterectomy Moriah GUO Work Phone: Plan of Treatment Date Care Activity Detail Author Start: 10-11-2025 Urine screening for protein Diabetes: Urine Protein Screening [facility] Start: 07-11-2025 Medicare Annual Wellness (AWV) Medicare Annual Wellness (AWV) [facility] Start: 05-22-2025 Glaucoma screening Diabetes: R etinopathy Screening [facility] Start: 04-04-2025 Screening for malign ant neoplasm of colon Colorectal Cancer Screening [facility] Comment on above: Postponed from 05/03 (Patient Refused) Start: 02-21-2025 End: 02-21-2026 XR Knee - left 4 Views XR knee 4+ views left Imaging Routine Acute pain of left knee Primary osteoarthritis of left knee Expected: 02/21/2025, Expires: 02/21/2026 [facility] Work Phone: Comment on above: Expected: 02/21/2025 , Expires: 02/21/2026 Start: 01-30-2025 Influenza vaccination Influenza Vacc ine (#1) [facility] Start: 01-11-2025 Hemoglobin A1c measurement Diabetes: Hemoglobin A1C [facility] Start: 10-11-2024 End: 10-11-2024 Patient encounter procedure 10/11/2024 2:00 PM EDT Office Visit [facility] [address] [place] [address] Moriah Guzman PA [address] [place] [address] [facility] Start: 10-05-2024 Urine screening for protein Diabetes: Urine Protein Screening [facility] Start: 09-21-2024 End: 09-21-2024 Patient encounter procedure 09/21/2024 2:30 PM EDT Office Visit [facility] [address] [place] [address] Moriah Guzman PA [address] [place] [address] Arrived [facility] Comment on above: Arrived Start: 07-11-2024 End: 07-11-2024 Patient encounter procedure 07/11/2024 2:30 PM EST Office Visit [facility] [address] [place] [address] Moriah Guzman PA [address] [place] [address] Arrived [facility] Comment on above: [...] [address] [place] [address] Moriah Guzman PA [address] [place] [address] [facility] Start: 07-05-2024 Hemoglobin A1c measurement Diabetes: Hemoglobin A1C [facility] Start: 04-26-2024 End: 04-26-2024 Patient encounter procedure 04/26/2024 1:30 PM EST Office Visit [facility] [address] [place] [address] Elio Owens MD [address] [place] [address] [facility] Start: 04-19-2024 End: 04-19-2024 Patient encounter procedure 04/19/2024 2:00 PM EST Office Visit [facility] [address] [place] [address] Heather Moscoso MD [address] [place] [address] Recurrent epistaxis [facility] Comment on above: Recurrent epistaxis Start: 04-12-2024 End: 04-12-2024 Patient encounter procedure 04/12/2024 2:00 PM EST Office Visit [facility] [address] [facility] [address] [place] [id number] Heather Moscoso MD [address] [facility] [address] [place] [address] [facility] Start: 04-04-2024 End: 04-04-2025 CBC W Auto Differential panel - Blood CBC and differential Lab Routine Benign essential hypertension (CMS/HCC) Anemia, unspecified type Mixed hyperlipidemia (CMS/HCC) Expected: 04/04/2024 (Approximate), Expires: 04/04/2025 [facility] Comment on above: Expected: 04/04/2024 (Approximate), Expires: 04/04/2025 Start: 04-04-2024 End: 04-04-2025 Comprehensive metabolic 2000 panel - Serum or Plasma Comprehensive metabolic panel Lab Routine Benign essential hypertension (CMS/HCC) Fatty liver Mixed hyperlipidemia (CMS/HCC) Expected: 04/04/2024 (Approximate), Expires: 04/04/2025 [facility] Comment on above: Expected: 04/04/2024 (Approximate), Expires: 04/04/2025 Start: 04-04-2024 End: 06-04-2025 DBT Breast - bilateral screening Bilateral screening mammogram with tomosynthesis Imaging Routine Encounter for screening mammogram for malignant neoplasm of breast Expected: 04/04/2024, Expires: 06/04/2025 [facility] Work Phone: Comment on above: Expected: 04/04/2024 , Expires: 06/04/2025 Start: 04-04-2024 End: 04-04-2025 Lipid 1996 panel - Serum or Plasma Lipid panel Lab Routine Benign essential hypertension (CMS/HCC) Fatty liver Mixed hyperlipidemia (CMS/HCC) Expected: 04/04/2024 (Approximate), Expires: 04/04/2025 [facility] Comment on above: Expected: 04/04/2024 (Approximate), Expires: 04/04/2025 Start: 04-04-2024 End: 04-04-2025 Microalbumin/Creatinine panel in random Urine Microalbumin / creatinine urine ratio Lab Routine Diabetic peripheral neuropathy (CMS/HCC) Benign essential hypertension (CMS/HCC) Expected: 04/04/2024 (Approximate), Expires: 04/04/2025 [facility] Comment on above: Expected: 04/04/2024 (Approximate), Expires: 04/04/2025 Start: 04-04-2024 End: 04-04-2025 TSH W/REFLEX TO FT4 TSH W/REFLEX TO FT4 Lab Routine Thyroid nodule (CMS/HCC) Expected: 04/04/2024 (Approximate), Expires: 04/04/2025 [facility] Comment on above: Expected: 04/04/2024 (Approximate), Expires: 04/04/2025 Start: 03-24-2024 Urine screening for protein Diabetes: Urine Protein Screening [facility] Start: 01-31-2024 Influenza vaccination Influenza Vacc ine (#1) [facility] Start: 01-06-2024 Hemoglobin A1c measurement Diabetes: Hemoglobin A1C [facility] Start: 12-27-2023 Screening for malign ant neoplasm of colon [facility] Start: 07-07-2023 End: 07-07-2023 Patient encounter procedure 07/07/2023 1:00 PM EST Office Visit [facility] [address] [facility] [address] [place] [address] Moriah Guzman PA [address] [facility] [address] [place] [address] [facility] Start: 06-24-2023 Hemoglobin A1c measurement Diabetes: Hemoglobin A1C [facility] Start: 12-16-2022 Screening for malign ant neoplasm of breast Mammogram [facility] Start: 11-26-2021 Medicare Annual Wellness (AWV) Medicare Annual Wellness (AWV) [facility] Start: 1960 Screening for malign ant neoplasm of colon [facility] Immunizations Immunization Date Immunization Notes Care Provider Fa cility 07-11-2024 zoster vaccine-recombinant adjuvanted (Shingrix) 50 MCG/0.5ML vaccine Moriah GUO Work Phone: [facility] 04-04-2024 influenza, seasonal, injectable, preservative free Moriah GUO Work Phone: [facility] 04-04-2024 influenza virus vacc ine, unspecified formulation Moriah Hemmer PA Work Phone: [facility] 03-24-2023 influenza, injectabl e, quadrivalent, preservative free Moriah Hemmer PA Work Phone: [facility] 03-24-2023 influenza virus vacc ine, unspecified formulation Moriah Hemmer PA Work Phone: [facility] 02-26-2021 influenza, injectabl e, quadrivalent, preservative free Moriah Hemmer PA Work Phone: [facility] 02-22-2020 Influenza, High-dose Seasonal, Quadrivalent, Preservative Free Moriah Hemmer PA Work Phone: [facility] 03-16-2018 seasonal influenza, intradermal, preservative free Moriah Hemmer PA Work Phone: [facility] 04-30-2016 seasonal influenza, intradermal, preservative free Moriah Hemmer PA Work Phone: [facility] 03-22-2015 influenza, injectabl e, quadrivalent, preservative free Moriah Hemmer PA Work Phone: [facility] Payers Date Payer Category Payer Medicare (Managed Care) [facility] [id number] 2023 Medicare [id number] 2022 Self-pay 2022 Medicare [employer] MEDICARE REPLACEMENT [id number] 2022-Present [address] [address] [place] [address] [id number] 2019 Medicaid [id number] 2016 Unknown [id number] 1962 Unknown [id number] 2.16.840.1.626798.3.579.2. 593 1962 Unknown [id number] 2.16.840.1.410952.3.579.2. 593 1962 Unknown [id number] 2.16.840.1.657699.3.579.2. 593 1962 Unknown [id number] 2.16.840.1.014437.3.579.2. 593 1962 Unknown [id number] 2.16.840.1.533363.3.579.2. 1286 1962 Unknown [id number] 2.16.840.1.914813.3.579.2. 1286 1962 Unknown [id number] 2.16.840.1.558033.3.579.2. 1286 1962 Unknown [id number] 2.16.840.1.058685.3.579.2. 1286 1962 Unknown [id number] 2.16.840.1.225908.3.579.2. 1286 1962 Unknown [id number] 2.16.840.1.743046.3.579.2. 1259 1962 Unknown [id number] 2.16.840.1.859497.3.579.2. 1259 1962 Unknown [id number] 2.16.840.1.384056.3.579.2. 1259 1962 Unknown [id number] 2.16.840.1.316438.3.579.2. 1259 1962 Unknown [id number] 2.16.840.1.999591.3.579.2. 1259 1962 Unknown [id number] 2.16.840.1.438779.3.579.2. 1259 1959 Medicaid [id number] 2.16.840.1.454323.19 1959 Medicare [id number] 2.16.840.1.446736.19 1959 Unknown [id number] Unknown [id number] 2.16.840.1.071753.3.579.2. 531 Social History Date Type Detail Facility Sex Assigned At [facility] Other Start: 03-24-2023 End: 04-01-2024 Sex Assigned At [facility] Start: 03-18-2023 Tobacco smoking status [facility] Never smoked tobacco [facility] Start: 03-18-2023 Tobacco use and exposure Smokeless tobacco non-user [facility] Start: 03-24-2023 End: 02-21-2025 Alcohol intake Ex-drinker (finding) [facility] Start: [...] to any clubs or organizations such as alevism groups, unions, fraternal [...] Healthcare Functional Status Date Assessment Result Facility 02-21-2025 Patient Health Quest ionnaire 2 item (PHQ-2) [Reported] [facility] 10-11-2024 Patient Health Quest ionnaire 2 item (PHQ-2) [Reported] [facility] 09-21-2024 Patient Health Quest ionnaire 2 item (PHQ-2) [Reported] [facility] Clinical Notes 05-14-2021 to 02-21-2025 BRANT Pinto - 02/21/2025 2:30 PM BRANT Flores - 10/11/2024 2:00 PM BRANT Flores - 09/21/2024 2:30 PM BRANT Flores - 07/11/2024 2:30 PM EST Note Date & Type Note Facility 02-21-2025 History of Presen t illness Narrative Images from the original note were not included. HPI Shoulder Pain Additional comments: Admits left shoulder has been hurting for a month. Did not hurt it. Has already had 2 surgeries on and it feels like it did when she had her rotator cuff surgery. Canno lift her arm very high. Describes pain as constant sharp and throbbing. Rates pain 9/10. Urinary Frequency Additional comments: Admits this has been going on for 2 weeks. Denies dysuria. Last edited by Shyanne Nova LPN on 02/21/2025 2:41 PM. Subjective Patient ID: Suri Oshea is a 64 y.o. female who presents for knee pain. Suri is present today for evaluation of knee pain. Admits it is her left knee and it started hurting a month ago with no injury. Pain is constant. Describes pain as achy and throbbing. Pain is worse when he tries to hold her knee up. She has done stretches and tylenol. Rates pain 8/10. Bending/extending the knee is painful. Over the past 2 weeks, how often have you been bothered by any of the following problems? Little interest or pleasure in doing things: Not at all (currently on medication) Feeling down, depressed, or hopeless: Not at all (currently on medication) Patient Health Questionnaire-2 Score: 0 Current Outpatient Medications on File Prior to [...] each day at the same time. [DISCONTINUED] tiZANidine (Zanaflex) 4 MG tablet Take 1 tablet (4 mg) by mouth as needed at bedtime for muscle spasms for up to 14 days (Patient not taking: Reported on 02/21/2025) 14 tablet 0 No current facility-administered medications on file prior [...] Cholecystitis Cholecystitis without cholelithiasis 03/18/2023 Diabetes mellitus (HCC) Disease of thyroid gland Dizziness Fracture 04/2017 left distal radius GERD (gastroesophageal reflux disease) Glenoid labral tear, right, initial encounter Hypertension IBS (irritable bowel syndrome) NIDDY (non-insulin dependent diabetes mellitus in young) (HCC) Nosebleed Obesity Pneumonia 07/2011 Pulmonary vascular congestion [...] 11/03/2013 TUMOR REMOVAL stomach Visit Vitals BP 114/84 Pulse 66 Resp 16 Ht 5' 3 Wt 215 lb 12.8 oz SpO2 97% BMI 38.23 kg/m Smoking Status Never BSA 2.09 m Review of Systems Constitutional: Negative for chills, fatigue and fever. Respiratory: Negative for cough, shortness of breath and wheezing. Cardiovascular: Negative for chest pain, palpitations and leg swelling. Gastrointestinal: Negative for abdominal pain, constipation, diarrhea, nausea and vomiting. Genitourinary: Positive for frequency. Musculoskeletal: Positive for arthralgias. Skin: Negative for rash. Objective Physical Exam Constitutional: General: She is not in acute distress. Appearance: She is well-developed. She is obese. HENT: Head: Normocephalic and atraumatic. Eyes: General: No scleral icterus. Conjunctiva/sclera: Conjunctivae normal. Cardiovascular: Rate and Rhythm: Normal rate and regular rhythm. Heart sounds: Normal heart sounds. No murmur heard. Pulmonary: Effort: Pulmonary effort is normal. No respiratory distress. Breath sounds: Normal breath sounds. No wheezing, rhonchi or rales. Musculoskeletal: Left knee: Crepitus (Moderate) present. Normal range of motion. Tenderness present over the medial joint line and lateral joint line. No LCL laxity, MCL laxity, ACL laxity or PCL laxity. Instability Tests: Anterior drawer test negative. Posterior drawer test negative. Comments: Pain with valgus stress testing. Skin: General: Skin is warm and dry. Neurological: General: No focal deficit present. Mental Status: She is alert and oriented to person, place, and time. Gait: Gait abnormal. Psychiatric: Mood and Affect: Mood normal. Behavior: Behavior normal. Office Visit on 02/21/2025 Component Date Value Ref Range Status Color, UA 02/21/2025 Straw Final Clarity, UA 02/21/2025 Clear Final Glucose, UA 02/21/2025 Negative Negative - 2000(110) ++++ mg/dL Final Bilirubin, UA 02/21/2025 Negative Negative - 4(70) +++ mg/dL Final Ketones, UA 02/21/2025 Negative Negative - 160(16) ++++ mg/dL Final Spec Grav, UA 02/21/2025 1.020 1 - 1.03 Final Blood, UA 02/21/2025 Negative Negative - 50 Yifan/mcL Final pH, UA 02/21/2025 5.0 5 - 9 Final Protein, UA 02/21/2025 Negative Negative - 2000(20) ++++ mg/dL Final Urobilinogen, UA 02/21/2025 1.0 0.2 - 12 mg/dL Final Leukocytes, UA 02/21/2025 Negative Negative - 500+++ Blake/mcL Final Nitrite, UA 02/21/2025 Negative Negative - Positive Final Assessment/Plan Diagnoses and all orders for this visit: Acute pain of left knee - XR knee 4+ views left; Future Will obtain x-rays for further evaluation at this time. Will notify pt of the results once received. Frequency of urination - POCT Urinalysis dipstick - phenazopyridine (Pyridium) 200 MG tablet; Take 1 tablet (200 mg) by mouth 3 (three) times a day as needed for bladder spasms for up to 2 days UA results reviewed with pt. Advised no UTI seen at this time. Will have her start Pyridium for symptoms. Advised it will discolor the urine. Encouraged her to increase her water intake. Primary osteoarthritis of left knee - XR knee 4+ views left; Future - predniSONE (Deltasone) 10 MG tablet; Take 1 tablet (10 mg) by mouth 2 (two) times a day for 5 days, THEN 1 tablet (10 mg) Daily for 5 days. Take with food. - diclofenac sodium (Voltaren Arthritis Pain) 1 % gel; Apply 4 g topically 4 (four) times a day as needed for pain Start Voltaren Gel to left knee up to four times a day if needed. Start Prednisone as prescribed. Take with food. May need knee injection if symptoms persist and possibly an MRI. Encouraged her to contact the Orthopedic office to get scheduled for an appointment to discuss her shoulder pain. She saw Dr. Jones, who has since retired. Advised another provider in that office will hopefully be able to see her. Follow up for Diabetes. documented in this encounter [facility] 10-11-2024 History of Presen t illness Narrative [...] Glenoid labral tear, right, initial encounter Hypertension ([facility]) IBS (irritable bowel syndrome) NIDDY (non-insulin dependent diabetes mellitus in young) ([facility]) Nosebleed Obesity Pneumonia 07/2011 Pulmonary vascular congestion [...] 01/11/2025) for Diabetes. documented in this encounter [facility] 09-21-2024 History of Presen t illness Narrative [...] She will do the sleep study at [facility]. Trying to sleep with her head elevated. [...] Appointment As Scheduled. documented in this encounter [facility] 07-11-2024 History of Presen t illness Narrative [...] Do you have a medical power of consumer attorney?: (Patient-Rptd) (P) No Current Outpatient Medications [...] NIDDY (non-insulin dependent diabetes mellitus in young) ([facility]) Nosebleed Obesity Pneumonia 07/2011 Pulmonary vascular congestion [...] a living will and durable power of consumer attorney for healthcare. We discussed telling melendrez [...] PROTEIN, SUBUNIT RSVPREF, ADJUVANT RECONSTIT, 120MCG/0.5ML, PF [[id number]] (CVX 303 7. Diabetic peripheral neuropathy (CMS/HCC) HgbA1c on 04/04/2024 was well controlled [...] stress test The patient is seeing a certified medical dosimetrist for this condition, treatment is deferred to that specialist. Correspondence from that specialist and any available testing were reviewed during today's visit. 15. Abnormal ECG The patient is seeing a certified medical dosimetrist for this condition, treatment is deferred to that specialist. Correspondence from that specialist and any available testing were reviewed during today's visit. 16. Atherosclerosis of nenana arteries of extremities with rest pain, bilateral legs (CMS/HCC) The patient is seeing a certified medical dosimetrist for this condition, treatment is deferred to that specialist. Correspondence from that specialist and any available testing were reviewed during today's visit. 17. Heart disease The patient is seeing a certified medical dosimetrist for this condition, treatment is deferred to that specialist. Correspondence from that specialist and any available testing were reviewed during today's visit. 18. Mitral valve insufficiency, unspecified etiology The patient is seeing a certified medical dosimetrist for this condition, treatment is deferred to that specialist. Correspondence from that specialist and any available testing were reviewed during today's visit. 19. Peripheral vascular disease (CMS/HCC) The patient is seeing a certified medical dosimetrist for this condition, treatment is deferred to that specialist. Correspondence from that specialist and any available testing were reviewed during today's visit. 20. Tricuspid valve insufficiency, unspecified etiology The patient is seeing a certified medical dosimetrist for this condition, treatment is deferred to that specialist. Correspondence from that specialist and any available testing were reviewed during today's visit. 21. Venous (peripheral) insufficiency The patient is seeing a certified medical dosimetrist for this condition, treatment is deferred to [...] cataract, associated with type 2 diabetes mellitus ([facility]/HCC) The patient is seeing a certified medical dosimetrist for this condition, treatment is deferred to that specialist. Correspondence from that specialist and any available testing were reviewed during today's visit. 31. Morbid (severe) obesity due to excess calories ([facility]/HCC) Encouraged portion control, decrease simple sugars and [...] both ears The patient is seeing a certified medical dosimetrist for this condition, treatment is deferred to that specialist. Correspondence from that specialist and any available testing were reviewed during today's visit. 38. Age-related cataract of both eyes, unspecified age-related cataract type The patient is seeing a certified medical dosimetrist for this condition, treatment is deferred to [...] both eyes The patient is seeing a certified medical dosimetrist for this condition, treatment is deferred to that specialist. Correspondence from that specialist and any available testing were reviewed during today's visit. 47. Open-angle glaucoma of both eyes, mild stage, unspecified open-angle glaucoma type (CMS/HCC) The patient is seeing a certified medical dosimetrist for this condition, treatment is deferred to that specialist. Correspondence from that specialist and any available testing were reviewed during today's visit. 48. Presbyopia The patient is seeing a certified medical dosimetrist for this condition, treatment is deferred to [...] 3 months (around 10/08/2024) for Diabetes. Moriah KENNEY, WILMERC documented in this encounter [facility] 04-19-2024 History of Presen t illness Narrative [...] stress test 03/18/2023 Anemia 03/18/2023 Atherosclerosis of nenana arteries of extremities with rest pain, bilateral [...] Peripheral neuropathy 03/18/2023 Presbyopia 03/18/2023 Thyroid nodule (CMS/HCC) 03/18/2023 Mitral regurgitation 03/18/2023 Tricuspid regurgitation 03/18/2023 [...] major depressive disorder, without psychotic features (HCC) (CMS/HCC) 03/18/2023 Type 2 diabetes mellitus without complication (CMS/[facility]) 03/18/2023 Past Medical History: Diagnosis Date Arthritis Cholecystitis Diabetes mellitus ([facility]/HCC) Disease of thyroid gland (CMS/[facility]) Dizziness Fracture 04/2017 GERD (gastroesophageal reflux disease) Glenoid labral tear, right, initial encounter Hypertension ([facility]) IBS (irritable bowel syndrome) NIDDY (non-insulin dependent diabetes mellitus in young) ([facility]) Nosebleed Obesity Pneumonia 07/2011 Pulmonary vascular congestion [...] if bleeding persists. documented in this encounter [facility] 04-04-2024 History of Presen t illness Narrative Images from the original note were not included. Subjective Patient ID: Suri Oshea is a 63 y.o. female who presents for [facility] ER follow up. Flowsheet Row Documentation from 03/31/2024 in [facility] with Lexi Vaca MA Hospital Information ED, Hospital or [facility] Facility Discharge? ED Patient has been contacted within 1 week of being seen in the ED Yes Diagnosis nose bleed Discharge Date 03/30/24 Discharged To: Home Setting Engagement Call Start Time 154 Admission Date 03/30/24 Medications Discharge medications reviewed [...] (one) time each day. [DISCONTINUED] nystatin (Mycostatin) 201091 UNIT/GM powder Apply topically 2 (two) times [...] Medicare Wellness Visit. documented in this encounter [facility] 03-10-2023 Evaluation note Encounter Date Diagnosis Assessment Notes Mar, Irritable bowel syndrome with diarrhea (ICD-10 - K58.0) Rto 3 months with Parviz Mar, Frequent bowel movements (ICD-10 - R19.4) 10 Mar, 2023 Fecal incontinence (ICD-10 - R15.9) [facility] Other 01-31-2022 Evaluation note* Encounter Date Diagnosis Assessment Notes Treatment Notes Treatment Clinical Notes Jun, Irritable bowel syndrome with diarrhea (ICD-10 - K58.0) [facility] Other 12-14-2021 Evaluation note* Encounter Date Diagnosis Assessment Notes Treatment Notes Treatment Clinical Notes May, Irritable bowel syndrome with diarrhea (ICD-10 - K58.0) [facility] Other Evaluation noteNort Certess Other Evaluation note* Diagnosis Diabetic cataract, associated [...] excess calories (CMS/HCC) [facility] Diagnosis Diabetic cataract, associated with [...] knee Recurrent epistaxis documented in this encounter [facility]* Diagnosis Diabetic cataract, associated with [...] Nonspecific abnormal electrocardiogram (ECG) (EKG) Atherosclerosis of nenana arteries of extremities with rest pain, bilateral [...] BMI 37.0-37.9, adult documented in this encounter [facility]* Diagnosis Diabetic cataract, associated with [...] lower extremity pain documented in this encounter [facility]* Diagnosis Diabetic cataract, associated with [...] disorder, recurrent severe without psychotic features (HCC) (CMS/[facility]) documented in this encounter [facility]* Diagnosis Diabetic cataract, associated with type 2 diabetes mellitus (HCC)- Primary Abnormal glucose tolerance test Impaired glucose tolerance test Benign essential hypertension Essential hypertension, benign Diabetic peripheral neuropathy (HCC) Type II or unspecified type diabetes mellitus with neurological manifestations, not stated as uncontrolled Morbid (severe) obesity due to excess calories (E66.01) Body mass index [BMI] 36.0-36.9, adult (Z68.36) Acute pain of right knee Acute pain of left knee- Primary Frequency of urination Urinary frequency Primary osteoarthritis of left knee [facility] Narrative - ReportedNort Certess Other History general Narrative - Reported* Type Description Date Medical History HTN Medical History DM II Medical History anxiety/depression Medical History GERD Medical History hyperlipidemia Surgical History BENIGN ABD TUMOR Surgical History SHOULDER BILAT Surgical History HYSTERECTOMY Surgical History CARPEL TUNNEL Surgical History CHOLECYSTECTOMY Hospitalization History No Hospitalization histo ry information [facility] Other Summary Purpose Family History No Family [...] section and content) DATE CREATED AUTHOR 11/19/[address] [facility] DATE CREATED AUTHOR AUTHOR'S ORGANIZ ATION 11/25/2017 [facility] DATE CREATED AUTHOR AUTHOR'S ORGANIZ ATION 08/17/2021 [facility] DATE CREATED AUTHOR AUTHOR'S ORGANIZ ATION 12/18/2021 [facility] DATE CREATED AUTHOR AUTHOR'S ORGANIZ ATION 11/05/2023 [facility] DATE CREATED AUTHOR AUTHOR'S ORGANIZ ATION 10/14/2024 [facility] DATE CREATED AUTHOR AUTHOR'S ORGANIZ ATION 02/15/2025 [facility] DATE CREATED AUTHOR AUTHOR'S ORGANIZ ATION 02/22/2025 [facility] EPIC REASON FOR VISIT (unrecogniz ed section and content) Reason Comments Epistaxis (Nose Bleed) Specialty Diagnoses / Procedures Referred By Amira salgado Referred To Contact Otolaryngology Diagnoses Recurrent epistaxis Procedures ND OFFICE/OUTPATIENT NEW HIGH MDM 60 MINUTES Moriah Guzman PA [address] [facility] [address] [place] [address] Phone: tel: fax: Heather Moscoso MD [address] [facility] [address] [place] [address] Phone: tel: fax: Referral ID Status Reason Start Date Expiration Date V isits Requested Visits Authorized [id number] Closed Specialty Services Required 04/04/2024 10/01/2024 1 1 Reason Comments Medicare Annual Wellness Visit Subsequen t Reason Comments Back Pain Left lower back [...] gotten worse over the past 2 weeks. Reason Comments Shoulder Pain Admits left shoulder has been hurting for a month. Did not hurt it. Has already had 2 surgeries on and it feels like it did when she had her rotator cuff surgery. Canno lift her arm very high. Describes pain as constant sharp and throbbing. Rates pain 9/10. Urinary Frequency Admits this has been going on for 2 weeks. Denies dysuria. Care Teams (unrecognized sec tion and content) Javascript Web Developer Relationship Specialty Start Date End Date Elio Owens MD [address] [facility] [address] [place] [address] PCP - General Family Medicine 10/07/22 Javascript Web Developer Relationship Specialty Start Date End Date Elio Owens MD [address] [facility] [address] [place] [address] PCP - General Family Medicine 10/07/22 Sterling Kumar MD [address] [place] [address] [facility] 06/01/23 05/31/24 Javascript Web Developer Relationship Specialty Start Date End Date Elio Owens MD [address] [place] [address] PCP - General Family [facility] 10/07/22 Sterling Kumar MD [address] [place] [address] [facility] 06/01/23 05/31/24 Javascript Web Developer Relationship Specialty Start Date End Date Elio Owens MD [address] [place] [address] PCP - General Family [facility] 10/07/22 Sterling Kumar MD [address] [place] [address] [facility] 06/01/23 05/31/24 Javascript Web Developer Relationship Specialty Start Date End Date Elio Owens MD [address] [place] [address] PCP - General Family [facility] 10/07/22 Sterling Kumar MD [address] [place] [address] PCP - [facility] 06/01/23 05/31/24 Javascript Web Developer Relationship Specialty Start Date End Date Elio Owens MD [address] [place] [address] PCP - General Family [facility] 10/07/22 Javascript Web Developer Relationship Specialty Start Date End Date Elio Owens MD [address] [facility] [address] [place] [address] PCP - General [facility] 10/07/22 Javascript Web Developer Relationship Specialty Start Date End Date Elio Owens MD [address] [facility] [address] [place] [address] PCP - General [facility] 10/07/22 Javascript Web Developer Relationship Specialty Start Date End Date Elio Owens MD [address] [facility] [address] [place] [address] PCP - [facility] 10/07/22 Javascript Web Developer Relationship Specialty Start Date End Date Elio Owens MD [address] [facility] [address] [place] [address] PCP - [facility] 10/07/22 Javascript Web Developer Relationship Specialty Start Date End Date Elio Owens MD [address] [facility] [address] [place] [address] PCP - General [facility] 10/07/22 Javascript Web Developer Relationship Specialty Start Date End Date Elio Owens MD [address] [facility] [address] [place] [address] PCP - General [facility] 10/07/22 FOR RECORDS PERTAINING TO PATIENTS WHO [...] BE BASED ON THE PRIMARY CLINICAL RECORDS. [facility] provides no warranty or guarantee of the accuracy or completeness of information in this document.
== END 2025-02-23 13:47 | disposition home or self-care (01) ==
LOC: RAD 13:51
PROVIDERS: PCP Physician Assistant; Visit Provider Physician Assistant
DX: M25.562 Pain in left knee (principal); M17.12 Unilateral primary osteoarthritis, left knee
CPT/HCPCS: 73564

== ENCOUNTER 2025-04-21 10:36 | Outpatient (OUT) | payer MEDICARE, MEDICAID, SELFPAY ==
--- OUTSIDE RECORDS SUMMARY | 2025-03-28 13:30 | XMS_ITS | Encounter Summary ---
Author Organization [facility] Address [address] [place] [address] Care Team Providers Care Ski Topper Name Role Phone Carlos Trevizo MD Primary Care Provider [phone] Sterling Kumar MD Unavailable [phone] Reason for Visit * Rehabilitation - Outpatient (Routine) - ClosedSpecialtyDiagnoses / Procedures Referred By ContactReferred To ContactPhysical Therapy Diagnoses Left shoulder pain, unspecified chronicity Impingement syndrome of left shoulder Adhesive capsulitis of left shoulder Procedures [place] OFFICE/OUTPATIENT [facility] 60 MINUTES [place] [address] [facility] [place] [address] Phone: tel: fax: Magda Harkins PT Referral IDStatusReasonStart DateExpiration DateVisits RequestedVisits [id number] Specialty Services Required [id number] Encounter Details DateTypeDepartmentCare Team (Latest Contact Info)Ovdraimnfqw35/28/2025 2:30 PM EDTTreatment [facility] [address] [facility] [address] [place] [id number] Dena Turpin PTA Impingement syndrome of left shoulder (Primary Dx); Left shoulder pain, unspecified chronicity; Adhesive capsulitis of left shoulder Social History Tobacco UseTypesPacks/DayYears UsedDateSmoking Tobacco: NeverSmokeless Tobacco: NeverAlcohol UseStandard Drinks/WeekCommentsNot Currently0 (1 standard drink = 0.6 oz pure alcohol)Caffeine intake : 1-2 cups per [id number] Health Literacy AnswerDate RecordedHow often do you need to have someone help you when you read instructions, pamphlets, or other written material from your doctor or pharmacy? Never04/01/2024Social Connection and Isolation PanelAnswerDate RecordedIn a typical week, how many times do you talk on the phone with family, friends, or neighbors?More than three times a week04/01/2024How often do you get together with friends or relatives?Three times a week04/01/2024How often do you attend rastafari or oriental orthodox services?Patient /01/2024o you belong to any clubs or organizations such as rastafari groups, unions, eziCONEX or athletic lynn ups, or school groups?Yes04/01/2024How often do you attend meetings of the clubs or organizations you belong to?More than 4 times per year04/01/2024re you , , , , never , or living with a partner? Mxfasgcb10/01/2024UDIT-CAnswerDate RecordedQ1: How often do you have a drink containing alcohol?2-4 times a month04/01/2024Q2: How many drinks containing alcohol do you have on a typical day when you are drinking?1 or Q3: How often do you have six or more drinks on one occasion?Never04/01/2024Overall Financial Resource Strain (CARDIA)AnswerDate RecordedHow hard is it for you to pay for the very basics like food, housing, medical care, and heating?Not hard at all04/01/2024HQ-2AnswerDate RecordedPatient Health Questionnaire-2 Score0 02/21/2025[facility] [place] [facility] Occupational Health - Occupational Stress QuestionnaireAnswerDate RecordedDo you feel stress - tense, restless, nervous, or anxious, or unable to sleep at night because yourmind is troubled all the time - these days?Not at all04/01/2024Exercise Vital SignAnswerDate RecordedOn average, how many days per week do you engage in moderate to strenuous exercise (like a brisk walk)?1 day04/01/2024On average, how many minutes do you engage in exercise at this level?Patient fujvevuf86/01/2024Hunger Vital SignAnswerDate RecordedWithin the past 12 months, you worried that your food would run out before you got the money to buymore.Never true04/01/2024Within the past 12 months, the food you bought just didn't last and you didn't have money to get more.Never true04/01/2024RAPARE - TransportationAnswerDate RecordedIn the past 12 months, has lack of transportation kept you from medical appointments or from getting medications?No04/01/2024In the past 12 months, has lack of transportation kept you from meetings, work, or from getting things needed for daily living?No04/01/2024Housing Stability Vital SignAnswerDate RecordedIn the last 12 months, was there a time when you were not able to pay the mortgage or rent on time?No04/01/2024In the past 12 months, how many times have you moved where you were living?t any time in the past 12 months, were you homeless or living in a care home (including now)?No04/01/2024Comments UnknownSex and Gender InformationValueDate RecordedSex Assigned at BirthNot on fileLegal VffKtqyxw89/15/2023 7:17 PM EDTGender IdentityNot on fileSexual OrientationNot on filedocumented as of this encounter Progress Notes * Dena Turpin, SENIOR LOAN PROCESSOR - 03/28/2025 2:30 PM EDT Images from the original note were not included. Physical Therapy Treatment Visit Patient Name: Suri Oshea Today's Date: 03/28/2025 Encounter Diagnoses Name Primary? Impingement syndrome of left shoulder Yes Left shoulder pain, unspecified chronicity Adhesive capsulitis of left shoulder Visit number: 7 Timed Code Treatment 40 minutes Total Treatment Time: 50 minutes Time In: 2:00 PM Time Out: 2:50 PM History: Pt states left shoulder has been hurting for about a month. States shoulder just started aching one day. States she did have surgery for left RCR back in 2017. States hoping nothing serious is wrong this time. Pt states she was given cortisone shot last Thursday, still has not noticed much relief. Taking OTC meds as needed. Icing at home for pain. Pt is right hand dominant. Precautions: [place] Subjective: Pt reports improvement in the right shoulder but continues to note it just hurts. Pt notes feels like there is a knot Pain: 10/08 Objective: PT Evaluation (02/28/2025) Left SHOULDER AROM: 90 degrees flexion, 62 degrees abduction, 10 degrees ER, IR to lower lumbar region PROM: 116 degrees flexion, 90 degrees abduction, 16 degrees ER Joint play: decrease left GH mobility Strength: left shoulder IR 4+/5 without pain, abduction and ER 4/5 due to pain Palpation: moderate to severe tenderness left RC insertion and biceps tendon Special Test: Pain with Neers at 58 degrees elevation, Treatment: Manual Therapy: (10 minutes ) delivered manual ther to left UE shoulder PROM, STM to anterior shoulder to improve mobility and decrease pain Therapeutic Exercise: (30 minutes supervised) Guided pt through A-AROM ther and flex ex per grid toimprove left UE shoulder functional Strength, Endurance, Flexibility, ROM, HEP, Neural Mobilization, Power, and Core Stability as needed. Therapeutic Activity: Exercises to improve dynamic activities, functional tasks, functional mobility to return to prior activity level as needed. Neuromuscular re-education: Balance Training, Muscle Facilitation, Dynamic Stability, Core Stabilization, and Blood Flow Restriction Training (BFRT) as needed. Modalities: (10 minutes ) CP post session to reduce inflammation and muscle soreness pt seated Assessment: Visit #7 with complaints of left shoulder pain and weakness. Pt demo min to mod muscle guarding during passive ROM. Gentle STM was applied near the bicep insertion due to the patient's report of increased tension. The patient continues to exhibit limitations in range of motion at end range. Monitoring and progression will continue as tolerated. 04-04-25 follow up with Grey Higginbotham Outcome Measure: Upper Extremity Functional Index (UEFI): Rehab Diagnosis: left shoulder pain and weakness, limited ROM and mobility Short Term Goal: To be met in 2 weeks Goal 1: Pt to be instructed in home exercise program. Weatherization And Housing Inspector Goals: To be met in 10 weeks Goal 1: Pt to report independence and compliance with home program. Goal 2: Pt to achieve 140 degrees of left shoulder flexion to assist with overhead reaching. Goal 3: Pt to achieve 120 degrees of left shoulder abduction to assist with grooming hair. Goal 4: Pt to achieve 4+ to 5/5 strength left shoulder in all planes to assist with functional tasks and lifting. Goal 5: Pt to score no less than 40/80 on UEFI indicating improved QOL. Pt will benefit from skilled PT for 2x/week from 02/28/2025 to 05/29/2025 to address the above impairments. I hereby deem this POC medically necessary. Please sign below. Date: Cosigned by Magda Harkins PT at 04/10/2025 10:29 AM EST documented in this encounter Plan of Treatment DateTypeDepartmentCare Team (Latest Contact Info)Sofbihsipqe61/16/2025 1:30 PM ESTOffice Visit [facility] [address] [place] [address] Grey [place] PA [address] [place] [address] documented as of this encounter Visit Diagnoses Diagnosis Impingement syndrome of left shoulder- Primary Left shoulder pain, unspecified chronicity Adhesive capsulitis of left shoulder documented in this encounter Additional Health Concerns AssessmentNoted TimePHQ-9 Depression Total Score: 9:03 PM EST documented as of this encounter Care Teams Team MemberRelationshipSpecialtyStart DateEnd Date Carlos Trevizo MD [address] [place] [address] [address] [place] [address] PCP - GeneralFamily Medicine10/07/22 Sterling Kumar MD 112 [facility] [address] [place] [address] [place] [address]documented as of this encounter
--- OUTSIDE RECORDS SUMMARY | 2025-03-30 13:30 | XMS_ITS | Encounter Summary ---
Author Organization [facility] Address [address] [place] [address] Care Team Providers Care Tile Fitter Name Role Phone Carlos Trevizo MD Primary Care Provider [phone] Sterling Kumar MD Unavailable [phone] Reason for Visit * Rehabilitation - Outpatient (Routine) - ClosedSpecialtyDiagnoses / Procedures Referred By ContactReferred To ContactPhysical Therapy Diagnoses Left shoulder pain, unspecified chronicity Impingement syndrome of left shoulder Adhesive capsulitis of left shoulder Procedures [place] OFFICE/OUTPATIENT [facility] 60 MINUTES [place] [address] [facility] [place] [address] Phone: tel: fax: Magda Harkins PT Referral IDStatusReasonStart DateExpiration DateVisits RequestedVisits [id number] Specialty Services Required [id number] Encounter Details DateTypeDepartmentCare Team (Latest Contact Info)Lhghgdbokzg17/30/2025 2:30 PM EDTTreatment [facility] [address] [facility] [address] [place] [address] Dena Turpin PTA Impingement syndrome of left shoulder (Primary Dx); Left shoulder pain, unspecified chronicity; Adhesive capsulitis of left shoulder Social History Tobacco UseTypesPacks/DayYears UsedDateSmoking Tobacco: NeverSmokeless Tobacco: NeverAlcohol UseStandard Drinks/WeekCommentsNot Currently0 (1 standard drink = 0.6 oz pure alcohol)Caffeine intake : 1-2 cups per [id number] Health Literacy AnswerDate RecordedHow often do you [...] times a week04/01/2024How often do you attend pentecostal or baptism services?Patient qngoqrtg13/01/2024o you belong to any clubs or organizations such as pentecostal groups, unions, [employer] or athletic lynn ups, or school groups?Yes04/01/2024How often do you attend meetings of the clubs or organizations you belong to?More than 4 times per year04/01/2024re you , , , , never , or living with a partner? Gvunslwi58/01/2024UDIT-CAnswerDate RecordedQ1: How often do you have a [...] hard at all04/01/2024HQ-2AnswerDate RecordedPatient Health Questionnaire-2 Score0 02/21/2025[facility] [place] of Occupational Health - Occupational Stress QuestionnaireAnswerDate [...] you engage in exercise at this level?Patient kxccttgu84/01/2024Hunger Vital SignAnswerDate RecordedWithin the past 12 months, [...] were you homeless or living in a prison (including now)?No04/01/2024Comments UnknownSex and Gender InformationValueDate RecordedSex Assigned at BirthNot on fileLegal DzwHraazt46/15/2023 7:17 PM EDTGender IdentityNot on fileSexual OrientationNot on filedocumented as of this encounter Progress Notes * Dena Turpin, MOUNTING MACHINE OPERATOR - 03/30/2025 2:30 PM EDT Images from the original note were not included. Physical Therapy Treatment Visit Patient Name: Suri Oshea Today's Date: 03/30/2025 Encounter Diagnoses Name Primary? Impingement syndrome of left shoulder Yes Left shoulder pain, unspecified chronicity Adhesive capsulitis of left shoulder Visit number: 8 Timed Code Treatment 40 minutes Total Treatment Time: 50 minutes Time In: 1432 Time Out: 152 History: Pt states left shoulder has been [...] pain. Pt is right hand dominant. Precautions: [place] Subjective: Pt reports left shoulder is tender to touch, more anteriorly. States sees the Dr on Thursday and wants to see what he has to say what her next steps she should take. Pain: 10/08 Objective: PT Evaluation (02/28/2025) Left [...] and muscle soreness pt seated Assessment: Visit #8 with complaints of left shoulder pain and weakness. Palpable tenderness anterior left shoulder with manual techniques and passive ROM. Limited shoulder active ROM d/t weakness and pain. Pt does have a follow-up with Neftaly on 04/04. Pt noted will reach out after appt to make schedule more therapy if needed. 04-04-25 follow up with Grey Higginbotham Outcome Measure: Upper Extremity Functional Index (UEFI): Rehab Diagnosis: left shoulder pain and weakness, limited ROM and mobility Short Term Goal: To be met in 2 weeks Goal 1: Pt to be instructed in home exercise program. Summer Sessions Director Goals: To be met in 10 weeks [...] Date: Cosigned by Magda Harkins PT at 04/07/2025 2:35 PM EST documented in this encounter Plan of Treatment DateTypeDepartmentCare Team (Latest Contact Info)Xayswrhsbia18/16/2025 1:30 PM ESTOffice Visit [facility] [address] [place] [phone] Grey N[place] PA [address] [place] [address] documented as of this encounter Visit Diagnoses Diagnosis Impingement syndrome of left shoulder- Primary Left shoulder pain, unspecified chronicity Adhesive capsulitis of left shoulder documented in this encounter Additional Health Concerns AssessmentNoted TimePHQ-9 Depression Total Score: 9:03 PM EST documented as of this encounter Care Teams Team MemberRelationshipSpecialtyStart DateEnd Date Carlos Trevizo MD [address] [place] [address] [address] [place] [address] PCP - [facility]10/07/22 Sterling Kumar MD 112 [facility] [address] [place] [address] PCP - 06/01/2411documented as of this encounter
--- OUTSIDE RECORDS SUMMARY | 2025-04-21 10:38 | XMS_ITS | Patient Health Record ---
Author Organization [facility] [place] Address [address] [place] [address] Care Team Providers Care Web Retailer Name Role Phone [facility] [...] TO THE A FFECTED AREA(S) twice daily External; Duration: 30 Days Not-TakingARIPiprazole 20 MGTAKE 1 TABLET BY MOUTH ONCE DAILY Oral; Duration: 30 DaysNot-TakingSertraline HCl 100 MGTAKE 2 TABLETS BY MOUTH ONCE DAILY Oral; Duration: 30 DaysActivePregabalin 75 MG(Schedule V Drug) TAKE 1 CAPSULE BY MOUTH TWICE DAILY Oral; Duration: 30 DaysActiveFluconazole 150 MGTAKE 1 TABLET on day 1 and 1 tablet on day 4 Oral; Duration: 6 DaysActiveAtorvastatin Calcium 20 MG TAKE 1 TABLET BY MOUTH DAILY Oral; Duration: 30 DaysActiveRozerem 8 MGTAKE 1 TABLET BY MOUTH AT BEDTIME NEEDED Oral; Duration: 30 DaysNot-TakingMupirocin Calcium 2 %APPLY TO THE AFFECTED AREA(S) THREE TIMES DAILY FOR 10 DAYS External; Duration: 10 DaysNot-TakingMeloxicam 15 MGTAKE 1 TABLET BY MOUTH ONCE DAILY WITH FOOD Oral; Duration: 30 DaysNot-Taking Social History Tobacco Use: Social History Observation Description Date Details (start date - stop date) Never Smoker NA - NA Tobacco Use/Smoking Question Answer Notes Patient is a nonsmoker Plan Of Treatment No Information Insurance Providers Payer Name Payer Address Payer Phone Subscriber Number Group Number Insured Name Patient Relationship to Insured Coverage Start Date Coverage End Date [facility] [employer] [address] [place] [address] [id number] Stefan Osheaelf - patient is the insuredMEDICAID [address] OFFICE OF [place], [place] [id number], Beth Self - patient is the [id number] 2018 Medical (General) History Medical History History ICD Code OM (onychomycosis) B35.1 diabetes
--- OUTSIDE RECORDS SUMMARY | 2025-04-21 10:38 | XMS_ITS | Clinical Summary ---
Author Organization [facility] Healthcare Address [address] [facility] [place] [address] Care Team Providers Care Ballistic Technician Name Role Phone Carlos Owens MD Primary Care Provider [phone] Sterling Kumar MD Unavailable [phone] Allergies Active AllergyReactionsCriticalityNoted CacaCoolptdlBabiiyisjgyqioff01/05/2019 Other Reaction(s): rash, itchy Ovybbuufbwag09/15/2024 Other Reaction(s): Fatigued Medications MedicationSigDispense QuantityRefillsLast FilledStart DateEnd DateStatus Multiple Vitamin (MULTIVITAMINS PO) Take 1 tablet by mouth 1 (one) time each day at the same timeActive acetaminophen (Tylenol) 325 MG tablet Take 1 tablet by mouth every 4 (four) hours if needed for mild painActive omega-3 (Fish Oil) 1200 MG capsule Take 1 capsule by mouth every 12 (twelve) hoursActive Zoloft 100 MG tablet Take 2 tablets by mouth 1 (one) time each day at the same timeActive traZODone (Desyrel) 100 MG tablet Take 2 tablets by mouth at orecpst03/19/2023Active metFORMIN (Glucophage) 500 MG tablet Indications:Type 2 diabetes mellitus with diabetic cataract (HCC)TAKE 1 TABLET BY MOUTH TWICE A DAY WITH A MEAL 200 tablet 5Active gemfibrozil (Lopid) 600 MG tablet Indications:Mixed hyperlipidemiaTAKE 1 TABLET BY MOUTH TWICE A DAY 200 tablet 5Active diclofenac sodium (Voltaren Arthritis Pain) 1 % gel Indications:Primary osteoarthritis of left kneeApply 4 g topically 4 (four) times a day as needed for pain 50 g 5Active pantoprazole (ProtoNix) 40 MG EC tablet Indications:GERD without esophagitisTAKE 1 TABLET BY MOUTH EVERY DAY 90 tablet 5Active ARIPiprazole (Abilify) 20 MG tablet 5Active venlafaxine XR (Effexor XR) 150 MG 24 hr capsule Take 150 mg by mouth Daily5Active venlafaxine XR (Effexor XR) 37.5 MG 24 hr capsule 03/28/2025tive Abilify 30 MG tablet Take 1 tablet by mouth 1 (one) time each day at the same time04/04/2025 Discontinued(Therapy completed) venlafaxine XR (Effexor XR) 75 MG 24 hr capsule 5106/04/2024Discontinued(Therapy completed)Hospital, Clinic, or Other Facility Administered MedicationOrdered DoseRouteFrequencyStart DateEnd Date Status betamethasone acetate-betamethasone sodium phosphate (Celestone) injection 12 mg Indications:Impingement syndrome of left shoulder,Adhesive capsulitis of left mgIXOnce PRN Tfjprjszc12/04/83064506/04/2024Ended Active Problems ProblemNoted DateDiagnosed DatePrimary osteoarthritis of both hips09/21/2024Type 2 diabetes mellitus with other specified clpuqozzvdkv74/10/2025Type 2 diabetes mellitus with diabetic peripheral angiopathy without sgpguylt30/10/2025enign paroxysmal hubfspd4610/19/2023bnormal cardiovascular stress test03/18/2023nemia 03/18/2023therosclerosis of tunica-biloxi arteries of extremities with rest pain, bilateral legs03/18/2023ataract of both eyes03/18/2023iabetic cataract, associated with type 2 diabetes gcufcukl85/18/2023 Assessment & Plan (10/06/2023 1:32 PM EDT): No Tobacco use Follow ADA 1800 diet low carbohydrate Continue Med Compliance Goal LDL less than 100Goal BP 130/80 Goal HgbA1c < 7.0% Monitor Feet, monitor for infection Needs Exercise Yearly eye exams Prior to your visit today we reviewed your chart and outlined testing and treatment needed foryour care. Reviewed poissble complications of diabetes including, loss of vision, kidney failure and increased risk of heart attacks and stroke. We made recommendations on how to control your blood sugars, and minimize your risk of these complications. We discussed your current barriers to a healthy living and importance of healthy diet and exercise. Diabetic peripheral nmcnijtjxs23/18/2023Fatty liver03/18/2023astritis without alyduooc76/18/2023ERD without qdqieltjlsj00/18/2023Heart ufxeaxs3203/18/2023 Peripheral vascular jiylefb5803/18/20238160Jhwxjlssgk67/18/2219Oppzcwvbr51/18/2023 History of apbphncoypdz69/18/4171Vkrhilip16/18/2023Irritable bowel syndrome 03/18/2023Lumbar degenerative disc cgrzwch0003/18/2023Meralgia paresthetica 03/18/2023Mixed ovxglluhgsjusf68/18/2023Moderate episode of recurrent major depressive ufyfrcmr22/18/2023Morbid (severe) obesity due to excess calories 03/18/2023 Assessment & Plan (10/06/2023 1:33 PM EDT): Weight loss encouraged Multinodular rxhgcw7003/18/20230059Gkwmnkg82/18/9392Untdco65/18/2023MI 37.0-37.9, adult03/18/2023bnormal ECG03/18/2023Obstructive pattern present on pulmonary function fodnmgv8303/18/2023Obstructive sleep apnea03/18/2023Open-angle glaucoma of both eyes, mild stage03/18/2023Osteoarthritis of lumbar spine03/18/2023 Cervical fagpnwfezon91/18/2023Other chronic pain03/18/2023aresthesia of skin 03/18/2023eripheral /18/6009Sirkpeeipn26/18/2023Thyroid nodule 03/18/2023Mitral ikgttsqdamlpc49/18/2023Tricuspid jbngakgykzjdv16/18/2023Venous (peripheral) xkktznerjpqzg00/18/2023Verruca ublosjcp67/18/2023Vitamin D yvllwkjyjf14/18/2023uctal hyperplasia of jtwpqw4609/16/2012Osteoarthritis of ankle, right01/28/2012Peripheral edema01/28/2012 Resolved Problems ProblemNoted DateDiagnosed DateResolved DateAcute pain of right knee10/06/2023 07/11/2024 Assessment & Plan (10/06/2023 1:35 PM EDT): Sees Dr. Shankar Cholecystitis without ruvhkvgidxcnbq72enign essential otdaopgwzbjt60Sciatica of right sideSevere episode of recurrent major depressive disorder, without psychotic features /10/2023Type 2 diabetes mellitus without zslqxyfrwcuje67/18/2023 07/07/2023nkle pain, right Encounters DateTypeDepartmentCare AtuiVuldfotlfkb87/17/2025Telephone [facility] [place] [facility] [address] [facility] [address] [place] [address] Magda Harkins, PT re: fu, per Dr. Higginbotham; 04/04/25; FU x2; FU x3 (Final attempt to check status post fu; unable to contact per 3 attempts.)04/04/2025 1:00 PM ESTOffice Visit [facility] [address] [place] [phone] Grey Nj PA Impingement syndrome of left shoulder (Primary Dx); Adhesive capsulitis of left bikhzgwi44/04/2025amb flowsheet [facility] [address] [place] [phone] Grey Nj PA 04/04/20254553Whhgmk72/03/9698Izofqy16/30/2025 2:30 PM EDTTreatment [facility] [place] [facility] [address] [facility] [address] [place] [address] Dena Turpin PTA Impingement syndrome of left shoulder (Primary Dx); Left shoulder pain, unspecified chronicity; Adhesive capsulitis of left oupzdqjj69/30/2025amboo flowsheet [facility] [place] [facility] [address] [facility] [address] [place] [address] Gezo, Dena, FILLING LAYER UP 03/30/20254139Gsrmje65/29/3684Gfjtww29/28/2025 2:30 PM EDTTreatment [facility] [place] [facility] [address] [place] [address] [place] [address] Gezo, Dena, FILLING LAYER UP Impingement syndrome of left shoulder (Primary Dx); Left shoulder pain, unspecified chronicity; Adhesive capsulitis of left gtqnnpfy17/28/2025amboo flowsheet [facility] [place] [facility] [address] [facility] [address] [place] [address] Gezo, Dena, FILLING LAYER UP 03/28/20258176Ixsnaj35/23/2025 2:30 PM EDTTreatment [facility] [place] [facility] [address] [facility] [address] [place] [address] Kelbley, Maria D, FILLING LAYER UP Impingement syndrome of left shoulder (Primary Dx); Left shoulder pain, unspecified chronicity; Adhesive capsulitis of left /23/2025amboo flowsheet [facility] [place] [facility] [address] [facility] [address] [place] [address] Kelbley, Maria D, FILLING LAYER UP 03/23/20251521Wskfkd65/22/8733Jhkhtq88/21/2025 2:30 PM EDTTreatment [facility] [place] [facility] [address] [facility] [address] [place] [address] Kelbley, Maria D, FILLING LAYER UP Impingement syndrome of left shoulder (Primary Dx); Left shoulder pain, unspecified chronicity; Adhesive capsulitis of left nbylmorl16/21/2025amboo flowsheet [facility] [place] [facility] [address] [facility] [address] [place] [address] Kelbley, Maria D, FILLING LAYER UP 03/21/20253480Dvuhpc64/16/2025 2:00 PM EDTTreatment [facility] [place] [facility] [address] [facility] [address] [place] [address] Kelbley, Maria D, FILLING LAYER UP Impingement syndrome of left shoulder (Primary Dx); Left shoulder pain, unspecified chronicity; Adhesive capsulitis of left zfwoxzfo47/16/2025amboo flowsheet [facility] [place] [facility] [address] [place] [address] [place] [address] Maria D Villatoro, FILLING LAYER UP 03/16/20255805Jfejzx80/15/2025Refill [facility] [place] [facility] [address] [place] [address] [place] [address] Moriah Guzman PA GERD without ureqaoqwiko93/14/2025 2:30 PM EDTTreatment [facility] [place] [facility] [address] [facility] [address] [place] [address] Magda Harkins, PT Impingement syndrome of left shoulder (Primary Dx); Left shoulder pain, unspecified chronicity; Adhesive capsulitis of left ebhceavf10/14/2025amb flowsheet [facility] [place] [facility] [address] [facility] [address] [place] [address] Magda Harkins, PT 03/14/20250824Zezyav24/07/2025 12:30 PM EDTTreatment [facility] [place] [facility] [address] [facility] [address] [place] [address] Johnnyjessica Maria D, FILLING LAYER UP Impingement syndrome of left shoulder (Primary Dx); Left shoulder pain, unspecified chronicity; Adhesive capsulitis of left nqmwodqa44/07/2025amb flowsheet [facility] [place] [facility] [address] [facility] [address] [place] [address] Maria D Villatoro, FILLING LAYER UP 03/07/20258541Llfqmy12/04/8258Plrfwa06/01/2025Plan of Care Documentation [facility] [place] [facility] [address] [place] [address] [place] [address] 02/28/2025 2:30 PM EDTEvaluation [facility] [place] [facility] [address] [facility] [address] [place] [address] Magda Harkins, PT Left shoulder pain, unspecified chronicity (Primary Dx); Impingement syndrome of left shoulder; Adhesive capsulitis of left tpumkevw85/30/2025amb flowsheet [facility] [place] [facility] [address] [facility] [address] [place] [address] Magda Harkins, PT 02/28/20258109Anbujh86/29/2838Ubilvn66/26/2025 2:30 PM EDTOffice Visit [facility] [address] [facility] [place] [phone] Grey Nj PA Impingement syndrome of left shoulder (Primary Dx); Left shoulder pain, unspecified chronicity; Adhesive capsulitis of left /26/2025 11:25 AM EDTAncillary Procedure [facility] [address] [facility] [place] [address] 02/24/20254712Bssysj74/25/2025Telephone [facility] [place] [facility] [address] [facility] [address] [place] [address] Carlos Owens MD 02/23/2025bstract [facility] [place] [facility] [address] [facility] [address] [place] [address] Carlos Owens MD 02/23/20250362Sscezf47/25/2025linisync Result Encounter N[facility] External Department Unsolicited Moriah Guzman PA 02/23/2025Results Follow-Up [facility] [place] [facility] [place] [address] [facility] [address] [place] [address] Moriah Guzman PA CBC and differential, Comprehensive metabolic panel, Lipid panel, Additional followed-up results: 2:30 PM EDTOffice Visit [facility] [place] [facility] [address] [facility] [address] [place] [address] Moriah Guzman PA Acute pain of left knee (Primary Dx); Frequency of urination; Primary osteoarthritis of left knee02/21/2025amb [facility]sheet [facility] [address] [facility] [address] [place] [address] Moriah Guzman PA 02/21/20259738Ervegs73/18/2025Travelfrom Last 3 Months Immunizations ImmunizationAdministration DatesNext DueInfluenza, High-dose Seasonal, Quadrivalent, Preservative Free02/22/2020Influenza, injectable, quadrivalent, preservative free03/24/2023,02/26/2021,03/22/2015Influenza, seasonal, injectable, preservative free04/04/2024Influenza, seasonal, intradermal, preservative free03/16/2018,04/30/2016 Family History Medical HistoryRelationNameCommentsHeart diseaseFatherTomHeart failureFatherTom HypertensionFatherTomDiabetesMotherDorothyHeart diseaseMotherDorothyHeart failureMotherDorothyHypertensionMotherDorothyPsoriasisMotherDorothyThyroid diseaseMotherDorothyArthritisSister 2KimsistetDepressionSister 2KimsistetMental illnessSister 2KimsistetDepressionSister 3KimMental illnessSister 3KimArthritis Sister 4KimDepressionSister 4KimMental illnessSister 4KimMelanomaNeg HxRelation NameStatusCommentsBrother1 brotherDaughter1 daughterFatherTomDeceasedMother DorothyDeceasedOtherboyfriend 11/2019Sister 13 sisterSister 2 KimsistetAliveSister 3KimAliveSister 4KimAlive Social History Tobacco UseTypesPacks/DayYears UsedDateSmoking Tobacco: NeverSmokeless Tobacco: Never Tobacco Cessation:Counseling Given: Not Answered Alcohol UseStandard Drinks/WeekCommentsNot Currently0 (1 standard drink = 0.6 oz pure alcohol)Caffeine intake : 1-2 cups per tjuQ3804 Health LiteracyAnswerDate RecordedHow often do you need to have [...] times a week04/01/2024How often do you attend nondenominational or catholic services?Patient bhkjriqz54/01/2024o you belong to any clubs or organizations such as nondenominational groups, unions, fraternal or athletic lynn ups, or school groups?Yes04/01/2024How often do you attend meetings of the clubs or organizations you belong to?More than 4 times per year04/01/2024re you , , , , never , or living with a partner? Dhrvkqox15/01/2024UDIT-CAnswerDate RecordedQ1: How often do you have a [...] at all04/01/2024HQ-2AnswerDate RecordedPatient Health Questionnaire-2 Score0 02/21/2025[facility] [place] [facility] Occup[facility] - Occupational Stress QuestionnaireAnswerDate [...] you engage in exercise at this level?Patient cdrakavv81/01/2024Hunger Vital SignAnswerDate RecordedWithin the past 12 months, [...] were you homeless or living in a long term (including now)?No04/01/2024Comments UnknownSex and Gender InformationValueDate RecordedSex Assigned at BirthNot on fileLegal OwxPfwhsv32/15/2023 7:17 PM EDTGender IdentityNot on fileSexual OrientationNot on file Last Filed Vital Signs Vital SignReadingTime TakenCommentsBlood Ksyjaamm053/8409 2:42 PM EDT Npeeh642402/21/2025 2:42 PM EDTTemperature--Respiratory Lmod757002/21/2025 2:42 PM EDTOxygen Tgfpyzbvff98%02/21/2025 2:42 PM EDTInhaled Oxygen Concentration-- Ggyimb67.5 kg (215 lb)04/04/2025 12:52 PM VBAJkbrtn467 cm (5' 3 )04/04/2025 12:52 PM ESTBody Mass Index38.0904/04/2025 12:52 PM EST Plan of Treatment DateTypeDepartmentCare Team (Latest Contact Info)Zaupgjrfypi77/16/2025 1:30 PM ESTOffice Visit N[facility] [address] [place] [address] Grey Nj PA [address] [place] [place] [address] Health MaintenanceDue DateLast DoneCommentsCT Mzuhdtybddas1960FIT-DNA 1960FIT1960FOBT1960 3551Wfiyvlaqfssdq1962Pneumococcal Vaccine: Pediatrics (0 to 5 Years) and At-Risk Patients (6 to 64 Years) (1 of 2 - PCV)05/03/19817228Vxzebflqk87/18/202307/, 10/15/2018, 10/15/2018, Additional history focvjvXfvklmmpwlz43/28/202407/Colorectal Cancer Hwcrnjkwl75/28/2024iabetes: Hemoglobin A1C/, 04/04/2024, 10/06/2023, Additional history existsCOVID-19 Vaccine ( season) /, 09/04/2020, 08/13/2020Influenza Vaccine (#1)2025 04/04/2024, 03/24/2023, 02/26/2021, Additional history existsDiabetes: Retinopathy Doekmoolz59/, 05/01/2021, 01/25/2019, Additional history existsMedicare Annual Wellness (AWV)/03/2025, 07/07/2023, 11/26/2020, Additional history existsDiabetes: Urine Protein Jyztyjkdq10/13/2026 10/11/2024, 03/24/2023, 02/26/2021, Additional history exists Procedures Procedure NamePriorityDate/TimeAssociated DiagnosisCommentsPR ARTHROCENTESIS ASPIR&/INJ MAJOR JT/BURSA W/TEVzvqzdv62/04/2025 1:13 PM EST Impingement syndrome of left shoulder Adhesive capsulitis of left shoulder CA ARTHROCENTESIS ASPIR&/INJ MAJOR JT/BURSA W/O MHGezrvzr02/26/2025 2:22 PM EDT Impingement syndrome of left shoulder XR SHOULDER 2+ VIEWS ZGWTHquoyho61/26/2025 11:21 AM EDT Left shoulder pain, unspecified chronicity XR KNEE 4+ VIEWS LEFT02/23/2025 2:53 PM EDT T4, GJJGHtbcscy46/23/2025 3:05 PM EDT TSH W/REFLEX TO FM8Cwsvhau46/23/2025 3:05 PM EDT Thyroid nodule LIPID JDQELVqsjqnk68/23/2025 3:05 PM EDT Benign essential hypertension Fatty liver Mixed hyperlipidemia COMPREHENSIVE METABOLIC DMBYBQezurtf06/23/2025 3:05 PM EDT Benign essential hypertension Fatty liver Mixed hyperlipidemia CBC (INCLUDES DIFF/PLT)Ukiviex8902/21/2025 3:05 PM EDT Benign essential hypertension Anemia, unspecified type Mixed hyperlipidemia POCT URINALYSIS RAHUVXERNywgfhu16/23/2025 2:52 PM EDT Frequency of urination POCT GLYCATED HEMOGLOBIN, JUZQTWcsftgt38/13/2025 2:34 PM EDT Diabetic peripheral neuropathy (HCC) MICROALBUMIN / CREATININE URINE IUMKZAvoiged47/13/2025 2:20 PM EDT DIABETIC RETINOPATHY SCREENING - OU - BOTH BOPOYgwghpw74/22/2023 BI MAMMOGRAM SCREENING TOMOSYNTHESIS MWWTGOUUHKltrija73/18/2022 XRZMAFKMPCKVucrquh88/28/2014 from Last 3 Months or Most Recently Relevant to Health Maintenance Results * CA ARTHROCENTESIS ASPIR&/INJ MAJOR JT/BURSA W/US (04/04/2025 1:13 PM EST) Mackenzie Barajas MA - 04/04/2025 1:13 PM EST Mackenzie Sanchez MA 04/04/2025 1:53 PM L Inj/Asp: L subacromial bursa on 04/04/2025 1:13 PM Indications: pain Details: 25 G needle, ultrasound-guided anterolateral approach Medications: 12 mg betamethasone acetate-betamethasone sodium phosphate 6 (3-3) MG/ML Procedure, treatment alternatives, risks and benefits explained, specific risks discussed. Consent was given by the patient. Immediately prior to procedure a time out was called to verify the correct patient, procedure, equipment, technical support 1 software engineer and site/side marked as required. Patient was prepped and draped in the usual sterile fashion. Authorizing ProviderResult TypeAddison Gilbert Hospitallemuel [facility] PAIN CLINIC/BEDSIDE ORDERABLESFinal Result * CA ARTHROCENTESIS ASPIR&/INJ MAJOR JT/BURSA W/O US (02/24/2025 2:22 PM EDT) Mackenzie Barajas MA - 02/24/2025 2:22 PM EDT Mackenzie Sanchez MA 02/24/2025 3:14 PM L Inj/Asp: L subacromial bursa on 02/24/2025 2:22 PM Indications: pain Details: 25 G needle Medications: 6 mg betamethasone acetate-betamethasone sodium phosphate 6 (3-3) MG/ML Procedure, treatment alternatives, risks and benefits explained, specific risks discussed. Consent was given by the patient. Immediately prior to procedure a time out was called to verify the correct patient, procedure, equipment, technical support 1 software engineer and site/side marked as required. Patient was prepped and draped in the usual sterile fashion. Authorizing ProviderResult TypeKayenta Health Centerult [facility] Regional Medical CenterGrey López [place] PAIN CLINIC/BEDSIDE ORDERABLESFinal Result * XR shoulder 2+ views left (02/24/2025 11:21 AM EDT)Anatomical RegionLaterality ModalityUpper Extremities, ShoulderLeftRadiographic ImagingSpecimen (Source) Anatomical Location / LateralityCollection Method / VolumeCollection Time Received Time Narrative 02/24/2025 3:11 PM EDT Imaging Result: ??AP Grashey and scapular Y-view of the left shoulder demonstrates prior rotator cuff repair with anchor cystic changes but glenohumeral joint appears fairly well-preserved no proximal ??migration and previous subacromial decompression and distal clavicle resection noted. ??No evidence of fracture dislocation seen. Authorizing ProviderResult TypeAddison Gilbert Hospitallemuel López [place] PAIMG XR PROCEDURES Final Result * XR knee 4+ views left (02/23/2025 2:53 PM EDT)Anatomical RegionLaterality ModalityLower Extremities, KneeLeftRadiographic ImagingSpecimen (Source) Anatomical Location / LateralityCollection Method / VolumeCollection Time Received Time02/23/2025 2:53 PM EDT Narrative 02/23/2025 2:56 PM EDT [facility] ?[address] ? [place] [address] ?XRay Report ? Signed ? Patient: MARÍA OSHEA A ?MR#: [id number] ?? : 1960 ?Acct:[id number] ?? Age/Sex: 64 / F ?ADM Date: 02/23/25 ?? Loc: RAD ? Attending Dr: MORIAH GUZMAN ? Ordering Physician: MORIAH GUZMAN ?? Date of Service: 02/23/25 ?? Procedure(s): XR knee LT 4V ?? Accession Number(s): [id number] ? cc: MORIAH GUZMAN ? [facility] ? [address] [facility] ? [place] [address] ? Patient Name: ?? MARÍA OSHEA ? MRN: [facility]:[id number] ? date: 1960 ?Sex: F ?? Assigned Patient Location: RAD ?? Current Patient Location: RAD ?? Accession/Order Number: [id number] ?? Exam Date: 02/23/2025 ??13:58 ?Report Date: 02/23/2025 ??14:53 ? At the request of: ?? MORIAH GUZMAN ? Procedure: ??XR knee LT 4V ? LEFT KNEE - ??4 views ? CLINICAL HISTORY: Left knee pain for one month. ? COMPARISON: None ? FINDINGS: ? Mild degenerative changes involving the left knee without acute bony process ?? or joint effusion. ? XR/XR knee LT 4V ?? IMPRESSION: ? MILD DEGENERATIVE CHANGES INVOLVING THE LEFT KNEE WITHOUT ACUTE PROCESS. ? Impression dictated by: Jesse Martínez Jr., D.O. ??02/23/2025 2:53 PM ? Dictation Location: RADIO-PC-23 ? Electronically authenticated by: [id number] ??Y ?? Date: 02/23/2025 ??14:53 ? Dictated By: ?Jesse Martínez M.D. ? Signed By: ?02/23/25 1456 ? DD/ 52 ? TD/TT: ? Licensed Mortician: Procedure Note Radiology, Radiologist, MD - 09/25/2025 The [place] [id number] XRay Report Signed Patient: MARÍA OSHEA AMR#: [id number] : 1960cct:[id number] Age/Sex: 64 / FADM Date: 02/23/25 Loc: RAD Attending Dr: MORIAH GUZMAN Ordering Physician: MORIAH GUZMAN Date of Service: 02/23/25 Procedure(s): XR knee LT 4V Accession Number(s): [id number] cc: MORIAH GUZMAN [place] [id number] Patient Name: MARÍA OSHEA MRN: [facility]:[id number] date: 1960 Sex: F Assigned Patient Location: [facility] Current Patient Location: [facility] Accession/Order Number: [id number] Exam Date: 02/23/2025 13:58 Report Date: 02/23/2025 14:53 At the request of: MORIAH GUZMAN Procedure: XR knee LT 4V LEFT KNEE - 4 views CLINICAL HISTORY: Left knee pain for one month. COMPARISON: None FINDINGS: Mild degenerative changes involving the left knee without acute bonyprocess or joint effusion. XR/XR knee LT 4V IMPRESSION: MILD DEGENERATIVE CHANGES INVOLVING THE LEFT KNEE WITHOUT ACUTE PROCESS. Impression dictated by: Jesse Martínez Jr. DChrisOChris 02/23/2025 2:53 PM Dictation Location: [place] [address] Electronically authenticated by: [id number] Y Date: 4:53 Dictated By: Jesse Martínez M.D. Signed By:02/23/25 145 DD/ 52 TD/TT: Licensed Mortician: Authorizing ProviderResult TypeResult StatusMoriah Guzman PAIMG XR PROCEDURES Final Result * (ABNORMAL) TSH W/REFLEX TO FT4 (02/21/2025 3:05 PM EDT)ComponentValueRef Range Test MethodAnalysis TimePerformed AtPathologist SignatureTSH W/REFLEX TO FT4 0.19(L)0.40 - 4.50 mIU/LQUESTSpecimen (Source)Anatomical Location / Laterality Collection Method / VolumeCollection TimeReceived Time02/21/2025 3:05 PM EDT 02/21/2025 3:06 PM EDT Narrative [facility] - 02/22/2025 12:53 PM EDT FASTING:YES FASTING: YES Resulting Agency Comment Performing Organization Information ?Site ID: [id number] ?Name: [facility] ?Address: [address] [place] [address], [address] [place] [address] ?Director: Bill Lucero MD Authorizing ProviderResult TypeResult StatusMoriah Guzman [facility] BLOOD ORDERABLESFinal ResultPerforming OrganizationAddressCity/State/ZIP CodePhone Number [facility] * CBC and differential (02/21/2025 3:05 PM EDT)ComponentValueRef RangeTest MethodAnalysis TimePerformed AtPathologist SignatureWHITE BLOOD CELL COUNT5.7 3.8 - 10.8 Thousand/uLQUESTRED BLOOD CELL COUNT4.463.80 - 5.10 Million/uLQUEST FVBQGRMSVO26.611.7 - 15.5 g/lUPWZXRRAXNKNUTKE48.435.0 - 45.0 %SDUAKLXL73.180.0 - 100.0 mYWQXTEREG24.327.0 - 33.0 kyCYZXXDATH39.832.0 - 36.0 g/dLQUESTComment: For adults, a slight decrease in the calculated MCHC value (in the range of 30 to 32 g/dL) is most likely not clinically significant; however, it should be interpreted with caution in correlation with other red cell parameters and the patient's clinical condition. RDW13.311.0 - 15.0 %QUESTPLATELET IBJDJ488798 - 400 Thousand/hQAXHUTPNV11.47.5 - 12.5 fLQUESTABSOLUTE NEUTROPHILS3,5631,500 - 7,800 cells/uLQUESTABSOLUTE LYMPHOCYTES1,578199 - 3,900 cells/uLQUESTABSOLUTE QMVVKFOED248293 - 950 cells/uL QUESTABSOLUTE LBRWDAKXJOI4010 - 500 cells/uLQUESTABSOLUTE UQKRKOOLV860 - 200 cells/eVQZOOOGCLAVQPDPQR93.5%EXNKZPQJVLYKVSPA24.2%QUESTMONOCYTES7.7%QUEST EOSINOPHILS1.1%QUESTBASOPHILS0.5%QUESTSpecimen (Source)Anatomical Location / LateralityCollection Method / VolumeCollection TimeReceived TimeBloodVenous blood specimen / Umekgxq6102/21/2025 3:05 PM EDT02/21/2025 3:06 PM EDT Narrative [facility] - 02/22/2025 12:53 PM EDT FASTING:YES FASTING: YES Resulting Agency Comment Performing Organization Information ?Site ID: QPT ?Name: [facility] ?Address: [address] [place] [address] ?Director: Bill Lucero MD Authorizing ProviderResult TypeResult StatusMoriah [facility] BLOOD ORDERABLESFinal ResultPerforming OrganizationAddressty/[facility] ScrevenPhone Number QUEST * T4, free (02/21/2025 3:05 PM EDT)ComponentValueRef RangeTest MethodAnalysis TimePerformed AtPathologist SignatureT4, FREE1.30.8 - 1.8 ng/dLQUESTSpecimen (Source)Anatomical Location / LateralityCollection Method / VolumeCollection TimeReceived Time02/21/2025 3:05 PM EDT02/21/2025 3:06 PM EDT Narrative [facility] - 02/22/2025 12:53 PM EDT FASTING:YES FASTING: YES Resulting Agency Comment Performing Organization Information ?Site ID: QPT ?Name: [facility] ?Address: [address] [place] [address], [address] [place] [address] ?Director: Bill Lucero MD Authorizing ProviderResult TypeResult StatusMoriah [facility]son [facility] BLOOD ORDERABLESFinal ResultPerforming OrganizationAddWell[facility] ScrevenPhone Number QUEST * (ABNORMAL) Lipid panel (02/21/2025 3:05 PM EDT)ComponentValueRef RangeTest MethodAnalysis TimePerformed AtPathologist SignatureCHOLESTEROL, LZEUD046<200 mg/dLQUESTHDL OXRDSEBRRHK73(L)> OR = 50 mg/iBFWEHZLMMPYRDQSEDOE694<150 mg/dL QUESTLDL RTGXCBAKQLE159(H)mg/dL (calc)QUESTComment: Reference range: <100 Desirable range <100 mg/dL for primary prevention; <70 mg/dL for patients with CHD or diabetic patients with > or = 2 CHD risk factors. LDL-C is now calculated using the Godwin calculation, which is a validated novel method providing better accuracy than the Friedewald equation in the estimation of LDL-C. Elmer SS et al. ALBERT. 2013;310(19): 6905-1663 (http://education.DocSpera/faq/SGB367) CHOL/HDLC RATIO4.2<5.0 (calc)QUESTNON HDL MGWYHQKGDSQ848(H)<130 mg/dL (calc) QUESTComment: For patients with diabetes plus 1 major ASCVD risk factor, treating to a non-HDL-C goal of <100 mg/dL (LDL-C of <70 mg/dL) is considered a therapeutic option. Specimen (Source)Anatomical Location / LateralityCollection Method / Volume Collection TimeReceived TimeBloodVenous blood specimen / Yauewtc8602/21/2025 3:05 PM EDT02/21/2025 3:06 PM EDT Narrative [facility] - 02/22/2025 12:53 PM EDT FASTING:YES FASTING: YES Resulting Agency Comment Performing Organization Information ?Site ID: QPT ?Name: [facility] ?Address: [address] [place] [id number] ?Director: Bill Lucero MD Authorizing ProviderResult TypeResult StatusMoriah Guzman [facility] BLOOD ORDERABLESFinal ResultPerforming OrganizationAddressCity/State/ZIP CodePhone Number QUEST * (ABNORMAL) Comprehensive metabolic panel (02/21/2025 3:05 PM EDT)Component ValueRef RangeTest MethodAnalysis TimePerformed AtPathologist SignatureGlucose 126(H)65 - 99 mg/dLQUESTComment: ? Fasting reference interval For someone without known diabetes, a glucose value >125 mg/dL indicates that they may have diabetes and this should be confirmed with a follow-up test. KWC665 - 25 mg/dLQUESTCreatinine0.880.50 - 1.05 mg/sDXTQTKUHHX63> OR = 60 mL/min/1.09c9SUEWEUUO/CREATININE RATIOSEE NOTE: (calc)QUESTComment: ?? Not Reported: BUN and Creatinine are within ?? reference range. ? Vynpce533774 - 146 mmol/LQUESTPotassium, Bld4.13.5 - 5.3 mmol/YBNMJUFqzisguk428 98 - 110 mmol/LQUESTCarbon Rklmmre4470 - 32 mmol/LQUESTCalcium9.18.6 - 10.4 mg/dLQUESTPROTEIN, TOTAL7.46.1 - 8.1 g/dLQUESTALBUMIN4.43.6 - 5.1 g/dLQUEST GLOBULIN3.01.9 - 3.7 g/dL (calc)QUESTALBUMIN/GLOBULIN RATIO1.51.0 - 2.5 (calc) QUESTBILIRUBIN, TOTAL0.40.2 - 1.2 mg/dLQUESTALKALINE BWRDLHXFROU3350 - 153 U/L VWQFLZWH1191 - 35 U/FBXXJFGNB501 - 29 U/LQUESTSpecimen (Source)Anatomical Location / LateralityCollection Method / VolumeCollection TimeReceived TimeBlood Venous blood specimen / Vooiuqf3702/21/2025 3:05 PM EDT02/21/2025 3:06 PM EDT Narrative [facility] - 02/22/2025 12:53 PM EDT FASTING:YES FASTING: YES Resulting Agency Comment Performing Organization Information ?Site ID: QPT ?Name: [facility] ?Address: [address] [place] [address], [address] [place] [id number] ?Director: Bill Lucero MD Authorizing ProviderResult TypeResult StatusMoriah Guzman PAL[facility] BLOOD ORDERABLESFinal ResultPerforming OrganizationAddressCity/State/ZIP CodePhone Number QUEST * POCT Urinalysis dipstick (02/21/2025 2:52 PM EDT)ComponentValueRef RangeTest MethodAnalysis TimePerformed AtPathologist SignatureColor, UAStrawClarity, UA ClearGlucose, UANegativeNegative - 2000(110) ++++ mg/dLBilirubin, UANegative Negative - 4(70) +++ mg/dLKetones, UANegativeNegative - 160(16) ++++ mg/dLSpec Grav, UA1.0201 - 1.03Blood, UANegativeNegative - 50 Yifan/mcLpH, UA5.05 - 9 Protein, UANegativeNegative - 2000(20) ++++ mg/dLUrobilinogen, UA1.00.2 - 12 mg/dLLeukocytes, UANegativeNegative - 500+++ Blake/mcLNitrite, UANegative Negative - PositiveSpecimen (Source)Anatomical Location / LateralityCollection Method / VolumeCollection TimeReceived UxlrUigqs52/23/2025 2:52 PM EDT Narrative Authorizing ProviderResult TypeResult StatusMoriah Guzman PAPOINT OF CARE TEST ENTER/EDIT ORDERABLESFinal Result * (ABNORMAL) POCT Glycated hemoglobin, total (10/11/2024 2:34 PM EDT)Component ValueRef RangeTest MethodAnalysis TimePerformed AtPathologist Signature Hemoglobin A1C6.5Specimen (Source)Anatomical Location / LateralityCollection Method / VolumeCollection TimeReceived IhqjWdgdd11/13/2025 2:34 PM EDT Narrative Authorizing ProviderResult TypeResult StatusMoriah Guzman PAPOINT OF CARE TEST ENTER/EDIT ORDERABLESFinal Result * Microalbumin / creatinine urine ratio (10/11/2024 2:20 PM EDT)ComponentValue Ref RangeTest MethodAnalysis TimePerformed AtPathologist SignatureCREATININE, RANDOM TZJBM45393 - 275 mg/dLQUESTALBUMIN, URINE0.3See Note: mg/dLQUEST Comment: Reference Range: Reference Range Not established ALBUMIN/CREATININE RATIO, RANDOM URINE2<30 mg/g creatQUESTComment: The ADA defines abnormalities in albumin excretion as follows: Albuminuria Category ?Result (mg/g creatinine) Normal to Mildly increased <30 Moderately increased ? 30-299 Severely increased > OR = 300 The ADA recommends that at least two of three specimens collected within a 3-6 month period be abnormal before considering a patient to be within a diagnostic category. Specimen (Source)Anatomical Location / LateralityCollection Method / Volume Collection TimeReceived Time10/11/2024 2:20 PM EDT05/ 2:20 PM EDT Narrative Resulting Agency Comment Performing Organization Information ?Site ID: QPT ?Name: [facility] ?Address: [address] [place] [address] ?Director: Bill Lucero MD Authorizing ProviderResult TypeResult StatusMoriah Guzman PALAB URINE ORDERABLESFinal ResultPerforming OrganizationAddressCity/State/ZIP CodePhone Number QUEST * Diabetic Retinopathy Screening - OU - Both Eyes (05/22/2023)ComponentValueRef RangeTest MethodAnalysis TimePerformed AtPathologist SignatureRESULTSNDR Anatomical RegionLateralityModalityHeadOtherSpecimen (Source)Anatomical Location / LateralityCollection Method / VolumeCollection TimeReceived Time 05/22/2023 Narrative Authorizing ProviderResult TypeResult StatusMoriah Guzman PAOPHTH PHOTOGRAPHY Final Result * Bilateral screening mammogram with tomosynthesis (12/16/2021)Anatomical Region LateralityModalityBreastBilateralMammographySpecimen (Source)Anatomical Location / LateralityCollection Method / VolumeCollection TimeReceived Time Narrative 12/16/2021 12:00 AM EDT PERFORMED AT [facility] LOCATION:[place] [address] Patient: ? FEDERICO Caputo ? Exam Date: ? 12/16/2021 : ? 1960 ?Gender:F ? Ordering : ? DR CARLOS OWENS M.D. ? Admission #: ? [id number] Family : ?Order #: ? [id number] ? CLICK HERE TO VIEW EXAM RADIOLOGY REPORT PROCEDURE: ? MAMMOGRAM SCREENING 3D BILATERAL CAD COMPARISON: ? MG MAMM SCREEN ARIE W CAD 10/15/2018. ??MG MAMM SCREEN ARIE W CAD 10/09/2017. INDICATIONS: ? Screening mammography Calculator Name ? NCI Breast Cancer Risk Assessment Tool 5 Year Breast Cancer Risk ? 2.00% Lifetime Breast Cancer Risk ? 10.70% Personal Breast Cancer ?No Personal Ovarian Cancer ? No Treatments ? None Family Cancers ? Aunt-maternal with breast cancer at age 50. LOCATION: ? [facility] BREAST COMPOSITION: ? Scattered areas fibroglandular density. FINDINGS: DIAGNOSTIC CATEGORY 2--BENIGN FINDING: RIGHT BREAST: ??No significant suspicious finding. ??Stable chronic benign-appearing nodule within the anterior breast. ??No significant change has occurred. LEFT BREAST: ??No significant suspicious finding. ??No significant change has occurred. RECOMMENDATIONS: ROUTINE MAMMOGRAM AND CLINICAL EVALUATION IN 12 MONTHS. PLEASE NOTE: ??A NORMAL MAMMOGRAM DOES NOT EXCLUDE THE POSSIBILITY OF BREAST CANCER. ??A CLINICALLY SUSPICIOUS PALPABLE LUMP SHOULD BE BIOPSIED. Dictated by: Jarrell Saucedo M.D. on 12/16/2021 at 15:40 Approved by: Jarrell Saucedo M.D. on 12/16/2021 at 15:46 Procedure Note CONVERSION, GENERIC - 12/05/2022 PERFORMED AT [facility] LOCATION:[place] [address] Patient: FEDERICO Caputo Exam Date: 12/16/2021 : 1960 Gender:F Ordering : DR CARLOS OWENS M.D. Admission #: [id number] Family : Order #: [id number] CLICK HERE TO VIEW EXAM RADIOLOGY REPORT [...] breast cancer at age 52. LOCATION: [facility] BREAST COMPOSITION: Scattered areas fibroglandular density. FINDINGS: [...] Jarrell Saucedo M.D. on 12/16/2021 at 15:46 Authorizing ProviderResult TypeResult StatusCarlos Owens MDIMG BI PROCEDURES Final Result * Colonoscopy (12/26/2013)Anatomical RegionLateralityModalityEndoscopySpecimen (Source)Anatomical Location / LateralityCollection Method / VolumeCollection TimeReceived Time12/26/2013 Narrative 12/26/2013 12:00 AM EDT PERFORMED AT [facility] LOCATION:[place] [address] Procedure Note CONVERSION, GENERIC - 10/16/2022 PERFORMED AT [facility] LOCATION:[place] [address] Authorizing ProviderResult TypeResult StatusGeneric Conversion MDENDOSCOPY PROCEDURE ORDERABLESFinal Result from Last 3 Months or Most Recently Relevant to Health Maintenance Insurance Care Teams Team MemberRelationshipSpecialtyStart DateEnd Date Carlos Owens MD [address] [facility] [address] [place] [address] PCP - [facility]10/07/22 Sterling Kumar MD [address] [facility] [address] [place] [address] PCP - [facility]/06/2411
--- OUTSIDE RECORDS SUMMARY | 2025-04-21 10:38 | XMS_ITS | Patient Health Record ---
Author Organization [facility] Address [address] [place] [address] Care Team Providers Care Real Estate Leasing Manager Name Role Phone Dr. Jesse Mathis Primary Care Provider [phone] Reason For Referral No Information Plan Of Treatment No Information Insurance Providers Payer Name Payer Address Payer Phone Subscriber Number Group Number Insured Name Patient Relationship to Insured Coverage Start Date Coverage End Date MEDICARE CGS [address] [place] [phone] [id number] Jeff CABALLERO - patient is the [id number] 2020 MEDICAID SEC TO [facility] [address] [place] [id number], BETHSelf - patient is the [id number] 2020DENTAL MEDICAID [facility] [address] [place] [id number], BETHSelf - patient is the insured 2022
--- OUTSIDE RECORDS SUMMARY | 2025-04-21 10:39 | XMS_ITS | Encounter Summary ---
Author Organization [facility] Address [address] [facility] [place] [address] Care Team Providers Care Linen Room Supervisor Name Role Phone Carlos Trevizo MD Primary Care Provider [phone] Sterling Kumar MD Unavailable [phone] Reason for Visit * ReasonOnset DateCommentsre: fu, per Dr. Higginbotham; 04/04/2511/09/2024FU x204/11/2025 FU x3106/17/2024Final attempt to check status post fu; unable to contact per 3 attempts. Encounter Details DateTypeDepartmentCare Team (Latest Contact Info)Wvyetuuddgs92/17/2025Telephone [facility] [address] [place] [id number] Magda Harkins, PT re: fu, per Dr. Higginbotham; 04/04/25; FU x2; FU x3 (Final attempt to check status post fu; unable to contact per 3 attempts.) Social History Tobacco UseTypesPacks/DayYears UsedDateSmoking Tobacco: NeverSmokeless Tobacco: NeverAlcohol UseStandard Drinks/WeekCommentsNot Currently0 (1 standard drink = 0.6 oz pure alcohol)Caffeine intake : 1-2 cups per bvlU5855 Health Literacy AnswerDate RecordedHow often do you [...] times a week04/01/2024How often do you attend mormonism or jehovah's witness services?Patient gsfxrjea45/01/2024o you belong to any clubs or organizations such as mormonism groups, unions, fraternal or athletic lynn ups, or school groups?Yes04/01/2024How often do you attend meetings of the clubs or organizations you belong to?More than 4 times per year04/01/2024re you , , , , never , or living with a partner? Ueyceysl07/01/2024UDIT-CAnswerDate RecordedQ1: How often do you have a [...] hard at all04/01/2024HQ-2AnswerDate RecordedPatient Health Questionnaire-2 Score0 02/21/2025[facility] - Occupational Stress QuestionnaireAnswerDate [...] you engage in exercise at this level?Patient ufsvcjnc69/01/2024Hunger Vital SignAnswerDate RecordedWithin the past 12 months, you worried that your food would run out before you got the money to buymore.Never true04/01/2024Within the past 12 months, the food you bought just didn't last and you didn't have money to get more.Never true4PRAPARE - TransportationAnswerDate RecordedIn the past 12 months, [...] were you homeless or living in a usp (including now)?No04/01/2024Comments UnknownSex and Gender InformationValueDate RecordedSex Assigned at BirthNot on fileLegal VvxZxpcmw28/15/2023 7:17 PM EDTGender IdentityNot on fileSexual OrientationNot on filedocumented as of this encounter Plan of Treatment DateTypeDepartmentCare Team (Latest Contact Info)Kadgyoplkyc66/16/2025 1:30 PM ESTOffice Visit [facility] [address] [place] [address] [place] [address] [place] [address] documented as of this encounter Visit Diagnoses Not on filedocumented in this encounter Additional Health Concerns AssessmentNoted TimePHQ-9 Depression Total Score: 9:03 PM EST documented as of this encounter Care Teams Team MemberRelationshipSpecialtyStart DateEnd Date Carlos Trevizo MD [address] [facility] [address] [place] [address] PCP - GeneralFamily Medicine10/07/22 Sterling Kumar MD [address] [facility] [address] [place] [address] [facility]1/06/2411documented as of this encounter
--- OUTSIDE RECORDS SUMMARY | 2025-04-21 10:39 | XMS_ITS | Clinical Summary ---
Author Organization [facility] Address [id number] [place] [address] Care Team Providers Care Automated Cutting Machine Operator Name Role Phone Moriah Alvarado Primary Care Provider [phone] Allergies Active AllergyReactionsCriticalityNoted DateComments Sulfamethoxazole-NznwbnjsqqvcIfvuKni01/17/2016 Medications MedicationSigDispense QuantityRefillsLast FilledStart DateEnd DateStatus ferrous sulfate 325 (65 FE) mg tablet Take 1 tablet (325 mg total) by mouth in the morning.Active omega 3-stm-xmw-fish oil 300-1,000 mg capsule Take 1 capsule by mouth in the morning and 1 capsule before bedtime.Active gemfibrozil (LOPID) 600 mg tablet Take 1 tablet (600 mg total) by mouth in the morning and 1 tablet (600 mg total) before bedtime.Active metFORMIN (GLUCOPHAGE) 500 mg tablet Take 1 tablet (500 mg total) by mouth daily with breakfast.Active pantoprazole (PROTONIX) 40 mg EC tablet Take 1 tablet (40 mg total) by mouth in the morning.Active sertraline (ZOLOFT) 100 mg tablet Take 1 tablet (100 mg total) by mouth in the morning. Takes 2 in AM .Active baclofen (LIORESAL) 10 mg tablet Take 1 tablet (10 mg total) by mouth daily as needed.10/08/2023ctive busPIRone (BUSPAR) 10 mg tablet Take 1 tablet (10 mg total) by mouth in the morning and 1 tablet (10 mg total) before bedtime.Active colesevelam (WELCHOL) 625 mg tablet Take 1 tablet (625 mg total) by mouth in the morning and 1 tablet (625 mg total) in the evening. Take with meals.09/14/2023ctive dicyclomine (BENTYL) 20 mg tablet Take 1 tablet (20 mg total) by mouth in the morning and 1 tablet (20 mg total) before bedtime.08/21/2023ctive loperamide (IMODIUM) 2 mg capsule Take 1 capsule (2 mg total) by mouth 4 (four) times a day as needed.09/14/2023 Active traZODone (DESYREL) 100 mg tablet Take 2.5 tablets (250 mg total) by mouth nightly.Active ARIPiprazole (ABILIFY) 30 mg tablet Take 1 tablet (30 mg total) by mouth in the morning.Active multivit-min/folic/vit K/lycop (ONE-A-DAY MEN'S MULTIVITAMIN ORAL) Take 1 tablet by mouth in the morning.Active Active Problems ProblemNoted DateDiagnosed DateBenign paroxysmal vertigoBenign essential hypertensionDM (diabetes mellitus)Hyperlipidemia Family History Medical HistoryRelationNameCommentsHeart diseaseFatherHypertensionFatherNo Known ProblemsMotherRelationNameStatusCommentsFatherMotherAlive Social History Tobacco UseTypesPacks/DayYears UsedDateSmoking Tobacco: NeverSmokeless Tobacco: NeverAlcohol UseStandard Drinks/WeekCommentsNo0 (1 standard drink = 0.6 oz pure alcohol)ChildcareAnswerDate OadpfraoPfjnggofcLpwaerf48/15/2020EmploymentAnswer Date XyaxamonEkidicbtreUrefgvv22/15/2020Purpose - LifeAnswerDate RecordedPurpose and direction in rmdxUdaehwf48/11/2021CommentsNoSex and Gender InformationValueDate RecordedSex Assigned at BirthNot on fileLegal SexFemale 01/04/2015 12:11 PM EDTGender IdentityNot on fileSexual OrientationNot on file Last Filed Vital Signs Vital SignReadingTime TakenCommentsBlood Lfechsyg876/5506/09/2023 2:50 PM EDT Plpcl2991 2:50 PM NWQPhirtwuqqgi46.6 ??C (97.8 ??F)11/04/2023 2:10 PM EDTRespiratory Rdlh494711/04/2023 2:50 PM EDTOxygen Hhsnirucpj66%11/04/2023 2:50 PM EDTInhaled Oxygen Concentration--Xzzdkd01.7 kg (200 lb)11/04/2023 10:46 AM NGNVfpopa115.9 cm (5' 1 )11/04/2023 10:46 AM EDTBody Mass Index37.7911/04/2023 10:46 AM EDT Plan of Treatment Health MaintenanceDue DateLast DoneCommentsDepression Xgmmxtckm77/03/1974 DTaP,Tdap and Td Vaccines (1 - Tdap)1981Zoster (Shingles) Vaccine (1 of 2) 2012dult BMI Rfdnpksfp58/09/2023Tobacco Kdhjrfymq41/05/2025 11/04/2023OVID-19 Vaccine ( season)/, 09/04/2020, 08/13/2020Influenza Ciwapvw68/, 02/26/2021, 02/22/2020, Additional history existsRSV ( or age 60+ yrs) (1 - 1-dose 75+ series) 2037 [employer] Devices Not on file Insurance Care Teams Team MemberRelationshipSpecialtyStart DateEnd Date Moriah Alvarado [place] [facility] - General10/22/17
--- OUTSIDE RECORDS SUMMARY | 2025-04-21 10:39 | XMS_ITS | Clinical Summary ---
Author Organization [facility] Address [address] [place], [place] [address] Care Team Providers Care Research And Development Specialist Name Role Phone Ariel Sharp MD Primary Care Provider [phone] Allergies Active AllergyReactionsCriticalityNoted DateCommentsSulfamethoxazoleHives 09/13/2012 Medications MedicationSigDispense QuantityRefillsLast FilledStart DateEnd DateStatus RAMIPRIL 5 mg capsule 01/22/2012ctive GLYBURIDE 2.5 mg tablet 01/22/2012ctive NYSTOP powder 01/15/2012ctive METRONIDAZOLE 500 mg tablet 01/20/2012ctive CHOLECALCIFEROL, VITAMIN D3, 50,000 unit cap Take 50,000 Units by mouth once each week. For 3 months 12 capsule ctive piroxicam 20 mg capsule Take 1 capsule by mouth once daily. 14 capsule ctive BUPROPION SR 150 mg 12 hr tablet 08/20/2012ctive ERGOCALCIFEROL, VITAMIN D2, 50,000 unit capsule 08/20/2012ctive IBUPROFEN 800 mg tablet 09/07/2012ctive Active Problems ProblemNoted DateDiagnosed DateDuctal hyperplasia of hoeaaa2109/16/2012nkle pain, right01/28/2012Peripheral edema01/28/2012Osteoarthritis of ankle, right 01/28/2012Vitamin D /29/2012 Social History Tobacco UseTypesPacks/DayYears UsedDateSmoking Tobacco: NeverSmokeless Tobacco: NeverAlcohol UseStandard Drinks/WeekCommentsYes0 (1 standard drink = 0.6 oz pure alcohol)CommentsUnknownSex and Gender InformationValueDate RecordedSex Assigned at BirthNot on fileLegal QpyFdyolb48/02/2012 10:17 AM ESTGender IdentityNot on fileSexual OrientationNot on file Last Filed Vital Signs Vital SignReadingTime TakenCommentsBlood Lavixsqn425/8804 10:49 AM EDT Jiuge3860 10:49 AM EDTTemperature--Respiratory Rate--Oxygen Saturation-- Inhaled Oxygen Concentration--Jbtnmt041.6 kg (246 lb)09/13/2012 10:49 AM EDT Ocehtr952 cm (5' 3 )09/13/2012 10:49 AM EDTBody Mass Index43.58009/13/2012 10:49 AM EDT Plan of Treatment Health MaintenanceDue DateLast DoneCommentsAnxiety Dlvozwqhf47/03/1980Depression Pyyyqkxxz81/03/1980HIV Hbqpyhwuw12/03/1980Hepatitis C Alggssfag50/03/1980 DTaP,Tdap,Td Vaccine (1 - Tdap)1981Cervical Cancer Nvbnrjcyo52/03/1983 Mammogram Olunxsjmu41/03/2002CT Cckkzvikzbmp18/03/2007Cologuard (FIT-DNA) 05/03/20071191Dyhqgjgkydl82/03/2007Colorectal Cancer Okeauzipa49/03/2007Diabetes Phxqcqnjg73/03/2007Fecal Occult Blood2007Lipid Qhhuguhgv95/03/2007 Rkdzgfjgcwpcy18/03/2007Pneumococcal Vaccine: 50+ (1 of 1 - PCV)2012 Shingrix Vaccine (1 of 2)2012Covid-19 Vaccine (1 - 2024- season) 2025Influenza Vaccine (#1)2025RSV Vaccine (1 - 1-dose 75+ series) 2037 Insurance Care Teams Team MemberRelationshipSpecialtyStart DateEnd Date Ariel Sharp MD [facility] - [facility]01/12/12
--- OUTSIDE RECORDS SUMMARY | 2025-04-21 10:45 | XMS_ITS | CCD ---
Author Organization [facility] Care Team Providers Care Bull Driver Name Role Phone NAVRATIL, MAURICE Unavailable Unavailable [...] Unavailable Elio Owens MD Primary Care Provider [phone] MARILIA SHANKAR Referring Unavailable HEMMORIAH ZAVALETA Primary Care Unavailable MARILIA SHANKAR Attending Unavailable MARILIA SHANKAR Referring Unavailable HEMMORIAH ZAVALETA Primary Care Unavailable MARILIA SHANKAR Admitting Unavailable MARILIA SHANKAR Attending Unavailable MARILIA SHANKAR Referring Unavailable HEMMER, MORIAH Primary Care Unavailable FEMI FOLEY Attending Unavailable MORIAH GUZMAN Primary Care Unavailable Sterling Kumar MD Unavailable [phone] Hever Martin Attending Unavailab le Hever Martin Admitting Unavailab le NON STAFF Primary Care Unavailable Sterling Kumar MD Unavailable [phone] MORIAH GUZMAN Attending Unavailable HEMMORIAH ZAVALETA Attending Unavailable HEMMORIAH ZAVALETA Attending Unavailable HEMMERMORIAH Attending Unavailable HILLS, CHRISTOFER D Referring Unavailable HILLS, CHRISTOFER D Attending Unavailable HARKINS, MAGDA Attending Unavailable HILLS, CHRISTOFER D Referring Unavailable KELBLEY, MARIA D Attending Unavailable HILLS, CHRISTOFER D Referring Unavailable HARKINS, MAGDA Attending Unavailable HILLS, CHRISTOFER D Referring Unavailable KELBLEY, MARIA D Attending Unavailable HILLS, CHRISTOFER D Referring Unavailable KELBLEY, MARIA D Attending Unavailable HILLS, CHRISTOFER D Referring Unavailable KELBLEY, MARIA D Attending Unavailable HILLS, CHRISTOFER D Referring Unavailable GEZO, LORAINE Attending Unavailable HILLS, CHRISTOFER D Referring Unavailable GEZO, LORAINE Attending Unavailable HILLS, CHRISTOFER D Referring Unavailable TIMMISHEATHER H Attending Unavailable HEMMORIAH ZAVALETA Referring Unavailable HILLS, CHRISTOFER D Attending Unavailable HILLS, HCRISTOFER D Referring Unavailable Allergies Allergy ClassificationReported Allergen(s)Allergy TypeDate of OnsetReaction(s) Facility (2 sources)acetaminophen / HYDROcodone; Translations: [Vicodin]Drug Allergy [facility] Repository (3 sources)sulfamethoxazole / trimethoprim; Translations: [Bactrim]Drug Allergy [facility] Repository (3 sources)Sulfamethoxazole / TrimethoprimDrug AllergyFranc[facility] Other (1 source)Sulfamethoxazole / TrimethoprimDrug [facility]tzyndk85-81[facility]5371[facility] (20 sources)SulfamethoxazoleAllergy to -[phone] [employer] Work Phone: (1 source)Sulfamethoxazole / Trimethoprim; Translations: [SULFAMETHOXAZOLE-TRIMETHOPRIM]Drug Dgxnlyv31-71-3435VagQxojgt Repository (20 sources)TrimethoprimDrug Icxqrsi77-51-8108[facility] (1 source)SulfamethoxazoleDrug Litqopk99-55-8196FwgpyagkwMer[facility] Repository (1 source)TrimethoprimDrug Qjszanh27-00-5852Od[facility]ulpiqMer[facility] Rep[facility] Medications Current Medications MedicationDrug Class(es)DatesSig (Normalized)Sig (Original)acetaminophen 325 mg oral tablet (20 sources)take 1 tablet by mouth every four hours as needed for pain acetaminophen (Tylenol) 325 MG tablet Take 1 tablet by mouth every 4 (four) hours if needed for mild pain Activeamoxicillin 875 mg / clavulanate 125 mg oral tablet (3 sources)Penicillin-class AntibacterialStart: 03-30-2024 End: 75-52-3800movd 1 tablet by mouth in the morningamoxicillin-clavulanate (Augmentin) 875-125 MG tablet Take 1 tablet by mouth in the morning and 1 tablet before bedtime. 03/30/2024 04/06/2024 ActiveARIPiprazole 20 mg oral tablet (20 sources)Atypical AntipsychoticStart: 06-91-4454KQLCnkuvtsli (Abilify) 20 MG tablet 03/28/2025 Active End: 88-84-7168oqvm 1 tablet by mouth once dailyAbilify 30 MG tablet Take 1 tablet by mouth 1 (one) time each day at the same time 04/04/2025 Discontinued (Therapy completed)ARIPiprazole Activediclofenac sodium 0.01 mg/mg topical gel (20 sources)Nonsteroidal Anti-inflammatory DrugStart: 58-18-5113aotasemijc sodium (Voltaren Arthritis Pain) 1 % gel Indications: Primary osteoarthritis of left knee Apply 4 g topically 4 (four) times a day as needed for pain 50 g 5 02/21/2025 ActiveFish Oils (20 sources)take 1 capsule by mouth every twelve hoursomega-3 (Fish Oil) 1200 MG capsule Take 1 capsule by mouth every 12 (twelve) hours Activetake 1 capsule by mouth every twelve hoursomega-3 (Fish Oil) 1200 MG capsule Take 1 capsule by mouth every 12 (twelve) hours. Activetake 1 capsule by mouth every twelve hours omega-3 (Fish Oil) 1200 MG capsule Take 1 capsule by mouth every 12 (twelve) hours. 0 ActiveFish Oil Activefluconazole 150 mg oral tablet (2 sources)Azole AntifungalStart: 04-04-2024 End: 28-17-4061weganbmdrfu (Diflucan) 150 MG tablet Indications: Candidiasis Take 1 tablet (150 mg) by mouth Dailyfor 1 day, THEN 1 tablet (150 mg) Daily for 1 day. Take doses 3 days apart. 2 tablet 04/04/2024 04/05/2024 Active gemfibrozil 600 mg oral tablet (20 sources)Peroxisome Proliferator Receptor alpha AgonistStart: 16-87-7010hxfo 1 tablet by mouth twice dailygemfibrozil (Lopid) 600 MG tablet Indications: Mixed hyperlipidemia TAKE 1 TABLET BY MOUTH TWICE A DAY 200 tablet 3 01/13/2025 ActiveStart: 08-09-7377hpor 1 tablet by mouth twice dailygemfibrozil (Lopid) 600 MG tablet Indications: Mixed hyperlipidemia (CMS/HCC) TAKE 1 TABLET BY MOUTH TWICE A DAY 200 tablet 3 11/06/2023 Activegemfibrozil (Lopid) 600 MG tablet Take 600 tablets by mouth every 12 (twelve) hours. 0 Activetake 1 tablet by mouth every twelve hoursGemfibrozil 600 MG 1 tablet Orally Twice a day Activemeloxicam 15 mg oral tablet (3 sources)Nonsteroidal Anti-inflammatory Drugtake 1 tablet by mouth every twenty-four hoursMeloxicam 15 MG 1 tablet Orally Once a day ActivemetFORMIN hydrochloride 500 mg oral tablet (20 sources)BiguanideStart: 97-53-7462gyiu 1 tablet by mouth twice daily at mealtimemetFORMIN (Glucophage) 500 MG tablet Indications: Type 2 diabetes mellitus with diabetic cataract (HCC) TAKE 1 TABLET BY MOUTH TWICE A DAY WITH A MEAL 200 tablet 3 11/07/2024 ActiveStart: 10-58-7397wcib 1 tablet by mouth twice daily at mealtimemetFORMIN (Glucophage) 500 MG tablet Indications: Type 2 diabetes mellitus with diabetic cataract (CMS/HCC) TAKE 1 TABLET BY MOUTH TWICE A DAY WITH A MEAL 200 tablet 3 11/06/2023 Activetake 1 tablet by mouth every twelve hoursmetFORMIN (Glucophage) 500 MG tablet Take 1 tablet by mouth every 12 (twelve) hours. 0 Activetake 1 tablet by mouth every twelve hoursmetFORMIN HCl 500 MG 1 tablet with meals Orally Twice a day ActiveMirtazapine (3 sources)Mirtazapine ActiveMultiple Vitamin (MULTIVITAMINS PO) (20 sources)take 1 tablet by mouth once dailyMultiple Vitamin (MULTIVITAMINS PO) Take 1 tablet by mouth 1 (one) time each day at the same time Activetake 1 tablet by mouth once dailyMultiple Vitamin (MULTIVITAMINS PO) Take 1 tablet by mouth 1 (one) time each day at the same time. Activetake 1 tablet by mouth once dailyMultiple Vitamin (MULTIVITAMINS PO) Take 1 tablet by mouth 1 (one) time each day at the same time. 0 ActiveMultivitamin preparation (1 source)Multivitamin Activepantoprazole 40 mg delayed release oral tablet (20 sources)Proton Pump InhibitorStart: 48-06-2291zkel 1 tablet by mouth once dailypantoprazole (ProtoNix) 40 MG EC tablet Indications: GERD without esophagitis TAKE 1 TABLET BY MOUTH EVERY DAY 90 tablet 3 03/15/2025 ActiveStart: 47-69-3458llbg 1 tablet by mouth before mealtimepantoprazole (ProtoNix) 40 MG EC tablet Indications: GERD without esophagitis Take 1 tablet (40 mg)by mouth in the morning. Take before meals. 100 tablet 3 03/24/2023 Activetake 1 tablet by mouth every twenty-four hoursPantoprazole Sodium 40 MG 1 tablet Orally Once a day Activephenazopyridine hydrochloride 200 mg delayed release oral tablet (3 sources)Start: 02-21-2025 End: 04-44-9273flnc 1 tablet by mouth three times daily as needed for muscle spasmsphenazopyridine (Pyridium) 200 MG tablet Indications: Frequency of urination Take 1 tablet (200 mg)by mouth 3 (three) times a day as needed for bladder spasms for up to 2 days 6 tablet 02/21/2025 02/23/2025 ActivepredniSONE 10 mg oral tablet (12 sources)Start: 02-21-2025 End: 58-60-2058xipo 1 tablet by mouth twice daily, then take 1 tablet by mouth once daily at mealtimepredniSONE (Deltasone) 10 MG tablet Indications: Primary osteoarthritis of left knee Take 1 tablet (10 mg) by mouth 2 (two) times a day for 5 days, THEN 1 tablet (10 mg) Daily for 5 days. Take with food. 15 tablet 02/21/2025 03/03/2025 ActiveStart: 10-11-2024 End: 07-39-7044sdkm 1 tablet by mouth three times daily, then take 1 tablet by mouth twice daily, then take 1 tablet by mouth once dailypredniSONE (Deltasone) 10 MG tablet Indications: Arthropathy of left sacroiliac joint Take 1 tablet(10 mg) by mouth 3 (three) times a day for 3 days, THEN 1 tablet (10 mg) 2 (two) times a day for 3 days, THEN 1 tablet (10 mg) Daily for 3 days. 18 tablet 10/11/2024 10/20/2024 ActiveStart: 09-21-2024 End: 87-93-4732przo 1 tablet by mouth three times daily, then take 1 tablet by mouth twice daily, then take 1 tablet by mouth once dailypredniSONE (Deltasone) 10 MG tablet Indications: Arthropathy of left sacroiliac joint Take 1 tablet(10 mg) by mouth 3 (three) times a day for 3 days, THEN 1 tablet (10 mg) 2 (two) times a day for 3 days, THEN 1 tablet (10 mg) Daily for 3 days. 18 tablet 09/21/2024 09/30/2024 Activepregabalin 75 mg oral capsule (3 sources)take 1 capsule by mouth every twenty-four hoursLyrica 75 MG 1 capsule Orally Once a day ActiveRSVPreF3 Vac Recomb Adjuvanted (Arexvy) 120 MCG/0.5ML reconstituted suspension (2 sources)Start: 07-11-2024 End: 88-92-3336AZFBdxG5 Vac Recomb Adjuvanted (Arexvy) 120 MCG/0.5ML reconstituted suspension Indications: Need for vaccination Inject 120 mcg into the shoulder, thigh, or buttocks 1 time for 1 dose 1 each 07/11/2024 07/11/2024 Activesertraline 100 mg oral tablet (20 sources)Serotonin Reuptake Inhibitortake 2 tablets by mouth once dailyZoloft 100 MG tablet Take 2 tablets by mouth 1 (one) time each day at the same time Activetake 1 tablet by mouth every twenty-four hoursSertraline HCl 100 MG 1 tablet Orally Once a day ActivetraZODone hydrochloride 100 mg oral tablet (20 sources)Serotonin Reuptake InhibitorStart: 29-21-2116bbii 2 tablets by mouth at bedtimetraZODone (Desyrel) 100 MG tablet Take 2 tablets by mouth at bedtime 03/19/2023 Activetake 2 tablets by mouth at bedtimetraZODone HCl 100 MG 2 tablets Orally at bedtime ActivetraZODone HCl Bxlbvp53 hr venlafaxine 37.5 mg extended release oral capsule (20 sources)Serotonin and Norepinephrine Reuptake InhibitorStart: 03-28-2025 venlafaxine XR (Effexor XR) 37.5 MG 24 hr capsule 03/28/2025 ActiveStart: 88-85-7927fxnl 1 capsule by mouth once dailyvenlafaxine XR (Effexor XR) 150 MG 24 hr capsule Take 150 mg by mouth Daily 03/27/2025 ActiveStart: 09-20-2024 End: 27-92-6506ebkbveldwqw XR (Effexor XR) 75 MG 24 hr capsule 09/20/2024 04/04/2025 Discontinued (Therapy completed)Vitamin D 90157 UNIT (3 sources)take 1 capsule by mouth once dailyVitamin D 64956 UNIT 1 capsule Orally Once a day Active Completed/Discontinued Medications MedicationDrug Class(es)DatesSig (Normalized)Sig (Original)baclofen 20 mg oral tablet (19 sources)gamma-Aminobutyric Acid-ergic AgonistStart: 08-02-2024 End: 34-31-2904pewohufy (Lioresal) 20 MG tablet Indications: Myalgia TAKE 1 TABLET BY MOUTH NEEDED AT BEDTIME FOR MUSCLE SPASMS 100 tablet 3 08/02/2024 10/11/2024 Discontinued (Ineffective)Start: 61-43-9112mwdbxzrl (Lioresal) 20 MG tablet Indications: Myalgia Take 1 tablet (20 mg) by mouth as needed at bedtime for muscle spasms 30 tablet 2 07/11/2024 ActiveStart: 04-22-2024 End: 96-63-9568vnjo 1 tablet by mouth once daily as neededbaclofen (Lioresal) 10 MG tablet Indications: Myalgia TAKE 1 TABLET BY MOUTH ONCE A DAY AT THE SAME TIME NEEDED 100 tablet 1 04/22/2024 07/11/2024 Discontinued (Reorder)Start: 17-81-7883rggg 1 tablet by mouth once daily as neededbaclofen (Lioresal) 10 MG tablet Indications: Myalgia TAKE 1 TABLET BY MOUTH ONCE A DAY AT THE SAMETIME NEEDED 100 tablet 1 10/08/2023 ActiveStart: 10-88-5112nlwi 1 tablet by mouth once daily as neededbaclofen (Lioresal) 10 MG tablet Indications: Myalgia Take 1 tablet (10 mg) by mouth 1 (one) time each day at the same time. PRN 100 tablet 1 03/24/2023 Activebetamethasone 3 mg/ml / betamethasone acetate 3 mg/ml injectable suspension (8 sources)CorticosteroidStart: 04-04-2025 End: 61-89-1958ayjxhrabrocyv acetate-betamethasone sodium phosphate (Celestone) injection 12 mgStart: 04-04-2025 End: 60-22-321426 mg, Intra-articular, Once PRN Procedure, Starting on Thu04/04/25 at 1313, For 1 doseStart: 02-24-2025 End: 07-95-6548bjhyiefayvnhc acetate-betamethasone sodium phosphate (Celestone) injection 6 mgStart: 02-24-2025 End: mg, Intra-articular, Once PRN Procedure, Starting on Thu02/24/25 at 1422, For 1 dosebusPIRone hydrochloride 10 mg oral tablet (15 sources)Start: 03-19-2023 End: 46-53-8823txmm 1 tablet by mouth in the morningbusPIRone (Buspar) 10 MG tablet Take 1 tablet by mouth in the morning and 1 tablet before bedtime. 1 09/21/2024 Discontinued (Other)take 1 tablet by mouth every twelve hoursbusPIRone HCl 10 MG 1 tablet Orally Twice a day ActiveCalcium Carbonate (3 sources) End: 58-29-5234twnv 1 tablet by mouth once dailyCalcium Carbonate (CALCIUM 500 PO) Take 1 tablet by mouth 1 (one) time each day at the same time. 04/04/2024 Discontinuedtake 1 tablet by mouth once dailyCalcium Carbonate (CALCIUM 500 PO) Take 1 tablet by mouth 1 (one) time each day at the same time. 0Active colesevelam hydrochloride 625 mg oral tablet (20 sources)Bile Acid SequestrantStart: 09-14-2023 End: 88-28-0060zeck 1 tablet by mouth in the morningcolesevelam (Welchol) 625 MG tablet Take 1 tablet by mouth in the morning and 1 tablet in the evening. Take with meals. 09/14/2023 02/24/2025 Discontinued (Therapy completed)colestipol hydrochloride 1000 mg oral tablet (7 sources)Bile Acid SequestrantStart: 03-10-2023 End: 69-75-4342owtm 2 tablets by mouth once dailycolestipol (Colestid) 1 g tablet Take 2 tablets by mouth 1 (one) time each day. 03/10/2023 04/04/2024 Discontinued (Ineffective)Start: 87-10-3256pobg 2 tablets by mouth every twenty- four hoursColestipol HCl 1 GM 2 tablets Orally Once a day for 90 days Mar, ActiveStart: 55-49-0530laja 3 tablets by mouth once dailyColestipol HCl 1 GM 3 TABS Orally Once a day for 90 days Dec, ActiveStart: 01-25-2021 dicyclomine hydrochloride 20 mg oral tablet (6 sources)AnticholinergicStart: 08-21-2023 End: 27-81-4715rozw 1 tablet by mouth in the morning, then take 1 tablet by mouth in the evening, then take 1 tablet by mouth at bedtimedicyclomine (Bentyl) 20 MG tablet Take 20 mg by mouth in the morning and 20 mg in the evening and 20 mg before bedtime. 08/21/2023 04/19/2024 Discontinued (Therapy completed) ferrous sulfate 325 mg oral tablet (20 sources)Start: 10-19-2023 End: 48-28-1540nlmu 1 tablet by mouth at mealtimeferrous sulfate 325 (65 Fe) MG tablet Indications: Iron deficiency anemia, unspecified iron deficiency anemia type Take 1 tablet (325 mg) by mouth in the morning. Take with meals. With food. 10/19/2023 10/11/2024 Discontinued (Other)Start: 72-79-6805dgdu 1 tablet by mouth at mealtimeferrous sulfate 325 (65 Fe) MG tablet Indications: Iron deficiency anemia, unspecified iron deficiency anemia type Take 1 tablet (325 mg) by mouth in the morning. Take with meals. With food. 100 tablet 3 03/24/2023 Activetake 1 tablet by mouth every twenty-four hoursFerrous Sulfate 325 (65 Fe) MG 1 tablet Orally Once a day Activeloperamide hydrochloride 2 mg oral capsule (20 sources)Opioid AgonistStart: 09-14-2023 End: 85-78-1078dsbs 1 capsule by mouth four times daily as neededloperamide (Imodium) 2 MG capsule Take 2 mg by mouth 4 (four) times a day as needed 09/14/2023 02/24/2025 Discontinued (Therapy completed)Start: 26-67-2143drxe 1 tablet by mouth once as neededImodium A-D 2 MG 1 tablet Orally prn for 30 days Jul, ActiveStart: 09-68-7111wkwc 1 tablet by mouth twice daily as needed Imodium A-D 2 MG 1 tablet Orally bid prn for 30 day(s) Jul, Active mupirocin 0.02 mg/mg topical ointment (5 sources)RNA Synthetase Inhibitor AntibacterialStart: 04-19-2024 End: 01-61-2492bmtaopiyf (Bactroban) 2 % ointment Indications: Recurrent epistaxis Apply to left nose twice daily for 2 weeks 15 g 1 04/19/2024 07/11/2024 Discontinued (Other)nystatin 100 unt/mg topical powder (3 sources)Polyene AntifungalStart: 03-24-2023 End: 88-56-1021isciaprk (Mycostatin) 806550 UNIT/GM powder Indications: Candidiasis Apply topically 2 (two) times a day. 30 g 1 03/24/2023 04/04/2024 Discontinued (Therapy completed)tiZANidine 4 mg oral tablet (6 sources)Central alpha-2 Adrenergic AgonistStart: 10-11-2024 End: 05-19-4135pgSJLkpcae (Zanaflex) 4 MG tablet Indications: Arthropathy of left sacroiliac joint Take 1 tablet (4 mg) by mouth as needed at bedtime for muscle spasms for up to 14 days 14 tablet 10/11/2024 02/21/2025 Discontinued (Therapy completed) Problems Active Problems Problem ClassificationProblemDateDocumented DateEpisodic/ChronicAbdominal pain (4 sources)Abdominal pain; Translations: [Unspecified abdominal pain]Episodic Administrative/social admission (2 sources)Patient encounter status; Translations: [Other specified counseling] 12-81-6793UfktqdroTwcfesam (20 sources)Bilateral cataracts; Translations: [Unspecified cataract]Onset: 76-93-941479386500-37-4758AasaoqmWohdgreg mellitus with complications (20 sources)Cataract due to diabetes mellitus type 2; Translations: [Type 2 diabetes mellitus with diabetic cataract]Onset: hronic Disorders of lipid metabolism (20 sources)Mixed hyperlipidemia; Translations: [Mixed hyperlipidemia]Onset: 853735-84-1076PiqvpofLuhaxzglvp disorders (20 sources)Gastroesophageal reflux disease; Translations: [Gastro-esophageal reflux disease without esophagitis]Onset: hronic Genitourinary symptoms and ill-defined conditions (2 sources)Increased frequency of urination; Translations: [Frequency of micturition]47-83-5597RbmxssxlNqegftrk (20 sources)Open-angle glaucoma; Translations: [Unspecified open-angle glaucoma, mild stage]Onset: 513085-72-7456AozcsrtOljlq valve disorders (20 sources)Mitral valve regurgitation; Translations: [Nonrheumatic mitral (valve) insufficiency]Onset: 112814-41-2265LgxswqsGvvdwhqixlfxy and screening for infectious disease (4 sources)Vaccination needed; Translations: [Encounter for immunization] 11-99-3861ErxcsfrgZjnjxsicwnmpy mental health disorders (2 sources)Primary insomnia; Translations: [Primary insomnia]96-47-0371Seiwftq Mood disorders (20 sources)Recurrent major depressive episodes, moderate ; Translations: [Major depressive disorder, recurrent, moderate]Onset: 03-18-2023 Resolved: 238497-81-6715LvfkestVafhfnl (2 sources)Candidiasis; Translations: [Candidiasis, unspecified]04-04-2024 EpisodicNutritional deficiencies (20 sources)Vitamin D deficiency; Translations: [Vitamin D deficiency, unspecified]Onset: 832134-00-0487EhvsvocSmftmcupwplnkx (20 sources)Osteoarthritis of joint right ankle; Translations: [Primary osteoarthritis, right ankle and foot]Onset: 320375-64-2537NfcnsapIwrfv and ill-defined heart disease (20 sources)Heart disease; Translations: [Heart disease, unspecified]Onset: 731806-27-6003NrzdrbeWvvcs and unspecified benign neoplasm (2 sources)Hemangioma of skin; Translations: [Hemangioma of skin and subcutaneous tissue]96-31-1784TnzzwslvDiejp connective tissue disease (20 sources)Impingement syndrome of left shoulder region; Translations: [Impingement syndrome of left shoulder]59-05-7100TmjytqrzJogub connective tissue disease (18 sources)Adhesive capsulitis of left shoulder; Translations: [Adhesive capsulitis of left shoulder]05-78-4629UhatrxbiInxpt gastrointestinal disorders (20 sources)Irritable bowel syndrome; Translations: [Irritable bowel syndrome without diarrhea]Onset: 558143-39-2411IonbvuuDsgnb gastrointestinal disorders (4 sources)Irritable bowel syndrome with diarrhea; Translations: [Irritable bowel syndrome with diarrhea]ChronicOther gastrointestinal disorders (4 sources)Irritable bowel syndrome with diarrheaOnset: 04-18-2021 Resolved: 23-54-6609MnkvgpdTctfw gastrointestinal disorders (4 sources)Incontinence of feces; Translations: [Full incontinence of feces] EpisodicOther gastrointestinal disorders (4 sources)Diarrhea; Translations: [Diarrhea, unspecified]EpisodicOther gastrointestinal disorders (1 source)Change in bowel habitEpisodicOther gastrointestinal disorders (1 source)Full incontinence of fecesEpisodicOther liver diseases (4 sources)Lesion of liver; Translations: [Liver disease, unspecified]Chronic Other liver diseases (20 sources)Steatosis of liver; Translations: [Fatty (change of) liver, not elsewhere classified]Onset: 655444-09-0722CudplrrTphic nervous system disorders (4 sources)Peripheral neurogenic pain; Translations: [Unspecified mononeuropathy of right lower limb]ChronicOther nervous system disorders (20 sources)Meralgia paresthetica; Translations: [Meralgia paresthetica, unspecified lower limb]Onset: 031610-69-9170CpgpvyjLeppr nervous system disorders (20 sources)Chronic pain; Translations: [Other chronic pain]Onset: 03-18-2023 97-53-9559VnnxmzoZywky nervous system disorders (20 sources)Peripheral nerve disease ; Translations: [Polyneuropathy, unspecified]Onset: 984479-24-7972GrtnkypOcvtw nervous system disorders (2 sources)Polyneuropathy; Translations: [Polyneuropathy, unspecified]07-11-2024 ChronicOther non-traumatic joint disorders (2 sources)Hip pain; Translations: [Pain in right hip]69-26-8240FajoxbgdHceik non-traumatic joint disorders (10 sources)Pain in left shoulder; Translations: [Pain in joint, shoulder region]61-08-5982JfjbtmolGyfpa nutritional; endocrine; and metabolic disorders (4 sources)Body mass index 40+ - severely obese; Translations: [Body mass index (BMI) 40.0-44.9, adult]ChronicOther nutritional; endocrine; and metabolic disorders (1 source)Morbid obesity; Translations: [Morbid (severe) obesity due to excess calories]Onset: 340915-15-9116VouepxpWvoze nutritional; endocrine; and metabolic disorders (20 sources)Body mass index 30+ - obesity; Translations: [Obesity, unspecified] Onset: 102882-29-1658GhhpyaaQpaoh nutritional; endocrine; and metabolic disorders (20 sources)Obesity caused by energy imbalance; Translations: [Morbid (severe) obesity due to excess calories]Onset: 662139-83-0367PsfsninUgnxe upper respiratory disease (4 sources)Epistaxis; Translations: [Epistaxis]19-20-1631NaoiuvadIdsnijvbrx and visceral atherosclerosis (20 sources)Atherosclerosis of artery of lower limb; Translations: [Atherosclerosis of [place] arteries of extremities with rest pain, bilateral legs]Onset: 781018-40-5836YsqokhoFwjvaqki codes; unclassified (20 sources)Obstructive sleep apnea syndrome; Translations: [Obstructive sleep apnea (adult) (pediatric)]Onset: 674827-45-1780PdcgitwVfrjugyz codes; unclassified (1 source)Family history of malignant neoplasm of breast; Translations: [FAMILY HX MALIG NEOPLASM OF BREAST]Onset: 07-37-0661BstuudjpKfmokpfinop; intervertebral disc disorders; other back problems (20 sources)Spondylosis without myelopathy or radiculopathy, lumbar region; Translations: [Other intervertebraldisc degeneration, lumbar region]Onset: 08-09-9164MzwlrduZyawsva disorders (20 sources)Nontoxic multinodular goiter; Translations: [Multinodular goiter] Onset: 81-61-6001EqedlycKgyqimmhblrn (1 source)right knee internal derangementOnset: 60-53-1720Yvplogsdmhsp (2 sources)Recurrent ymymgwxco43-24-0155Gnsmlqzqcrsd (2 sources)Left shoulder pain, unspecified mmssavdkap89-58-3679 Past or Other Problems Problem ClassificationProblemDateDocumented DateEpisodic/ChronicBiliary tract disease (20 sources)Cholecystitis without calculus; Translations: [Cholecystitis, unspecified]Onset: 03-18-2023 Resolved: 128888-71-7759KcnxvdgvTotmwvibg and vision defects (20 sources)Myopia; Translations: [Myopia, unspecified eye]Onset: 03-18-2023 49-65-2882IfenpehsKxtbvgubvq associated with dizziness or vertigo (20 sources)Vertigo; Translations: [Dizziness and giddiness]Onset: 03-18-2023 69-72-0312GwojeqzlUvwdarzvuk and other anemia (20 sources)Anemia; Translations: [Anemia, unspecified]Onset: 03-18-2023 66-58-8987VfgpsztmPjwyhnvn mellitus without complication (20 sources)Type 2 diabetes mellitus without complication; Translations: [Type 2 diabetes mellitus without complications]Onset: 11-11-2017 Resolved: 684552-40-9158QmixwyqZgegdtnya hypertension (20 sources)Hypertensive disorder; Translations: [Essential (primary) hypertension]Onset: 03-18-2023 Resolved: 240876-66-8997SzzkcpgOovdzbrlb and duodenitis (20 sources)Gastritis; Translations: [Gastritis, unspecified, without bleeding] Onset: 101975-63-7858AyuaihbrGppt disorders (20 sources)Mood disordersOnset: 07-07-2023 Resolved: 280925-43-2499Mfloizmzptim breast conditions (20 sources)Hyperplasia of mammary duct; Translations: [Unspecified benign mammary dysplasia of unspecified breast]Onset: 600555-80-2093ChrqiuaiSatzs and unspecified benign neoplasm (20 sources)Hemangioma; Translations: [Hemangioma unspecified site]Onset: 501097-27-9324TrwegsfiEqykv circulatory disease (4 sources)Other specified symptoms and signs involving the circulatory and respiratory systems; Translations:[OTH SPEC SX SIGNS INVLV CIRC RS]Onset: 64-97-1670ScxjcwreHycah connective tissue disease (20 sources)Muscle pain; Translations: [Myalgia, unspecified site]Onset: 917165-37-7850UuqfxymmLabwg diseases of veins and lymphatics (20 sources)Peripheral venous insufficiency; Translations: [Venous insufficiency (chronic) (peripheral)]Onset: 399543-79-8744BdqeypmfZcqga nervous system disorders (20 sources)Paresthesia; Translations: [Paresthesia of skin]Onset: 03-18-2023 47-81-0216VitiraasIvcbx non-traumatic joint disorders (20 sources)Ankle pain; Translations: [Pain in right ankle and joints of right foot]Onset: 01-28-2012 Resolved: 837390-96-1221VhlphdjjOpwul non-traumatic joint disorders (20 sources)Pain in right knee; Translations: [Pain in joint, lower leg]Onset: 10-06-2023 Resolved: 084802-58-9620XuhddwokGkdct screening for suspected conditions (not mental disorders or infectious disease) (20 sources)Encounter for screening mammogram for malignant neoplasm of breast; Translations: [Cardiovascular stress test abnormal]Onset: 43-58-5179Psmugmjf Other skin disorders (20 sources)Hirsutism; Translations: [Hirsutism]Onset: EpisodicResidual codes; unclassified (20 sources)Insomnia; Translations: [Insomnia, unspecified]Onset: 03-18-2023 55-06-3918RfhoxycmIpihljmu codes; unclassified (20 sources)Peripheral edema; Translations: [Edema, unspecified]Onset: 262163-03-2799KlnuldwjLxvpmqucphd; intervertebral disc disorders; other back problems (20 sources)Sciatica; Translations: [Sciatica, right side]Onset: 03-18-2023 Resolved: 747719-66-5600AihmttnqUhvjm infection (20 sources)Verruca vulgaris; Translations: [Viral wart, unspecified]Onset: 361211-36-1537Mdzfkzyg Results Test NameValueInterpretationReference RangeFacilityNo Panel Informationon 28-42-0069Puxoac TankPANCHITO bynum 04/04/2025 1:53 PM L Inj/Asp: L subacromial bursa on 04/04/2025 1:13 PM Indications: pain Details: 25 G needle, ultrasound-guided anterolateral approach Medications: 12 mg betamethasone acetate-betamethasone sodium phosphate 6 (3-3) MG/ML Procedure, treatment alternatives, risks and benefits explained, specific risks discussed. Consent was given by the patient. Immediately prior to procedure a time out was called to verify the correct patient, procedure, equipment, instructional support assistant and site/side marked as required. Patient was prepped and draped in the usual sterile fashion. [facility] CampusNo Panel Informationon 71-24-1397Bqrymknanette Sanchez MA 02/24/2025 3:14 PM L Inj/Asp: L subacromial bursa on 02/24/2025 2:22 PM Indications: pain Details: 25 G needle Medications: 6 mg betamethasone acetate-betamethasone sodium phosphate 6 (3-3) MG/ML Procedure, treatment alternatives, risks and benefits explained, specific risks discussed. Consent was given by the patient. Immediately prior to procedure a time out was called to verify the correct patient, procedure, equipment, instructional support assistant and site/side marked as required. Patient was prepped and draped in the usual sterile fashion. [facility] HealthcareXR Shoulder - left 2 Viewson 10-23-6994Ikeagwv Result: AP Grashey and scapular Y-view of the left shoulder demonstrates prior rotator cuff repair with anchor cystic changes but glenohumeral joint appears fairly well-preserved no proximal migration and previous subacromial decompression and distal clavicle resection noted. No evidence of fracture dislocation seen.[facility] CampusRadiology Study observation (narrative)[facility] HealthcareXR Knee - left 4 Viewson 02-23-2025 The [place] [id number] XRay Report Signed Patient: SURI OSHEA MR#: [id number] : 1960 Acct:[id number] Age/Sex: 64 / F ADM Date: 02/23/25 Loc: RAD Attending Dr: MORIAH GUZMAN Ordering Physician: MORIAH GUZMAN Date of Service: 02/23/25 Procedure(s): XR knee LT 4V Accession Number(s): [id number] cc: MORIAH GUZMAN [place] [address] Patient Name: SURI OSHEA MRN: [facility]:[id number] date: 1960 Sex: F Assigned Patient Location: [facility] Current Patient Location: [facility] Accession/Order Number: [id number] Exam Date: 02/23/2025 13:58 Report Date: 02/23/2025 14:53 At the request of: MORIAH GUZMAN Procedure: XR knee LT 4V LEFT KNEE - 4 views CLINICAL HISTORY: Left knee pain for one month. COMPARISON: None FINDINGS: Mild degenerative changes involving the left knee without acute bony process or joint effusion. XR/XR knee LT 4V IMPRESSION: MILD DEGENERATIVE CHANGES INVOLVING THE LEFT KNEE WITHOUT ACUTE PROCESS. Impression dictated by: Jesse Martínez Jr., D.O. 02/23/2025 2:53 PM Dictation Location: [place] [address] Electronically authenticated by: [id number] Y Date: 02/23/2025 14:53 Dictated By: Jesse Martínez M.D. Signed By: 02/23/25 1456 DD/ 145 TD/TT: Business Services Administrator:GABRIELHRadiology, Radiologist, MD - 02/23/2025 [facility] [place] [id number] XRay Report Signed Patient: SURI OSHEA MR#: [id number] : 1960 Acct:[id number] Age/Sex: 64 / F ADM Date: 02/23/25 Loc: RAD Attending Dr: MORIAH GUZMAN Ordering Physician: MORIAH GUZMAN Date of Service: 02/23/25 Procedure(s): XR knee LT 4V Accession Number(s): [id number] cc: MORIAH GUZMAN [place] [id number] Patient Name: SURI OSHEA MRN: [facility]:[id number] date: 1960 Sex: F Assigned Patient Location: [facility] Current Patient Location: RAD Accession/Order Number: [id number] Exam Date: 02/23/2025 13:58 Report Date: 02/23/2025 14:53 At the request of: MORIAH GUZMAN Procedure: XR knee LT 4V LEFT KNEE - 4 views CLINICAL HISTORY: Left knee pain for one month. COMPARISON: None FINDINGS: Mild degenerative changes involving the left knee without acute bony process or joint effusion. XR/XR knee LT 4V IMPRESSION: MILD DEGENERATIVE CHANGES INVOLVING THE LEFT KNEE WITHOUT ACUTE PROCESS. Impression dictated by: Jesse Martínez Jr., D.O. 02/23/2025 2:53 PM Dictation Location: [place] [address] Electronically authenticated by: [id number] Y Date: 02/23/2025 14:53 Dictated By: Jesse Martínez M.D. Signed By: 02/23/256 DD/ 52 TD/TT: Business Services Administrator: [facility] PEABODYDeedee HealthcareRadiology Study observation (narrative)[facility] HospitalXR Knee - left 4 ViewsOrdered By: Radiologist Radiology on 29-97-7940EQIVResearch [facility] Hospital Work Phone: cBC (INCLUDES DIFF/PLT)on 88-10-0478Dlnsiebjv (Bld) [#/Vol]0.029 10*3/uLNormal0-200Quest DiagnosticsComment on above:Performed By: #### 6399, 17722, 1330, 866 #### [facility] [address], [address] [place] [id number] Town Marshal: Bill Lucero MDBasophils/100 WBC (Bld)0.5 %NormalQuest DiagnosticsComment on above:Performed By: #### 6399, 10731, 7600, 866 #### [facility] of [address], [address] [place] [address] Town Marshal: Bill Lucero MDEosinophils (Bld) [#/Vol]0.063 10*3/uLNormal 15-500Quest DiagnosticsComment on above:Performed By: #### 6399, 49854, 7600, 866 #### [facility] of [place] [address] Town Marshal: Bill ALATORREosinophildeedee/100 WBC (Bld)1.1 %NormalQuest DiagnosticsComment on above:Performed By: #### 6399, 76475, 7600, 866 #### [facility] of [place] [address] Town Marshal: Bill Lucero MDErythrocyte distribution width (RBC) [Ratio] 13.3 %Oefksh55.0-15.0Quest DiagnosticsComment on above:Performed By: #### 6399, 98686, 7600, 866 #### [facility] of [place] [address] Town Marshal: Bill Lucero MDHematocrit (Bld) [Volume fraction]38.4 %Normal 35.0-45.0Quest DiagnosticsComment on above:Performed By: #### 6399, 87337, 7600, 866 #### [facility] of [place] [address] Town Marshal: Bill Lucero MDHemoglobin (Bld) [Mass/Vol]12.6 g/dLNormal 11.7-15.5Quest DiagnosticsComment on above:Performed By: #### 6399, 18974, 7600, 866 #### [facility] of [place] [address] Town Marshal: Bill Merati MDLymphocytes (Bld) [#/Vol]1.607 10*3/uLNormal 850-3900Quest DiagnosticsComment on above:Performed By: #### 6399, 59309, 7600, 866 #### [facility] of [address], [address] [place] [address] Town Marshal: Bill Lucero MDLymphocytes/100 WBC (Bld)28.2 %NormalQuest DiagnosticsComment on above:Performed By: #### 6399, , 0, 866 #### [facility] [address], [address] [place] [address] Town Marshal: Bill Lucero MDMCH (RBC) [Entitic mass]28.3 mnGkppcg94.0-33.0 Quest DiagnosticsComment on above:Performed By: #### 63, , 7599, 866 #### [facility] of [place] [address] Town Marshal: Bill WHITTAKERCHC (RBC) [Mass/Vol]32.8 g/wQJxfpvk65.0-36.0 [facility] DiagnosticsComment on above:Result Comment: For adults, a slight decrease in the calculated MCHC value (in the range of 30 to 32 g/dL) is most likely not clinically significant; however, it should be interpreted with caution in correlation with other red cell parameters and the patient's clinical condition.Performed By: #### 6399, 37004, 0, 866 #### [facility] of [place] [address] Town Marshal: Bill Lucero MDMCV (RBC) [Entitic vol]86.1 hKTnkxhf58.0-100.0 Quest DiagnosticsComment on above:Performed By: #### 6399, 18422, 7600, 866 #### [facility] of [place] [address] Town Marshal: Bill Lucero MDMonocytes (Bld) [#/Vol]0.439 10*3/uLNormal 200-950Quest DiagnosticsComment on above:Performed By: #### 6399, 13098, 7600, 866 #### [facility] of [address], [address] [place] [address] Town Marshal: Bill Lucero MDMonocytes/100 WBC (Bld)7.7 %NormalQuest DiagnosticsComment on above:Performed By: #### 6399, 84724, 7600, 866 #### [facility] of [address], [address] [place] [address] Town Marshal: Bill Lucero MDNeutrophils (Bld) [#/Vol]3.563 10*3/uLNormal 1500-7800Quest DiagnosticsComment on above:Performed By: #### 6399, 89648, 7600, 866 #### [facility] of [address], [address] [place] [address] Town Marshal: Bill Lucero MDNeutrophils/100 WBC (Bld)62.5 %NormalQuest DiagnosticsComment on above:Performed By: #### 6399, 33517, 7600, 866 #### [facility] of [address], [address] [place] [address] Town Marshal: Bill Lucero MDPlatelet mean volume (Bld) [Entitic vol]10.4 fLNormal7.5-12.5Quest DiagnosticsComment on above:Performed By: #### 6399, 75414, 7600, 866 #### [facility] of [address], [address] [place] [address] Town Marshal: Bill Lucero MDPlatelets (Bld) [#/Vol]241 10*3/uLNormal 140-400Quest DiagnosticsComment on above:Performed By: #### 6399, 84827, 7600, 866 #### [facility] of [address], [address] [place] [address] Town Marshal: Bill Lucero MDRBC ([facility]) [#/Vol]4.46 10*6/uLNormal3.80-5.10 [facility] DiagnosticsComment on above:Performed By: #### 6399, 68453, 7600, 866 #### [facility] of [address], [address] [place] [address] Town Marshal: Bill Lucero MDHEALTH SYSTEM ([facility]) [#/Vol]5.7 10*3/uLNormal3.8-10.8 Quest DiagnosticsComment on above:Performed By: #### 6399, 07795, 7600, 866 #### [facility] of [place] [address] Town Marshal: Bill Lucero MDCOMPREHENSIVE METABOLIC PANELon 02-22-2025 Albumin [Mass/Vol]4.4 g/dLNormal3.6-5.1Quest DiagnosticsComment on above: Performed By: #### 6399, 21697, 7600, 866 #### [facility] of [address], [address] [place] [address] Town Marshal: Bill Lucero MDAlbumin/Globulin [Mass ratio]1.5 {ratio}Normal 1.0-2.5Quest DiagnosticsComment on above:Performed By: #### 6399, 04798, 7600, 866 #### [facility] of [place] [address] Town Marshal: Bill Lucero MDALP [Catalytic activity/Vol]92 U/LEnsrfb76-047 Quest DiagnosticsComment on above:Performed By: #### 6399, 62727, 7600, 866 #### [facility] of [place] [address] Town Marshal: Bill Lucero MDALT [Catalytic activity/Vol]18 U/LNormal6-29 Quest DiagnosticsComment on above:Performed By: #### 6399, 60629, 7600, 866 #### [facility] of [address], [address] [place] [address] Town Marshal: Bill Lucero MDAST [Catalytic activity/Vol]17 U/NGeeukg83-53 [facility] DiagnosticsComment on above:Performed By: #### 6399, 41704, 7600, 866 #### [facility] of [address], [address] [place] [address] Town Marshal: Bill Lucero MDBilirubin [Mass/Vol]0.4 mg/dLNormal0.2-1.2 Quest DiagnosticsComment on above:Performed By: #### 6399, 79841, 7600, 866 #### [facility] of [address], [address] [place] [address] Town Marshal: Bill Lucero MDBUN/CREATININE RATIOSEE NOTE:Normal6-22Quest DiagnosticsComment on above:Result Comment: Not Reported: BUN and Creatinine are within reference range.Performed By: #### 6399, 91089, 7600, 866 #### [facility] of [address], [address] [place] [address] Town Marshal: Bill Lucero MDCalcium [Mass/Vol]9.1 mg/dLNormal8.6-10.4Quest DiagnosticsComment on above:Performed By: #### 6399, 90283, 7600, 866 #### [facility] of [address], [address] [place] [address] Town Marshal: Bill Lucero MDChloride [Moles/Vol]104 mmol/BGsrvxg78-647 Quest DiagnosticsComment on above:Performed By: #### 6399, 29244, 7600, 866 #### [facility] of [place] [address] Town Marshal: Bill Lucero MDCO2 [Moles/Vol]22 mmol/ZEgcnbx23-69Miagz DiagnosticsComment on above:Performed By: #### 6399, 17467, 7600, 866 #### [facility] of [address], [address] [place] [address] Town Marshal: Bill LOGANreatinine [Mass/Vol]0.88 mg/dLNormal0.50-1.05 Quest DiagnosticsComment on above:Performed By: #### 6399, 41384, 7600, 866 #### [facility] [address], [address] [place] [address] Town Marshal: Bill Lucero MDGFR/1.73 sq M.predicted among non-blacks MDRD (S/P/Bld) [Vol rate/Area]74 mL/min/{1.73_m2}Normal> OR = 60[facility] Comment on above:Performed By: #### 6399, 25457, 0, 866 #### [facility] [address], [address] [place] [address] Town Marshal: Bill Lucero MDGlobulin (S) [Mass/Vol]3.0 g/dLNormal1.9-3.7 Quest DiagnosticsComment on above:Performed By: #### 6399, 25580, 7600, 866 #### [facility] [place] [address] Town Marshal: Bill Lucero MDGlucose [Mass/Vol]126 mg/wFEnmq61-10Ckowp DiagnosticsComment on above:Result Comment: Fasting reference interval For someone without known diabetes, a glucose value >125 mg/dL indicates that they may have diabetes and this should be confirmed with a follow-up test.Performed By: #### 6399, 58953, 7600, 866 #### [facility] [address], [address] [place] [address] Town Marshal: Bill Lucero MDPotassium [Moles/Vol]4.1 mmol/LNormal3.5-5.3 Quest DiagnosticsComment on above:Performed By: #### 6399, 98241, 7600, 866 #### [facility] [address], [address] [place] [address] Town Marshal: Bill Lucero MDProtein [Mass/Vol]7.4 g/dLNormal6.1-8.1Quest DiagnosticsComment on above:Performed By: #### 6399, 30038, 7600, 866 #### [facility] [address], [address] [place] [address] Town Marshal: Bill Lucero MDSodium [Moles/Vol]139 mmol/PHvanqd938-290Fszac DiagnosticsComment on above:Performed By: #### 6399, 39236, 7600, 866 #### [facility] [address], [address] [place] [address] Town Marshal: Bill Lucero MDUrea nitrogen [Mass/Vol]19 mg/dLNormal7-25 Quest DiagnosticsComment on above:Performed By: #### 6399, 63342, 7600, 866 #### [facility] [address], [address] [place] [address] Town Marshal: Bill Lucero MDLIPID PANEL, STANDARD 43-94-5766Ohhpkzubefd [Mass/Vol]180 mg/dLNormal<200Quest DiagnosticsComment on above:Order Comment: FASTING:YES FASTING: YESPerformed By: #### 6399, 12447, 7600, 866 #### [facility] [place] [address] Town Marshal: Bill Lucero MDCholesterol in HDL [Mass/Vol]43 mg/dLLow> OR = 50Quest DiagnosticsComment on above:Order Comment: FASTING:YES FASTING: YESPerformed By: #### 6399, 66170, 7600, 866 #### [facility] of [place] [address] Town Marshal: Bill Lucero MDCholesterol in LDL [Mass/Vol]113 mg/dLHigh Quest DiagnosticsComment on above:Order Comment: FASTING:YES FASTING: YESResult Comment: Reference range: <100 Desirable range <100 mg/dL for primary prevention; <70 mg/dL for patients with CHD or diabetic patients with > or = 2 CHD risk factors. LDL-C is now calculated using the Godwin calculation, which is a validated novel method providing better accuracy than the Friedewald equation in the estimation of LDL-C. Elmer WALKER et al. ALBERT. 2013;310(19): 5964-7807 (http://education.HealthStream.MobileVeda/faq/DFH114)Performed By: #### 6399, 81274, 7600, 866 #### [facility] [address], [address] [place] [address] Town Marshal: Bill Tomlinsonsteroamalia.total/Cholesterol in HDL [Mass ratio]4.2 {ratio}Normal<5.0Quest DiagnosticsComment on above:Order Comment: FASTING:YES FASTING: YESPerformed By: #### 6399, 66097, 7600, 866 #### [facility] [place] [address] Town Marshal: Bill TAYLOR HDL QPGIYQCWVXO855 mg/dL (calc)High<130 Quest DiagnosticsComment on above:Order Comment: FASTING:YES FASTING: YESResult Comment: For patients with diabetes plus 1 major ASCVD risk factor, treating to a non-HDL-C goal of <100 mg/dL (LDL-C of <70 mg/dL) is considered a therapeutic option.Performed By: #### 6399, 86858, 7600, 866 #### [facility] [place] [address] Town Marshal: Bill Lucero MDTriglyceride [Mass/Vol]128 mg/dLNormal<150 Quest DiagnosticsComment on above:Order Comment: FASTING:YES FASTING: YESPerformed By: #### 6399, 75011, 7600, 866 #### [facility] [place] [address] Town Marshal: Bill COBURN4, [facility] 22-81-5114Irjl T4 [Mass/Vol]1.3 ng/dLNormal0.8-1.8Quest DiagnosticsComment on above:Performed By: #### 6399, 50399, 7600, 866 #### [facility] [address], [address] [place], [place] [id number] Town Marshal: Bill Lucero MDTS W/REFLEX TO FT4on 69-36-4653KKH W/REFLEX TO FT40.19 mIU/LLow0.40-4.50Quest DiagnosticsComment on above:Performed By: #### 6399, 03409, 7600, 866 #### [facility] [address], [address] [place], [place] [id number] Town Marshal: Bill Lucero MDUrinalysis macro (dipstick) panel (U)on 22-87-7073Nbgetiuyu, UANegativeNegative - 4(70) +++ mg/dLNOMS HealthcareBlood, UANegativeNegative - 50 Yifna/mcLNOMA HealthcareClarity, UAClearNOMS Healthcare Color, UAStrawNOMS HealthcareGlucose, UANegativeNegative - 2000(110) ++++ mg/dL [facility] HealthcareInterpretation and review of laboratory resultsNormalNOMS HealthcareKetones, UANegativeNegative - 160(16) ++++ mg/dLNOMS Healthcare Leukocytes, UANegativeNegative - 500+++ Blake/mcLNOMA HealthcareNitrite, UA NegativeNegative - PositiveNOMS HealthcarepH, UA55 - 9NOMS HealthcareProtein, UA NegativeNegative - 2000(20) ++++ mg/dLNOMA HealthcareSpec Grav, UA1.021 - 1.03 NOMS HealthcareUrobilinogen, UA1.00.2 - 12 mg/dLNOMA HealthcareNOMA Healthcare ALBUMIN, RANDOM URINE W/CREATININEon 47-02-4357XJREPIE, URINE0.3 mg/dLNormalSee Note:Quest DiagnosticsComment on above:Result Comment: Reference Range: Reference Range Not establishedPerformed By: #### 6517 #### [facility] [address], [address] [place], [place] [id number] Town Marshal: Bill Lucero MDALBUMIN/CREATININE RATIO, RANDOM URINE2 mg/g creatNormal<30Quest DiagnosticsComment on above:Result Comment: The ADA defines abnormalities in albumin excretion as follows: Albuminuria Category Result (mg/g creatinine) Normal to Mildly increased <30 Moderately increased 30-299 Severely increased > OR = 300 The ADA recommends that at least two of three specimens collected within a 3-6 month period be abnormal before considering a patient to be within a diagnostic category.Performed By: #### 6517 #### [email or web address] [address], [address] [place] [address] Town Marshal: Bill Lucero MDCreatinine (U) [Mass/Vol]122 mg/oZNbvirb02-080 Quest DiagnosticsComment on above:Performed By: #### 6517 #### [facility] [address], [address] [place] [address] Town Marshal: Bill Lucero MDMicroalbumin/Creatinine ratio panel (U)on 49-33-9414Fjtrrxm DL <= 20 mg/L (U) [Mass/Vol]0.3 mg/dLSee Note:[facility] Comment on above:Reference Range: Reference Range Not established Albumin/Creatinine (U) [Mass ratio]2NINFResearch Belton HospitalComment on above: The ADA defines abnormalities in albumin excretion as follows: Albuminuria Category Result (mg/g creatinine) Normal to Mildly increased <30 Moderately increased 30-299 Severely increased > OR = 300 The ADA recommends that at least two of three specimens collected within a 3-6 month period be abnormal before considering a patient to be within a diagnostic category. Creatinine (U) [Mass/Vol]122 mg/dL20 - 275 mg/dLDecatur County General Hospitalg Organization Information Site ID: QPT Name: [facility] Address: [address] [place] [address], [address] [place] [address] Director: Bill Lucero MDUNC Hospitals Hillsborough CampusLaboratory - Hematology and Cell countson 92-54-3489NwN8h (Bld) [Mass fraction]6.5 %[facility] HospitalNo Panel Informationon 32-34-7045Boqgkaspaigxob and review of laboratory results AbnormalUNC Hospitals Hillsborough CampusXR Pelvis AP and Hip - bilateral GE 2 Viewson 31-66-8597UatMorrow [facility] Hospital [address] [place] [address] XRay Report Signed Patient: SURI OSHEA MR#: [id number] : 1960 Acct:[id number] Age/Sex: 64 / F ADM Date: 07/15/24 Loc: RAD Attending Dr: MORIAH GUZMAN Ordering Physician: MORIAH GUZMAN Date of Service: 07/15/24 Procedure(s): XR hip ARIE Accession Number(s): [id number] cc: MORIAH GUZMAN [place] [address] Patient Name: SURI OSHEA MRN: [id number] date: 1960 Sex: F Assigned Patient Location: [facility] Current Patient Location: [facility] Accession/Order Number: [id number] Exam Date: 07/15/2024 13:33 Report Date: 07/15/2024 [...] M.D. Signed By: 07/15/241833 DD/ 30 TD/TT: Business Services Administrator:TBHRadiology, Radiologist, - 07/15/[address] [address] XRay Report Signed Patient: SURI OSHEA MR#: [id number] : 1960 Acct:[id number] Age/Sex: 64 / F ADM Date: 07/15/24 Loc: RAD Attending Dr: MORIAH GUZMAN Ordering Physician: MORIAH GUZAMN Date of Service: 07/15/24 Procedure(s): XR hip ARIE Accession Number(s): [id number] cc: MORIAH GUZMAN [address] [address] Patient Name: SURI OSHEA MRN: [id number] date: 1960 Sex: F Assigned Patient Location: [facility] Current Patient Location: [facility] Accession/Order Number: [id number] Exam Date: 07/15/2024 13:33 Report Date: 07/15/2024 [...] M.D. Signed By: 07/15/241833 DD/ 30 TD/TT: Business Services Administrator: NOMDeedee HealthcareRadiology Study observation (narrative)NOMS HealthcareXR Pelvis AP and Hip - bilateral GE 2 ViewsOrdered By: Radiologist Radiology on 07-15-2024 [facility] Work Phone: Laboratory - Hematology and Cell countson 04-04-2024 HbA1c (Bld) [Mass fraction]6.3 %[facility] HospitalNo Panel Informationon 04-04-2024 Interpretation and review of laboratory resultsAbnormalHudson Hospital and Clinic KNEE RT WO CONon [id number] [address] Magnetic Resonance Report Signed Patient: SURI OSHEA MR#: [id number] : 1960 Acct:[id number] Age/Sex: 63 / F ADM Date: 09/28/23 Loc: MRI Attending Dr: ELIO OWENS Ordering Physician: ELIO OWENS Date of Service: 09/28/23 Procedure(s): MR knee RT wo con Accession Number(s): [id number] cc: ELIO OWENS ; MORIAH GUZMAN [place] [id number] Patient Name: SURI OSHEA MRN: [id number] date: 1960 Sex: F Assigned Patient Location: MRI Current Patient Location: Accession/Order Number: [id number] Exam Date: 09/28/2023 13:55 Report Date: 09/29/2023 06:02 At the request of: ELIO OWENS Procedure: MR knee RT wo con [...] of lateral patellar facet. Electronically authenticated by: KRYSTEN NELSON Date: 09/29/2023 06:02 Dictated By: Krysten Nelson M.D. Signed By: 09/29/23603 DD/ 1 TD/TT: Business Services Administrator:TBHRadiology, Radiologist, MD - 09/29/2023 [place] [address] Magnetic Resonance Report Signed Patient: SURI OSHEA MR#: [id number] : 1960 Acct:[id number] Age/Sex: 63 / F ADM Date: 09/28/23 Loc: MRI Attending Dr: ELIO OWENS Ordering Physician: ELIO OWENS Date of Service: 09/28/23 Procedure(s): MR knee RT wo con Accession Number(s): [id number] cc: ELIO OWENS ; MORIAH GUZMAN [place] [id number] Patient Name: USRI OSHEA MRN: [id number] date: 1960 Sex: F Assigned Patient Location: MRI Current Patient Location: Accession/Order Number: [id number] Exam Date: 09/28/2023 13:55 Report Date: 09/29/2023 06:02 At the request of: ELIO OWENS Procedure: MR knee RT wo con [...] of lateral patellar facet. Electronically authenticated by: KRYSTEN NELSON Date: 09/29/2023 06:02 Dictated By: Krysten Nelson M.D. Signed By: 09/29/23 06 DD/ 06 TD/TT: Business Services Administrator: JENNY [facility] HospitalRadiology Study observation (narrative)[facility] KNEE RT WO CONOrdered By: Radiologist Radiology on 08-75-0383EZMWResearch Belton Hospital Work Phone: XR Knee - right 4 Viewson [id number] [id number] XRay Report Signed Patient: SURI OSHEA MR#: [id number] : 1960 Acct:[id number] Age/Sex: 63 / F ADM Date: 09/16/23 Loc: RAD Attending Dr: MORIAH GUZMAN Ordering Physician: MORIAH GUZMAN Date of Service: 09/16/23 Procedure(s): XR knee RT 4V Accession Number(s): [id number] cc: MORIAH GUZMAN [address] [address] Patient Name: SURI OSHEA MRN: [id number] date: 1960 Sex: F Assigned Patient Location: [facility] Current Patient Location: Accession/Order Number: [id number] Exam Date: 09/16/2023 15:01 Report Date: 09/17/2023 08:20 At the request of: MORIAH GUZMAN Procedure: XR knee RT 4V PROCEDURE: XR [...] recommended for further evaluation. Electronically authenticated by: KRYSTEN NELSON Date: 09/17/2023 08:20 Dictated By: Krysten Nelson M.D. Signed By: 09/17/23821 DD/ 9 TD/TT: Business Services Administrator:TBHRadiology, Radiologist, - 09/17/2023 [place] [address] XRay Report Signed Patient: SURI OSHEA MR#: [id number] : 1960 Acct:[id number] Age/Sex: 63 / F ADM Date: 09/16/23 Loc: RAD Attending Dr: MORIAH GUZMAN Ordering Physician: MORIAH GUZMAN Date of Service: 09/16/23 Procedure(s): XR knee RT 4V Accession Number(s): [id number] cc: MORIAH GUZMAN [place] [id number] Patient Name: SURI OSHEA MRN: [id number] date: 1960 Sex: F Assigned Patient Location: [facility] Current Patient Location: Accession/Order Number: [id number] Exam Date: 09/16/2023 15:01 Report Date: 09/17/2023 08:20 At the request of: MORIAH GUZMAN Procedure: XR knee RT 4V PROCEDURE: XR [...] recommended for further evaluation. Electronically authenticated by: KRYSTEN NELSON Date: 09/17/2023 08:20 Dictated By: Krysten Nelson M.D. Signed By: 09/17/23821 DD/ 9 TD/TT: Business Services Administrator: [facility] HealthcareRadiology Study observation (narrative)Research [facility]ton HospitalXR Knee - right 4 ViewsOrdered By: Radiologist Radiology on 93-31-7373EGSPResearch Belton Hospital Work Phone: MG MAMM SCREEN 3D ARIE CADon 64-54-5717PU MAMM SCREEN 3D ARIE CADPatient: SURI OSHEA Exam Date: 12/16/2021 : 1960 Gender:F Ordering : DR ELIO OWENS M.D. Admission #: [id number] Family : Order #: [id number] CLICK HERE TO VIEW EXAM RADIOLOGY REPORT [...] breast cancer at age 52. LOCATION: [facility] BREAST COMPOSITION: Scattered areas fibroglandular density. FINDINGS: [...] by: Krysten Nelson M.D. on 12/16/2021 at 15:46UC [facility] CenterXR LSPINE W_OBLS AND FLEX_EXTon 89-96-3294RD LSPINE W_OBLS AND FLEX_EXT EXAMINATION: XR LSPINE [...] upper quadrant surgical clips from cholecystectomy IMPRESSION: Shbi-rt-zhnoivgk degenerative changes No dynamic instability Electronically authenticated by: FEMI FRANCIS Date: 2021-12-09 15:32UC [facility] CenterQ - CULTURE,URINE,ROUTINEon 54-85-7537QFHMURR, URINE, ROUTINE SEE NOTEAbnormalNorthern California Medical SpecialistComment on above:Order Comment: [facility] Testing performed at: QPT, [email or web address], [address], [address] [place], [address], [employer]pery Rod Assembler: Bill Lucero MD [facility] Collection Date/Time: [id number] [facility] Results Received Date/Time: [id number] [facility] Reported Date/Time: [id number] Comment: CULTURE, URINE, ROUTINE Micro Number: [id number] Test Status: Final Specimen Source: Urine, clean [...] cefaclor, cefdinir, cefpodoxime, cefprozil, cefuroxime, cephalexin and loracarbef.Performed By: #### [id number] #### [facility] [address] [place], [place] [address]Yqkjniyb Blood Count with Auto Diffon 18-50-7959Siewqhjyb (Bld) [#/Vol]0.04 10*3/uLNormal0.00-0.20[facility] SpecialistComment on above:Performed By: #### LIPD, CBCAD, CMP, VITD #### [facility] [address] [place], [place] [address]Fyxiqxrzh/100 WBC (Bld)0.6 %NormalDayton Children'S Hospital SpecialistComment on above:Performed By: #### LIPD, CBCAD, CMP, VITD #### [facility] [address] [place], [place] [address]Jylxmuyihtr (Bld) [#/Vol]0.17 10*3/uLNormal0.02-0.50[facility] SpecialistComment on above:Performed By: #### LIPD, CBCAD, CMP, VITD #### [facility] [address] [place], [place] [address]Llcjjlwdpgb/100 WBC (Bld)2.5 %NormalDayton Children'S Hospital SpecialistComment on above:Performed By: #### LIPD, CBCAD, CMP, VITD #### [facility] [address] [place], [place] [address]Ihfpxigdqnk distribution width (RBC) [Ratio]13.5 %Normal 11.0-15.0[facility] SpecialistComment on above:Performed By: #### LIPD, CBCAD, CMP, VITD #### [facility] [address] [place], [place] [id number] (Bld) [Volume fraction]39.4 %Bztlgz77.0-47.0 [facility] SpecialistComment on above:Performed By: #### LIPD, CBCAD, CMP, VITD #### [facility] [address] [place], [place] [id number] (Bld) [Mass/Vol]12.6 g/uYHdlsda02.6-15.5[facility] SpecialistComment on above:Performed By: #### LIPD, CBCAD, CMP, VITD #### [facility] [address] [place], [place] [id number] (Bld) [#/Vol]2.1 10*3/uLNormal0.9-3.9NoMercy Health St. [facility] Hospital SpecialistComment on above:Performed By: #### LIPD, CBCAD, CMP, VITD #### [facility] [address] [place], [place] [address]Byaadyyhhny/100 WBC (Bld)31.2 %NormalNoMercy Health St. Charles Hospital SpecialistComment on above:Performed By: #### LIPD, CBCAD, CMP, VITD #### [facility] [address] [place], [place] [id number] (RBC) [Entitic mass]28.3 vkResdsh77.0-33.0NoMercy Health St[address] Charles Hospital SpecialistComment on above:Performed By: #### LIPD, CBCAD, CMP, VITD #### [facility] [address] [place], [place] [address]JTRC (RBC) [Mass/Vol]32.0 g/jEPadhoa19.0-36.0NoMercy Health [address] Charles Hospital SpecialistComment on above:Performed By: #### LIPD, CBCAD, CMP, VITD #### [facility] [address] [place], [place] [address]GDN (RBC) [Entitic vol]89 hBMymbpn73-265Xjmhictu [facility] SpecialistComment on above:Performed By: #### LIPD, CBCAD, CMP, VITD #### [facility] [address] [place], [place] [address]Wmqmvfdmv (Bld) [#/Vol]0.5 10*3/uLNormal0.2-0.9NoMercy Health St. [facility] Hospital SpecialistComment on above:Performed By: #### LIPD, CBCAD, CMP, VITD #### [facility] [address] [place], [place] [address]Mnscozprx/100 WBC (Bld)7.3 %NormalNortAshtabula County Medical Center SpecialistComment on above:Performed By: #### LIPD, CBCAD, CMP, VITD #### [facility] [address] [place], [place] [id number] (Bld) [#/Vol]3.9 10*3/uLNormal1.5-7.8NoMercy Health St. Charles Hospital SpecialistComment on above:Performed By: #### LIPD, CBCAD, CMP, VITD #### [facility] [address] [place], [place] [address]Kwsakvvedxk/100 WBC (Bld)58.1 %NormalNoMercy Health St. Charles Hospital SpecialistComment on above:Performed By: #### LIPD, CBCAD, CMP, VITD #### [facility] [address] [place], [place] [address]Flaftpme mean volume (Bld) [Entitic vol]10.10 fLNormal 7.50-12.50NoMercy Health St. Charles Hospital SpecialistComment on above:Performed By: #### LIPD, CBCAD, CMP, VITD #### [facility] [address] [place], [place] [address]Vozyoouhx (Bld) [#/Vol]232 10*3/mIIiafly242-012Mrgbeisz [place] [facility] SpecialistComment on above:Performed By: #### LIPD, CBCAD, CMP, VITD #### [facility] [address] [place], [place] [address]NIV (Bld) [#/Vol]4.45 10*6/uLNormal3.90-5.20NoMercy Health St. Charles Hospital SpecialistComment on above:Performed By: #### LIPD, CBCAD, CMP, VITD #### [facility] [address] [place], [place] [address]RGP-ZH77.4 xRDqzxfi82.0-50.0No[address] [facility] Hospital Specialist Comment on above:Performed By: #### LIPD, CBCAD, CMP, VITD #### [facility] [address] [place], [place] [id number] (Bld) [#/Vol]6.7 10*3/uLNormal3.8-11.0NoMercy Health St. Charles Hospital SpecialistComment on above:Performed By: #### LIPD, CBCAD, CMP, VITD #### [facility] [address] [place], [place] [id number] Metabolic Panelon 34-57-6921Bkjqjaw [Mass/Vol] 4.6 g/dLNormal3.6-5.1NorthDayton [facility] SpecialistComment on above:Performed By: #### LIPD, CBCAD, CMP, VITD #### [facility] [address] [place], [place] [address]Nfgqwen/Globulin [Mass ratio]1.6 {ratio}Normal1.0-2.5NoMercy Health St. Charles Hospital SpecialistComment on above:Performed By: #### LIPD, CBCAD, CMP, VITD #### [facility] [address] [facility] [place] [address]DPB [Catalytic activity/Vol]149 U/FKzfc92-590Xvoieozj [place] [facility] SpecialistComment on above:Performed By: #### LIPD, CBCAD, CMP, VITD #### [facility] [address] [place], [place] [address]ZXU [Catalytic activity/Vol]27 U/LNormal6-33NoMercy Health St. [facility] Hospital SpecialistComment on above:Result Comment: 05/01/2021 Female reference range changed.Performed By: #### LIPD, CBCAD, CMP, VITD #### [facility] [address] [place], [place] [address]Duytv gap [Moles/Vol]18 mmol/NRptnme15-67Tgxggwih [place] [facility] SpecialistComment on above:Result Comment: Effective 06/06/2019 reference range changed.Performed By: #### LIPD, CBCAD, CMP, VITD #### [facility] [address] [facility] [address]LPE [Catalytic activity/Vol]22 U/LNormal9-34NoMercy Health St. [facility] SpecialistComment on above:Performed By: #### LIPD, CBCAD, CMP, VITD #### [facility] [address] [facility], [place] [address]VRL/CREA31 RatioHigh6-22NoMercy Health St[address] [facility] Specialist Comment on above:Performed By: #### LIPD, CBCAD, CMP, VITD #### [facility] [address] [facility] [place] [address]Jmqdtqz [Mass/Vol]9.7 mg/dLNormal8.6-10.2[facility] SpecialistComment on above:Performed By: #### LIPD, CBCAD, CMP, VITD #### [facility] [address] [place], [place] [id number] [Moles/Vol]110 mmol/BGwrz11-970Mjmrtoes [place] [facility] SpecialistComment on above:Performed By: #### LIPD, CBCAD, CMP, VITD #### [facility] [address] [place], [place] [address]AN5 [Moles/Vol]19 mmol/WUpc17-59Htmrcxmw [place] [facility] SpecialistComment on above:Performed By: #### LIPD, CBCAD, CMP, VITD #### [facility] [address] [place], [place] [address]Flxtjnurfm [Mass/Vol]0.8 mg/dLNormal0.6-1.4NoMercy Health St[facility] SpecialistComment on above:Performed By: #### LIPD, CBCAD, CMP, VITD #### [facility] [address] [place], [place] [address]oNYREW44 mL/min/1.07w3Ucmyyd>60NortAshtabula County Medical Center SpecialistComment on above:Performed By: #### LIPD, CBCAD, CMP, VITD #### [facility] [address] [place], [place] [id number] mL/min/1.80c5Xtqieb>60NortAshtabula County Medical Center SpecialistComment on above:Performed By: #### LIPD, CBCAD, CMP, VITD #### [facility] [address] [place], [place] [id number] (S) [Mass/Vol]2.8 g/dLNormal1.9-3.7NoMercy Health St. [facility] SpecialistComment on above:Performed By: #### LIPD, CBCAD, CMP, VITD #### [facility] [address] [place], [place] [address]Ounhwbt [Mass/Vol]123 mg/mMCpbi09-69Pxvxskhx [place] [facility] SpecialistComment on above:Result Comment: For FASTING Glucose --- ADA reference ranges: Normal 65-99 mg/dl Prediabetes 100-125 Diabetes >/= 126Performed By: #### LIPD, CBCAD, CMP, VITD #### [facility] [address] [place], [place] [id number] [Moles/Vol]3.8 mmol/LNormal3.5-5.5Nortvalleywise behavioral health center maryvalen [facility] SpecialistComment on above:Performed By: #### LIPD, CBCAD, CMP, VITD #### [facility] [address] [place], [place] [address]Fdeupwl [Mass/Vol]7.4 g/dLNormal6.1-8.1[facility] SpecialistComment on above:Performed By: #### LIPD, CBCAD, CMP, VITD #### [facility] [address] [place], [place] [address]Fuwxlk [Moles/Vol]144 mmol/CWtmtrr141-194Hmittlat [facility] SpecialistComment on above:Performed By: #### LIPD, CBCAD, CMP, VITD #### [facility] [address] [place], [place] [address]NNAZ<0.3NormalNortvalleywise behavioral health center maryvalen [facility] SpecialistComment on above:Performed By: #### LIPD, CBCAD, CMP, VITD #### [facility] [address] [place], [place] [address]Kmnr nitrogen [Mass/Vol]25 mg/dLNormal7-25Nortvalleywise behavioral health center maryvalen [facility] SpecialistComment on above:Performed By: #### LIPD, CBCAD, CMP, VITD #### [facility] [address] [place], [place] [id number] Panelon 11-85-4822Apxdayqambk [Mass/Vol]182 mg/dLNormal 125-200NortAshtabula County Medical Center SpecialistComment on above:Result Comment: Low risk < 200mg/dL Borderline risk 201-239 mg/dl High risk > or equal to 240Performed By: #### LIPD, CBCAD, CMP, VITD #### [facility] [address] [place], [place] [address]Jcxiragfrxh in HDL [Mass/Vol]41 mg/dLNormal>40NoMercy Health St. [facility] SpecialistComment on above:Result Comment: High Cardiovascular Risk HDL <40 mg/dL Low Cardiovascular Risk HDL > or equal to 60 mg/dlPerformed By: #### LIPD, CBCAD, CMP, VITD #### [facility] [address] [place], [place] [id number] in LDL [Mass/Vol]122 mg/dLNormalNoMercy Health St. Charles Hospital SpecialistComment on above:Result Comment: LDL ATP III CLASSIFICATION LDL less than 100 mg/dl Optimal LDL 100-129 mg/dl Near or above optimal LDL 130-159 Borderline high LDL 160-189 High LDL greater than 189 mg/dl Very HighPerformed By: #### LIPD, CBCAD, CMP, VITD #### [facility] [address] [place], [place] [id number] in VLDL [Mass/Vol]19 mg/dLNormalNoMercy Health St. Charles Hospital SpecialistComment on above:Performed By: #### LIPD, CBCAD, CMP, VITD #### [facility] [address] [place], [place] [address]Bebiyzycsws.total/Cholesterol in HDL [Mass ratio]4 {ratio} NormalNoTriHealth McCullough-Hyde Memorial HospitalComment on above:Performed By: #### LIPD, CBCAD, CMP, VITD #### [facility] [address] [place], [place] [address]Smwfajuzjfcr [Mass/Vol]97 mg/mGMyqwig95-281UksbayotTriHealth McCullough-Hyde Memorial HospitalComment on above:Result Comment: TRIG ATPIII CLASSIFICATIONS TRIG less than 150 mg/dl Normal TRIG 150-199 mg/dl Borderline High TRIG 200-500 mg/dl High TRIG greather than 500 mg/dl Very HighPerformed By: #### LIPD, CBCAD, CMP, VITD #### [facility] [address] [place], [place] [address]Joumjcm D 25-OHon 47-25-5823FRA D 25 OH130 ng/mlNormal>29 [facility]aw[facility] HospitalComment on above:Order Comment: Specimen diluted to verify.Result Comment: Vitamin D Status Deficiency <20 ng/mL Insufficiency 20-29 ng/mL Optimal 30-100 ng/mL Possible Toxicity >=150 ng/mLPerformed By: #### LIPD, CBCAD, CMP, VITD #### [facility] [address] [place] [id number] THYROIDon 20-68-1582EG THYROIDEXAMINATION: US THYROID HISTORY: Non-toxic multinodular goiter COMPARISON: 12/24/2018 TECHNIQUE: [...] stable. One year follow-up recommended TI-RADS: The [employer] TI-RADS committee's white paper recommendations for thyroid lesions classified as TR5 (highly suspicious) are listed below: > 0.5 cm. Annual ultrasound follow-up for up to 5 years. > 1.0 cm. FNA. J. Am Naomi Radiol 2017;14:587-595. Electronically authenticated by: FEMI FRANCIS Date: 2020-12-19 16:[address] [place], [place] [address]Coding Summaryon 17-30-3539Gfyjag SummaryCODING DATE: 09/16/2017 [facility] STATUS: Home PAYOR: Medicaid HMO ADMIT DX: [...] the coding software may appear abbreviated, or resultin slightly different terminology. Coded By: Batool Doyle Date Saved: 09/16/2017 02:25 pmNormal [facility] HospitalProvider Orderson 20-63-0699Qggbcigl Orders [id number]#1.00OTUniversity Hospitals TriPoint Medical CenterXR Spine Lumbosacral 2 or 3 Viewson 12-35-1074HZ Spine Lumbosacral 2 or 3 Views SPINE [...] changes inthe lower thoracic spine. There is mildanterior spurring in the visualizedlower thoracic spine. There is mild right lateral spurring at L2- L3.Pedicles are intact. There are mild degenerative changes [...] EVIDENCE OF ACUTEPROCESS.3. FOLLOW-UP NEEDED.URBAN Venegas #: [id number]: 09/15/2017T: 09/15/2017 Final Dictated by: Stu Vicente MD DT/TM: 09/15/17 3:47Signed (Electronic Signature): Stu Vicente MD 09/15/17 4:57 pmTechnologist: VLADCincinnati Shriners HospitalCoding Summaryon 09-03-2017 Coding SummaryCODING DATE: 09/03/2017 [facility] STATUS: Home PAYOR: Medicaid HMO ADMIT DX: [...] result in slightly different terminology. Coded By: Aminah Doyle Saved: 09/03/2017 07:57 amNormal [facility] HospitalProvider Orderson 85-69-6054Xamlvmph Orders [id number]#1.00OTGTIFFThe Jewish HospitalXR Hip Complete Righton 87-01-4589PD Hip Complete RightHIP COMPLETE RIGHTCLINICAL DATA: Right hip pain for one year.AP and lateral views of the right hip were obtained. There are milddegenerative changes about the right hip joint with mild joint spacenarrowing and mild spurring of the superolateral acetabulum. There is mildspurring of the greater trochanteric region of the proximal femur. Nodefinite acute fracture or dislocation is seen. Soft tissuesare grosslywithin normal limits. A few small faint calcific densities are seen overlyingthe pelvis compatible with phleboliths.IMPRESSION:1. RIGHT HIP STUDY DEMONSTRATES MILD DEGENERATIVE CHANGES DESCRIBED.2. FOLLOW-UP NEEDED.URBAN Venegas #: [id number]: 09/01/2017T: 09/01/2017 FinalDictated by: Stu Vicente MD DT/TM: 09/01/17 3:24Signed (Electronic Signature): Stu Vicente MD 09/01/17 3:38 pmTechnologist: JOSE MARTINSt. Charles HospitalCoding Summaryon 68-24-5369Nvrosj SummaryCODING DATE: 07/03/2017 [facility] STATUS: Home PAYOR: Medicaid HMO ADMIT DX: REASON FOR VISIT DX: E55.9 Vitamin D deficiency, unspecified FINAL DX: PRINCIPAL: E55.9 Vitamin D deficiency, unspecified SECONDARY: PROCEDURES DOCTOR NAME DATE NOTE: The code number assigned matches thedocumented diagnosis and / or procedure in the patient's chart. However, the narrative phrase printed from the coding software may appear abbreviated, or result in slightly different terminology. Coded By: Batool Doyle Date Saved: 07/03/2017 12:36 [facility] HospitalProvider Orderson 45-56-5673Njwsdzsl [id number]#1.00OTGTIFF The Jewish HospitalVit D25 OHon 17-94-9889Tsdrgll D 25 OH75 ng/mLInvalid Interpretation [facility] Bing, MD, Cancer CenterComment on above:Result Comment: In 2010, theClinical Guidelines Subcommittee of the Endocrine Society Task Force est ablished the guidelinesbelow for recommended serum 25(OH) vitamin D levels.Vitamin D Status 25 (OH)Vitamin D Concentration Range (ng/mL) 25 (OH) Vitamin D Concentration Range (nmol/L) Deficient <20 < 50 Insufficient 20 to < 30 50 to < 75 Sufficient 30 to 100 75 to 250 Upper Safety Limit >100 >250 Bert GONZALEZ et al. Evaluation, Treatment, and Prevention of Vitamin D Deficiency: An EndocrineSociety Clinical Practice Guideline, J Clin Endocrinol Metab 2011; 96 (7): 2210-8132.Performed By: #### [id number] ####[facility] (DEFAULT)[address] [place] [address]Iadyfzryt Reporton 12-29-2016 Operative ReportSURGEON: Krysten Jones D.O.PREOPERATIVE DIAGNOSIS: Rotator cuff tear, left shoulder, recurrentPOSTOPERATIVE DIAGNOSES:1. Rotator cuff tear, left shoulder, recurrent2. Extensive adhesion formation3. Increased body mass index over 40OPERATION:1. Left shoulder arthroscopic extensive debridement rota tor cuff tear,subacromial bursa and glenohumeral arthritis2. Left shoulder open rotator cuff repair3. Revision subacromial decompressionANESTHESIA: General with blockINTRAOPERATIVE BLOOD LOSS: MinimalANTIBIOTICS: 3 gm I.V.DEGREE OF DIFFICULTY: Because of the patient's increased BMI, this didrequireadditional time, did take additional staff, did add an increaseddegree of difficulty performing theprocedure with a BMI over 40. The endresult [...] slow recovery and arepeat MRI shows a re- tear just medial to the previous otherwise intactrepair [...] She is then placed in the lateraldecubitus positionwith the operative left shoulder up which is [...] removing a small amount of bone anterolaterally. Thefull-thicknesstear is identified. This is somewhat delaminated. Becauseof the previous rotator cuff repair, failure and the patient's bodyhabitus, this is converted to an open procedure performed with a lateraldeltoid on incision 8 cm in length. This is carried down through thedeltoid tissue with blunt dissection and for a distance of 6 cm distal tothe lateral margin of the acromion. A self- retaining retractoris placed.The previous rotator cuff repair sutures are [...] deltoid fascia is similarly repaired with #2-0 Vicr yl and theskin was repaired with #3-0 V-Loc running subcuticular. A sterile bulkycompressive dressing is applied. The patient is transported to Recovery insatisfactory condition having tolerated the anesthetic and the procedurewell.Krysten Jones D.O.glsDictated: 12/25/2016 #[id number]: 12/26/2016 #[id number]: Krysten Jones D.O.[facility] Comment on above:Result Comment: Electronically Signed By: Krysten Jones DO\.br\Date and Time Signed: 12/29/16 08:51EDTCoding Summary.on 12-26-2016 Coding Summary.CODING DATE: 12/26/2016 FINAL [facility] STATUS: Home (Routine DC) PAYOR: Medicaid EAPG DESCRIPTION 0490 INCIDENTAL TO MEDICAL, SIGNIFICANT PROCEDURE OR THERAPY VISIT 0496 MINOR PHARMACOTHERAPY 0495 MINOR CHEMOTHERAPY DRUGS 0435 CLASS I PHARMACOTHERAPY 0220 LEVEL II NERVOUS S YSTEM INJECTIONS, STIMULATIONS OR CRANIAL TAP 0032 LEVEL [...] PROC EAPG STAT DESCRIPTION DOCTOR NAME DATE 13037 Injection, anesthetic Sterling Livingston MD 0 12/25/2016 agent; brachial plexus, single LT LEFT SIDE (USED TO IDENTIFY PROCEDURES PERFORMED ON THELEFT SIDE OF THE BODY) XP Separate practitioner, a service that is distinct because it was performed by a different practitioner 24177 0032 Repair of ruptured Robert LEWIS Krysten 12/25/2016 musculotendinous cuff (eg, rotator cuff) open; acute LT LEFT SIDE (USED TO IDENTIFY PROCEDURES PERFORMED ON THE LEFT SIDE OF THE BODY) [id number] 0380 Anesthesia for open or Krysten Jones DO 12/25/2016 surgical arthroscopic procedures on humeral head and neck, sternoclavicular joint, acromioclavicular joint, and shoulder joint; not otherwise specified NOTE: The code number assigned matches the documented diagnosisand / or procedure in the patient's chart. However, the narrative phrase printed from the coding software may appear abbreviated, or result in slightly different terminology. Coded By: Ledy Chavez Date Saved: 12/26/2016 11:54 amNProvidence HospitalMain OR Intraoperative Recordon 36-48-4407Jfuk OR Intraoperative RecordIntraOp Document Type FT Summary Primary Physician: Krysten Jones DO Finalized Date/Time: 12/26/16 11:05:13 Pt. Name: SURI OSHEA /Sex: 1960 Female Med Rec#: [id number] Physician: Krysten Jones DO Financial #: [id number] Pt. Type: A Room/Bed: [place] [address] Admit/Disch: 12/25/16 07:28:00 - 12/25/16 13:15:00 Institution: Case Times FT Entry 1 Patient Times In Room 12/25/16 09:00:00 Out Room 12/25/16 10:53:00 Procedure Times Start 12/25/16 09:31:00 Stop 12/25/16 10: 47:00 Anesthesia Times Start 12/25/16 09:00:00 Stop 12/25/16 [...] 1 Entry 2 Entry 3 Case Attendee Sterling Livingston MD, DO, Steven Stocker RN, CNOR, Anabella Role Performed Anesthesiologist of Surgeon - Primary [facility] Record Time In 12/25/16 09:00:00 12/25/16 09:00:00 12/25/16 09:00:00 Time Out 12/25/16 10:53:00 12/25/16 10:53:00 12/25/16 10:53:00 Procedure SHOULDER ARTHROSCOPY W/ SHOULDER ARTHROSCOPY W/SHOULDER ARTHROSCOPY W/ POSSIBLE REPAIR(Left) POSSIBLE REPAIR(Left) POSSIBLE REPAIR(Left) Comments Last Modified By: Ludivina MARTINEZ, Jie Florence RN, Jie Florence RN, Jie Hanna 12/25/16 11:11:22 12/25/16 11:11:22 07/27/17 11:11:22 Entry 4 Entry 5 Entry 6 Case Attendee Talha ZACARIAS, Lakisha Florence RN, Jie Silver RN, José Luis Role Performed Scrub - Primary Relay Man - Primary Relay Man- Primary Time In 12/25/16 09:00:00 12/25/16 09:00:00 12/25/16 09:00:00 Time Out 12/25/16 10:53:00 12/25/16 10:53:00 12/25/16 10:53:00 Procedure SHOULDER ARTHROSCOPY W/ SHOULDER ARTHROSCOPY W/ SHOULDER ARTHROSCOPY W/ POSSIBLE REPAIR(Left) POSSIBLE REPAIR(Left) POSSIBLE REPAIR(Left) Comments Last Modified By: Ludivina MARTINEZ, Jie Florence RN, Jie Lala RN 12/25/16 11:11:22 11:11:22 12/25/16 11:11:22 General Comments: Jorge Luis Álvarez - Arthlionel Ga RN Perioperative Protocols FT Pre-Care Text: [...] Implant, Prep Dry Yes Verified (If Medication Applicable)PreOp Antibiotic Yes Time Out Sterling Livingston MD, Given Participants Krysten Jones DO, George CST, [...] Procedure Yes Primary Surgeon Krysten Jones DO 12/25/16 09:31:00 Stop 12/25/16 10:47:00 Anesthesia Type [...] No CUFF TEAR Postop Diagnosis RECURRENT LEFT SHOULDEROutcomes Met? Yes ROTATOR CUFF TEAR Last Modified By: Jie Florence RN 12/25/16 10:30:11 Post-Care Text: The patient is free from signs and symptoms of infection Skin Assessment (Pre Procedure) FT Pre-Care Text: Implements protective measures to prevent skin/ tissue injury due to thermal or mechanical sources Evaluates for signs and symptoms of physical injury to skin and tissue Entry 1 SkinIntegrity Intact, [place], Warm, and Skin Abnormality No Dry Outcomes [...] left arm positioned POSSIBLE REPAIR(Left) Information using [employer] arm persaud; egg crate padding in feet/ankles [...] Modified By: Ludivina MARTINEZ, Jie Florence RN, iJe Lala RN 12/25/16 09:31:15 12/25/16 09:55:33 12/25/16 [...] 12/25/16 09:45:57 Post-Care Text: The patient is freefrom signs and symptoms of injury caused by extraneous objects Skin Prep FT Pre-Care Text: Performsskin preparations Entry 1 Procedure SHOULDER ARTHROSCOPY W/ Prep Area left shoulder (drape) POSSIBLE REPAIR(Left) to left wrist Prep Agents Chloraprep/Dry Prior to Draping Hair Removal Methods Not Ind icated By Jie Florence RN Outcomes Met? Yes Last Modified By: Jie Florence RN 12/25/16 09:48:59 Post-Care Text: The patient is free from signs and symptoms of infection Departure From OR FT Pre-Care Text: Transports according to individual needs. Evaluates for signs and symptoms of skinand tissue injury as a result of transfer or transport. Entry 1 Via Cart Safety Precautions Side Rails Up PostOp Destination PACU Transported By Jie Florence RN Skin. Condition Intact, [place], Warm, and Dry Airway Maintenance Oxygen in Use? Yes Airway Device Simple Mask Flow Rate 10 L Outcomes Met? Yes Last Modified By: Jie Florence RN 12/25/16 09:51:37 Post-Care Text: The patient is free from signs and symptoms of injury related to transfer/transport General Comments: Report given toPACU nurse. MICHELLE Ga Dressing/Packing FT Pre-Care Text: [...] and solutions, administers prescribed antibiotic therapy and immuniz ing agents as ordered, evaluates response to medications Administers prescribed medications and solutions Entry 1 Expiration Date Yes Outcomes Met? Yes Verified Last Modified By: Jie Florence RN 12/25/16 09:19:24 Post-Care Text: The patient received appropriate medication(s) safely administered during the perioperative period For Ortiz-Edmonson please see scanned medication reconcilliation form for medications used at the field during the procedure. Implant Log FT Pre-Care Text: Records devices implanted during the operative or invasive procedure Entry 1 Implant/Explant Implant Implant Identification Description SYSTEM SPEEDBRIDGE Lot Number [id number] IMPLANT W/SWIVELOCK [[id number]][F] Manager [employer] FT-ARTHREX Catalog ?# [id number] [F] Size 4.75 x 19.1mm Expiration Date 07/29/18 Usage Data Implant Site left shoulder Quantity 1 Outcomes Met? Yes Last Modified By: iJe Florence RN 12/25/16 10:04:15 Post-Care Text: The patient is free from signs and symptoms of injury caused by extraneous objects Temperature Control Entry 1 Temperature Control BLANKET MISTRAL AIR Quantity 1Aid PLUS LOWER BODY [[id number]][F] Fluid/Piffard Unit Mistral warming system Setting high/43c Body Site Lower anterior torso Last Modified By: Jie Florence RN 12/25/16 09:09:32 Case Comments Finalized By: Batool Weinberg CST Document Signatures Signed By: Jie Florence RN 12/25/16 11:12Jie Florence RN 12/25/16 11:23 Batool Weinberg CST 12/26/16 11:05[facility] HospitalOperative Reporton [id number] ReportSURGEON: Sterling Livingston M.D.OPERATION: Left ultrasound-guided interscalene block for postoperativepain [...] in a sterilefashion. Visualization of the brachial plex us was excellent and a 26 gauge1 1/2 inch needle was advanced with excellent ultrasound visualization.There were no paresthesias and then under direct ultrasound visualization,17 cc of a 0.5% Naropinsolution was injected in divided doses withfrequent aspiration. There were no signs of intraneural,intravascular orintrathecal injection and the patient tolerated the procedure very well.Within several minutes, the patient began to show signs and symptoms ofsuccessful blockade. Despite sedation, the patient remained awake and ableto interact in a meaningful way throughout the duration of the procedure.The patient then underwent general anesthesia for the planned procedure.Sterling Livingston M.D.glsDictated: 12/25/2016 #[id number]: 12/25/2016 #[id number]: Sterling Livingston M.D.[facility] HospitalComment on above:Result Comment: Electronically Signed By: Sterling Livingston MD\.br\Date and Time Signed: 12/26/16 08:07 EDTProgress Note-Physicianon [id number] Note-PhysicianPatient: SURI OSHEA Age: 56 years Sex: Female [...] Hives.Vicodin- Itching and rash. Current medications: (Selected) InpatientMedicationsOrderedLactated Ringers IV Gladys 1000 mL 1,000 mL: 1,000 mL, IV, 150 mL/hr, Routine, Startdate 12/25/16 7:30:00 EDT, 6.7 hour(s), Total volume (mL): 1,000PrescriptionsPrescribedPercocet 325mg-5 mg Tab: 1 tab(s), Oral, q4hr as [...] sulfate: 325 mg, Oral, Daily, Refills(s) 0, Anemiagabape ntin: 300 mg, Oral, Daily, am, Refills(s) 0, Neuropathygabapentin: 300mg 2 tabs hs, Oral, Daily, Neuropathygemfibrozil: 600 mg, Oral, BID, High cholesterolhyoscyamine 0.125 mg sublingual Tab: 0.125 mg = 1 tab(s), SubLingual, BIDAC, # 60 tab(s), Refills(s) 0, Other (see comment)meloxicam 15 mg Tab: 15 mg = 1 tab(s), Oral, Daily, Refills(s) 0, Inflammationmetformin: 500 mg, Oral, BID, Refills(s) 0,High blood sugarpantoprazole: 40 mg, Oral, Daily, Refills(s) 0ramipril: 2.5 mg, Oral, Daily, Refills(s) 0, High blood pressuresertraline: 100 mg 2 tabs, Oral, Daily, Refills(s) 0, Depressionsleep aid: sleep aid, 25mg 1 tab, Oral, Bedtime Problem list: All ProblemsRotator cuff tear / SNOMED CT 4866125591 / ConfirmedRIGHTHTN - Hypertension / SNOMED CT 8967568792 / ConfirmedNIDDM / ICD-9-CM 250.00 /ConfirmedNerve pain / SNOMED CT 03876753 / Confirmedlower backExtreme obesity / ICD-9-CM 278.01 / PossibleAnxiety / SNOMED CT 257376404 / ConfirmedChronic depression / SNOMED CT 096198096 / ConfirmedS tomach problems / SNOMED CT 478269976 / ConfirmedResolved: Dizzinesses / SNOMED CT 8535277624Fdebpbvv: H/O syncope / SNOMED CT 8146655990 Histories Past Medical History: ActiveNIDDM (250.00)Chronic depression (103258637)HTN - Hypertension (9161874624)Rotator cuff tear (5402078932)Comments:10/20/2013EDT 08:49 EDT - Sudha MARTINEZ, RyaneRIJADET Procedure history: revision rotator cuff tear, right shoulder with open repair. arthroscopic subacromial decompression. extensive arthroscopic debridement with lysis of adhesions, glenoid labrum debridement and subacromial bursectomy w/ revision of subacromial decompression on 01/11/2015 at 54 Years.Comments:01/12/2015 15:17 - Ashkan MARTINEZ, Yuliya Nmanipulation under an esthesia, right shoulderarthroscopic subacromial decompression, right shoulder, with lateral clavicle coplaning. arthroscopic rotator cuff repair, right shoulder. debridement of glenoid labrum tear on 11/03/2013 at 53 Years.Abdominal hysterectomy (241141848).GASTRIC TUMOR EXCISED.Comments:10/20/2013 08:Charlene - Sudha MARTINEZ, PeterENIGNBreast biopsy and related procedures ([id number]).Comments:10/20/2013 08:Charlene Haley RN, RyaneX2- BENIGNarthroscopy left shoulder.carpal tunnel release, bilateral. Social History Social & Psychosocial CyvqrxEavscwf92/22/2014 Risk Assessment: Denies Alcohol UseSubstance Ab use10/20/2013 Risk Assessment: Denies Substance UfmfiBqxlnze67/22/2014 Risk Assessment: Denies Tobacco Use. Physical Examination Pain assessment: Self- reports no pain. Airway: Mallampati classification: II (soft [...] Platelet 283.0 E9/L MPV 8.0 fL Glucose Sfiikhw792 mg/dL HI BUN 14 mg/dL Creatinine 0.6 [...] Fuentes MD on June 27, 2016 19:42 [facility] info: [id number], [facility], Outpatient, 06/27/2016 - 06/27/2016 Plan [place] Society [employer] Anesthesiologists (ASA) physical status classification: Class III. Anesthetic Preoperative Plan Anesthesia: General. , Regional ISB block for post op pain control.. Anesthetic plan, risks, benefits, and alternatives discussed with the patient and/or family. Patient verbalized understanding. Pt agrees with anesthetic plan and accepts all risks including but not limited to; Bleeding, in fection, nerve injury, dental injury, eye injury, shortness of breath, headache, low blood pressure, serious problems with the heart and lungs, allergic reactions, failed block and ..[facility] HospitalComment on above:Result Comment: Electronically Signed By: Miki MENJIVAR, Sterling\.br\Date and Time Signed: 12/26/16 14:49 EDTProgress Note-PhysicianPatient: SURI OSHEA Age: 56 years Sex: Female : 1960 Associated Diagnoses: None Author: Sterling Livingston MD Postoperative Information Post Operative Note: PostAnesthesia Care Unit. Anesthetic utilized: General. Health Status Allergies: Allergic Reactions (All)SevereBactrim- Hives.Vicodin- Itching and rash. Problem list: All ProblemsRotator cuff tear / SNOMED CT 0665131917 / ConfirmedRIGHTHTN - Hypertension / SNOMED CT 3363409279 / ConfirmedNIDDM / ICD-9-CM 250.00 / ConfirmedNerve pain / SNOMED CT 44577968 / Confirmedlower backExtreme obesity / ICD-9-CM278.01 / PossibleAnxiety / SNOMED CT 802544125 / ConfirmedChronic depression / SNOMED CT 322276353 / ConfirmedStomach problems / SNOMED CT 669045173 / ConfirmedResolved: Dizzinesses / SNOMED CT 773016 5017Resolved: H/O syncope / SNOMED CT 6009401047 Physical Examination Intake and Output adequate hydration [...] Temporal Artery 36.3 DegC Heart Rate Monitored 97bpm Respiratory Rate Monitored 18 br/min Systolic Blood [...] nausea and vomiting. Plan Transfer/ Discharge: Patient canbe discharged from PACU when criteria met, Patient can be discharged from anesthesia care. Condition stable. [facility] HospitalComment on above:Result Comment: Electronically Signed By: Miki MENJIVAR, Sterling\.br\Date and Time Signed: 12/26/16 14:49 EDT Inpatient Patient Summaryon [id number] Patient SummaryWayne HospitalClinical Discharge InstructionsPERSON INFORMATION Name: SURI OSHEA PHYSICIANS Admitting Physician: Alberto Jones DOttending Physician: Krysten Jones DO PCP: MORIAH MERRITT MDischarge Diagnosis: Comment: PATIENT EDUCATION INFORMATIONInstructions:Robert - Rotator CuffRepair / Shoulder Arthrotomy Discharge Instructions-(Revised 06-19-11) (Custom) (Custom) (CUSTOM)Medication Leaflets:Follow up:MEDICATION LISTFill New Prescriptions:acetaminophen-oxycodone (Percocet 325 mg-5 mg Tab) 1 tab(s) By Mouth every 4 hours as needed for as needed for painComment:[facility] HospitalMain OR PACU I Recordon [id number] OR PACU I RecordPACU Phase I Document Type FT Summary Primary Physician: Krysten Jones DO Finalized Date/Time: 12/25/16 11:37:13 Pt. Name: SURI OSHEA Krystal Campos/Sex: 1960 Female Med Rec #: [id number] Physician: Krysten Jones DO Financial #: [id number] Pt. Type: A Room/Bed: [place] [address] Admit/Disch: 12/25/16 07:28:36 - Institution: Case Times PACU I FT Pre-Care Text: Identifies barriers tocommunication and implements measures to provide psychological support Develops individualized planof care, and ensures continuity of care Maintains patient's dignity and privacy, and maintains patient confidentiality Identifies and reports philosophical, cultural, and spiritual beliefs and valuesIdentifies individual values and wishes concerning care Implements aseptic technique, and administers prescribed antibiotic therapy and immunizing agents as ordered Evaluates postoperative tissue perfusion Implements thermoregulation measures, and monitors body temperature Evaluates postoperative respiratory status Evaluates postoperative cardiac status Evaluates postoperative neurological statusAssesses pain control, collaborated in initiating patient-controlled analgesia and implements alternative methods of pain control Verifies allergies, administers prescribed medications and solutions,evaluates response to medications Entry 1 In PACU I 12/25/16 10:55:00 Discharge from PACU 12/25/16 1 1:25:00 I Outcomes Met? Yes Last Modified By: [...] perioperative plan of care The patient participates indecisions affecting his or her perioperative plan of [...] preoperatively The patient's cardiovascular status is consistent wit h or improved from baseline levels established preoperatively [...] Signatures Signed By: Andie Ramon RN 12/25/16 11:37NoMercy Health West HospitalMain OR PACU II Recordon [id number] OR PACU II RecordPACU Phase II Document Type FT Summary Primary Physician: Krysten Jones DO Finalized Date/Time: 12/25/16 14:10:58 Pt. Name: SURI OSHEA/Sex: 1960 Female Med Rec #: [id number] Physician: Krysten Jones DO Financial #: [id number] Pt. Type: A Room/Bed: AS17/01 Admit/Disch: 12/25/16 07:28:36 - Institution: Case Times PACU II FT Pre-Care Text: Identifies barriers to communication and implements measures to provide psychological support and determines knowledge level Develops individualized plan of care, and ensures continuity of care Maintains patient's dignity and privacy, and maintains patient confidentiality Identifies and reports philosophical, cultural,and spiritual beliefs and values Identifies individual values and wishes concerning care administers prescribed antibiotic therapy and immunizing agents as ordered, Evaluates postoperative tissue perfusion Implements thermoregulation measures, and monitors body temperature Evaluates postoperative respiratory status Evaluates postoperative cardiac status Evaluates postoperative neurological statusAssesses pain control, collaborated in initiating patient-controlled analgesia and implements alternative methods of pain control Verifies allergies, administers prescribed medications and solutions,evaluates response to medications Entry 1 In PACU II 12/25/16 11:25:00 Discharge from PACU 12/25/16 13:15:00 II Outcomes Met? Yes Last Modified By: Manisha Ellington RN 12/25/16 14:10:56 Post-Care Text: The patient demonstrates knowledge of the expected response to the operative or invasive procedure The patient's care is consistent with the individualized perioperative plan of care The patient'sright to privacy is maintained The patient's value system, lifestyle, ethnicity, and culture are considered, respected, and incorporated into the perioperative plan of care The patient participates in decisions affecting his or her perioperative plan of care. The patient is free from signs and symptoms of infection The patient has wound/tissue perfusion consistent with or improved from baseline le vels established preoperatively The patient is at or returning to normothermia at the conclusion ofthe immediate postoperative period The patient's respiratory function [...] Signatures Signed By: Manisha Ellington RN 12/25/16 14:10NoMercy Health West HospitalMain OR Preoperative Recordon [id number] OR Preoperative RecordPreOp Document Type FT Summary Primary Physician: Krysten Jones DO Finalized Date/Time: 12/25/16 11:12:45 Pt. Name: FEDERICOSURI/Sex: 1960 Female Med Rec #: [id number] Physician: Krysten Jones DO Financial #: [id number] Pt. Type: A Room/Bed: [place] [address] Admit/Disch: 12/25/16 07:28:36 - Institution: Case Times [...] RN 12/25/16 09:25 Jie Florence RN 12/25/16 11:12Noal [facility] HospitalPatient Education - Texton 07-14-2105Clwvkmk Education - TextPatient Education Materials Follows:Krysten Jones D.O.Access [address] [phone] OPEN ROTATOR CUFF REPAIR DISCHARGE INSTRUCTIONSMEDICATIONSYou will be given a prescription for pain medication. This should be taken with food, as needed. This may cause stomach upset, dizziness, and possible constipation. Please notify the office if you have any medication allergies to this type of medication or if any problems develop with the medication.You may begin using Tylenol or tgxg-rsi-iunxpvk Ibuprofen or Motrin for pain should you [...] temperature over 101 degrees, redness, or drainage shouldbe reported to the office prior to your first office visit.PHYSICAL THERAPYWill begin after your first office visit.ACTIVITYYou may continue to progress activity as comfortably tolerated with your opposite arm. You must wear either the cryo cuff or shoulder immobilizer at all times, with 2# liftinglimit keeping elbow at your side all times.ANESTHESIA PRECAUTIONSYou should not operate a vehicle, automobile, bicycle or motorcycle, machinery, or power tools; make any important decisions or drink alcohol for 24 hours.It may be beneficial to have a responsible adult remain with your for your first 24 hours after surgery. You may be drowsy and light-headed.DRIVINGDriving is legal. But if you areinvolved in an accident, you must be able to prove that you maintained full control of your vehicle. For this reason, it is advised that you do not drive until your strength returns. Similarly, all sports activities are discouraged, at least until your first post-operative visit at which time we paulo l discuss how and when to resume sports.PROBLEMSYou should notify the office for any persistent or heavy bleeding, temperature above 101, redness, swelling, or drainage from the operative site, severe pain at the operative site, or the development of persistent vomiting. Krysten Jones D.O.Rev. 2011-1NProvidence HospitalCoding Summary.on [id number] Summary.CODING DATE: 12/15/2016 FINAL [facility] STATUS: Home ([facility]) PAYOR: Medicaid ADMIT DX: REASON FOR VISIT DX: Z01.812 Encounter for preprocedural laboratory examination FINAL DX: PRINCIPAL: Z01.812 Encounter for preprocedural laboratory examination SECONDARY: M75.102 Unspecified rotator cuff tear or rupture of left shoulder, not specified as traumatic PROCEDURES DOCTORNAME DATE NOTE: The code number assigned matches the documented diagnosis and / or procedure in thepatient's chart. However, the narrative phrase printed from the coding software may appear abbreviated, or result in slightly different terminology. Coded By: Garcia, Abi Date Saved: 12/15/2016 02:40pmNormalProtestant Deaconess HospitalBUNon 12-12-2016 Urea sjojutlf81 mg/dLNormal5-21[facility]acon[facility] HospitalComment on above: Performed By: #### [id number], 5201712, 4115822, 87817124, 7517205, 6845360 ####[address] [place], [place] [address]ZZH w/Indiceson 09-42-5502Vusbdqmgpyy distribution width Auto Ratio (RBC)15.6 %High 10.9-14.2FUniversity Hospitals Portage Medical CenterComment on above:Performed By: #### 0547041, 0795971, 6908203, 56593180, 7035702, 8473348 ####[address] [place], [place] [address]Uvntthyjnvoq (RBC)4.7 E12/LNormal 4.3-5.9[facility]acon[facility] HospitalComment on above:Performed By: #### 8039194, 3950641, 4028106, 15237469, 2727005, 4599129 ####[address] [address]Yzuqwztgnv (HCT)39.1 %Jcrmsb22.0-46.0 [facility] HospitalComment on above:Performed By: #### 8357827, 6521831, 3577366, 01981389, 6880221, 0490262 ####[address] [address]Bhswtvzkpw mass conc (Bld)12.6 g/dL Dopbqy77.0-16.0[facility]acon[facility] HospitalComment on above:Performed By: #### 1811350, 4277410, 7968621, 68487303, 0037723, 1417716 ####[address] [address]FXG24.7 pgLow27.0-34.0[facility]acon[facility] HospitalComment on above:Performed By: #### 8358356, 2808991, 9586659, 04715172, 2147059, 1486951 ####[facility] [address] [place], [place] [address]JEYY mass conc (RBC)32.3 g/dLNormal 31.4-39.3FUniversity Hospitals Portage Medical CenterComment on above:Performed By: #### 9920944, 7907739, 6550554, 56265030, 7607404, 1673221 ####[address] [place], [place] [address]CRO26.4 aZFlsebc69.0-100.0[facility] HospitalComment on above:Performed By: #### 4158156, 9873754, 8302527, 44667027, 7981263, 0960831 ####[address] [address]Cckngypn mean volume (PMV)8.0 fL Normal6.4-10.8[facility]acon[facility] HospitalComment on above:Performed By: #### 9334927, 7686058, 1433405, 50101332, 6666533, 0512777 ####[address] [address]Tfssusnjc579.0 E9/LNormal 150.0-500.0[facility]acon[facility] HospitalComment on above:Performed By: #### 4821347, 0033308, 2549374, 63671726, 8415319, 7884222 ####[address] [address]UQL (Leukocytes)7.6 E9/LNormal 4.0-11.0[facility]acon[facility] HospitalComment on above:Performed By: #### 3630040, 9307795, 9363247, 63943093, 3460601, 9968112 ####[address] [address]Bbgoguexmazv 36-23-3340Brezkwqgkr2.6 mg/dLNormal0.5-1.3FUniversity Hospitals Portage Medical CenterComment on above:Performed By: #### 3361566, 3468318, 7646407, 02250371, 2311061, 4775769 ####[facility] [address] [place], [place] [address]Zvv Fastingon 12-12-2016 Glucose mass byvd110 mg/nAIioe40-87KqsqbdProtestant Deaconess HospitalComment on above: Performed By: #### 9736377, 2901009, 3762073, 52733758, 0483737, 3877411 ####[facility] [address] [place], [place] [address]Hbwar on 96-10-1519Jehsb gap14 mmol/LNormal6-16[facility] HospitalComment on above:Performed By: #### 1934854, 4161340, 8581154, 95006909, 7444751, 4602174 ####[address] [address] Abjxxsdb076 mmol/CMvkmhv355-666ElgbzdProtestant Deaconess HospitalComment on above: Performed By: #### 9667439, 6532407, 8798508, 81564524, 5555060, 4283747 ####[address] [address] mmol/WYqpfxq11-45XoetdpProtestant Deaconess HospitalComment on above:Performed By: #### 6279073, 5326483, 8812504, 51523396, 4505495, 6943342 ####[facility] [address] [place] [address]Ebufeomaq molar conc4.0 mmol/L Normal3.5-5.3FUniversity Hospitals Portage Medical CenterComment on above:Performed By: #### 6248122, 2843882, 1291757, 01145395, 7776552, 5505306 ####[address] [address]Ducwqo065 mmol/OGmjtpj851-370 [facility] HospitalComment on above:Performed By: #### 5103836, 6820997, 9783871, 50457629, 0974570, 8858606 ####[facility] [address] [place], [place] [address]fNOQdx 32-25-6428wZZM (black) mL/min/{1.73_m2}Normal>=59Pro[facility]aconess HospitalComment on above:Order Comment: Order added by Discern Expert.Result Comment: eGFR is race adjusted. AA=.Performed By: #### [id number], [id number], [id number], [id number], [id number] ####[facility] [address] [place], [place] [address]bADW (non-black)mL/min/{1.73_m2}Normal>=59[facility] HospitalComment on above:Order Comment: Order added by Discern Expert. Result Comment: Chronic kidney disease could be indicated at eGFR's of less than 60 mL/min/1.73m2. Kidney failure is indicated at less than 15 mL/min/1.73m2. Performed By: #### [id number], [id number] ####[facility] [address] [place] [address] Vital Signs Date TimeVital SignValuePerforming VgaogcwvgJkyjotrx87-36-5292 12:52-0500Body cmTodGrant [facility] PA Work Phone: WrikeParkland Health CenterOoqmaprtod78-88-5353 12:52-0500Body mass index (BMI) [Ratio]38.09 kg/m2[facility] Work Phone: [phone] HospitalIjwbzsktwm39-32-0400 12:52-0500Body oshqai55.52 kgDayton [facility] Medical Center PA Work Phone: NOParkland Health CenterDzcruvqdzf87-99-1279 14:04-0400Body ncyvja832 cm [facility] PA Work Phone: [phone] Health CenterQqvhhoybty24-32-9592 14:04-0400Body mass index (BMI) [Ratio]38.09 kg/m2[facility] PA Work Phone: NOParkland Health CenterRvrrkntugm28-91-2191 14:04-0400Body ggvald12.52 kgDayton Va Medical Center PA Work Phone: noParkland Health CenterQvpxpcebzs71-62-3551 14:42-0400Body npzinb390 cm Moriah Hemmer PA Work Phone: noParkland Health CenterQotiirxdtz88-19-5377 14:42-0400Body mass index (BMI) [Ratio]38.23 kg/y5Vuwjv Hemmer PA Work Phone: NOParkland Health CenterZqjahayemp85-05-7933 14:42-0400Body xeumll86.89 kgKaren Hemmer PA Work Phone: NOParkland Health CenterNngfgetpvk84-84-2678 14:42-0400Diastolic blood dlaqrjqb12 mm[Hg]Moriah Hemmer PA Work Phone: noParkland Health CenterMyiqcgzofj34-10-2332 14:42-0400Heart rate66 /min Moriah Hemmer PA Work Phone: noParkland Health CenterUmxwwlrnvm70-05-1239 14:42-0400Respiratory rate16 /minKaren Hemmer PA Work Phone: [facility] HospitalHthhsceqiw61-30-3980 14:42-3899XqR2% (BldA) [Mass fraction]97 %Moriah Hemmer PA Work Phone: noParkland Health CenterJogcxdqdvi50-78-9639 14:42-0400Systolic blood mm[Hg]Moriah Hemmer PA Work Phone: noParkland Health CenterDgtzsxcgij47-42-4775 14:30-0400Body cm Moriah Hemmer PA Work Phone: [facility] HospitalQalkzrlltw36-75-5333 14:30-0400Body mass index (BMI) [Ratio]38.37 kg/c1Ctpyg Hemmer PA Work Phone: [facility] HospitalNsrtgasnlv02-26-6894 14:30-0400Body qypzqf55.25 kgKaren Hemmer PA Work Phone: NOParkland Health CenterSqmkmcbngs10-95-4344 14:30-0400Diastolic blood dpacejip44 mm[Hg]Moriah Hemmer PA Work Phone: [facility] HospitalLdoukggypi79-96-2976 14:30-0400Heart rate98 /min Moriah Hemmer PA Work Phone: [facility] HospitalZxqjtdjrvb51-44-2230 14:30-0400Respiratory rate18 /minKaren Hemmer PA Work Phone: [facility] HospitalZbuvegtxzu49-47-1866 14:30-4421BxY8% (BldA) [Mass fraction]99 %Moriah Hemmer PA Work Phone: [facility] HospitalZjbbgyehzw15-23-7298 14:30-0400Systolic blood dxntvbyk745 mm[Hg]Moriah Hemmer PA Work Phone: [facility] HospitalLptqkjevjq51-80-0670 14:42-0400Body hzxvec353 cm Moriah Hemmer PA Work Phone: [facility] HospitalQxshenvfyn12-42-3407 14:42-0400Body mass index (BMI) [Ratio]37.02 kg/v4Glauo Hemmer PA Work Phone: [facility] HospitalXeswbznurc67-90-1583 14:42-0400Body kqvanr07.8 kg Moriah Hemmer PA Work Phone: [facility] HospitalCzrgzagqio26-71-2022 14:42-0400Diastolic blood ipxjkwge97 mm[Hg]Moriah Hemmer PA Work Phone: [facility] HospitalRfpfpbtijt94-05-3168 14:42-0400Heart rate69 /min Moriah Hemmer PA Work Phone: [facility] HospitalHcynkoycrj91-43-7659 14:42-0400Respiratory rate16 /minKaren Hemmer PA Work Phone: [facility] HospitalDkqsipzskq42-60-2462 14:42-2957AhN2% (BldA) [Mass fraction]95 %Moriah Hemmer PA Work Phone: [facility] HospitalWugwajyzfa76-40-2455 14:42-0400Systolic blood slhheicl172 mm[Hg]Moriah Hemmer PA Work Phone: [facility] HospitalIwsolzbkti85-03-9351 14:31-0500Body nijosf816 cm Moriah Hemmer PA Work Phone: [facility] HospitalYvbpxihlcr51-68-7405 14:31-0500Body mass index (BMI) [Ratio]37.31 kg/v0Inpck Hemmer PA Work Phone: [facility] HospitalMyxxlsgkrk92-08-7753 14:31-0500Body .53 kgKaren Hemmer PA Work Phone: [phone]-2708[facility] HospitalCzylbymbpo61-22-0688 14:31-0500Diastolic blood bwyttwut88 mm[Hg]Moriah Hemmer PA Work Phone: [phone]-[address] [place], [place] [address]Ptfdksrkic01-68-7939 14:31-0500Heart rate65 /min Moriah Hemmer PA Work Phone: [phone]-[address] [place], [place] [address]Wwylujbsql49-54-2881 14:31-0500Respiratory rate18 /minKaren Hemmer PA Work Phone: [phone])[facility]-3892[facility] HospitalTdnxdfenqu63-60-9828 14:31-1730UhZ4% (BldA) [Mass fraction]98 %Moriah Hemmer PA Work Phone: [phone])[facility]-[address] [place], [place] [address]Tjtyveifxz16-81-3573 14:31-0500Systolic blood mm[Hg]Moriah Hemmer PA Work Phone: [phone])[facility]-4404[facility] HospitalTqeqfbyrfm69-71-5111 13:57-0500Body cm Heather Castaneda MD Work Phone: [facility] HospitalZltbudawco14-43-4837 13:57-0500Body mass index (BMI) [Ratio]36.31 kg/z9AzfsaaHeather Castaneda MD Work Phone: [place] [address]Twmeyfefuq45-51-8695 13:57-0500Body pmyinp71.99 kgHeather Castaneda MD Work Phone: [phone])[facility]-[address] [address]Xlmgyxrglw28-20-3984 13:57-0500Diastolic blood vewykzym89 mm[Hg]Heather Castaneda MD Work Phone: [phone])[facility]-[address] [address]Nvgzndawwm94-91-1256 13:57-0500Systolic blood fixosgdn974 mm[Hg]Heather Castaneda MD Work Phone: [phone] [address]Pnlmyamvxg00-82-8808 13:46-0500Body zuydes581 cm Moriah Hemmer PA Work Phone: [facility] HospitalSyxqrkfeip14-34-4629 13:46-0500Body mass index (BMI) [Ratio]36.14 kg/o3Fnnzy Hemmer PA Work Phone: [facility] HospitalEbwifemduj41-67-4609 13:46-0500Body diymma70.53 kgAjayen Hemmer PA Work Phone: [facility] HospitalOzfmhtggem98-15-9571 13:46-0500Diastolic blood rhhrgopj18 mm[Hg]Moriah Hemmer PA Work Phone: [facility] HospitalYgseqbgudu82-70-6144 13:46-0500Heart rate69 /min Moriah Hemmer PA Work Phone: [facility] HospitalSkxizgsfeb48-78-5603 13:46-0500Respiratory rate18 /minAjayen Hemmer PA Work Phone: [facility] HospitalWstuyfkqlk72-72-4510 13:46-3820QiJ0% (BldA) [Mass fraction]97 %Moriah Hemmer PA Work Phone: [facility] HospitalVwujtjdjpy02-35-5540 13:46-0500Systolic blood dhxvcejg587 mm[Hg]Moriah Hemmer PA Work Phone: [facility] HospitalEptoipqiwj01-85-9903 11:15-0400Body bwdgbi511.02 cmCfranny Giannajessica Other [employer] Other 10-10-2023 11:15-0400Body mass index (BMI) [Ratio]35.6 kg/b5Pmrxmex Ditty Other [employer] Other 10-10-2023 11:15-0400Body ysemkx34.17 kgCameron Ditty Other [employer] Other 10-10-2023 11:15-0400Diastolic blood vokonacx84 mm[Hg] Yon Bella Other [employer] Other 10-10-2023 11:15-0400Systolic blood mm[Hg] Yon Kellylauro Other [employer] Other 11-18-2021 14:15-0500Body .02 cmCfranny Bella Other [facility] [employer] Other 11-18-2021 14:15-0500Body mass index (BMI) [Ratio]35.6 kg/b3QcexaduYon Bella Other [employer] Other 11-18-2021 14:15-0500Body cvnuck49.17 kgCamalia Bella Other [facility] [employer] Other 11-18-2021 14:15-0500Diastolic blood vxlhetpv58 mm[Hg] Yon Kellyrafaeljessica Other [employer] Other 11-18-2021 14:15-0500Systolic blood qyspxcmk617 mm[Hg] Yon Kellyrafaeljessica Other [facility] [employer] Other Encounters Encounter DateEncounter TypeCare ProviderFacilityStart: 04-04-2025 End: 44-93-8876Yeihab flowsSenia GUO Work Phone: [facility]opaedicsStart: 04-04-2025 End: 13-35-5634Ddzmlb flowsheetChristofer GUO Work Phone: [facility] OrthopaedicsStart: 04-04-2025 End: 91-71-4273Pxghjau encounter procedureTolemuel GUO Work Phone: [facility] OrthopaedicsComment on above:Impingement syndrome of left shoulder (Primary Dx); Adhesive capsulitis of left shoulderStart: 04-04-2025 End: 06-90-6836esuzduzekmGAKE D JOSENot AvailableStart: 03-30-2025 End: 85-91-7830fjqkopzfaxNgrkd Gezo PTANOMS Roman Physical TherapyComment on above:Impingement syndrome of left shoulder (Primary Dx); Left shoulder pain, unspecified chronicity; Adhesive capsulitis of left shoulderStart: 03-30-2025 End: 04-31-7673Yfiadu flowsheetAbbie Gezo PTANOMS Roman Physical TherapyStart: 03-30-2025 End: 87-15-7450Pqhgwq flowsheetAbbie Gezo PTANOMS [facility] Physical TherapyStart: 03-28-2025 End: 94-98-9651lwrnqmepwoHwjtc Gezo PTANOMS Roman Physical TherapyComment on above:Impingement syndrome of left shoulder (Primary Dx); Left shoulder pain, unspecified chronicity; Adhesive capsulitis of left shoulderStart: 03-28-2025 End: 12-60-4275Uuthzu flowsheetAbbie Gezo PTANOMS [facility] Physical TherapyStart: 03-28-2025 End: 88-43-9710Soekyh flowsheetAbbie Gezo PTANOMS [facility] Physical TherapyStart: 03-23-2025 End: 92-19-4052upglaepeyyJiccqrb Kelbley PTANOMS Roman Physical TherapyComment on above:Impingement syndrome of left shoulder (Primary Dx); Left shoulder pain, unspecified chronicity; Adhesive capsulitis of left shoulderStart: 03-23-2025 End: 43-32-3073Urzrur flowsheetMelissa Kelbley PTANOMS [facility] Start: 03-23-2025 End: 81-59-6985Emxipe flowsheetMelissa Kelbley PTANOM[facility] Start: 03-21-2025 End: 83-81-1692owxhoxwzazXvdckfi Kelbley PTANOMS [facility] Physical TherapyComment on above:Impingement syndrome of left shoulder (Primary Dx); Left shoulder pain, unspecified chronicity; Adhesive capsulitis of left shoulderStart: 03-21-2025 End: 46-45-2359Zuxqzi flowsheetMaria D Villatoro PTANOM[facility] Start: 03-21-2025 End: 62-83-8211Fhrdqz flowsheetMeldonovan Villatoro PTAN[facility] Start: 03-16-2025 End: 10-37-1274Mxlndx flowsheetMeldonovan Villatoro PTAN[facility] Start: 03-16-2025 End: 99-21-2271Oqfdta flowsheetMaria D Villatoro PTAN[facility] Start: 03-16-2025 End: 11-01-8970arstcnjiccXhmdbfw Kelbley PTANO [facility] Physical TherapyComment on above:Impingement syndrome of left shoulder (Primary Dx); Left shoulder pain, unspecified chronicity; Adhesive capsulitis of left shoulderStart: 03-14-2025 End: 53-93-5562wfckomewrtWapgjrudn Harkins PTNOMS [facility] Comment on above:Impingement syndrome of left shoulder (Primary Dx); Left shoulder pain, unspecified chronicity; Adhesive capsulitis of left shoulderStart: 03-14-2025 End: 96-85-4063Agewqb flowsheetSammantha Harkins PTNOMS [facility] Start: 03-14-2025 End: 43-08-6638Jldmao flowsheetSammantha Harkins PTNOMS [facility] Start: 03-07-2025 End: 81-91-5175Cedrhz flowsheetMaria D Villatoro PTAN[facility] Start: 03-07-2025 End: 79-37-6641Mmqmqn flowsheetMaria D Villatoro PTAN[facility] Start: 03-07-2025 End: 53-33-5761etiqgdgmcoWfwiyvf Irving PTANOMS [facility] Physical TherapyComment on above:Impingement syndrome of left shoulder (Primary Dx); Left shoulder pain, unspecified chronicity; Adhesive capsulitis of left shoulderStart: 02-28-2025 End: 55-52-5634jgqdslljosTevckyqqf Harkins PTNOMS [facility] Comment on above:Left shoulder pain, unspecified chronicity (Primary Dx); Impingement syndrome of left shoulder; Adhesive capsulitis of left shoulderStart: 02-28-2025 End: 45-00-7239Divppu flowsheetSammantvirginia Harkins [facility] Start: 02-28-2025 End: 91-08-3387Thnqqt flowsheetSammantvirginia Harkins [facility] Start: 02-24-2025 End: 91-61-6785Ijgscyp encounter procedureChristofer GUO Work Phone: NOAN [facility] OrthopaedicsComment on above:Impingement syndrome of left shoulder (Primary Dx); Left shoulder pain, unspecified chronicity; Adhesive capsulitis of left shoulderStart: 02-24-2025 End: 24-32-2810jqtxzwdwudVGUQ D HILLSNot AvailableStart: 02-24-2025 End: 35-75-0443qzqxuwvqlaZHBC D HILLSNot AvailableStart: 02-23-2025 End: 57-57-9724Tjoedncfz Result EncounterMoriah GUO Work Phone: NOBR External Department UnsolicitedStart: 02-23-2025 End: 31-52-1139Bznjyjhpb Result EncounterMoriah GUO Work Phone: noms External Department UnsolicitedStart: 02-21-2025 End: 24-19-7202qqtmuupgsdBYHMC M HEMMERNot AvailableStart: 02-21-2025 End: 53-79-8859Yvmkrl outpatient visit 25 minutesMoriah GUO Work Phone: NOM[facility] Roman MedinceComment on above:Acute pain of left knee (Primary Dx); Frequency of urination; Primary osteoarthritis of left kneeStart: 02-21-2025 End: 53-67-0601Zkilsu Doris GUO Work Phone: [facility] Celis MedinceStart: 02-21-2025 End: 10-36-0554Muqgyx Doris GUO Work Phone: [facility] Celis MedinceStart: 18-41-3683lgzhxewsazree Watkinscility:[facility] Hospitaltart: 10-11-2024 End: 77-21-6397hplywdetefLWMFS M HEMMERNot AvailableStart: 10-11-2024 End: 83-50-7458Qoyvkv Doris Guzman PA Work Phone: N[facility] CI FMStart: 10-11-2024 End: 62-46-0370Cfwicp Doris Guzman PA Work Phone: [facility] CI FMStart: 10-11-2024 End: 04-84-3934Eugdgesk Result EncounterMoriah Guzman PA Work Phone: NOMS External Department UnsolicitedStart: 10-11-2024 End: 10-13-6371Utiytv outpatient visit 15 minutesMoriah Guzman PA Work Phone: N[facility] CI FMComment on above:Diabetic peripheral neuropathy (CMS/HCC) (Primary Dx); Arthropathy of left sacroiliac joint; Major depressive disorder, recurrent severe without psychotic features (HCC) (CMS/HCC)Start: 09-21-2024 End: 59-86-9161Hnjrac outpatient visit 25 minutesMoriah Guzman PA Work Phone: [facility] CI FMComment on above:Arthropathy of left sacroiliac joint (Primary Dx); Obstructive sleep apnea; Primary osteoarthritis of both hips; Osteoarthritis of lumbar spine, unspecified spinal osteoarthritis complication status; Degeneration of intervertebral disc of lumbar region with discogenic back pain and lower extremity painStart: 09-21-2024 End: 75-83-4796riwvraowakWGKYJ M HEMMERNot AvailableStart: 09-21-2024 End: 62-56-1368Ivynir Doris Guzman PA Work Phone: [facility] CI FMStart: 09-21-2024 End: 96-18-7757Wbmcra Doris Guzman PA Work Phone: [facility] CI FMStart: 07-15-2024 End: 53-46-2639Trubnttzk Result EncounterMoriah Guzman PA Work Phone: noms External Department UnsolicitedStart: 07-15-2024 End: 68-12-9127Lsgzygxww Result EncounterMoriah Hodgson Christiano GUO Work Phone: noms External Department UnsolicitedStart: 07-11-2024 End: 49-05-5670Eyzwatd encounter procedureMoriah Hodgson Christiano GUO Work Phone: NOPL CI FMComment on above:Medicare annual wellness visit, subsequent (Primary Dx); ACP (advance care planning); Myalgia; Bilateral hip pain; Osteoarthritis of lumbar spine, unspecified spinal osteoarthritis complication status; Need for vaccination; Diabetic peripheral neuropathy (CMS/HCC); Primary insomnia; Obstructive sleep apnea; Other chronic pain; Paresthesia of skin; Peripheral polyneuropathy; Obstructive pattern present on pulmonary function testing; Abnormal cardiovascular stress test; Abnormal ECG; Atherosclerosis of [place] arteries of extremities with rest pain, bilateral [...] peripheral angiopathy without gangrene (CMS/HCC); BMI 37.0-37.9, adultStart: 07-11-2024 End: 28-22-4221xvkijsuycrAFNXIYani Quesada AvailableStart: 07-11-2024 End: 96-67-1637Okqony Doris GUO Work Phone: [facility] CI FMStart: 07-11-2024 End: 75-89-9761Ztbsjk Doris GUO Work Phone: [facility] CI FMStart: 04-19-2024 End: 45-59-8244Yuzrmc Isa Castaneda MD Work Phone: N[facility] CI ENTStart: 04-19-2024 End: 23-67-3028Uzukyq Isa Castaneda MD Work Phone: NOM[facility] CI ENTStart: 04-19-2024 End: 98-33-6873Pygbmj outpatient new 45 minutesHeather Castaneda MD Work Phone: NOM[facility] CI ENTComment on above:Recurrent epistaxisStart: 04-19-2024 End: 04-64-9784qaaufzcybiAFQKKDLogan Block AvailableStart: 04-04-2024 End: 83-28-0838Uerewl Doris Guzman PA Work Phone: [facility] CI FMStart: 04-04-2024 End: 05-24-4167Gabijh Doris Guzman PA Work Phone: NOM[facility] CI FMStart: 04-04-2024 End: 15-95-0269Vzfsfq outpatient visit 25 minutesMoriah GUO Work Phone: NOMS CI FMComment on above:Diabetic peripheral neuropathy (CMS/HCC) (Primary Dx); Recurrent epistaxis; Candidiasis; Encounter for screening mammogram for malignant neoplasm of breast; Need for vaccination; Benign essential hypertension (CMS/HCC); Fatty liver; Thyroid nodule (CMS/HCC); Anemia, unspecified type; Mixed hyperlipidemia (CMS/HCC); Morbid (severe) obesity due to excess calories (CMS/HCC)Start: 11-04-2023 End: 03-39-1805Azovrlzjxa and management of inpatientDAJANET FOLEYAshtabula County Medical Center HospitalStart: 11-04-2023 End: 48-38-2687Ldmyinjugv and management of inpatientMARILIA iRce [facility] Systemtart: 10-14-2023 End: 19-88-4750kxnrmpbcboXEABC [facility] HospitalStart: 93-47-4839Hwxmseaza for other preprocedural examinationJACommunity Regional Medical Centertart: 09-29-2023 End: 25-12-8299Wfjqrvrhz Result EncounterElio Owens MD Work Phone: noms External Department UnsolicitedStart: 09-29-2023 End: 14-90-3500Yxnzzkkpq Result EncounterElio Owens MD Work Phone: noms External Department UnsolicitedStart: 09-17-2023 End: 39-84-1514Ykogcdovz Result EncounterMoriah GUO Work Phone: noms External Department UnsolicitedStart: 09-17-2023 End: 15-65-0274Ugdwcvdnk Result EncounterMoriah GUO Work Phone: noms External Department UnsolicitedStart: 07-07-2023 Chart abstractingMoriah GUO Work Phone: NOYC FMStart: 03-10-2023 End: 34-72-1811hixmfcdumjBimwshj [employer] Other [employer] Other Start: 71-94-8565Oocotwi encounter procedureCamsaran GiannayFPG GastroenterologyStart: 12-16-2021 End: 45-92-3434zaehvvuvffTO RUGEN ALDAFacility:H3Jqqvr: 12-09-2021 End: 71-30-1942fdxityaplrYI MORIAH M HEMMERFacility:Z2Axqsk: 07-01-2021 End: 95-27-9204yghclhlfynMzeonli [employer] Other [employer] Other Start: 14-89-3079Obguvjsox encounterCameron DittyFPG GastroenterologyStart: 05-14-2021 End: 38-06-8188kiqpstyxnaIaafeya [employer]itty Other [facility] [employer] Other Start: 39-56-4610Ddgqnehjh encounterCameron DittyFPG GastroenterologyStart: 04-18-2021 End: 98-52-1250frcmovmgckMhiszvb Ditty Other [facility] [employer] Other Start: 91-39-5732Auzppdw encounter procedureCameron DittyFPG GastroenterologyStart: 01-21-2021 End: 11-56-1006gsawvtaiiuKOCESETD CULLENFacility:I9Jwaql: 12-19-2020 End: 85-08-0350bfkluzlonhZT RUGEN ALDAFacility:H7Oanes: 09-16-2017 End: 46-48-4238CrjfmmfjqaYCF NAVRATILFacility:[facility] HospitalStart: 09-02-2017 End: 06-06-1930HalyrxfhbpVVQ NAVRATILFacility:[facility] HospitalStart: 07-03-2017 End: 72-95-9186GloxlmnkesSRR NAVRATILFacility:[facility] HospitalStart: 12-25-2016 End: 49-69-1893GgrerebfdbUsicme ShineFacility:FTMCStart: 12-12-2016 End: 45-04-8117WdbcyeorjhHxmejh ShineFacility:[facility] Procedures DateProcedureProcedure DetailPerforming ClinicianStart: 35-41-9261Awzgoowvmvtjot aspir&/inj major jt/gilaa w/Sarah GUO Work Phone: Start: 18-14-4003Qarbujlzmvxxol aspir&/inj major jt/bursa w/o usTolemuel Nj PA Work Phone: Start: 43-58-0601Qebxk shoulder complete minimum 2 viewsChristofer Nj PA Work Phone: Start: 96-77-3755Jjanrrymre exam knee complete 4/more viewsMoriah Hodgson Hemmer PA Work Phone: Start: 18-83-3569Tblqi dip stick/tablet rgnt non-auto w/o micrscpMoriah Gossmer PA Work Phone: Start: 31-11-2277Rysxjlgxyi glycosylated o3xVhbrs M Hemmer PA Work Phone: Start: 45-12-1528Pcrcp albumin quantitativeMoriah Hodgson Hemmer PA Work Phone: Start: 87-36-9771Hdppz hips bilateral with pelvis 2 viewsMoriah Gossmer PA Work Phone: Start: 91-70-9888Ggymevkxwz glycosylated b7wVqexo M Hemmer PA Work Phone: Start: 78-47-8319VR KNEE RT WO Yumiko Owens MD Work Phone: Start: 12-85-5054Kikwfutlik exam knee complete 4/more Liliam Gossmer PA Work Phone: Start: 03-18-2023H/O: hysterectomyHistory of hysterectomyMoriah Gossmer PA Work Phone: Start: 21-35-0566RlxtdobkrwlXmnnd Hemmer PA Work Phone: Start: 10-58-0067JggjqtuzrlaErphi Hemmer PA Work Phone: H/O: hysterectomyHistory of hysterectomyMoriah Hodgson Hemmer PA Work Phone: Plan of Treatment DateCare ActivityDetailAuthorStart: 07-72-1673Xivfl screening for protein Diabetes: Urine Protein ScreeningResearch Belton HospitalStart: 02-10-2026Medicare Annual Wellness (AWV)Medicare Annual Wellness (AWV)[facility] HealthcareStart: 05-22-2025 Glaucoma screeningDiabetes: Retinopathy ScreeningNOMS HealthcareStart: 05-16-2025 End: 74-36-5051Viviion encounter hmcunehuz23/16/2025 1:30 PM EST [facility] [address] [place] [address] Christofer Nj PA [address] [place] [address] [facility]De[facility] OrthopaedicsStart: 04-04-2025 Screening for malignant neoplasm of colonColorectal Cancer ScreeningNOMA HealthcareComment on above:Postponed from 1962 (Patient Refused)Start: 04-04-2025 End: 32-50-0864Puzbvgm encounter procedureNOMS Stephenson OrthopaedicsComment on above:ArrivedStart: 03-30-2025 End: 33-05-9675ivuupgiyqy74/30/2025 2:30 PM EDT Treatment [facility] [address] [facility] [address] [place], [id number] Loraine Turpin PTANO [facility] TherapyStart: 03-28-2025 End: 85-64-9063tlfrlnypij68/28/2025 2:30 PM EDT Treatment [facility] [address] [facility] [address] [place], [place] Loraine Turpin PTA Impingement syndrome of left shoulder (Primary Dx); Left shoulder pain, unspecified chronicity; Adhesive capsulitis of left shoulderNOMS Roman Physical TherapyComment on above:Impingement syndrome of left shoulder (Primary Dx); Left shoulder pain, unspecified chronicity; Adhesive capsulitis of left shoulderStart: 03-23-2025 End: 46-57-7687aybkqmyuoaGTPT [facility] Physical TherapyComment on above:Arrived Start: 03-21-2025 End: 26-84-2338eqmkrymqrsYMQW [facility] TherapyComment on above:Arrived Start: 03-16-2025 End: 34-94-3219hezxmyapfyOAPD [facility] TherapyComment on above:Arrived Start: 03-14-2025 End: 47-56-8911pcpzyvmwvzVBMH [facility] TherapyComment on above:Arrived Start: 03-09-2025 End: 85-59-6111wpscghppzc17/09/2025 3:00 PM EDT Treatment [facility] [address] [facility] [address] [place], [id number] Maria D Villatoro SEBNO [facility] TherapyStart: 03-07-2025 End: 98-44-9628ciofhqlpxf00/07/2025 12:30 PM EDT Treatment [facility] [address] [facility] [address] [place] [address] Maria D Villatoro SEBNO [facility] TherapyStart: 02-28-2025 End: 41-65-8306jrucgbqjfr85/30/2025 2:30 PM EDT Evaluation [facility] [address] [facility] [address] [place] [address] Magda Harkins, PT Left shoulder pain, unspecified chronicity; Impingement syndrome of left shoulder; Adhesive capsulitis of left shoulderNOMS Roman Physical TherapyComment on above:Left shoulder pain, unspecified chronicity; Impingement syndrome of left shoulder; Adhesive capsulitis of left shoulderStart: 02-24-2025 End: 19-82-9197Miqdigm encounter inowwwxex28/26/2025 2:30 PM EDT Office Visit [facility] [address] [facility] [place] [place] [address] Christofer Nj PA [address] [place] [address] [facility]opaedicsStart: 02-21-2025 End: 54-80-3717DS Knee - left 4 ViewsXR knee 4+ views left Imaging Routine Acute pain of left knee Primary osteoarthritis of left knee Expected: 02/21/2025, Expires: 02/21/2026[facility] Work Phone: Comment on above:Expected: 02/21/2025, Expires: 02/21/2026Start: 03-89-1035TAACW-19 Vaccine ( season)COVID-19 Vaccine ( season)[facility]: 93-05-4448Angsrjrqm vaccination Influenza Vaccine (#1)[facility]: 63-02-6944Prtictzzpg A1c measurement Diabetes: Hemoglobin A0[facility] HealthcareStart: 10-11-2024 End: 73-11-3087Ehreryq encounter aeiofghlh88/13/2025 2:00 PM EDT Office Visit [facility] [address] [place] [address] Moriah Guzman PA [address] [place] [address] [facility] FMStart: 61-67-0743Cgvep screening for protein Diabetes: Urine Protein ScreeningNOMA HealthcareStart: 09-21-2024 End: 25-48-8767Ddamgye encounter nbmzsohmn44/23/2025 2:30 PM EDT Office Visit [facility] [address] [place] [address] Moriah Guzman PA [address] [place] [address] ArrivedNOMS CI FMComment on above:ArrivedStart: 07-11-2024 End: 39-79-9418Nfbjqar encounter qqglonvbh03/10/2025 2:30 PM EST Office Visit [facility] [address] [place] [address] Moriah Guzman PA [address] [place] [address] ArrivedNOMS CI FMComment on above:ArrivedStart: 07-11-2024 End: 50-90-2097PF Hip - left 3 ViewsXR hip left 2 or 3 views Imaging Routine Bilateral hip pain Expected: 07/11/2024, Expires: 07/11/2025[facility] Work Phone: Comment on above:Expected: 07/11/2024, Expires: 07/11/2025Start: 07-11-2024 End: 35-28-0123QQ Hip - right 3 ViewsXR hip right 2 or 3 views Imaging Routine Bilateral hip pain Expected: 07/11/2024, Expires: 07/11/2025[facility] Comment on above:Expected: 07/11/2024, Expires: 07/11/2025Start: 07-07-2024 Medicare Annual Wellness (AWV)Medicare Annual Wellness (AWV)[facility] Start: 07-07-2024 End: 61-19-5566Rfnscfv encounter focafwvgy62/06/2025 1:30 PM EST Office Visit [facility] [address] [place] [address] Moriah Guzman PA [address] [place] [address] [facility] FMStart: 45-99-1685Dpofrwjcny A1c measurement Diabetes: Hemoglobin Q7NFGEK HealthcareStart: 04-26-2024 End: 84-75-8007Lbzdpui encounter ejpkmebjo96/26/2024 1:30 PM EST Office Visit [facility] [address] [place] [address] Elio Owens MD [address] [place] [address] [facility] FMStart: 04-19-2024 End: 31-15-0732Rraowwu encounter oomcjynbw52/19/2024 2:00 PM EST Office Visit [facility] [address] [place] [address] Heather Castaneda MD [address] [place] [address] Recurrent epistaxisNOMS CI ENTComment on above: Recurrent epistaxisStart: 04-12-2024 End: 79-88-6212Woygrmi encounter yeeenzsdv38/12/2024 2:00 PM EST Office Visit [facility] [address] [facility] [address] [place] [address] Heather Castaneda MD [address] [facility] [address] [place] [address] [facility] ENTStart: 04-04-2024 End: 11-81-6867QMI W Auto Differential panel - BloodCBC and differential Lab Routine Benign essential hypertension (CMS/HCC) Anemia, unspecified type Mixed hyperlipidemia (CMS/HCC) Expected: 04/04/2024 (Approximate), Expires: 04/04/2025 [facility] HealthcareComment on above:Expected: 04/04/2024 (Approximate), Expires: 04/04/2025Start: 04-04-2024 End: 65-75-0190Avntovkprgxuw metabolic 2000 panel - Serum or PlasmaComprehensive metabolic panel Lab Routine Benign essential hypertension (CMS/HCC) Fatty liver Mixedhyperlipidemia (CMS/HCC) Expected: 04/04/2024 (Approximate), Expires: 04/04/2025NOMA HealthcareComment on above:Expected: 04/04/2024 (Approximate), Expires: 04/04/2025Start: 04-04-2024 End: 75-48-6998HCO Breast - bilateral screeningBilateral screening mammogram with tomosynthesis Imaging Routine Encounter for screening mammogram for malignant neoplasm of breast Expected: 04/04/2024, Expires: 06/04/2025[facility] Work Phone: Comment on above:Expected: 04/04/2024, Expires: 06/04/2025Start: 04-04-2024 End: 09-63-6104Zvdkh 1996 panel - Serum or PlasmaLipid panel Lab Routine Benign essential hypertension (CMS/HCC) Fatty liver Mixed hyperlipidemia (CMS/HCC) Expected: 04/04/2024 (Approximate), Expires: 04/04/2025NOMA HealthcareComment on above:Expected: 04/04/2024 (Approximate), Expires: 04/04/2025Start: 04-04-2024 End: 34-70-2913Stnmdoubfatl/Creatinine panel in random UrineMicroalbumin / creatinine urine ratio Lab Routine Diabetic peripheral neuropathy (CMS/HCC) Benign essential hypertension (CMS/HCC) Expected: 04/04/2024 (Approximate), Expires: 04/04/2025[facility] HealthcareComment on above:Expected: 04/04/2024 (Approximate), Expires: 04/04/2025Start: 04-04-2024 End: 15-85-5481IVR W/REFLEX TO FT4TSH W/REFLEX TO FT4 Lab Routine Thyroid nodule (CMS/HCC) Expected: 04/04/2024 (Approximate), Expires: 04/04/2025[facility] HealthcareComment on above:Expected: 04/04/2024 (Approximate), Expires: 04/04/2025Start: 85-20-9551Nvtnk screening for proteinDiabetes: Urine Protein ScreeningNOMS HealthcareStart: 64-47-9015Qxjpnetnw vaccinationInfluenza Vaccine (#1)[facility] HealthcareStart: 43-74-4770Fiqpruofiw A1c measurementDiabetes: Hemoglobin O7JBEJY HealthcareStart: 95-98-2689Nejaouuot for malignant neoplasm of colonNOMS HealthcareStart: 07-07-2023 End: 82-61-4004Irowack encounter mkfqutjlw55/06/2024 1:00 PM EST Office Visit [facility] [address] [facility] [address] [place] [address] Moriah Guzman PA [address] [facility] [address] [place] [address] [facility] FMStart: 92-06-5191Xfxdhbscjo A1c measurement Diabetes: Hemoglobin S0WOGQK HealthcareStart: 61-67-7916Jszhioaek for malignant neoplasm of breastMammogramNOMS HealthcareStart: 19-71-3663Kzzcuscpe B Vaccines (1 of 3 - Risk 3-dose series)Hepatitis B Vaccines (1 of 3 - Risk 3-dose series) [facility] HealthcareStart: 06-28-2022Medicare Annual Wellness (AWV)Medicare Annual Wellness (AWV)[facility] HealthcareStart: 46-50-2191Kfndtsfmn A Vaccines (1 of 2 - Risk 2-dose series)Hepatitis A Vaccines (1 of 2 - Risk 2-dose series)[facility] HealthcareStart: 12-79-8518Thlwfvihbhpj Vaccine: Pediatrics (0 to 5 Years) and At-Risk Patients (6 to 64 Years) (1 of 2 - PCV)Pneumococcal Vaccine: Pediatrics (0 to 5 Years) and At-Risk Patients (6 to 64 Years) (1 of 2 - PCV)[facility]Start: 59-01-2344RDrL/Tdap/Td Vaccines (1 - Tdap)DTaP/Tdap/Td Vaccines (1 - Tdap)[facility] HospitalStart: 29-34-7871OAF Vaccines (1 of 1 - Standard series)MMR Vaccines (1 of 1 - Standard series)[facility] HospitalStart: 1960 Screening for malignant neoplasm of colonResearch [facility] Hospital Immunizations Immunization DateImmunizationNotesCare PewabwsjYrcefjmn99-71-8170yfkjtd vaccine- recombinant adjuvanted (Shingrix) 50 MCG/0.5ML vaccineKaren Hemmer PA Work Phone: [phone] [place], [place] [address]Ziepezdvmb64-35-6628ppgxadvae, seasonal, injectable, preservative freeKaren Hemmer PA Work Phone: [phone] [place], [place] [address]Dqdaoupgxg70-41-2472ncmxgrvqy virus vaccine, unspecified formulationKaren Hemmer PA Work Phone: [phone] Belton HospitalWxalgrhoon68-89-2598kzfmdlepf, injectable, quadrivalent, preservative freeKaren Hemmer PA Work Phone: [phone] [place], [place] [address]Quakptvwaw88-88-2809coelrsgid virus vaccine, unspecified formulationKaren Hemmer PA Work Phone: [phone] [place], [place] [address]Wseyxieowq90-44-8970ryibfexke, injectable, quadrivalent, preservative freeKaren Hemmer PA Work Phone: [phone] Belton HospitalSjoqatfqjj17-13-3492Ytnckxiok, High-dose Seasonal, Quadrivalent, Preservative FreeKaren Hemmer PA Work Phone: [phone] Belton HospitalUhefodaawa27-92-9559imepssfa influenza, intradermal, preservative freeKaren Hemmer PA Work Phone: WrikeParkland Health CenterXuezxjxgbq93-98-6475obekjjfd influenza, intradermal, preservative freeAjayen Hemmer PA Work Phone: noParkland Health CenterLslnjentzk43-86-0049hychylxoo, injectable, quadrivalent, preservative freeAjayen Hemmer PA Work Phone: [facility] Payers DatePayer CategoryPayerPolicy [id number] (Managed Care)[employer] MEDICARE [id number] [id number]-pay2023MedicareUNITEDcareUNITED HEALTHCARE MEDICARE [employer] MEDICARE REPLACEMENT [id number] 2022-Present [address] [address] [place] [id number] 2020Medicaid [id number] [id number] 2.0.1.039409.3.57[id number] 2.840.1.916572.3.57[id number] 2.0.1.798470.3.57[id number] 2.16.840.1.862824.3.57[id number] 2.16.840.1.084467.3.579.[id number] 2.16.840.1.264391.3.57[id number] 2.16.840.1.237055.3.57[id number] 2.16.840.1.180648.3.57[id number] 2.16.840.1.396355.3.57[id number] 2.16.840.1.951567.3.57[id number] 2.16.840.1.201850.3.57[id number] 2.16.840.1.521431.3.57[id number] 2.16.840.1.561389.3.579.[id number] 2.16.840.1.038545.3.579.[id number] 2.16.840.1.734323.3.57[id number] 2.16.840.1.664632.3.579.[id number] 2.16.840.1.553548.3.57[id number] 2.16.840.1.763712.3.579.2.7[id number] 2.16.840.1.463370.3.579.[id number] 2.16.840.1.377564.3.579.2.160566-13-2395Yfwomlr34952051 2.16.840.1.787218.3.579.2.470549-21-1874Fpivdop9266959 2.16.840.1.410011.3.579.2.749457-79-1645Iwozxou3908343 2.16.840.1.771986.3.579.[id number] 2.16.840.1.069781.3.579.2.696992-74-2194Uvejmbw0015708 2.16.840.1.893834.3.579.2.1259 [id number] 2.16.840.5.697296.511519 [id number] 2.16.840.4.089987.2400-01-1960 [id number] 2.16840.1.520319.3.579.2.531 Social History DateTypeDetailFacilitySex Assigned At [facility] [employer] Other Start: 03-24-2023 End: 38-79-3560Bvh Assigned At [facility] HealthcareStart: 01-30-5183Zfifwji smoking status NHISNever smoked tobaccoNOMS HealthcareStart: 51-80-3398Ywmkzel use and exposureSmokeless tobacco non-userNOMA HealthcareStart: 03-24-2023 End: 97-86-4097Auauoqf intakeEx-drinker (finding)[facility] HospitalStart: 03-24-2023 End: 58-57-7231Tbtqynp of Social functionResearch Belton HospitalStart: 82-19-9352Ouruyjt CommentCaffeine intake : 1-2 cups per dayResearch Belton HospitalStart: 77-56-3844Srb Assigned At BirthNot on fileResearch Belton HospitalStart: 66-20-6681Hnf often do you need to have someone help you when you read instructions, pamphlets, or other written material from your doctor or pharmacy [SILS]NeverNOMS HealthcareDo you belong to any clubs or organizations such as orthodoxy groups, unions, fraternal or athletic groups, or school groups?YesNOMS HealthcareAre you now , , , , never or living with a partner? [facility] HealthcareHow often to you have a drink containing alcohol?2-4 times a monthNOMS HealthcareHow many standard drinks containing alcohol do you have on a typical day?1 or 2NOMS HealthcareHow often do you have 6 or more drinks on 1 occasion?NeverNOMS HealthcareDo you feel stress - tense, restless, nervous, or anxious, or unable to sleep at night because yourmind is troubled all the time - these days [OSQ]Not at allNOMA Healthcare(I/We) worried whether (my/our) food would run out before (I/we) got money to buy more.Never trueNOMA HealthcareIn the past 12 months, was there a time when you were not able to pay the mortgage or rent on time?NoN[facility] Functional Status PfzuUeqkbgxogdFoggkuVlinycgl71-66-5997Vpeokmz Health Questionnaire 2 item (PHQ- 2) [Reported][facility] HospitalQzrqrqxihq68-51-8498Xhfebyo Health Questionnaire 2 item (PHQ- 2) [Reported][facility] HospitalXcnzxnzopi09-09-1613Khnzvdp Health Questionnaire 2 item (PHQ- 2) [Reported][facility] HospitalAlxedhedrn86-32-1513Cjqdgtq Health Questionnaire 2 item (PHQ- 2) [Reported][facility] HospitalFepvocbybg71-49-5645Kbplh score [AUDIT-C]2 04/01/2024 8:49 AM Humble CollinsResearch Belton HospitalTairrvxzab28-68-5158Ijd often do you have a drink containing alcohol?2-4 times a month 04/01/2024 8:49 AM EDT Mychart, Generic 2-4 times a monthResearch Belton HospitalShxrxxkfhf74-71-4296Kle many standard drinks containing alcohol do you have on a typical day?1 or 2 04/01/2024 8:49 AM EDT Mychart, Generic 1 or 2NOMS Vmxuynqznw01-05-1338Pjq often do you have 6 or more drinks on 1 occasion?Never 04/01/2024 8:49 AM EDT Mychart, Generic [facility]At[facility] 05-14-2021 to 04-04-2025 Note Date & OylpKhgsSmwzgbqr25-72-9726 History of Present illness Narrative* Mackenzie Sanchez MA - 04/04/2025 1:00 PM ESTAssociated Order(s): L Inj/Asp: L subacromial bursa Post-Procedure Diagnose(s): Adhesive capsulitis of left shoulder; Impingement syndrome of left shoulder L Inj/Asp: L subacromial bursa on 04/04/2025 1:13 PM Indications: pain Details: 25 G needle, ultrasound-guided anterolateral approach Medications: 12 mg betamethasone acetate-betamethasone sodium phosphate 6 (3-3) MG/ML Procedure, treatment alternatives, risks and benefits explained, specific risks discussed. Consent was given by the patient. Immediately prior to procedure a time out was called to verify the correctpatient, procedure, equipment, instructional support assistant and site/side marked as required. Patient was prepped and draped in the usual sterile fashion. * BRANT Alvares - 04/04/2025 1:00 PM EST Images from the original note were not included. Subjective Patient ID: Suri Oshea is a 64 y.o. female. Chief Complaint: Follow-up of the Left Shoulder Last Surgery: No surgery found Last Surgery Date: No surgery found HPI Suri Still has not gained much as far as range of motion with the left shoulder still very restricted secondary to adhesive capsulitis. Objective Ortho Exam Forward flexion of about 95 degrees isolated abduction to 60 degrees no internal rotation and external rotation from neutral is about 65 degrees Image Results: XR shoulder 2+ views left Imaging Result: AP Grashey and scapular Y-view of the left shoulder demonstrates prior rotator cuff repair with anchor cystic changes but glenohumeral joint appears fairly well-preserved no proximal migration and previous subacromial decompression and distal clavicle resection noted. No evidence of fracture dislocation seen. Assessment/Plan Encounter Diagnoses: Assessment & Plan Impingement syndrome of left shoulder Adhesive capsulitis of left shoulder Orders Placed This Encounter L Inj/Asp: L subacromial bursa Ambulatory referral to Physical Therapy Follow up in about 6 weeks (around 05/16/2025) for symptom check. We will work on gaining range of motion with physical therapy through [facility] and anticipate the cortisone to improve symptoms over the next 48 hours up to 1 week. Call for any concerns in the interim use cold pack to the shoulder to help reduce swelling 20 minutes several times a day and before bedtime. May use warm compress prior to home exercises and stretching which should be done 3 times a day, but always follow with the cold pack once you are finished. documented in this [facility]11-04-2025 Instructions* Patient Instructions* BRANT Alvares - 04/04/2025 1:00 PM EST We will work on gaining range of motion with physical therapy through [facility] and anticipate the cortisone to improve symptoms over the next 48 hours up to 1 week. Call for any concerns in the interim use cold pack to the shoulder to help reduce swelling 20 minutes several times a day and before bedtime. May use warm compress prior to home exercises and stretching which should be done 3 times a day, but always follow with the cold pack once you are finished. documented in this [facility]10-30-2025 History of Present illness Narrative* Loraine Turpin PTA - 03/30/2025 2:30 PM EDT Images from the original note were not included. Physical Therapy Treatment Visit Patient Name: Suri Oshea Today's Date: 03/30/2025 Encounter Diagnoses Name Primary? Impingement syndrome of left shoulder Yes Left shoulder pain, unspecified chronicity Adhesive capsulitis of left shoulder Visit number: 8 Timed Code Treatment 40 minutes Total Treatment Time: 50 minutes Time In: 1432 Time Out: 1522 History: Pt states left shoulder has been [...] pain. Pt is right hand dominant. Precautions: [place] Subjective: Pt reports left shoulder is tender to touch, more anteriorly. States sees the Dr on Thursday and wants to see what he has to say what her next steps she should take. Pain: 5/10 Objective: PT Evaluation (02/28/2025) Left SHOULDER AROM: [...] Pt does have a follow-up with Neftaly nieto 04/04. Pt noted will reach out after appt to make schedule more therapy if needed. 04-04-25 follow up with Christofer Higginbotham Outcome Measure: Upper Extremity Functional Index (UEFI): 14/80 Rehab Diagnosis: left shoulder pain and weakness, limited ROM and mobility Short Term Goal: To be met in 2 weeks Goal 1: Pt to be instructed in home exercise program. Fdc Goals: To be met in 10 weeks [...] POC medically necessary. Please sign below. Date: documented in this encounterResearch Belton HospitalTfxsnwwdng43-38-8131 History of Present illness Narrative* Loraine Turpin PTA - 03/28/2025 2:30 PM EDT Images from [...] states she was given cortisone shot last Steven, still has not noticed much relief. Taking OTC meds as needed. Icing at home for pain. Pt is right hand dominant. Precautions: [place] Subjective: Pt reports improvement in the right [...] continue as tolerated. 04-04-25 follow up with Christofer Higginbotham Outcome Measure: Upper Extremity Functional Index (UEFI): Rehab Diagnosis: left shoulder pain and weakness, limited ROM and mobility Short Term Goal: To be met in 2 weeks Goal 1: Pt to be instructed in home exercise program. Fdc Goals: To be met in 10 weeks [...] POC medically necessary. Please sign below. Date: documented in this encounterResearch Belton HospitalUrlghumqlz50-30-3468 History of Present illness Narrative* Magda Harkins, PT - 03/14/2025 2:30 PM EDT Images from the original note were not included. Physical Therapy Treatment Visit Patient Name: Suri Oshea Today's Date: 03/14/2025 Encounter Diagnoses Name Primary? Impingement syndrome of left shoulder Yes Left shoulder pain, unspecified chronicity Adhesive capsulitis of left shoulder Visit number: 3 Timed Code Treatment: 39 minutes Total Treatment Time: 54 minutes Time In: 2:35 PM Time Out: 3:30 PM History: Pt states left shoulder has been hurting for about a month. States shoulder just started aching one day. States she did have surgery for left RCR back in 2017. States hoping noting serious is wrong this time. Pt states she was given cortisone shot last Thursday, still has not noticed much relief. Taking OTC meds as needed. Icing at home for pain. Pt is right hand dominant. Precautions: [place] Subjective: Left shoulder feels overall about the same. States she will see ortho again on Apr 04. Pain: denies pain, reports tightness Objective: PT Evaluation (02/28/2025) Left SHOULDER AROM: [...] at 58 degrees elevation, Treatment: Manual Therapy: () delivered manual ther to left UE shoulder PROM, STM to anterior shoulder to improve mobility and decrease pain Therapeutic Exercise: (39 minutes supervised) Guided pt through ther and flex ex per grid to improve left UE shoulder functional Strength, Endurance, Flexibility, ROM, HEP, Neural Mobilization, Power, and Core Stability as needed. Therapeutic Activity: Exercises to improve dynamic activities, functional tasks, functional mobility to return to prior activity level as needed. Neuromuscular re-education: Balance Training, Muscle Facilitation, Dynamic Stability, Core Stabilization, and Blood Flow Restriction Training (BFRT) as needed. Modalities: (Denied) CP post session to reduce inflammation and muscle soreness Assessment: Visit# 3 with complaints of left shoulder pain and weakness. AROM of left shoulder thisdate following exercises was 92 degrees flexion and 65 degrees abduction this date. Pt with pain behaviors at end ranges of motion. Will continue to progress as pt tolerates. Outcome Measure: Upper Extremity Functional Index (UEFI): 1480 Rehab Diagnosis: left shoulder pain and weakness, limited ROM and mobility Short Term Goal: To be met in 2 weeks Goal 1: Pt to be instructed in home exercise program. 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 Please sign below. Date: documented in this encounterResearch Belton HospitalFxgnstyhhx81-03-7835 History of Present illness Narrative* Mackenzie Sanchez MA - 02/24/2025 2:30 PM EDTAssociated Order(s): L Inj/Asp: L subacromial bursa Post-Procedure Diagnose(s): Impingement syndrome of left shoulder L Inj/Asp: L subacromial bursa on 02/24/2025 2:22 PM Indications: pain Details: 25 G needle Medications: 6 mg betamethasone acetate-betamethasone sodium phosphate 6 (3-3) MG/ML Procedure, treatment alternatives, risks and benefits explained, specific risks discussed. Consent was given by the patient. Immediately prior to procedure a time out was called to verify the correctpatient, procedure, equipment, instructional support assistant and site/side marked as required. Patient was prepped and draped in the usual sterile fashion. * BRANT Alvares - 02/24/2025 2:30 PM EDT GENERAL HISTORY AND PHYSICAL: NAME: Suri Oshea : 1960 HISTORY OF PRESENT ILLNESS: Suri Oshea is an 64 y.o. female is here for orthopedic evaluation Left shoulder pain she has had 2 prior in shoulder surgeries most recent was about [address] Jones. She denies any specific injury but has slowly lost range of motion due to pain over the last several months. She is here for new imaging and evaluation for old recurrent problem. PAST MEDICAL HISTORY: Past Medical History: Diagnosis Date Arthritis Cholecystitis Cholecystitis without cholelithiasis 03/18/2023 Clotting disorder (HHS-HCC) Diabetes mellitus (HCC) Disease of thyroid gland [...] joint Varicose vein of leg Visual impairment PAST SURGICAL HISTORY: Past Surgical History: Procedure Laterality Date ANKLE SURGERY 2003 ANKLE SURGERY 2004 CHOLECYSTECTOMY 02/17/2019 W/ Ventral Hernia Repair HYSTERECTOMY KNEE ARTHROSCOPY W/ PARTIAL MEDIAL MENISCECTOMY Right 11/04/2023 Dr. Shankar ROTATOR CUFF REPAIR SHOULDER SURGERY Left 07/2016 left rotator cuff and bone spur SHOULDER SURGERY Right 11/03/2013 TUMOR REMOVAL stomach SOCIAL HISTORY: Social History Occupational History Not on file Tobacco Use Smoking status: Never Smokeless tobacco: Never Vaping Use Vaping status: Never Used Substance and Sexual Activity Alcohol use: Not Currently Comment: Caffeine intake : 1-2 cups per day Drug use: Never Sexual activity: Not Currently Partners: Decline to Answer control/protection: Female Sterilization ALLERGIES: Allergies Allergen Reactions Sulfamethoxazole Other Reaction(s): rash, itchy Trimethoprim Other Reaction(s): Fatigued MEDICATIONS: Current Outpatient Medications Medication Instructions Abilify 30 MG tablet 1 tablet, Every 24 hours acetaminophen (Tylenol) 325 MG tablet 1 tablet, Every 4 hours PRN diclofenac sodium (VOLTAREN ARTHRITIS PAIN) 4 g, Topical, 4 times daily PRN gemfibrozil (LOPID) 600 mg, Oral, 2 times daily metFORMIN (Glucophage) 500 MG tablet TAKE 1 TABLET BY MOUTH TWICE A DAY WITH A MEAL Multiple Vitamin (MULTIVITAMINS PO) 1 tablet, Every 24 hours omega-3 (Fish Oil) 1200 MG capsule 1 capsule, Every 12 hours pantoprazole (PROTONIX) 40 mg, Oral, Daily predniSONE (Deltasone) 10 MG tablet Take 1 tablet (10 mg) by mouth 2 (two) times a day for 5 days, THEN 1 tablet (10 mg) Daily for 5 days. Take with food. traZODone (Desyrel) 100 MG tablet 2 tablets, Nightly venlafaxine XR (Effexor XR) 75 MG 24 hr capsule Zoloft 100 MG tablet 2 tablets, Every 24 hours REVIEW OF SYSTEMS: Review of Systems General: Denies appetite or significant weight change. Denies fever, chills or night sweats. Denies lightheadedness. ENT: Denies dry mouth, sore throat or swollen glands. Denies difficulty swallowing. Denies ear pain. Respiratory: Denies chest pain, SOB, cough or wheezing. Denies asthma or pneumonia symptoms. Cardiovascular: Denies CP or palpitations. No syncope or dyspnea on exertion. Gastrointestinal: Denies nausea or vomiting. Denies heartburn or abdominal pain. Denies diarrhea. Genitourinary: Denies frequent or painful urination. Musculoskeletal: See HPI for comments. Integumentary: Denies rash, lesion or skin infection. Neurologic: Denies dizziness, headache or seizure history. Vitals: Body mass index is 38.09 kg/m . PHYSICAL EXAM: Physical Exam She is able to forward flex to about 120 degrees before limiting her motion and causing pain we areable to extend to about 130 due to adhesive capsulitis. Isolated abduction to 75 degrees with extension to 85 and internal rotation is fairly well-preserved to the lower lumbar spine significantly slower than the unaffected right shoulder to the lower thoracic spine. External rotation from neutral is 70 degrees she has intact but tender supraspinatus stressing XR shoulder 2+ views left Imaging Result: AP Grashey and scapular Y-view of the left shoulder demonstrates prior rotator cuff repair with anchor cystic changes but glenohumeral joint appears fairly well-preserved no proximal migration and previous subacromial decompression and distal clavicle resection noted. No evidence of fracture dislocation seen. Orders Placed This Encounter Procedures L Inj/Asp: L subacromial bursa This order was created via procedure documentation XR shoulder 2+ views left Reason for exam:: pain Ambulatory referral to Physical Therapy Standing Status: Future Expected Date: 02/24/2025 Expiration Date: 08/24/2025 Referral Priority: Routine Referral Type: Rehabilitation - Outpatient Referral Reason: Specialty Services Required Referred to Provider: Haris Foster, PT Requested Specialty: Physical Therapy Number of Visits Requested: 1 XR shoulder 2+ views left Imaging Result: AP Grashey and scapular Y-view of the left shoulder demonstrates prior rotator cuff repair with anchor cystic changes but glenohumeral joint appears fairly well-preserved no proximal migration and previous subacromial decompression and distal clavicle resection noted. No evidence of fracture dislocation seen. ASSESSMENT: Impingement syndrome of left shoulder Left shoulder pain, unspecified chronicity Adhesive capsulitis of left shoulder PLAN: We will work on gaining range of motion with physical therapy through [facility] and anticipate the cortisone to improve symptoms over the next 48 hours up to 1 week. Call for any concerns in the interim use cold pack to the shoulder to help reduce swelling 20 minutes several times a day and before bedtime. BRANT Alvares documented in this [facility]09-26-2025 Instructions* Patient Instructions* BRANT Alvares - 02/24/2025 2:30 PM EDT We will work on gaining range of motion with physical therapy through [facility] and anticipate the cortisone to improve symptoms over the next 48 hours up to 1 week. Call for any concerns in the interim use cold pack to the shoulder to help reduce swelling 20 minutes several times a day and before bedtime. documented in this [facility]09-23-2025 History of Present illness Narrative* BRANT Pinto - 02/21/2025 2:30 PM EDT Images from the original [...] (4 mg) by mouth as needed at bedtimefor muscle spasms for up to 14 days [...] Final Glucose, UA 02/21/2025 Negative Negative - 1999(110) ++++ mg/dL Final Bilirubin, UA 02/21/2025 Negative Negative - 4(70) +++ mg/dL Final Ketones, UA 02/21/2025 Negative Negative - 160(16) ++++ mg/dL Final Spec Grav, UA 02/21/2025 1.020 1 - 1.03 Final Blood, UA 02/21/2025 Negative Negative - 50 Yifan/mcL Final pH, UA 02/21/2025 5.0 5 - 9 Final Protein, UA 02/21/2025 Negative Negative - 1999(20) ++++ mg/dL Final Urobilinogen, UA 02/21/2025 1.0 [...] Follow up for Diabetes. documented in this encounterResearch Belton [id number] History of Present illness Narrative* BRANT Pinto - 10/11/2024 2:00 PM EDT Images from the original note [...] there for a month and has gotten worseover the past 2 weeks. Last edited by [...] leg strength intact bilaterally. Pain with going fromseated to a standing position. Skin: General: Skin [...] (around 01/11/2025) for Diabetes. documented in this encounterResearch Belton [id number] History of Present illness Narrative* BRANT Pinto - 09/21/2024 2:30 PM EDT Images from the original note were not included. HPI Back Pain Additional comments: Left lower back with pain radiating to her left knee. Started bothering for 2 months and over the past week it has gotten worse. She has been taking Ibuprofen for the pain, whichonly helps a little. Rates pain 10/10 all the time. Last edited by BRANT Pinto on 09/21/2024 2:54 PM. Subjective Patient ID: Suri Oshea is a 64 y.o. female Suri is present today for evaluation of sleep apnea. She needs a new sleep study her machine is notworking. She will do the sleep study at [facility]. Trying to sleep with her head elevated. No recent injury of her back. No N/T in her legs. States her knees feel like they want to give out.Pain is a sharp shooting pain. Pain starts [...] leg strength intact bilaterally. Pain with going fromseated to a standing position. Skin: General: Skin [...] potential side effects of the steroid, may causetemporary elevation in glucose levels. Patient is to take the steroid with food. Do not take any NSAIDs while on Prednisone, Tylenol ok prn. Can take the Baclofen prn before bed, reminded pt that it may cause drowsiness. Encouraged gentle heat to area. Encouraged gentle stretches. Advised patient th at if symptoms do not start to improve [...] for Appointment As Scheduled. documented in this encounterResearch Belton [id number] History of Present illness Narrative* BRANT Pinto - 07/11/2024 2:30 PM EST Images from the original note were not [...] and manage most of your health problems?: (Patient-Rptd)(P) Very confident Can you mange your money, [...] Do you have a medical power of tax associate attorney?: (Patient-Rptd) (P) No Current Outpatient Medications [...] All needed testing was ordered. Will continue withyearly Medicare Wellness exams. 2. ACP (advance care [...] a living will and durable power of tax associate attorney for healthcare. We discussed telling melendrez [...] PROTEIN, SUBUNIT RSVPREF, ADJUVANT RECONSTIT, 120MCG/0.5ML, PF [[id number]] (CVX 303 7. Diabetic peripheral neuropathy (CMS/HCC) HgbA1c on 04/04/2024 was well controlled at 6.3. Continue current medications as prescribed. Will continue to monitor routinely. Pt understands importance of good glucose control to minimize potentialcomplications from Diabetes. 8. Primary insomnia This is [...] stress test The patient is seeing a [facility] for this condition, treatment is deferred to that specialist. Correspondence from that specialist and any available testing were reviewed during today's visit. 15. Abnormal ECG The patient is seeing a [facility] for this condition, treatment is deferred to that specialist. Correspondence from that specialist and any available testing were reviewed during today's visit. 16. Atherosclerosis of [place] arteries of extremities with rest pain, bilateral legs (CMS/HCC) The patient is seeing a [facility] for this condition, treatment is deferred to that specialist. Correspondence from that specialist and any available testing were reviewed during today's visit. 17. Heart disease The patient is seeing a [facility] for this condition, treatment is deferred to that specialist. Correspondence from that specialist and any available testing were reviewed during today's visit. 18. Mitral valve insufficiency, unspecified etiology The patient is seeing a [facility] for this condition, treatment is deferred to that specialist. Correspondence from that specialist and any available testing were reviewed during today's visit. 19. Peripheral vascular disease (CMS/HCC) The patient is seeing a [facility] for this condition, treatment is deferred to that specialist. Correspondence from that specialist and any available testing were reviewed during today's visit. 20. Tricuspid valve insufficiency, unspecified etiology The patient is seeing a [facility] for this condition, treatment is deferred to that specialist. Correspondence from that specialist and any available testing were reviewed during today's visit. 21. Venous (peripheral) insufficiency The patient is seeing a [facility] for this condition, treatment is deferred to [...] cataract, associated with type 2 diabetes mellitus ([facility]/HCC) The patient is seeing a [facility] for this condition, treatment is deferred to [...] both ears The patient is seeing a [facility] for this condition, treatment is deferred to that specialist. Correspondence from that specialist and any available testing were reviewed during today's visit. 38. Age-related cataract of both eyes, unspecified age-related cataract type The patient is seeing a [facility] for this condition, treatment is deferred to [...] both eyes The patient is seeing a [facility] for this condition, treatment is deferred to that specialist. Correspondence from that specialist and any available testing were reviewed during today's visit. 47. Open-angle glaucoma of both eyes, mild stage, unspecified open-angle glaucoma type (CMS/HCC) The patient is seeing a [facility] for this condition, treatment is deferred to that specialist. Correspondence from that specialist and any available testing were reviewed during today's visit. 48. Presbyopia The patient is seeing a [facility] for this condition, treatment is deferred to that specialist. Correspondence from that specialist and any available testing were reviewed during today's visit. 49. Type 2 diabetes mellitus with other specified complication (CMS/HCC) HgbA1c on 04/04/2024 was well controlled at 6.3. Continue current medications as prescribed. Will continue to monitor routinely. Pt understands importance of good glucose control to minimize potentialcomplications from Diabetes. 50. Type 2 diabetes mellitus with diabetic peripheral angiopathy without gangrene (CMS/HCC) HgbA1c on 04/04/2024 was well controlled at 6.3. Continue current medications as prescribed. Will continue to monitor routinely. Pt understands importance of good glucose control to minimize potentialcomplications from Diabetes. 51. BMI 37.0-37.9, adult Encouraged portion control, decrease simple sugars and carbohydrates, gradually increase activity level. Aim for gradual steady weight loss. Follow up in about 3 months (around 10/08/2024) for Diabetes. BRANT Acuna-C documented in this [facility]11-19-2024 History of Present illness Narrative* Heather Castaneda MD - 04/19/2024 2:00 PM EST Subjective Patient ID: Suri Oshea is a 63 y.o. female who presents for Epistaxis (Nose Bleed) Pt reports she started having recurrent left ant epistaxis 2 weeks ago. Had 9 bleeds over two weeksand last bled one week ago. No blood [...] stress test 03/18/2023 Anemia 03/18/2023 Atherosclerosis of [place] arteries of extremities with rest pain, bilateral [...] 03/18/2023 Type 2 diabetes mellitus without complication ([facility]) 03/18/2023 Past Medical History: Diagnosis Date Arthritis Cholecystitis Diabetes mellitus ([facility]) Disease of thyroid gland ([facility]) Dizziness Fracture 04/2017 GERD (gastroesophageal reflux disease) Glenoid labral tear, right, initial encounter Hypertension ([facility]) IBS (irritable bowel syndrome) NIDDY (non-insulin dependent diabetes mellitus in young) ([facility]) Nosebleed Obesity Pneumonia 07/2011 Pulmonary vascular congestion Rotator cuff tear, right Sleep apnea Stomach tumor (benign) Subdeltoid bursitis of right shoulder joint Varicose vein of leg Visual impairment Past Surgical History: Procedure Laterality Date ANKLE SURGERY 2003 ANKLE SURGERY 2004 CHOLECYSTECTOMY 02/17/2019 W/ Ventral Hernia Repair HYSTERECTOMY KNEE ARTHROSCOPY W/ PARTIAL MEDIAL MENISCECTOMY Right 11/04/2023 Dr. Shnakar SHOULDER SURGERY Left 07/2016 left rotator cuff [...] F/U if bleeding persists. documented in this encounterResearch Belton [id number] History of Present illness Narrative* BRANT Pinto - 04/04/2024 1:30 PM EST Images from the original note were not included. Subjective Patient ID: Suri Oshea is a 63 y.o. female who presents for [facility] ER follow up. Flowsheet Row Documentation from 03/31/2024 in [facility] with Lexi Vaca MA Hospital Information ED, [...] had anymore nosebleeds since Thursday though. She hasbeen taking the ATB and using vaseline in her left nostril but did not use the afrin spray. She does have a yeast infection now from the ATB so would like something sent in for that. Has been gettinga little lightheaded when she bends forward and [...] (one) time each day. [DISCONTINUED] nystatin (Mycostatin) [id number] UNIT/GM powder Apply topically 2 (two) times [...] NIDDY (non-insulin dependent diabetes mellitus in young) ([facility]) Obesity Pneumonia 07/2011 Pulmonary vascular congestion Rotator [...] orders for this visit: Diabetic peripheral neuropathy ([facility]) - POCT Glycated hemoglobin, total - Microalbumin [...] well controlled without medication. Will continue to monitor.Goal BP remains less than 130/80. Fatty liver [...] the patient. ER discharge meds were reviewed. Anychanges to plan are noted above. Follow up in about 3 months (around 07/08/2024) for Medicare Wellness Visit. documented in this encounterResearch Belton [id number] Evaluation note* Encounter Date Diagnosis Assessment Notes Treatment Notes Treatment Clinical Notes Mar, Irritable bowel syndrome with di arrhea (ICD-10 - K58.0) Rto 3 months with [facility] Mar,Frequent bowel movements (ICD-10 - R19.4) Mar,Fecal incontinence (ICD-10 - R15.9) [facility] Other 01-31-2022 Evaluation note* Encounter Date Diagnosis Assessment Notes Treatment Notes Treatment Clinical Notes Jun, Irritable bowel syndrome with di arrhea (ICD-10 - K58.0) [facility] Other 12-14-2021 Evaluation note* Encounter Date Diagnosis Assessment Notes Treatment Notes Treatment Clinical Notes May, Irritable bowel syndrome with di arrhea (ICD-10 - K58.0) [facility] Other Evaluation noteNort [facility] Other Evaluation note* Diagnosis Diabetic cataract, associated [...] knee Recurrent epistaxis documented in this encounter [facility] HealthcareEvaluation note* Diagnosis Diabetic cataract, associated [...] Nonspecific abnormal electrocardiogram (ECG) (EKG) Atherosclerosis of [place] arteries of extremities with rest pain, bilateral [...] Moderate episode of recurrent major depressive disorder ([facility]) Myopia of both eyes Open-angle glaucoma of both eyes, mild stage, unspecified open-angle glaucoma type ([facility]) Presbyopia Type 2 diabetes mellitus with other specified complication ([facility]) Type 2 diabetes mellitus with diabetic peripheral angiopathy without gangrene ([facility]) BMI 37.0-37.9, adult documented in this encounter [facility] HealthcareEvaluation note* Diagnosis Diabetic cataract, associated with type 2 diabetes mellitus (CMS/HCC)- Primary Abnormal glucose tolerance test Impaired glucose tolerance test Benign essential hypertension ([facility]) Essential hypertension, benign Diabetic peripheral neuropathy (CMS/HCC) [...] lower extremity pain documented in this encounter [facility] HealthcareEvaluation note* Diagnosis Diabetic cataract, associated with [...] features (HCC) (CMS/HCC) documented in this encounter [facility] HealthcareEvaluation note* Diagnosis Diabetic cataract, associated with [...] of left knee documented in this encounter [facility] HealthcareEvaluation note* Diagnosis Diabetic cataract, associated with [...] adult (Z68.36) Acute pain of right knee Impingement syndrome of left shoulder- Primary Left shoulder pain, unspecified chronicity Adhesive capsulitis of left shoulder documented in this encounter [facility] HealthcareEvaluation note* Diagnosis Diabetic cataract, associated with [...] adult (Z68.36) Acute pain of right knee Left shoulder pain, unspecified chronicity- Primary Impingement syndrome of left shoulder Adhesive capsulitis of left shoulder documented in this encounter [facility] HealthcareEvaluation note* Diagnosis Diabetic cataract, associated with [...] adult (Z68.36) Acute pain of right knee Impingement syndrome of left shoulder- Primary Left shoulder pain, unspecified chronicity Adhesive capsulitis of left shoulder documented in this encounter [facility] HealthcareEvaluation note* Diagnosis Diabetic cataract, associated with [...] adult (Z68.36) Acute pain of right knee Impingement syndrome of left shoulder- Primary Left shoulder pain, unspecified chronicity Adhesive capsulitis of left shoulder documented in this encounter [facility] HealthcareEvaluation note* Diagnosis Diabetic cataract, associated with [...] adult (Z68.36) Acute pain of right knee Impingement syndrome of left shoulder- Primary Left shoulder pain, unspecified chronicity Adhesive capsulitis of left shoulder documented in this encounter [facility] HealthcareEvaluation note* Diagnosis Diabetic cataract, associated with [...] adult (Z68.36) Acute pain of right knee Impingement syndrome of left shoulder- Primary Left shoulder pain, unspecified chronicity Adhesive capsulitis of left shoulder documented in this encounter [facility]* [...] adult (Z68.36) Acute pain of right knee Impingement syndrome of left shoulder- Primary Left shoulder pain, unspecified chronicity Adhesive capsulitis of left shoulder documented in this encounter [facility] HealthcareEvaluation note* Diagnosis Diabetic cataract, associated [...] adult (Z68.36) Acute pain of right knee Impingement syndrome of left shoulder- Primary Left shoulder pain, unspecified chronicity Adhesive capsulitis of left shoulder documented in this encounter [facility] HealthcareEvaluation note* Diagnosis Diabetic cataract, associated [...] adult (Z68.36) Acute pain of right knee Impingement syndrome of left shoulder- Primary Adhesive capsulitis of left shoulder documented in this encounter [facility] HealthcareHistory general Narrative - [facility]gress [facility] Other History general Narrative - Reported* Type Description Date Medical History HTN Medical HistoryDM IIMedical Historyanxiety/depressionMedical HistoryGERDMedical HistoryhyperlipidemiaSurgical HistoryBENIGN ABD TUMORSurgical HistorySHOULDER BILATSurgical HistoryHYSTERECTOMYSurgical HistoryCARPEL TUNNELSurgical History CHOLECYSTECTOMYHospitalization HistoryNo Hospitalization history information [facility] Other Reason for visit Narrative* Rehabilitation - Outpatient (Routine) - AuthorizedSpecialtyDiagnoses / ProceduresReferred By ContactReferred To ContactPhysical Therapy Diagnoses Left shoulder pain, unspecified chronicity Impingement syndrome of left shoulder Adhesive capsulitis of left shoulder Procedures [place] OFFICE/OUTPATIENT [facility] 60 MINUTES Christofer Nj PA [address] [place] [address] Phone: tel: fax: Magda Harkins, PT Referral IDStatMacarena DateExpiration DateVisits RequestedVisits [id number] Specialty Services Required [facility] HealthcareReason for visit Narrative* Rehabilitation - Outpatient (Routine) - AuthorizedSpecialtyDiagnoses / ProceduresReferred By ContactReferred To ContactPhysical Therapy Diagnoses Left shoulder pain, unspecified chronicity Impingement syndrome of left shoulder Adhesive capsulitis of left shoulder Procedures [place] OFFICE/OUTPATIENT [facility] 60 MINUTES Christofer Nj PA [address] [place] [address] Phone: tel: fax: Magda Harkins, VIKY Referral IDStaMemo DateExpiration DateVisits RequestedVisits [id number] Specialty Services Required 999 [facility] Healthcare Summary Purpose Family History No Family History [...] section and content) DATE CREATED AUTHOR 11/19/2017 [facility] DATE CREATED AUTHOR AUTHOR'S ORGANIZ ATION 11/25/2017 [facility] DATE CREATED AUTHOR AUTHOR'S ORGANIZ ATION 08/17/2021 [facility] [employer] DATE CREATED AUTHOR AUTHOR'S ORGANIZ ATION 12/18/2021 [facility] DATE CREATED AUTHOR AUTHOR'S ORGANIZ ATION 11/05/2023 [facility] DATE CREATED AUTHOR AUTHOR'S ORGANIZ ATION 02/15/2025 [facility] DATE CREATED AUTHOR AUTHOR'S ORGANIZ ATION 02/23/2025 [facility] DATE CREATED AUTHOR AUTHOR'S ORGANIZ ATION 04/06/2025 [facility] EPIC REASON FOR VISIT (unrecogniz ed section and content) ReasonCommentsEpistaxis (Nose Bleed)SpecialtyDiagnoses / ProceduresReferred By ContactReferred To ContactOtolaryngology Diagnoses Recurrent epistaxis Procedures [place] OFFICE/OUTPATIENT [facility] 60 MINUTES Moriah Guzman PA [address] [facility] [address] [place] [address] Phone: tel: fax: Heather Castaneda MD [address] [facility] [address] [place] [address] Phone: tel: fax: Referral IDStatusReasonStart DateExpiration DateVisits RequestedVisits [id number] Specialty Services Required [id number] Annual Wellness Visit SubsequentReason CommentsBack PainLeft lower back with pain radiating to her left knee. Started bothering for 2 months and over the past week it has gotten worse. She has been taking Ibuprofen for the pain, which only helps a little.Rates pain 10/10 all the time.Sleep ApneaReasonCommentsRectal PainPt states she has pain in her left buttock area and radiates to her left hip area. Describes pain as stabbing, hurts all the time, rates pain 10/10. She has been taking tylenol for the pain and it just takes the edge off. The pain has been there for a month and has gotten worse over the past 2 weeks.ReasonCommentsShoulder PainAdmits left shoulder has been hurting for a month. Did not hurt it. Has already had 2 surgeries on and it feels like it did when she had her rotator cuff surgery. Canno lift her arm very high. Describes pain as constant sharp and throbbing. Rates pain 9/10.Urinary FrequencyAdmits this has been going on for 2 weeks. Denies dysuria.ReasonCommentsPainReasonCommentsFollow-up Care Teams (unrecognized sec tion and content) Team MemberRelationshipSpecialtyStart DateEnd Date Elio Owens MD [address] [facility] [address] [place] [address] PCP - [facility]10/07/22Team MemberRelationshipSpecialtyStart DateEnd Date Elio Owens MD [address] [place] [address] PCP - [facility]10/07/22 Sterling Kumar MD [address] [place] [address] PCP - [facility]/Team MemberRelationshipSpecialtyStart DateEnd Date Elio Owens MD [address] [place] [address] PCP - [facility]10/07/22 Sterling Kumar MD [address] [place] [address] [facility]/Team MemberRelationshipSpecialtyStart DateEnd Date Elio Owens MD [address] [place] [address] PCP - [facility]10/07/22 Sterling Kumar MD [address] [place] [address] [facility] [facility]/Team MemberRelationshipSpecialtyStart DateEnd Date Elio Owens MD [address] [place] [address] PCP - [facility]10/07/22 Sterling Kumar MD [address] [place] [address] PCP - [facility]/06/2411/Team MemberRelationshipSpecialtyStart DateEnd Date Elio Owens MD [address] [place] [address] PCP - GeneralFamily Medicine10/07/22Team MemberRelationshipSpecialtyStart DateEnd Date Elio Owens MD [address] [place] [address] PCP - GeneralFamily Medicine10/07/22Team MemberRelationshipSpecialtyStart DateEnd Date Elio Owens MD [address] [place] [address] PCP - GeneralFamily Medicine10/07/22Team MemberRelationshipSpecialtyStart DateEnd Date Elio Owens MD [address] [place] [address] PCP - GeneralFamily Medicine10/07/22Team MemberRelationshipSpecialtyStart DateEnd Date Elio Owens MD [address] [place] [address] PCP - GeneralFamily Medicine10/07/22Team MemberRelationshipSpecialtyStart DateEnd Date Elio Owens MD [address] [place] [address] PCP - GeneralFamily Medicine10/07/22Team MemberRelationshipSpecialtyStart DateEnd Date Elio Owens MD [address] [place] [address] [facility] - [facility]/22Team MemberRelationshipSpecialtyStart DateEnd Date Elio Owens MD [address] [place] [address] PCP - [facility]10/07/22Team MemberRelationshipSpecialtyStart DateEnd Date Elio Owens MD [address] [place] [address] PCP - [facility]10/07/22Team MemberRelationshipSpecialtyStart DateEnd Date Elio Owens MD [address] [place] [address] PCP - [facility]10/07/22 Sterling Kumar MD [address] [place] [address] PCP - 06/01/23Te MemberRelationshipSpecialtyStart DateEnd Date Elio Owens MD [address] [place] [address] PCP - [facility]10/07/22 Sterling Kumar MD [address] [place] [address] [facility] MemberRelationshipSpecialtyStart DateEnd Date Elio Owens MD [address] [place] [address] PCP - [facility]10/07/22 Sterling Kumar MD [address] [place] [address] [facility] MemberRelationshipSpecialtyStart DateEnd Elio Owens MD [address] [place] [address] PCP - [facility]10/07/22 Sterling Kumar MD [address] [place] [address] [facility] MemberRelationshipSpecialtyStart DateEnd Elio Owens MD [address] [place] [address] PCP - [facility]10/07/22 Sterling Kumar MD [address] [place] [address] [facility] MemberRelationshipSpecialtyStart DateEnd Elio Owens MD [address] [place] [address] PCP - [facility]10/07/22 Sterling Kumar MD [address] [place] [address] [facility] MemberRelationshipSpecialtyStart DateEnd Elio Owens MD [address] [place] [address] PCP - [facility]10/07/22 Sterling Kumar MD [address] [place] [address] [facility] MemberRelationshipSpecialtyStart DateEnd Elio Owens MD [address] [place] [address] PCP - [facility]10/07/22 Sterling Kumar MD [address] [place] [address] [facility] MemberRelationshipSpecialtyStart DateEnd Elio Owens MD [address] [place] [address] PCP - [facility]10/07/22 Sterling Kumar MD [address] [place] [address] [facility] MemberRelationshipSpecialtyStart DateEnd Elio Owens MD [address] [place] [address] PCP - [facility]10/07/22 Sterling Kumar MD [address] [place] [address] [facility] MemberRelationshipSpecialtyStart DateEnd Elio Owens MD [address] [place] [address] PCP - [facility]10/07/22 Sterling Kumar MD [address] [place] [address] [place] [address]Te MemberRelationshipSpecialtyStart DateEnd Date Elio Owens MD [address] [place] [address] [facility]10/07/22 Sterling Kumar MD [address] [place] [address] [place] [address] MemberRelationshipSpecialtyStart DateEnd Date Elio Owens MD [address] [facility] [address] [place] [address] [facility]10/07/22 Sterling Kumar MD [address] [facility] [address] [place] [address] [place] [address] MemberRelationshipSpecialtyStart DateEnd Date Elio Owens MD [address] [facility] [address] [place] [address] [facility]10/07/22 Sterling Kumar MD [address] [facility] [address] [place] [address] [place] [address] FOR RECORDS PERTAINING TO PATIENTS WHO ARE [...] BE BASED ON THE PRIMARY CLINICAL RECORDS. [facility] [employer] [facility]. provides no warranty or guarantee of the accuracy or completeness of information in this document.
== END 2025-04-21 10:37 | disposition home or self-care (01) ==
LOC: FHNEUROLOG 10:36
PROVIDERS: PCP Physician Assistant; Visit Provider Psychiatry & Neurology Neurology
DX: G47.33 Obstructive sleep apnea (adult) (pediatric) (principal); R09.02 Hypoxemia
CPT/HCPCS: G0463